=== PATIENT | female | born 2000 | race Caucasian/White ===

== ENCOUNTER → 2023-02-26 08:13 | Outpatient (CLI) | payer OTHER, SELFPAY ==
[2023-02-26 09:36] LABS: HCG,Quantitative 14 mIU/ml (0-5.42)
[2023-02-27 11:08] LABS: Progesterone 3.3 ng/mL (.)
== END ==
PROVIDERS: PCP Nurse Practitioner; Visit Provider Obstetrics & Gynecology
DX: Z34.91 Encounter for supervision of normal pregnancy, unspecified, first trimester (principal)
CPT/HCPCS: 36415; 84144; 84702; 86850

== ENCOUNTER 2023-02-27 07:50 | Outpatient (CLI) | payer OTHER, SELFPAY ==
[2023-02-27 14:35] VITALS: BP 114/61; PULSE 96; RESP 18; TEMP 36.8; O2SAT 100
== END 2023-02-27 14:35 | disposition home or self-care (01) ==
LOC: INF 07:50
PROVIDERS: PCP Nurse Practitioner; Visit Provider Obstetrics & Gynecology
DX: O36 Maternal care for other fetal problems; Z31.82 Encounter for Rh incompatibility status
CPT/HCPCS: 96372; J2790

== ENCOUNTER → 2023-03-02 13:35 | Outpatient (CLI) | payer OTHER, SELFPAY ==
[2023-03-02 16:16] LABS: HCG,Quantitative < 2 mIU/ml (0-5.42)
== END ==
PROVIDERS: PCP Nurse Practitioner; Visit Provider Obstetrics & Gynecology
DX: Z32.00 Encounter for pregnancy test, result unknown (principal)
CPT/HCPCS: 36415; 84702

== ENCOUNTER 2023-03-04 19:58 | Emergency (ER) | payer OTHER, SELFPAY ==
[2023-03-04 19:58] VITALS: BP 118/74; PULSE 121; RESP 16; TEMP 38.5; O2SAT 98; BMI 23.6
--- NOTE | 2023-03-04 20:03 | PC.NURSE ---
urine specimen sent to lab.
--- NOTE | 2023-03-04 20:17 | CT_ITS ---
PROCEDURE INFORMATION: Exam: CT Abdomen And Pelvis With Contrast Exam date and time: 03/04/2023 9:14 PM Age: 22 years old Clinical indication: Fever; Additional info: Fever, recent loss, no bleeding TECHNIQUE: Imaging protocol: Computed tomography of the abdomen and pelvis with contrast. Radiation optimization: All CT scans at this facility use at least one of these dose optimization techniques: automated exposure control; mA and/or kV adjustment per patient size (includes targeted exams where dose is matched to clinical indication); or iterative reconstruction. Contrast material: ISOVUE; Contrast volume: 75 ml; Contrast route: IV; REPORTING DATA: Count of CT and Cardiac NM exams in prior 12 months: This patient has received 0 known CTs and 0 known cardiac nuclear medicine studies in the 12 months prior to the current study. COMPARISON: CT ANGIO CHEST 07/11/2019 8:35 AM FINDINGS: Liver: Normal. No mass. Gallbladder and bile ducts: Normal. No calcified stones. No ductal dilation. Pancreas: Normal. No ductal dilation. Spleen: Normal. No splenomegaly. Adrenal glands: Normal. No mass. Kidneys and ureters: Normal. No hydronephrosis. Stomach and bowel: Unremarkable. No obstruction. No mucosal thickening. Appendix: No evidence of appendicitis. Intraperitoneal space: Unremarkable. No free air. No significant fluid collection. Vasculature: Unremarkable. No abdominal aortic aneurysm. Lymph nodes: Unremarkable. No enlarged lymph nodes. Urinary bladder: Unremarkable as visualized. Reproductive: Unremarkable as visualized. Bones/joints: Unremarkable. No acute fracture. Soft tissues: Unremarkable. IMPRESSION: No acute intra-abdominal findings.
--- NOTE | 2023-03-04 20:23 | HMH.EDGENADL ---
Discharge Plan Disposition Patient Disposition: Home, Self-Care Condition: Good Prescriptions Prescriptions: New polyethylene glycol 3350 [Miralax] 17 gram/dose powder 17 g PO DAILY PRN (Reason: constipation) Qty: 238 0RF No Action progesterone micronized [Prometrium] 100 mg capsule 100 mg vaginal DAILY 21 Days Qty: 30 2RF Rx Instructions: Please place one tablet vaginally each night until 12 weeks gestation prednisone 50 MG tablet 50 mg PO DAILY Qty: 5 0RF Rx Instructions: Take with food dextromethorphan-guaifenesin 1 EACH tablet extended release 12 hr 1 tab PO BID PRN (Reason: Cough) Qty: 20 0RF sulfamethoxazole-trimethoprim 1 EACH tablet 1 each PO BID Qty: 6 0RF Referrals Follow up/Referrals: Delia Rasheed APRN [Primary Care Provider] - See instructions Activity Restrictions/Add. Instructions Additional Instructions/Restrictions: You were evaluated in the emergency department today. Please coal picker your prescription at the pharmacy and use as needed for a bowel cleanout. I recommend taking 4 capfuls MiraLAX on day 1. Then after that, use 1-2 capfuls per day to titrate to soft stools. Take Tylenol and ibuprofen at home as needed for pain or fever. Return to the emergency department for new or worsening symptoms. Clinical Impressions Clinical Impression: Acute viral syndrome, Constipation Stand Alone Forms Stand Alone Forms: Work/School Release Instructions Patient Instructions: DI for Constipation, DI for Acute Abdominal Pain, DI for Viral Syndrome Discharge ED Provider: Suzan López General Adult HPI General Chief complaint: Abdominal Pain Stated complaint: Fever/chills, bilateral side pain Time Seen by Provider: 03/04/23 20:17 Mode of Arrival: Ambulatory Source of Information: Patient Limitations: No Limitations Description of Symptoms (Recalled from ER Triage Doc. by RN): pt reports she was diagnosed with miscarriage last week, has not began bleeding, having right lower abd pain, fever, states she took a home covid test that was negative. fever started today History of Present Illness HPI narrative: This patient is a 22-year-old female who denies significant past medical history presenting to the emergency department for evaluation with concern for fever and abdominal pain. She states that she was diagnosed with a miscarriage last week after her hCG became undetectable on lab evaluation. She denies any previous ultrasound. States that today, she started having lower abdominal pain and fever. She denies any headache, sore throat, cough, congestion, chest pain, shortness of breath, dysuria, polyuria, abnormal vaginal discharge, or other concerns. She does admit to nausea but no vomiting. She also states that she has been constipated. She states that she has had a miscarriage in the past but has had vaginal bleeding right after. She has not had any vaginal bleeding with this. Related Data Previous Rx's Medication Instructions Recorded dextromethorphan-guaifenesin ER 60 1 tab PO BID PRN Cough #20 tabs 07/11/19 mg-1,200 mg tab,extend release,12hr prednisone 50 mg tablet 50 mg PO DAILY #5 tabs 07/11/19 sulfamethoxazole 800 1 each PO BID #6 tabs 07/11/19 mg-trimethoprim 160 mg tablet progesterone micronized 100 mg 100 mg vaginal DAILY 21 days #30 02/27/23 capsule (Prometrium) caps polyethylene glycol 3350 17 17 g PO DAILY PRN constipation 03/04/23 gram/dose oral powder (Miralax) #238 grams Allergies Allergy/AdvReac Type Severity Reaction Status Date / Time amoxicillin Allergy Verified 07/11/19 08:13 Penicillins Allergy Verified 07/11/19 08:13 [facility] Disclaimer: The information contained in this section may have been updated after the patient was seen, as this information can be updated by other users. Social History Smoking Status: Current every day smoker alcohol intake: never
[2023-03-04 20:29] LABS: Microscopic, Urine URINE MICROSCOPIC (MICROSCOPIC)
[2023-03-04 20:30] VITALS: BP 119/71; PULSE 112; RESP 20; O2SAT 100
[2023-03-04 20:37] LABS: Lactic Acid 1.4 mmol/L (0.7-2.1)
[2023-03-04 20:38] LABS: Alanine Aminotransferase 33 U/L (12-78); Albumin Level 4.5 g/dl (3.5-5.0); Albumin/Globulin Ratio 1.3 (1.1-1.8); Alkaline Phosphatase 88 U/L (38-126); Aspartate Amino Transferase 33 U/L (14-36); Bilirubin,Total 0.2 mg/dl (0.2-1.3); Blood Urea Nitrogen 8 mg/dl (7-17); Carbon Dioxide 24 mmol/L (22.0-30.0); Chloride 100 mmol/L (98-107); Creatinine Clearance Estimated 125 mL/min (50-200); Estimated Glomerular Filt Rate 89 ml/min (>60); GFR (African American) 108 ML/MIN (>60); Globulin 3.6 g/dL (1.3-3.2); Glucose 106 mg/dl (74-100); Sodium 136 mmol/L (136-145); Total Protein,Serum 8.1 g/dl (6.3-8.2)
[2023-03-04 20:41] LABS: Basophils % 0.4 % (0.1-2.0); Eosinophils # 0.1 K/mm3 (0.0-0.4); Eosinophils % 0.9 % (0.1-12.0); Hematocrit 47.7 % (37.0-47.0); Hemoglobin 15.1 g/dL (12.2-16.2); Lymphocytes # 1.1 K/mm3 (0.7-4.5); Lymphocytes % 14.7 % (10-50); Mean Corpuscular HGB Conc 31.7 g/dL (31.8-35.4); Mean Corpuscular Hemoglobin 28.8 pg (27.0-31.2); Mean Corpuscular Volume 90.8 fl (81-99); Mean Platelet Volume 8.5 fl (7.4-10.4); Monocytes # 0.4 K/mm3 (0.1-1.0); Monocytes % 5.5 % (1.7-9.3); Neutrophils # 5.9 K/mm3 (1.8-7.8); Neutrophils % 78.5 % (37.0-80.0); Platelet Count 253 K/mm3 (142-424); Red Blood Count 5.25 M/mm3 (4.20-5.40); Red Cell Distribution Width 12.5 % (11.5-17.5); White Blood Count 7.5 K/mm3 (4.8-10.8)
[2023-03-04 20:48] LABS: Appearance,Urine CLEAR (Clear); Bilirubin,Urine Negative (Negative); Blood, Urine TRACE-I (Negative); Color,Urine YELLOW (Yellow); Glucose,Urine (UA) Negative (Negative); Ketones,Urine Negative (Negative); Leukocyte Esterase,Urine TRACE (Negative); Nitrate,Urine Negative (Negative); PH,Urine 7.5 (5.0-8.5); Protein,Urine Negative (Negative); Urobilinogen,Urine 0.2 EU/dl (0.2)
[2023-03-04 20:53] VITALS: BP 134/90; PULSE 61; RESP 14; TEMP 36.6; O2SAT 100
[2023-03-04 21:00] VITALS: BP 117/72; PULSE 117; RESP 18; O2SAT 100
[2023-03-04 21:04] LABS: HCG,Quantitative < 2 mIU/ml (0-5.42)
[2023-03-04 22:34] LABS: RBC,Urine Occasional #/hpf (0-3); WBC,Urine Occasional #/hpf (0-3)
--- NOTE | 2023-03-07 22:47 | EXP.EVENT.NO ---
I was notified of positive blood cultures from 03/05/2023. They came back positive today for gram-positive cocci in clusters and budding yeast. I called the patient and spoke with her. She states that she was diagnosed with strep recently and is already feeling much better on oral antibiotics. She states that she has not been having daily fevers. I advised her that bacteria in the bloodstream would have to be treated with IV antibiotics, and I recommended that she come to the emergency department for reassessment. She states that she is aware and thanks us for the recommendation.
== END 2023-03-04 23:25 | disposition home or self-care (01) ==
PROVIDERS: Emergency Provider Emergency Medicine; PCP Nurse Practitioner
DX: R10.31 Right lower quadrant pain (principal); R50.9 Fever, unspecified; K59.00 Constipation, unspecified; B34.9 Viral infection, unspecified; R11.0 Nausea; F17.200 Nicotine dependence, unspecified, uncomplicated
CPT/HCPCS: 74177; 80053; 81001; 83605; 84702; 85025; 87040; 96361; 96374; 96375; 99285; J0131; J2405; Q9967

== ENCOUNTER 2023-03-05 09:31 | Emergency (ER) | payer OTHER, SELFPAY ==
[2023-03-05 09:42] VITALS: BMI 23.6
[2023-03-05 09:43] VITALS: BP 129/86; PULSE 104; RESP 17; TEMP 37.3; O2SAT 99; BMI 23.6
[2023-03-05 10:00] VITALS: BP 138/80; PULSE 96; O2SAT 99
--- NOTE | 2023-03-05 10:11 | US_ITS ---
PROCEDURE INFORMATION: Exam: US Pelvis, Transvaginal Exam date and time: 03/05/2023 10:41 AM Age: 22 years old Clinical indication: Other: Fever; Prior surgery; Surgery date: 6+ months; Surgery type: ; Additional info: Previous pos hcg, never spotted or expelled LABS AND CLINICAL REPORTS: Last menstrual period start date: 02/12/2023 TECHNIQUE: Imaging protocol: Real-time transvaginal pelvic ultrasound with image documentation. Transvaginal imaging was used for better evaluation of the endometrium, adnexa, and/or cervix. COMPARISON: CT ABDOMEN PELVIS W CON 03/04/2023 9:14 PM FINDINGS: Uterus: Endometrium measures 3.4 mm. No focal myometrial lesions. No abnormal Doppler. No intrauterine . Right ovary/adnexa: Right ovary measures 3.43 cm x 2.09 cm x 1.59 cm. Right ovarian volume is 5.97 mL. Ovarian stroma is unremarkable. There is normal arterial inflow and venous outflow. Left ovary/adnexa: Left ovary measures 2.71 cm x 2.15 cm x 1.24 cm. Ovarian stroma is unremarkable. There is normal arterial inflow and venous outflow. Left ovarian volume is 3.78 mL. Intraperitoneal space: No free fluid. IMPRESSION: In the setting of a positive test, sonographic findings are consistent with of unknown location. Considerations include a normal intrauterine too early to visualize, completed miscarriage, and ectopic . Otherwise, unremarkable evaluation of the uterus and adnexa Recommendation: Recommend correlation with beta hCG values and close clinical follow-up with repeat sonography as clinically warranted
--- NOTE | 2023-03-05 10:13 | HMH.EDGENADL ---
Discharge Plan Disposition Patient Disposition: Home, Self-Care Chief Complaint: Fever Prescriptions Prescriptions: No Action progesterone micronized [Prometrium] 100 mg capsule 100 mg vaginal DAILY 21 Days Qty: 30 2RF Rx Instructions: Please place one tablet vaginally each night until 12 weeks gestation polyethylene glycol 3350 [Miralax] 17 gram/dose powder 17 g PO DAILY PRN (Reason: constipation) Qty: 238 0RF prednisone 50 MG tablet 50 mg PO DAILY Qty: 5 0RF Rx Instructions: Take with food dextromethorphan-guaifenesin 1 EACH tablet extended release 12 hr 1 tab PO BID PRN (Reason: Cough) Qty: 20 0RF sulfamethoxazole-trimethoprim 1 EACH tablet 1 each PO BID Qty: 6 0RF Referrals Follow up/Referrals: Delia Rasheed APRN [Primary Care Provider] - See instructions Clinical Impressions Clinical Impression: Pelvic pain Discharge ED Provider: Remy Duran General Adult HPI General Chief complaint: Fever Stated complaint: fever body chills, back pain, miscarrage Time Seen by Provider: 03/05/23 09:50 Mode of Arrival: Ambulatory Source of Information: Patient Limitations: No Limitations Description of Symptoms (Recalled from ER Triage Doc. by RN): 22 yo F presents to ED with c/o fever, chills, bilateral flank pain, back pain. pt reports that she was seen in ED yesterday but symptoms continue. pt was diagnosed with confirmed miscarriage 02/24/23. pt reports no bleeding or spotting. symptoms began 2 days after confirmation. pts seen [facility] with obgyn History of Present Illness HPI narrative: Patient is a 22-year-old female who presents to the emergency department for evaluation of low pelvic pain and back pain. History is obtained by patient at bedside. She states that her last menstrual period was around February 12. She presented to [facility] where she was reportedly diagnosed with a miscarriage where hCGs were previously positive at 13 but now undetectably low. Patient denies vaginal bleeding or discharge. She states that she has had a previous spontaneous which she had cramping and passage of clots. However she has not had any vaginal bleeding since her diagnosis of . She presented to the emergency room last night where patient underwent work-up with hematologic labs and CT imaging was unremarkable and she was ultimately discharged home. After returning home patient has since developed progressive worsening low pelvic pain and back pain, fever Tmax 102 degrees at home causing her to present here for continued evaluation. Related Data Previous Rx's Medication Instructions Recorded dextromethorphan-guaifenesin ER 60 1 tab PO BID PRN Cough #20 tabs 07/11/19 mg-1,200 mg tab,extend release,12hr prednisone 50 mg tablet 50 mg PO DAILY #5 tabs 07/11/19 sulfamethoxazole 800 1 each PO BID #6 tabs 07/11/19 mg-trimethoprim 160 mg tablet progesterone micronized 100 mg 100 mg vaginal DAILY 21 days #30 02/27/23 capsule (Prometrium) caps polyethylene glycol 3350 17 17 g PO DAILY PRN constipation 03/04/23 gram/dose oral powder (Miralax) #238 grams Allergies Allergy/AdvReac Type Severity Reaction Status Date / Time amoxicillin Allergy Verified 03/05/23 09:46 Penicillins Allergy Verified 03/05/23 09:46 [facility] Disclaimer: The information contained in this section may have been updated after the patient was seen, as this information can be updated by other users. Social History Smoking Status: Current every day smoker alcohol intake: never current occupational status: employed Travel in the last 8 weeks: None household members: spouse ROS Obtained: Yes Systems reviewed as appropriate & no additional complaints except as documented Physical Exam General General appearance: alert and in no apparent distress Head Head exam: atraumatic and normocephalic Eye Eye exam: Present
[2023-03-05 10:49] LABS: Basophils % 0.7 % (0.1-2.0); Eosinophils % 0.2 % (0.1-12.0); Hematocrit 46.3 % (37.0-47.0); Hemoglobin 14.7 g/dL (12.2-16.2); Lymphocytes # 1.2 K/mm3 (0.7-4.5); Lymphocytes % 21.6 % (10-50); Mean Corpuscular HGB Conc 31.7 g/dL (31.8-35.4); Mean Corpuscular Volume 91.6 fl (81-99); Mean Platelet Volume 8.6 fl (7.4-10.4); Monocytes # 0.5 K/mm3 (0.1-1.0); Monocytes % 8.2 % (1.7-9.3); Neutrophils # 3.9 K/mm3 (1.8-7.8); Neutrophils % 69.3 % (37.0-80.0); Platelet Count 198 K/mm3 (142-424); Red Blood Count 5.05 M/mm3 (4.20-5.40); Red Cell Distribution Width 12.6 % (11.5-17.5); White Blood Count 5.7 K/mm3 (4.8-10.8)
--- NOTE | 2023-03-05 11:00 | PC.NURSE ---
Rounded on patient; pt currently in [place] at this time. Mother at BS and has no needs.
[2023-03-05 11:03] LABS: Chloride 104 mmol/L (98-107); Sodium 137 mmol/L (136-145)
[2023-03-05 11:04] LABS: Potassium 4.2 mmoL/L (3.5-5.1)
[2023-03-05 11:06] LABS: Alanine Aminotransferase 34 U/L (12-78); Albumin Level 3.9 g/dl (3.5-5.0); Albumin/Globulin Ratio 1.2 (1.1-1.8); Alkaline Phosphatase 100 U/L (38-126); Anion Gap 10.2 mEq/L (5-15); Aspartate Amino Transferase 32 U/L (14-36); Bilirubin,Total 0.2 mg/dl (0.2-1.3); Blood Urea Nitrogen 9 mg/dl (7-17); Carbon Dioxide 27 mmol/L (22.0-30.0); Creatinine Clearance Estimated 143 mL/min (50-200); Estimated Glomerular Filt Rate 104 ml/min (>60); GFR (African American) 125 ML/MIN (>60); Globulin 3.2 g/dL (1.3-3.2); Total Protein,Serum 7.1 g/dl (6.3-8.2)
[2023-03-05 11:07] LABS: Calcium 8.8 mg/dl (8.4-10.2); Glucose 82 mg/dl (74-100)
[2023-03-05 11:30] VITALS: BP 122/66; PULSE 95; O2SAT 97
[2023-03-05 11:38] LABS: HCG,Quantitative < 2 mIU/ml (0-5.42)
--- NOTE | 2023-03-05 11:42 | PC.NURSE ---
Dr. Duran speaking with Dr. Serrato, DRAMA PROFESSOR
--- NOTE | 2023-03-05 11:53 | PC.NURSE ---
Dr Joshi is going to come and see pt
[2023-03-05 12:03] LABS: Coronavirus 19, PCR Not Detected (NotDetected); Influenza A, PCR Not Detected (NotDetected); Influenza B, PCR Not Detected (NotDetected)
--- NOTE | 2023-03-05 13:00 | PC.NURSE ---
dr olson at bedside
[2023-03-05 13:16] VITALS: BP 122/66; PULSE 95; RESP 16; TEMP 37.3
[2023-03-06 23:56] LABS: Neisseria gonorrhoeae, NAA Negative (Negative)
--- NOTE | 2023-03-07 22:49 | PC.NURSE ---
Dr López on phone speaking with pt and recommends re evaluation but pt states she feels better and doesn't want to be re evaluated.
== END 2023-03-05 13:17 | disposition home or self-care (01) ==
PROVIDERS: Emergency Provider Emergency Medicine; PCP Nurse Practitioner
DX: R10.2 Pelvic and perineal pain (principal); R00.0 Tachycardia, unspecified; O03.9 Complete or unspecified spontaneous abortion without complication
CPT/HCPCS: 76830; 80053; 84702; 85025; 87040; 87186; 87491; 87591; 87636; 96361; 96374; 96375; 99285; J0131; J2405

== ENCOUNTER 2023-03-05 21:15 | Emergency (ER) | payer OTHER, SELFPAY ==
[2023-03-05 21:18] VITALS: BP 119/73; PULSE 116; RESP 16; TEMP 38.6; O2SAT 97; BMI 25.1
[2023-03-05 22:18] VITALS: BP 0/0; PULSE 0; RESP 0; TEMP -17.7; TEMP 0; O2SAT 0
--- NOTE | 2023-03-05 22:18 | HMH.EDGENADL ---
Discharge Plan Disposition Patient Disposition: Left Without Being Seen Discharge ED Provider: Suzan López General Adult HPI General Chief complaint: Fever Stated complaint: pain in upper neck Time Seen by Provider: 03/05/23 22:14 Mode of Arrival: Ambulatory Source of Information: Patient Limitations: No Limitations Description of Symptoms (Recalled from ER Triage Doc. by RN): pt c/o sore throat, LLQ pain, fever x several days and was seen earlier today in the er. Related Data Previous Rx's Medication Instructions Recorded dextromethorphan-guaifenesin ER 60 1 tab PO BID PRN Cough #20 tabs 07/11/19 mg-1,200 mg tab,extend release,12hr prednisone 50 mg tablet 50 mg PO DAILY #5 tabs 07/11/19 sulfamethoxazole 800 1 each PO BID #6 tabs 07/11/19 mg-trimethoprim 160 mg tablet progesterone micronized 100 mg 100 mg vaginal DAILY 21 days #30 02/27/23 capsule (Prometrium) caps polyethylene glycol 3350 17 17 g PO DAILY PRN constipation 03/04/23 gram/dose oral powder (Miralax) #238 grams Allergies Allergy/AdvReac Type Severity Reaction Status Date / Time amoxicillin Allergy Verified 03/05/23 09:46 Penicillins Allergy Verified 03/05/23 09:46 [facility] Disclaimer: The information contained in this section may have been updated after the patient was seen, as this information can be updated by other users. Social History Smoking Status: Current every day smoker alcohol intake: never current occupational status: employed Travel in the last 8 weeks: None household members: spouse Medical Decision Making Vital Signs: 03/05/23 21:18 03/05/23 22:18 Temperature 101.4 F H 0 F L Temperature Source Oral Pulse Rate 0 L Pulse Rate [Right] 116 H Respiratory Rate 16 0 L Blood Pressure 0/0 L Blood Pressure [Right Arm] 119/73 Blood Pressure Mean [Right Arm] 88 02 Sat by Pulse Oximetry 97 Orders (Tests/Meds): ORDERS Category Date Time Status Complete Blood Count Auto Diff Stat Lab 03/05/23 22:14 Ordered Comprehensive Metabolic Panel Stat Lab 03/05/23 22:14 Ordered Full Resp Panel w/COVID ([facility]) Routine Lab 03/05/23 22:14 Ordered Procalcitonin Stat Lab 03/05/23 22:14 Ordered
== END 2023-03-05 22:19 | disposition left against medical advice (07) ==
PROVIDERS: Emergency Provider Emergency Medicine; PCP Nurse Practitioner
DX: Z53.21 Procedure and treatment not carried out due to patient leaving prior to being seen by health care provider (principal)
CPT/HCPCS: 99211

== ENCOUNTER 2024-10-10 12:26 | Outpatient (CLI) | payer OTHER, SELFPAY ==
[2024-10-10 13:37] LABS: HCG,Quantitative 1021 mIU/ml (0-5.42)
[2024-10-11 08:25] LABS: Progesterone 8.4 ng/mL (.)
== END 2024-10-10 23:59 | disposition home or self-care (01) ==
LOC: LAB 12:26
PROVIDERS: PCP Nurse Practitioner; Visit Provider Obstetrics & Gynecology
DX: Z32.01 Encounter for pregnancy test, result positive (principal)
CPT/HCPCS: 36415; 84144; 84702

== ENCOUNTER 2024-10-17 10:40 | Outpatient (CLI) | payer OTHER, SELFPAY ==
[2024-10-17 12:15] LABS: HCG,Quantitative 17293 mIU/ml (0-5.42)
== END 2024-10-17 23:59 | disposition home or self-care (01) ==
LOC: LAB 10:40
PROVIDERS: PCP Nurse Practitioner; Visit Provider Obstetrics & Gynecology
DX: Z32.01 Encounter for pregnancy test, result positive (principal)
CPT/HCPCS: 36415; 84702

== ENCOUNTER 2024-10-17 17:04 | Emergency (ER) | payer OTHER, SELFPAY ==
[2024-10-17 17:12] VITALS: BP 125/64; PULSE 81; RESP 18; TEMP 36.8; O2SAT 100; BMI 24.2
--- NOTE | 2024-10-17 17:18 | HMH.EDGENADL ---
Discharge Plan Disposition Patient Disposition: Home, Self-Care Condition: Good Prescriptions Prescriptions: No Action progesterone micronized [Prometrium] 200 mg capsule 200 mg vaginal QHS 30 Days Qty: 30 2RF Referrals Follow up/Referrals: Delia Rasheed APRN [Primary Care Provider] - See instructions Activity Restrictions/Add. Instructions Additional Instructions/Restrictions: You need to follow-up with your SHIPPING ORDER CLERK within 48 hours. If you have continued new or worsening signs or symptoms follow-up sooner return to the ER as needed. Clinical Impressions Clinical Impression: Vaginal bleeding during Print Language Print Language: Thai Discharge ED Provider: Patel Marrero General Adult HPI <AURA Coy - Last Filed: 10/17/24 20:49> General Chief complaint: Vaginal Bleeding Stated complaint: and bleeding,does not know how far along Time Seen by Provider: 10/17/24 17:18 Mode of Arrival: Ambulatory Source of Information: Patient Description of Symptoms (Recalled from ER Triage Doc. by RN): Pt presents for evaluation of vaginal bleeding that started today. Pt states the bleeding is spotting in nature. LMP unknown. Pt states this is her 4th and has had 1 miscarriage. History of Present Illness HPI narrative: Patient presents for evaluation of bleeding during . Patient began having spotting today. She knows that she is but she does not know how long. She has had 2 hCGs most recent 1 this morning. She does not report any abdominal cramping or pain chest pain shortness of breath fever chills hemoptysis hematochezia melena nausea vomit diarrhea. She is O- and antibody negative Related Data Previous Rx's ?Medication ?Instructions ?Recorded progesterone micronized 200 mg 200 mg vaginal QHS 30 days #30 caps 10/11/24 capsule (Prometrium) Allergies Allergy/AdvReac Type Severity Reaction Status Date / Time amoxicillin Allergy Verified 09/17/23 10:14 Penicillins Allergy Verified 09/17/23 10:14 PFSH <AURA Coy - Last Filed: 10/17/24 20:49> [facility] Disclaimer: The information contained in this section may have been updated after the patient was seen, as this information can be updated by other users. Medical History (Updated 10/17/24 @ 19:24 by AURA Coy) Ovarian cyst Surgical History (Updated 09/17/23 @ 10:21 by TAISHA Stringer) Hx of section Family History (Updated 09/17/23 @ 10:21 by TAISHA Stringer) Grandmother Cancer Endometriosis Other Diabetes Hypertension No significant family history Thyroid disorder Social History Smoking Status: Never smoker alcohol intake: never current occupational status: employed Travel in the last 8 weeks?: None household members: spouse Have you lived/traveled outside US in past 30 days?: No Contact w/someone who lives/traveled outside US past 30 days?: No Exposure to someone with infectious disease in past 14 days?: No Do you have a fever (greater than 100.4 F or 38 C)?: No Have you tested positive for COVID-19?: No Exposed to someone with COVID-19 in past 14 days?: No Do you have a sore throat?: No Do you have a cough?: No Do you have any weakness?: No Do you have any diarrhea?: No Are you experiencing any unusual bleeding?: No Do you have any muscle aches/pain?: No Do you have any abdominal pain?: No Are you experiencing loss of taste or smell?: No Other Medical History Have you received the Flu Vaccine for this season: No Have you received the Pneumonia Vaccine: No <AURA Coy - Last Filed: 10/17/24 20:49> ROS Obtained: Yes Systems reviewed as appropriate & no additional complaints except as documented Physical Exam <AURA Coy - Last Filed: 10/17/24 20:49> General General appearance: alert and in no apparent distress ENT ENT exam: Present mucous membranes moist Respiratory Respiratory exam: Present normal lung sounds bilaterally Cardiovascular Cardiovascular exam: Present regular rate Neurological Exam Neurological exam: Present alert and oriented X3 Medical Decision Making <AURA Coy - Last Filed: 10/17/24 20:49> Medical Records Medical records reviewed: Yes I reviewed the patient's medical records. Screening: Per USPSTF and CDC recommendations, given the prevalence of disease in our region, it is our hospital?s policy to screen for HIV and viral Hepatitis for all patients aged 18 and over and those with ongoing risk factors. William Inquiry Pt receiving controlled substance: No Vital Signs: 10/17/24 17:12 10/17/24 19:27 Temperature 98.3 F 98.3 F Temperature Source Oral Pulse Rate 68 Pulse Rate [Right] 81 Respiratory Rate 18 18 Blood Pressure 118/75 Blood Pressure [Right Arm] 125/64 Blood Pressure Mean [Right Arm] 84 Blood Pressure Source [Right Arm] Automatic Cuff 02 Sat by Pulse Oximetry 100 Oxygen Delivery Method Room Air Room Air Lab Data Lab results reviewed: Yes I reviewed the patient's lab results. Lab Results 10/17/24 17:53: Urine Color Yellow, Urine Appearance Clear, Urine pH 7.5, Ur Specific [place] 1.020, Urine Protein 2+ A, Urine Glucose (UA) Negative, Urine Ketones Negative, Urine Blood 3+ A, Urine Nitrate Negative, Urine Bilirubin 1+ A, Urine Urobilinogen 2.0, Ur Leukocyte Esterase Trace, Urine RBC 5-10, Urine WBC 3-5, Ur Squamous Epith Cells 5-10, Urine Bacteria Trace Orders (Tests/Meds): ED MEDICATIONS Discontinued Medications Generic Name Dose Route Start Last Admin Trade Name Freq PRN Reason Stop Dose Admin Rho Immune Globulin 300 mcg 10/17/24 18:13 10/17/24 18:52 Rho(D) Immune Globulin 1,500 Unit (300mcg) Syringe IM 10/17/24 18:14 300 mcg ONCE ONE Administration ORDERS Category Date Time Status Urinalysis and Microscopic Stat Lab 10/17/24 17:53 Completed US OB transvaginal Stat Ultrasound 10/17/24 17:27 Completed Medical Decision Narrative: In summary patient is a 23-year-old female who presents to the emergency department for evaluation of vaginal bleeding during . Patient is hemodynamically stable upon arrival, afebrile. Physical exam is remarkable for no abdominal tenderness on palpation no rebound or guarding no rigidity normal bowel sounds.. Differential diagnosis includes threatened versus other source of vaginal bleeding. Initial workup will be conducted with urinalysis and transvaginal ultrasound and patient's hCG did a reviewed from earlier today is 17,000 293. Initial interventions was RhoGAM as patient is O- and antibody negative. Initial workup reviewed by me urinalysis is bland and transvaginal ultrasound reveals a viable intrauterine of approximately 6 weeks gestation however no pole was seen nor heartbeat is likely too early.. Given this patient is appropriate for discharge with follow-up with SHIPPING ORDER CLERK within 48 hours and strict return precautions. Patient verbalized understanding and agreement. <Patel Marrero MD - Last Filed: 10/17/24 21:22> Vital Signs: 10/17/24 17:12 10/17/24 19:27 Temperature 98.3 F 98.3 F Temperature Source Oral Pulse Rate 68 Pulse Rate [Right] 81 Respiratory Rate 18 18 Blood Pressure 118/75 Blood Pressure [Right Arm] 125/64 Blood Pressure Mean [Right Arm] 84 Blood Pressure Source [Right Arm] Automatic Cuff 02 Sat by Pulse Oximetry 100 Oxygen Delivery Method Room Air Room Air Lab Data Lab Results 10/17/24 17:53: Urine Color Yellow, Urine Appearance Clear, Urine pH 7.5, Ur Specific [place] 1.020, Urine Protein 2+ A, Urine Glucose (UA) Negative, Urine Ketones Negative, Urine Blood 3+ A, Urine Nitrate Negative, Urine Bilirubin 1+ A, Urine Urobilinogen 2.0, Ur Leukocyte Esterase Trace, Urine RBC 5-10, Urine WBC 3-5, Ur Squamous Epith Cells 5-10, Urine Bacteria Trace Orders (Tests/Meds): ED MEDICATIONS Discontinued Medications Generic Name Dose Route Start Last Admin Trade Name [place] PRN Reason Stop Dose Admin Rho Immune Globulin 300 mcg 10/17/24 18:13 10/17/24 18:52 Rho(D) Immune Globulin 1,500 Unit (300mcg) Syringe IM 10/17/24 18:14 300 mcg ONCE ONE Administration ORDERS Category Date Time Status Urinalysis and Microscopic Stat Lab 10/17/24 17:53 Completed US OB transvaginal Stat Ultrasound 10/17/24 17:27 Completed Medical Decision Narrative: In summary patient is a 23-year-old female who presents to the emergency department for evaluation of vaginal bleeding during . Patient is hemodynamically stable upon arrival, afebrile. Physical exam is remarkable for no abdominal tenderness on palpation no rebound or guarding no rigidity normal bowel sounds.. Differential diagnosis includes threatened versus other source of vaginal bleeding. Initial workup will be conducted with urinalysis and transvaginal ultrasound and patient's hCG did a reviewed from earlier today is 17,000 293. Initial interventions was RhoGAM as patient is O- and antibody negative. Initial workup reviewed by me urinalysis is bland and transvaginal ultrasound reveals a viable intrauterine of approximately 6 weeks gestation however no pole was seen nor heartbeat is likely too early.. Given this patient is appropriate for discharge with follow-up with SHIPPING ORDER CLERK within 48 hours and strict return precautions. Patient verbalized understanding and agreement. JOSIAS attestation I was consulted by the JOSIAS, and we discussed the complexity of problems being addressed. I approved the treatment and management plan for this patient's care in the emergency department, thus performing a substantial portion of the medical decision making. Also evaluated the patient at bedside. Patel Marrero MD Critical Care <AURA Coy - Last Filed: 10/17/24 20:49> Critical Care Time Critical Care Time: No
--- NOTE | 2024-10-17 17:27 | US_ITS ---
PROCEDURE INFORMATION: Exam: US , Transvaginal Exam date and time: 10/17/2024 5:48 PM Age: 23 years old Clinical indication: Lmp or gestational age (in weeks): Unkown; Other: Bleeding; ; Additional info: Bleeding, positive hcg TECHNIQUE: Imaging protocol: Real-time transvaginal obstetrical ultrasound of the maternal pelvis with image documentation. Transvaginal imaging was used for better evaluation of the fetus, adnexa, and/or cervix. COMPARISON: US TRANSVAGINAL 03/05/2023 10:41 AM FINDINGS: Gestation: Yolk sac measures 4.2 mm. Intrauterine gestation. BIOMETRY: Gestational age (AUA): 6 w 1 d Estimated due date (AUA): 06/11/2025 Mean sac diameter: 0.91 cm. [place] rump length (CRL): 6.82 mm. EGA (CRL) is 6 w 4 d MATERNAL: Right ovary/adnexa: Right ovary measures 3.7 x 2.2 x 1.7 cm. Probable corpus luteum is noted in the right ovary. Left ovary/adnexa: Multiple follicles are seen in the left ovary. Left ovary measures 2.1 x 2.0 x 1.2 cm. IMPRESSION: Single viable intrauterine gestation, estimated gestational age 6 weeks and 4 days. A pole is not clearly identified and no yolk sac or heartbeat is as of yet identified.
[2024-10-17 17:56] LABS: Microscopic, Urine URINE MICROSCOPIC (MICROSCOPIC)
[2024-10-17 18:01] LABS: Appearance,Urine CLEAR (Clear); Blood, Urine 3+ (Negative); Color,Urine YELLOW (Yellow); Glucose,Urine (UA) Negative (Negative); Ketones,Urine Negative (Negative); Leukocyte Esterase,Urine TRACE (Negative); Nitrate,Urine Negative (Negative); PH,Urine 7.5 (5.0-8.5); Protein,Urine 2+ (Negative)
[2024-10-17 18:22] LABS: Bilirubin,Urine 1+ (Negative)
[2024-10-17 18:23] LABS: Bacteria,Urine Trace /lpf
[2024-10-17] MEDS: RHO(D) IMMUNE GLOBULIN 1,500 UNIT (300MCG) SYRINGE 300 MCG IM (18:52)
[2024-10-17 19:27] VITALS: BP 118/75; PULSE 68; RESP 18; TEMP 36.8; O2SAT 98
== END 2024-10-17 19:27 | disposition home or self-care (01) ==
PROVIDERS: Emergency Provider Student in an Organized Health Care Education/Training Program; PCP Nurse Practitioner
DX: O20.9 Hemorrhage in early pregnancy, unspecified (principal); Z3A.01 Less than 8 weeks gestation of pregnancy
CPT/HCPCS: 76817; 81001; 96372; 99284; J2790

== ENCOUNTER 2024-10-21 10:04 | Outpatient (CLI) | payer OTHER, SELFPAY ==
--- NOTE | 2024-10-21 10:30 | US_ITS ---
PROCEDURE: US OB <= 14 WEEKS FETUS CLINICAL INDICATION: Confirm viability /dates and cardiac activity COMPARISON: US US OB TRANSVAGINAL from 10/17/2024 FINDINGS: Transvaginal sonographic images of the pelvis were obtained. Her last menstrual period is unknown. An intrauterine gestational sac is present with a pole with a crown-rump length of 0.26cm This correlates to a gestational age of 5weeks 6days. OMAR 06/17/2025 heart tones are present with an FHR of 92bpm. Yolk sac is noted. The yolk sac measures 4.3mm. The right ovary is seen and appears normal. There is a corpus luteum present in the right ovary that measures 1.3 cm. The left ovary is seen and appears normal. There is no fluid in the cul-de-sac. IMPRESSION: 1. Viable embryo within the uterine cavity. Heart rate activity is seen. 2. The embryo measures 5 weeks and 6 days and based on this ultrasound OMAR will be 06/17/2025. 3. Both ovaries are seen and appear normal. A corpus luteum is seen in the right ovary. Dictated by: Carlo Goddard MD 10/22/2024 08:39 Carlo Goddard MD in OV 10/22/2024 08:39
[2024-10-21 11:45] LABS: HCG,Quantitative 50858 mIU/ml (0-5.42)
== END 2024-10-21 23:59 | disposition home or self-care (01) ==
LOC: RAD 10:04
PROVIDERS: PCP Nurse Practitioner; Visit Provider Obstetrics & Gynecology
DX: Z36.87 Encounter for antenatal screening for uncertain dates (principal); O46.91 Antepartum hemorrhage, unspecified, first trimester; O36.80X0 Pregnancy with inconclusive fetal viability, not applicable or unspecified; Z3A.01 Less than 8 weeks gestation of pregnancy
CPT/HCPCS: 36415; 76801; 84702

== ENCOUNTER 2024-11-24 13:06 | Emergency (ER) | payer OTHER, SELFPAY ==
[2024-11-24 13:11] VITALS: BP 127/80; PULSE 96; RESP 18; TEMP 36.6; O2SAT 100; BMI 22.1
[2024-11-24 13:33] LABS: Basophils % 0.3 % (0.1-2.0); Eosinophils # 0.1 Kmm3 (0.0-0.4); Eosinophils % 1.3 % (0.1-12.0); Hemoglobin 13.6 g/dL (12.2-16.2); Immature Granulocytes # 0.03 10^3uL; Immature Granulocytes % 0.3 %; Lymphocytes # 3.1 K/mm3 (0.7-4.5); Lymphocytes % 29.8 % (10-50); Mean Corpuscular Hemoglobin 30.3 pg (27.0-31.2); Mean Corpuscular Volume 89.1 fl (81-99); Mean Platelet Volume 10.2 fl (7.4-10.4); Monocytes # 0.4 K/mm3 (0.1-1.0); Monocytes % 4.2 % (1.7-9.3); Neutrophils # 6.7 K/mm3 (1.8-7.8); Neutrophils % 64.1 % (37.0-80.0); Nucleated Red Blood Cells # 0 10^3/uL; Nucleated Red Blood Cells % 0 %; Platelet Count 271 K/mm3 (142-424); Red Blood Count 4.49 M/mm3 (4.20-5.40); Red Cell Distribution Width 11.9 % (11.5-17.5); Red Cell Distribution Width-SD 38.4 fL; White Blood Count 10.4 K/mm3 (4.8-10.8)
[2024-11-24 13:38] LABS: Microscopic, Urine URINE MICROSCOPIC (MICROSCOPIC)
--- NOTE | 2024-11-24 13:44 | PC.NURSE ---
spoke with Fernie Damon in pharmacy regarding Rhogam.
[2024-11-24 13:45] LABS: Appearance,Urine CLEAR (Clear); Bilirubin,Urine Negative (Negative); Blood, Urine Negative (Negative); Color,Urine YELLOW (Yellow); Glucose,Urine (UA) Negative (Negative); Ketones,Urine 1+ (Negative); Leukocyte Esterase,Urine Negative (Negative); Nitrate,Urine Negative (Negative); PH,Urine 6.5 (5.0-8.5); Protein,Urine Negative (Negative)
[2024-11-24 13:46] LABS: Alanine Aminotransferase 22 U/L (12-78); Albumin Level 3.8 g/dl (3.5-5.0); Albumin/Globulin Ratio 1.3 (1.1-1.8); Alkaline Phosphatase 59 U/L (38-126); Aspartate Amino Transferase 24 U/L (14-36); Bilirubin,Total 0.4 mg/dl (0.2-1.3); Blood Urea Nitrogen 5 mg/dl (7-17); Calcium 8.7 mg/dl (8.4-10.2); Carbon Dioxide 24 mmol/L (22.0-30.0); Chloride 106 mmol/L (98-107); Creatinine Clearance Estimated 155 mL/min (50-200); Estimated Glomerular Filt Rate 123 ml/min (>60); GFR (African American) 149 ML/MIN (>60); Globulin 2.9 g/dL (1.3-3.2); Glucose 114 mg/dl (74-100); Sodium 134 mmol/L (136-145); Total Protein,Serum 6.7 g/dl (6.3-8.2)
--- NOTE | 2024-11-24 13:51 | ED_ITS ---
Discharge Plan Disposition Patient Disposition: Home, Self-Care Condition: Good Prescriptions Prescriptions: No Action metronidazole 500 mg tablet 500 mg PO BID 7 Days Qty: 14 0RF azithromycin 500 mg tablet 1,000 mg PO DAILY Qty: 2 0RF Rx Instructions: Take both tablets as soon as you pick them up. promethazine 12.5 mg tablet 12.5 mg PO PRN Patient Comments: TAKE 1 TABLET BY MOUTH EVERY 6 HOURS NEEDED FOR NAUSEA FOR VOMITING ondansetron HCl 8 mg tablet 8 mg PO PRN Patient Comments: TAKE 1 TABLET BY MOUTH THREE TIMES DAILY FOR VOMITING FOR 3 DAYS progesterone micronized [Prometrium] 200 mg capsule 200 mg vaginal QHS 30 Days Qty: 30 2RF Referrals Follow up/Referrals: Apolonia Serrato DO [Staff Physician, URGENT CARE PHYSICIAN ASSISTANT] - See instructions Delia Rasheed APRN [Primary Care Provider, Medical] - See instructions Activity Restrictions/Add. Instructions Additional Instructions/Restrictions: You were evaluated in the emergency department today. It is common to have vaginal bleeding in the first trimester of . It can be completely normal, but heavy bleeding, painful bleeding, or passage of large clots can be signs of more serious problems, such as miscarriage. I recommend pelvic rest, which means no insertion of tampons, avoid sexual intercourse, avoid douching, and avoid vaginal insertion of any objects for 1 week or until you have been cleared by your OB. I recommend rest, so we have provided you with a work excuse. Avoid heavy lifting or strenuous activity until cleared by your OB. Please call your OB to help arrange very close follow-up for this. Return to the emergency department if you experience new or concerning symptoms, such as significant worsening of bleeding beyond that of a normal period, severe abdominal pain, lightheadedness, or passing out. Clinical Impressions Clinical Impression: Vaginal bleeding during Stand Alone Forms Stand Alone Forms: Work/School Release Instructions Patient Instructions: DI for Vaginal Bleeding During Print Language Print Language: [place] Discharge ED Provider: Suzan López General Adult HPI General Chief complaint: Vaginal Bleeding Stated complaint: 10 wks antepartum, bleeding Time Seen by Provider: 11/24/24 13:19 Mode of Arrival: Ambulatory Source of Information: Patient Description of Symptoms (Recalled from ER Triage Doc. by RN): PT presents with evaluation of vaginal bleeding. PT is 10 weeks . Stated she went to the bath room and their was dry blood on underwear, none when she wiped. Stated she is having mild pain. This is third . Denies miscarriages. 2 previous were full term. PT OB provider is Dr. Serrato. History of Present Illness HPI narrative: This patient is a 23-year-old G4, P2 at estimated 10 weeks gestation presenting to the emergency department for evaluation with concern for vaginal bleeding affecting . Patient states that she went to the bathroom at work earlier and noted some blood on her underwear. Since then, she has had very light pink spotting when she wipes. She has some mild cramping, but otherwise no significant localizable pain. No other concerns or complaints noted. She is Rh- status and has had to receive RhoGAM with each . Related Data Home Medications ?Medication ?Instructions ?Recorded ?Confirmed ondansetron HCl 8 mg tablet 8 mg PO PRN 10/18/2411/03 promethazine 12.5 mg tablet 12.5 mg PO PRN 10/18/24 Previous Rx's ?Medication ?Instructions ?Recorded progesterone micronized 200 mg 200 mg vaginal QHS 30 d ays #30 caps 10/11/24 capsule (Prometrium) azithromycin 500 mg tablet 1,000 mg (2 x 500 mg) PO DA REGGIE #2 11/08/24 tabs metronidazole 500 mg tablet 500 mg PO BID 7 days #14 t abs 11/08/24 Allergies Allergy/AdvReac Type Severity Reaction Status Date / Time amoxicillin Allergy Verified 11/03/24 10:50 Penicillins Allergy Verified 11/03/24 10:50 PFSH PFSH Disclaimer: The information contained in this section may have been updated after the patient was seen, as this information can be updated by other users. Medical History Miscarriage Ovarian cyst Surgical History Hx of section Family History Grandmother Cancer Endometriosis Other Diabetes Hypertension No significant family history Thyroid disorder Social History Smoking Status: Never smoker alcohol intake: never current occupational status: employed Travel in the last 8 weeks?: None household members: spouse Have you lived/traveled outside US in past 30 days?: No Contact w/someone who lives/traveled outside US past 30 days?: No Exposure to someone with infectious disease in past 14 days?: No Do you have a fever (greater than 100.4 F or 38 C)?: No Have you tested positive for COVID-19?: No Exposed to someone with COVID-19 in past 14 days?: No Do you have a sore throat?: No Do you have a cough?: No Do you have any weakness?: No Do you have any diarrhea?: No Are you experiencing any unusual bleeding?: No Do you have any muscle aches/pain?: No Do you have any abdominal pain?: No Are you experiencing loss of taste or smell?: No Other Medical History Have you received the Flu Vaccine for this season: No Have you received the Pneumonia Vaccine: No ROS Obtained: Yes All systems reviewed & no additional complaints except as documented Physical Exam General General appearance: alert and in no apparent distress Head Head exam: atraumatic and normocephalic Eye Eye exam: Present normal appearance, PERRL and EOMI ENT ENT exam: Present normal exam, normal oropharynx, mucous membranes moist and normal external ear exam Neck Neck exam: Present normal inspection, full ROM and trachea midline; Absent tenderness Chest Chest inspection: Present normal inspection and symmetric chest wall rise; Absent tenderness Respiratory Respiratory exam: Present normal lung sounds bilaterally; Absent respiratory distress, wheezes, stridor or accessory muscle use Cardiovascular Cardiovascular exam: Present regular rate and normal rhythm Abdominal Exam Abdominal exam: Present soft; Absent distention, tenderness or guarding Extremities Exam Extremities exam: Present normal inspection, full ROM and normal capillary refill; Absent tenderness or edema Back Exam Back exam: Present normal inspection and full ROM; Absent tenderness Neurological Exam Neurological exam: Present alert, oriented X3, CN II-XII intact and normal gait; Absent motor sensory deficit Psychiatric Psychiatric exam: Present normal affect and normal mood Skin Skin exam: Present warm and dry Medical Decision Making Medical Records Medical records reviewed: Yes I reviewed the patient's medical records. Screening: Per USPSTF and CDC recommendations, given the prevalence of disease in our region, it is our hospital?s policy to screen for HIV and viral Hepatitis for all patients aged 18 and over and those with ongoing risk factors. William Inquiry Pt receiving controlled substance: No Vital Signs: 11/24/24 13:11 11/24/24 14:16 11/24/24 14:28 Temperature 97.9 F 97.6 F Temperature Source Oral Oral Pulse Rate 79 74 Pulse Rate [Right] 96 H Respiratory Rate 18 14 Blood Pressure 116/71 116/71 Blood Pressure [Right Arm] 127/80 Blood Pressure Mean [Right Arm] 95 Blood Pressure Source Automatic Cuff Blood Pressure Position Sitting 02 Sat by Pulse Oximetry 100 99 Oxygen Delivery Method Room Air Room Air Lab Data Lab results reviewed: Yes I reviewed the patient's lab results. Lab Results 11/24/24 13:22: WBC 10.4, RBC 4.49, Hgb 13.6, Hct 40.0, MCV 89.1, MCH 30.3, MCHC 34.0, RDW 11.9, Plt Count 271, MPV 10.2, Neut % (Auto) 64.1, Lymph % (Auto) 29.8, [place] % (Auto) 4.2, Eos % (Auto) 1.3, Baso % (Auto) 0.3, Neut # (Auto) 6.7, Lymph # (Auto) 3.1, [place] # (Auto) 0.4, Eos # (Auto) 0.1, Baso # (Auto) 0.0, S odium 134 L, Potassium 3.5, Chloride 106, Carbon Dioxide 24, Anion Gap 7.5, BUN 5 L, Creatinine 0.60, Estimated Creat Clear 155, Estimated GFR 123, Est GFR ( Amer) 149, Glucose 114 H, Calcium 8.7, Total Bilirubin 0.4, AST 24, ALT 22, Alkaline Phosphatase 59, Total Protein 6.7, Albumin 3.8, Globulin 2.9, Albumin/Globulin Ratio 1.3, HCG, Quant [id number] H 11/24/24 13:29: Urine Color Yellow, Urine Appearance Clear, Urine pH 6.5, Ur Specific [place] 1.010, Urine Protein Negative, Urine Glucose (UA) Negative, Urine Ketones 1+, Urine Blood Negative, Urine Nitrate Negative, Urine Bilirubin Negative, Urine Urobilinogen 1.0, Ur Leukocyte Esterase Negative, Urine RBC None, Urine WBC Occasional, Ur Squamous Epith Cells 3-5, Urine Bacteria None 11/24/24 13:22 11/24/24 13:22 Orders (Tests/Meds): ORDERS Category Date Time Status POCUS Point of Care (ER Only) Stat Exams 11/24/24 13:20 Completed Complete Blood Count Auto Diff Stat Lab 11/24/24 13:22 Completed Comprehensive Metabolic Panel Stat Lab 11/24/24 13:22 Completed HCG,Quantitative Stat Lab 11/24/24 13:22 Completed UA [Urinalysis and Microscopic] Stat Lab 11/24/24 13:29 Completed Medical Decision Narrative: In summary, this patient is a 23-year-old G4, P2 at estimated 10 weeks gestation presenting to the Emergency Department for evaluation of vaginal bleeding in the setting of . Differential diagnoses considered include but are not limited to threatened , missed , normal physiologic changes of , placenta previa, placental abruption. Ruling out the most morbid conditions drove assessment. I reviewed patient's past medical records and noted prior OB evaluations for maintenance of health with confirmed IUP on outpatient ultrasound. I also noted prior ED evaluation 10/17/2024 for vaginal bleeding during , at which point patient received RhoGAM. On exam, the patient is lying in bed in no acute distress with benign abdominal exam. Bedside ultrasound was performed which confirms viable IUP with a heart rate of 164 beats per minute. She initially had some blood on her underwear, but bleeding has lightened up significantly with only light spotting at this time. Workup included CBC, CMP, quantitative hCG, urinalysis. Labs obtained are reassuring, ultrasound is reassuring, and bleeding is improving. I had an interactive discussion with Dr. Serrato who does not recommend RhoGAM at this time. She recommends close follow-up outpatient and pelvic rest, which patient was given instructions for. Patient was discharged with strict return precautions Procedures Limited Ultrasound Findings:: Limited OB ultrasound Indication: with vaginal bleeding Identified structures: Uterus, pouch of [place] Findings: Uterus: Definitive IUP, good activity, good heart rate, no free fluid FHR: 164 Cul de sac: Free fluid absent Impression: -IUP: Present, viable - heart rate: 164 -Ectopic : Absent -Free fluid: Absent Images were saved to permanent archive The study was technically adequate CPT Transabdominal: 87648-16 This study was performed by me, and I personally interpreted all images/videos. Based on my clinical judgement, these images were adequate and did not necessitate further imaging. Critical Care Critical Care Time Critical Care Time: No
[2024-11-24 13:58] LABS: WBC,Urine Occasional #/hpf (0-3)
[2024-11-24 14:16] VITALS: BP 116/71; PULSE 79; O2SAT 99
[2024-11-24 14:28] VITALS: BP 116/71; PULSE 74; RESP 14; TEMP 36.4; O2SAT 98
[2024-11-24 14:49] LABS: HCG,Quantitative 58470 mIU/ml (0-5.42)
[2024-11-24 14:50] LABS: Anion Gap 7.5 mEq/L (5-15); Potassium 3.5 mmoL/L (3.5-5.1)
== END 2024-11-24 14:30 | disposition home or self-care (01) ==
PROVIDERS: Emergency Provider Emergency Medicine; PCP Nurse Practitioner
DX: O26.851 Spotting complicating pregnancy, first trimester (principal); Z3A.10 10 weeks gestation of pregnancy
CPT/HCPCS: 80053; 81001; 84702; 85025; 99284

== ENCOUNTER 2024-12-06 14:01 | Outpatient (CLI) | payer OTHER, SELFPAY ==
--- OUTSIDE RECORDS SUMMARY | 2024-10-09 22:01 | XMS_ITS | Encounter Summary ---
Author Organization [facility] [employer] Address [address] [place] [address] Care Team Providers Care Portable Canteen Operator Name Role Phone Moira Barba research coordinator Provider Unava ilable Reason for Visit * Reason Comments Emesis C/o general illness x1 week ( believes dehydrated) two positive tests. Encounter Details Date Type Department Care Team (Late st Contact Info) Description 10/09/2024 10:01 PM EDT - 10/09/2024 11:30 PM EDT Emergency [facility] Emergency Department [address] [place] [phone] Milagros Zabala MD [address] [place] [address] Nausea and vomiting, unspecified vomiting type (Primary Dx); Positive test Discharge Disposition: Home or Self Care Social History Tobacco Use Types Packs/Day Years Used Date Smoking Tobacco: Every Day Cigarettes Smokeless Tobacco: Never Alcohol Use Standard Drinks/Week Comments Never 0 (1 standard drink = 0.6 oz pur e alcohol) Interpersonal Safety Answer Date Record ed Family or friends hurt you Not on file 07/10 Family or friends insult you Not on file Family or friends threaten you Not on file 0 07/10/2023 Family or friends scream or curse at you Not on file 07/10/2023 Housing Stability Answer Date Recorded Living situation today Not on file Living situation problems Not on file 2023 Family and Community Support Answer Douglas e Recorded Help with Day to Day Activities Not on file 07/10/2023 Feeling Lonely or Isolated Not on file 07/10 Educational Attainment Answer Date Jacob rded Speak language other than Tanzanian at home Not on file 07/10/2023 Want help with school or training Not on file 07/10/2023 Depression Answer Date Recorded PHQ-2 Risk Not on file 07/10/2023 Disabilities Answer Date Recorded Difficulty concentrating Not on file 024 Difficulty doing errands alone Not on file 0 07/10/2023 Substance Use Answer Date Recorded Used prescription meds for non-medical reasons N ot on file 07/10/2023 Used illegal drugs past 12 months Not on file 07/10/2023 Comments No Sex and Gender Information Value Date Recorded Sex Assigned at Female 12/19/2021 6:15 PM CDT Legal Sex Female 7:09 PM CDT Gender Identity Female 12/19/2021 6:15 PM CDT Sexual Orientation Not on file documented as of this encounter Last Filed Vital Signs Vital Sign Reading Time Taken Comments Blood Pressure 135/56 10/09/2024 9:59 PM EDT Pulse 84 10/09/2024 11:30 PM EDT Temperature 36.7 C (98 F) 10/09/2024 9:59 PM EDT Respiratory Rate 17 10/09/2024 11:30 PM EDT Oxygen Saturation 100% 10/09/2024 9:59 PM EDT Inhaled Oxygen Concentration - - Weight 68 kg (150 lb) 10/09/2024 9:59 PM EDT Height 175.3 cm (5' 9 ) 10/09/2024 9:59 PM EDT Body Mass Index 22.15 10/09/2024 9:59 PM EDT documented in this encounter Discharge Instructions * Discharge Instructions* AURA Esposito - 10/09/2024 11:26 PM EDT marketing support coordinator medication from pharmacy and take as directed for nausea and vomiting. Make sure to stay well-hydrated and get plenty of rest over the next few days. Start taking vitamin and call toschedule an appointment with OB for further evaluation. Return to the ER with new or worsening symptoms. * Attachments The following attachments cannot be sent through Care Everywhere. * Nausea and Vomiting Adult Bshz-as-Llgu (Tanzanian) documented in this encounter Medications at Time of Discharge promethazine (PHENERGAN) 12.5 MG tablet Take 1 tablet (12.5 mg total) by mouth every 6 (six) hours as needed for nausea or vomiting. 30 tablet 10/09/2024 documented as of this encounter ED Notes * AURA Esposito - 10/09/2024 10:04 PM EDT Subjective Chief Complaint: Emesis (C/o general illness x1 week ( believes dehydrated) two positive tests. ) Patient is a 23-year-old female who presents with complaint of nausea and vomiting as well as generalized weakness and fatigue. Symptoms have been ongoing for nearly a week but worsened over the pastcouple of days. States she has been unable to tolerate p.o. intake for the past 2 days. Denies fevers or chills. No abdominal pain, bowel changes, or dysuria. Patient states she is approximately 1 week late on her period and has had 2 positive tests at home. History provided by: Patient label pinker used: No Patient History Past Medical History: Diagnosis Date Patient denies medical problems Past Surgical History: Procedure Laterality Date c section SECTION No family history on file. Social History Tobacco Use Smoking status: Every Day Current packs/day: 1.50 Types: Cigarettes Smokeless tobacco: Never Substance Use Topics Alcohol use: Never I reviewed the HPI, ROS and PFSH documentation recorded by others in the medical record and supplemented my note as needed. Review of Systems Review of Systems Constitutional: Positive for fatigue. Negative for chills and fever. HENT: Negative for congestion, ear pain, postnasal drip, rhinorrhea, sinus pain and sore throat. Eyes: Negative for pain, redness and visual disturbance. Respiratory: Negative for cough, shortness of breath and wheezing. Cardiovascular: Negative for chest pain and palpitations. Gastrointestinal: Positive for nausea and vomiting. Negative for abdominal pain, constipation and diarrhea. Genitourinary: Negative for difficulty urinating, dysuria and hematuria. Musculoskeletal: Negative for arthralgias, back pain, neck pain and neck stiffness. Skin: Negative for rash. Neurological: Positive for weakness. Negative for light-headedness and headaches. All other systems reviewed and are negative. Physical Exam ED Triage Vitals [10/09/242158] Encounter Vitals Group BP 135/56 Systolic BP Percentile Diastolic BP Percentile Pulse 94 Resp 15 Temp 98 ??F (36.7 ??C) Temp src Tympanic SpO2 100 % Weight 68 kg (150 lb) Height 1.753 m (5' 9 ) Head Circumference Peak Flow Pain Score Zero Pain Loc Pain Education Exclude from Growth Chart Physical Exam Vitals and nursing note reviewed. Constitutional: Appearance: Normal appearance. HENT: Head: Atraumatic. Nose: Nose normal. Eyes: Extraocular Movements: Extraocular movements intact. Pupils: Pupils are equal, round, and reactive to light. Cardiovascular: Rate and Rhythm: Normal rate and regular rhythm. Heart sounds: Normal heart sounds. Pulmonary: Effort: Pulmonary effort is normal. Breath sounds: Normal breath sounds. Abdominal: General: Bowel sounds are normal. Palpations: Abdomen is soft. Tenderness: There is no abdominal tenderness. Musculoskeletal: General: Normal range of motion. Cervical back: Full passive range of motion without pain and normal range of motion. Skin: General: Skin is warm and dry. Neurological: Mental Status: She is alert and oriented to person, place, and time. Mental status is at baseline. Psychiatric: Mood and Affect: Mood normal. Behavior: Behavior normal. Neurological Exam Mental Status Alert. Oriented to person, place, and time. Cranial Nerves CN III, IV, : Extraocular movements intact bilaterally. Pupils equal round and reactive to light bilaterally. Ortho Exam ED Course & MDM Medications sodium chloride 0.9% (NS) bolus (0 mLs intravenous Stopped 10/09/24 2326) promethazine (PHENERGAN) 12.5 mg in sodium chloride 0.9 % (NS) 50 mL IVPB (Immediate Use Only) (0 mg intravenous IVPB Stopped 10/09/24 2237) Results for orders placed or performed during the hospital encounter of 10/09/24 COVID19 SARS-COV/COV-2 INFLUENZA A/B AG Specimen: Nasal Swab Result Value Ref Range SARS-COV/COV 2 ANTIGEN Negative Negative, Invalid INFLUENZA AAG Negative Negative, Invalid INFLUENZA BAG Negative Negative, Invalid CBC with Auto Diff Result Value Ref Range WBC 8.2 4.8 - 10.8 K/??L RBC 4.22 3.50 - 5.20 M/??L Hemoglobin 12.8 11.7 - 15.8 GM/DL Hematocrit 37.7 35.0 - 47.0 % MCV 89 81 - 101 fL MCH 30.3 27.0 - 34.0 pg MCHC 34.0 32.0 - 36.0 GM/DL RDW 11.9 11.5 - 14.5 % Platelets 243 150 - 400 K/CU MM MPV 10.1 9.4 - 12.4 fL Nucleated Red Blood Cell 0.0 0 - 0.2 % % Neutros 55 37 - 80 % % Lymphs 37 10 - 50 % % Monos 7 5 - 13 % % Eos 1 0 - 7 % % Baso 1 0 - 3 % NRBC Absolute <0.01 0 - 0.012 K/ul # Neutros 4.50 2.00 - 6.90 K/??L # Lymphs 3.00 0.60 - 3.40 K/??L # Monos 0.58 0.00 - 0.90 K/??L # Eos 0.06 0.00 - 0.70 K/??L # Baso 0.04 0.00 - 0.20 K/??L Immature Granulocytes-Relative 0.10 % # IG 0.01 (H) 0.00 - 0.00 K/uL Comprehensive metabolic panel Result Value Ref Range Sodium 138 136 - 145 meq/L Potassium 3.4 (L) 3.5 - 5.1 meq/L Chloride 104 98 - 107 meq/L CO2 27 21 - 32 meq/L Calcium 8.6 8.5 - 10.1 mg/dL Glucose 100 (H) 70 - 99 mg/dL BUN 8 7 - 18 mg/dL Creatinine 0.89 0.55 - 1.10 mg/dL BUN/Creatinine 9 Albumin 3.4 3.4 - 5.0 g/dL Alkaline Phosphatase 71 46 - 116 U/L ALT 18 12 - 78 U/L AST 12 (L) 15 - 37 U/L Total Bilirubin 0.3 0.2 - 1.0 mg/dL Protein, Total 6.7 6.4 - 8.2 gm/dL Anion Gap 10 (L) 11 - 22 A/G Ratio 1.0 Globulin 3.3 g/dL Osmolality Calc 274.1 mOsm/kg eGFR (mL/min/1.73m2) >60 >=60 mL/min/1.73m2 Lipase Result Value Ref Range Lipase 15 (L) 16 - 77 U/L Urinalysis, Reflex Microscopic and Culture If Indicated Result Value Ref Range Color, UA Yellow Clarity, UA Clear Specific Norton, UA 1.025 1.002 - 1.030 pH, UA 6.5 5.0 - 9.0 Leukocytes, UA Negative Negative Nitrite, UA Negative Negative Protein, UA Negative Negative Glucose, UA Negative Negative Ketones, UA Trace (A) Negative Bilirubin, UA Negative Negative Blood, UA Negative Negative Urobilinogen, UA >=8 mg/dL (A) Normal Specimen Source Urine, Clean Catch Screen, urine Result Value Ref Range Preg Test, Ur Positive (A) Negative, Inconclusive No orders to display Procedures Medical Decision Making Patient presented with complaint of nausea and vomiting. She was given IV fluids and Phenergan herein the ER. Lab work included a positive test but no other significant abnormalities today. I discussed findings with patient and encouraged her to follow-up with primary care and OB for further evaluation and management. She verbalized understanding and approval of plan to discharge. I encouraged appropriate hydration and rest as well. Risk Prescription drug management. Assessment & Plan Clinical Impression Diagnosis Comment Added By Time Added Nausea and vomiting, unspecified vomiting type AURA Esposito 10/09/2024 11:23 PM Positive test AURA Esposito 10/09/2024 11:23 PM Disposition Discharge [1] - 10/09/2024 11:23 PM Discharge Medication List as of 10/09/2024 11:26 PM START taking these medications Details promethazine (PHENERGAN) 12.5 MG tablet Take 1 tablet (12.5 mg total) by mouth every 6 (six) hours as needed for nausea or vomiting., Starting 10/09/2024, Normal Contact information for follow-up Moira Barba RN Relationship: PCP - General Next Steps: Schedule an appointment as soon as possible for a visit Associated attestation - Milagros Zabala MD - 10/09/2024 11:16 PM CDT Based on the medical record, the care appears appropriate . documented in this encounter Plan of Treatment Not on file documented as of this encounter Procedures Procedure Name Priority Date/Time Associated Diagnosis Comments COVID19 SARS-COV/COV-2 INFLUENZA A/B AG STAT 10/09/2024 10:16 PM EDT CBC W/ AUTO DIFF STAT 10/09/2024 10:1 3 PM EDT URINALYSIS, REFLEX MICROSCOPIC AND CULTURE IF INDICATED STAT 10/09/2024 10:13 PM EDT SCREEN, URINE STAT 10/09/2024 10:13 PM EDT LIPASE STAT 10/09/2024 10:13 PM EDT COMPREHENSIVE METABOLIC PANEL STAT 10/09/2024 10:13 PM EDT documented in this encounter Results * COVID19 SARS-COV/COV-2 INFLUENZA A/B AG (10/09/2024 10:16 PM EDT) SARS-COV/COV 2 ANTIGEN Negative Negative, Invalid 10/09/2024 10:55 PM EDT [facility] INFLUENZA AAG Negative Negative, Invalid 10/09/2024 10:55 PM EDT [facility] INFLUENZA BAG Negative Negative, Invalid 10/09/2024 10:55 PM EDT [facility] Nasal Swab (Nasal) 10/09/2024 10:16 PM EDT 10/09/2024 10:29 PM EDT Narrative [facility] - 10/09/2024 10:55 PM EDT The [employer]on[employer]itor System for Rapid Detection of SARS-CoV-2 & Flu A+B is only for in vitro diagnostic use under the Food and Drug Administration's Emergency Use Authorization (EUA). This product has not been FDA cleared or approved. Results should be correlated with the clinical history, epidemiological data, and other data available to the clinician evaluating the patient. SARS-CoV-2, influenza A, and influenza B viral antigens are generally detectable in anterior nasal swab specimens during the acute phase of infection. Positive results indicate the presence of viral antigens, but clinical correlation with patient history and other diagnostic information is necessary to determine infection status. Negative results are presumptive, do not rule out SARS-CoV-2 infection, and should not be used as the sole basis for treatment or patient management decisions, including infection control measures such as isolating from others and wearing masks. Serial testing should be performed in individuals with negative results at least twice over three days (with 48 hours between tests) for symptomatic individuals. Confirmation with a molecular assay may be necessary if there is a high likelihood of SARS-CoV-2 infection. All negative influenza A and B test results are presumptive and it is recommended that these results be confirmed by an FDA-cleared influenza A and B molecular assay. Negative results do not preclude influenza virus infection and should not be used as the sole basis for treatment or other management decisions. Abel [facility]AV[facility] [employer] - GENERAL ORDERA BLES Final Result Performing Organization Address City/[facility]/ZIP Co de Phone Number [facility] [address] [place] [address] * (ABNORMAL) Screen, urine (10/09/2024 10:13 PM EDT) Preg Test, Ur Positive( A) Negative, Inconclusive 10/09/2024 10:27 PM EDT [facility] Urine 10/09/2024 10:1 3 PM EDT 10/09/2024 10:17 PM EDT Milagros Zabala MD URINE ORDERABLES Final Re sult [facility] [address] [place] [address] * (ABNORMAL) Urinalysis, Reflex Microscopic and Culture If Indicated (10/09/2024 10:13 PM EDT) Color, UA Yellow 10/09/2024 10:27 PM EDT [facility] Clarity, UA Clear 10/09/2024 10:27 PM EDT [facility] Specific Norton, UA 1.025 1.002 - 1.030 10/09/2024 10:27 PM EDT [facility] pH, UA 6.5 5.0 - 9.0 10/09/2024 10:27 PM EDT [facility] Leukocytes, UA Negative Negative 10/09/2024 10:27 PM EDT [facility] Nitrite, UA Negative Negative 10/09/2024 10:27 PM EDT [facility] Protein, UA Negative Negative 10/09/2024 10:27 PM EDT [facility] Glucose, UA Negative Negative 10/09/2024 10:27 PM EDT [facility] Ketones, UA Trace(A) Negative 10/09/2024 10:27 PM EDT [facility] Bilirubin, UA Negative Negative 10/09/2024 10:27 PM EDT [facility] Blood, UA Negative Negative 10/09/2024 10:27 PM EDT [facility] Urobilinogen, UA >=8 mg/dL(A) Normal 10/09/2024 10:27 PM EDT [facility] Specimen Source Urine, Clean Catch 10/09/2024 10:27 PM EDT [facility] Urine URINE SPECIMEN COLLECTION, CLEAN CATCH / Unknown 10/09/2024 10:13 PM EDT 10/09/2024 10:17 PM EDT us Milagros Zabala MD URINE ORDERABLES Final Re sult [facility] [address] [place] [address] * (ABNORMAL) Lipase (10/09/2024 10:13 PM EDT) Lipase 15(L) 16 - 77 U/L 10/09/2024 10:40 PM EDT [facility] Blood Venipuncture / Unknown 10/09/2024 10:13 PM EDT 10/09/2024 10:17 PM EDT us Milagros Zabala MD LAB BLOOD ORDERABLES Macey alamo Result [facility] [address] [id number] [phone] * (ABNORMAL) Comprehensive metabolic panel (10/09/2024 10:13 PM EDT) Pathologist [facility] Sodium 138 136 - 145 meq/L 10/09/2024 10:41 PM EDT [facility] Potassium 3.4(L) 3.5 - 5.1 meq/L 10/09/2024 10:41 PM EDT [facility] Chloride 104 98 - 107 meq/L 10/09/2024 10:41 PM EDT [facility] CO2 27 21 - 32 meq/L 10/09/2024 10:41 PM EDT [facility] Calcium 8.6 8.5 - 10.1 mg/dL 10/09/2024 10:41 PM EDT [facility] Glucose 100(H) 70 - 99 mg/dL 10/09/2024 10:41 PM EDT [facility] BUN 8 7 - 18 mg/dL 10/09/2024 10:41 PM EDT [facility] Creatinine 0.89 0.55 - 1.10 mg/dL 10/09/2024 10:41 PM EDT [facility] BUN/Creatinine 9 10/09/2024 10:41 PM EDT [facility] Albumin 3.4 3.4 - 5.0 g/dL 10/09/2024 10:41 PM EDT [facility] Alkaline Phosphatase 71 46 - 116 U/L 10/09/2024 10:41 PM EDT [facility] ALT 18 12 - 78 U/L 10/09/2024 10:41 PM EDT [facility] AST 12(L) 15 - 37 U/L 10/09/2024 10:41 PM EDT [facility] Total Bilirubin 0.3 0.2 - 1.0 mg/dL 10/09/2024 10:41 PM EDT [facility] Protein, Total 6.7 6.4 - 8.2 gm/dL 10/09/2024 10:41 PM EDT [facility] Anion Gap 10(L) 11 - 22 10/09/2024 10:41 PM EDT [facility] A/G Ratio 1.0 10/09/2024 10:41 PM EDT [facility] Globulin 3.3 g/dL 10/09/2024 10:41 PM EDT [facility] Osmolality Calc 274.1 mOsm/kg 10:41 PM EDT [facility] eGFR (mL/min/1.73m2) >60 >=60 mL/min/1.7 3m2 10/09/2024 10:41 PM EDT [facility] Comment:ESTIMATED GFR IS NOT ACCURATE CREATININE CLEARANCE IN PREDICTING GLOMERULAR FILTRATION RATE. ESTIMATED GFR IS NOT APPLICABLE FOR DIALYSIS PATIENTS. Blood Venipuncture / Unknown 10/09/2024 10:13 PM EDT 10/09/2024 10:17 PM EDT us Milagros Zabala MD LAB BLOOD ORDERABLES Macey alamo Result [facility] [address] [place] [address] * (ABNORMAL) CBC with Auto Diff (10/09/2024 10:13 PM EDT) WBC 8.2 4.8 - 10.8 K/ L 10/09/2024 10:24 PM EDT [facility] RBC 4.22 3.50 - 5.20 M/ L 10/09/2024 10:24 PM EDT [facility] Hemoglobin 12.8 11.7 - 15.8 GM/DL 10/09/2024 10:24 PM EDT [facility] Hematocrit 37.7 35.0 - 47.0 % 10/09/2024 10:24 PM EDT [facility] MCV 89 81 - 101 fL 10/09/2024 10:24 PM EDT [facility] MCH 30.3 27.0 - 34.0 pg 10/09/2024 10:24 PM EDT [facility] MCHC 34.0 32.0 - 36.0 GM/DL 10/09/2024 10:24 PM EDT [facility] RDW 11.9 11.5 - 14.5 % 10/09/2024 10:24 PM EDT [facility] Platelets 243 150 - 400 K/CU MM 10/09/2024 10:24 PM EDT [facility] MPV 10.1 9.4 - 12.4 fL 10/09/2024 10:24 PM EDT [facility] Nucleated Red Blood Cell 0.0 0 - 0.2 % 10/09/2024 10:24 PM EDT [facility] % Neutros 55 37 - 80 % 10/09/2024 10:24 PM EDT [facility] % Lymphs 37 10 - 50 % 10/09/2024 10:24 PM EDT [facility] % Monos 7 5 - 13 % 10/09/2024 10:24 PM EDT [facility] % Eos 1 0 - 7 % 10/09/2024 10:24 PM EDT [facility] % Baso 1 0 - 3 % 10/09/2024 10:24 PM EDT [facility] NRBC Absolute <0.01 0 - 0.012 K/ul 10/09/2024 10:24 PM EDT [facility] # Neutros 4.50 2.00 - 6.90 K/ L 10/09/2024 10:24 PM EDT [facility] # Lymphs 3.00 0.60 - 3.40 K/ L 10/09/2024 10:24 PM EDT [facility] # Monos 0.58 0.00 - 0.90 K/ L 10/09/2024 10:24 PM EDT [facility] # Eos 0.06 0.00 - 0.70 K/ L 10/09/2024 10:24 PM EDT [facility] # Baso 0.04 0.00 - 0.20 K/ L 10/09/2024 10:24 PM EDT [facility] Immature Granulocytes-Re lative 0.10 % 10/09/2024 10:24 PM EDT [facility] # IG 0.01(H) 0.00 - 0.00 K/uL 10/09/2024 10:24 PM EDT [facility] Blood Venipuncture / Unknown 10/09/2024 10:13 PM EDT 10/09/2024 10:17 PM EDT Narrative [facility] - 10/09/2024 10:24 PM EDT When CBC w/ Auto Diff is ordered the lab will add a Manual Differential as a quality check at no additional charge if: Lymphocytes greater than seventy five percent with normal or increased WBC Monocytes greater than Fifteen percent Basophil greater than four percent Bands >10% or several immature myeloids are seen on scan Blast? Flag noted Atypical Lymph flag noted us Milagros Zabala MD LAB BLOOD ORDERABLES Macey alamo Result [facility] [address] [place], [place] [id number] [phone] documented in this encounter Visit Diagnoses Diagnosis Nausea and vomiting, unspecified vomiting type- Primary Positive test examination or test, positive result documented in this encounter Administered Medications Inactive Administered Medications - up to 3 most recent administrations Medication Order MAR Action Action Date Dose Rate Site promethazine (PHENERGAN) 12.5 mg in sodium chloride 0.9 % (NS) 50 mL IVPB (Immediate Use Only) 12.5 mg Once, intravenous, at 150 mL/hr, On 10/09/24 at 2220, For 1 dose IVPB Started 10/09/2024 10:19 PM EDT 12.5 mg 150 mL/hr sodium chloride 0.9% (NS) bolus 1,000 mL Once, intravenous, Administer over 60 Minutes, On 10/09/24 at 2220, For 1 dose New Bag 10/09/2024 10:19 PM EDT 1,000 mLs 1000 mL/hr sodium chloride flush 10 mL 10 mL As needed, intravenous, line care, Line care, Starting on 10/09/24 at 2201 documented in this encounter Active and Recently Administered Medications Times are shown in EDT. Scheduled Medication Order 10/07/2024 10/08/2024 10/09/2024 promethazine (PHENERGAN) 12.5 mg in sodium chloride 0.9 % (NS) 50 mL IVPB (Immediate Use Only) (COMPLETED) 12.5 mg Once, intravenous, at 150 mL/hr, On 10/09/24 at 2220, For 1 dose 2218 (IVPB Started - Provider: Sierra Weiss RN)2237 (IVPB Stopped - Provider: Sierra Weiss RN) sodium chloride 0.9% (NS) bolus (COMPLETED) 1,000 mL Once, intravenous, Administer over 60 Minutes, On 10/09/24 at 2220, For 1 dose 221 (New Bag - Prov ider: Sierra Weiss RN)2326 (Stopped - Provider: Geri Hernandez RN) PRN Medication Order 10/07/2024 10/08/2024 10/09/2024 sodium chloride flush 10 mL 10 mL As needed, intravenous, line care, Line care, Starting on 10/09/24 at 2201 documented in this encounter Care Teams Portable Canteen Operator Relationship Specialty Start Date End Date Moira Barba RN PCP - General 12/14/22 documented as of this encounter
--- OUTSIDE RECORDS SUMMARY | 2024-12-06 14:07 | XMS_ITS | Encounter Summary ---
Author Organization [facility] Init iatives Address [address] [place] [address] Care Team Providers Care School Physical Therapist Name Role Phone Moira Barba RN Primary Care Provider Unava ilable Encounter Details Date Type Department Care Team (Late st Contact Info) Description 03/14/2020 Transcribed Document [facility] [place] [facility] [place] [address] ProviderMargaret MD [address] [place] [address] Social History Tobacco Use Types Packs/Day Years Used Date Smoking Tobacco: Never Assessed Comments Unknown Sex and Gender Information Value Date Recorded Sex Assigned at Female 12/19/2021 6:15 PM CDT Legal Sex Female 7:09 PM CDT Gender Identity Female 12/19/2021 6:15 PM CDT Sexual Orientation Not on file documented as of this encounter Miscellaneous Notes * Cerner Conversion Note - Historical ProviderMD - 03/14/2020 4:18 PM CDT UM Authorization Entered On: 03/14/2020 16:18 EDT Performed On: 03/14/2020 16:18 EDT by BILL CEE RN Primary Insurance Authorization Authorization and Policy Numbers : Insurance 1 Health Plan: [facility] Policy Number: [id number] Authorization Number: Insurance Primary Name : [facility] Policy Number: [id number] Authorization Status-Primary : Denial - admission Authorized Service Begin Date-Primary : 03/04/2020 EDT Authorization Comments-Primary : Left VM for Allison inquiring of P2P result. Historical Authorization Comments-Primary : Comment 1: Per Dr. Arthur she will complete this P2P left VM for [facility] to setup P2P for 03/14/2020 @ 9-10. (BILL CEE RN 03/13/2020 10:15) Comment 2: Missed Dr. Arthur call- she left VM- called her back and left a VM inquiring if she would complete the p2p. (BILL CEE RN 03/13/2020 10:00) Comment 3: Spoke with Delia at MD office and transferred to Dr. Arthur. (BILL CEE RN 03/13/2020 09:44) Comment 4: Left VM for Dr. Arthur inquiring if she would complete P2P. (BILL CEE RN 03/13/2020 09:43) Comment 5: Called Dr. Arthur office spoke with Kim she stated that Dr. Arthur only works tuesdays. I will call back then to discuss P2P> Emailed to [facility] (BILL CEE RN 03/09/2020 11:15) Comment 6: [employer] denied for inpt per Allison (KYRIE BROWN RN-Utilization Review 03/07/2020 15:46) Comment 7: Additional clinicals faxed manually per request of Allison at [facility] (Yvonne Duran Rn-Utilization Review 03/07/2020 08:44) Comment 8: Clinicals faxed manually to [facility] (Yvonne Duran Rn-Utilization Review 03/05/2020 14:39) BILL CEE RN - 03/14/2020 16:18 EDT Electronically signed by Ruby [facility] Conversion Oil Refinery Process Technician Cerner at 10/08/2022 12:13 PM CDT documented in this encounter Plan of Treatment Not on file documented as of this encounter Visit Diagnoses Not on filedocumented in this encounter Care Teams School Physical Therapist Relationship Specialty Start Date End Date Moira Barba RN PCP - General 12/14/22 documented as of this encounter
--- OUTSIDE RECORDS SUMMARY | 2024-12-06 14:07 | XMS_ITS | Encounter Summary ---
Author Organization [facility] Init iatives Address [address] [place] [address] Care Team Providers Care Packing Room Worker Name Role Phone Moira Barba RN Primary Care Provider Unava ilable Encounter Details Date Type Department Care Team (Late st Contact Info) Description 03/05/2020 Transcribed Document [facility] [place] [facility] [place] [address] ProviderMargaret MD [address] [place] [address] Social History Tobacco Use Types Packs/Day Years Used Date Smoking Tobacco: Never Assessed Comments Unknown Sex and Gender Information Value Date Recorded Sex Assigned at Female 12/19/2021 6:15 PM CDT Legal Sex Female 7:09 PM CDT Gender Identity Female 12/19/2021 6:15 PM CDT Sexual Orientation Not on file documented as of this encounter Miscellaneous Notes * Cerner Conversion Note - Margaret ProviderMD - 03/05/2020 2:39 PM CDT UM Authorization Entered On: 03/05/2020 14:39 EDT Performed On: 03/05/2020 14:39 EDT by Yvonne Duran Rn-Utilization Review Primary Insurance Authorization Authorization and Policy Numbers : Insurance 1 Health Plan: [facility] [employer] [facility] Policy Number: [id number] Authorization Number: Insurance Primary Name : [facility] Policy Number: [id number] Authorization Status-Primary : Awaiting callback Authorized Service Begin Date-Primary : 03/04/2020 EDT Authorization Comments-Primary : Clinicals faxed manually to [facility] Historical Authorization Comments-Primary : No Authorization Comments Found Yvonne Duran, Rn-Utilization Review - 03/05/2020 14:39 EDT Electronically signed by Ruby [facility] Conversion Indoor Landscaper/Gardener Cerner at 10/08/2022 12:17 PM CDT documented in this encounter Plan of Treatment Not on file documented as of this encounter Visit Diagnoses Not on filedocumented in this encounter Care Teams Packing Room Worker Relationship Specialty Start Date End Date Moira Barba, RN PCP - General 12/14/22 documented as of this encounter
--- OUTSIDE RECORDS SUMMARY | 2024-12-06 14:07 | XMS_ITS | Encounter Summary ---
Author Organization [facility] Init iatives Address [address] [place] [address] Care Team Providers Care Chiropractic Neurologist Name Role Phone Moira Barba RN Primary Care Provider Unava ilable Encounter Details Date Type Department Care Team (Late st Contact Info) Description 03/15/2020 Transcribed Document [facility] [place] [facility] [place] [address] ProviderMargaret MD [address] [place] [address] Social History Tobacco Use Types Packs/Day Years Used Date Smoking Tobacco: Never Assessed Comments Unknown Sex and Gender Information Value Date Recorded Sex Assigned at Female 12/19/2021 6:15 PM CDT Legal Sex Female 7:09 PM CDT Gender Identity Female 12/19/2021 6:15 PM CDT Sexual Orientation Not on file documented as of this encounter Miscellaneous Notes * Cerner Conversion Note - Margaret ProviderMD - 03/15/2020 11:39 AM CDT UM Authorization Entered On: 03/15/2020 11:40 EDT Performed On: 03/15/2020 11:39 EDT by BLIL CEE RN Primary Insurance Authorization Authorization and Policy Numbers : Insurance 1 Health Plan: [facility] Policy Number: [id number] Authorization Number: Insurance Primary Name : [facility] Policy Number: [id number] Authorization Status-Primary : Admit approved Number of Days Authorized-Primary : 3 Day(s) Authorized Service Begin Date-Primary : 03/04/2020 EDT Authorized Service End Date-Primary : 03/07/2020 EDT Authorization Comments-Primary : Per call to [facility] approved all days after p2P completed. Historical Authorization Comments-Primary : Comment 1: Left VM for Allison inquiring of P2P result. (BILL CEE RN 03/14/2020 16:18) Comment 2: Per Dr. Arthur she will complete this P2P left VM for [facility] to setup P2P for 03/14/2020 @ 9-10. (BILL CEE RN 03/13/2020 10:15) Comment 3: Missed Dr. Arthur call- she left VM- called her back and left a VM inquiring if she would complete the p2p. (BILL CEE RN 03/13/2020 10:00) Comment 4: Spoke with Delia at MD office and transferred to Dr. Arthur. (BILL CEE RN 03/13/2020 09:44) Comment 5: Left VM for Dr. Arthur inquiring if she would complete P2P. (BILL CEE RN 03/13/2020 09:43) Comment 6: Called Dr. Arthur office spoke with Kim she stated that Dr. Arthur only works tuesdays. I will call back then to discuss P2P> Emailed to [facility] (BILL CEE RN 03/09/2020 11:15) Comment 7: [employer] denied for inpt per Allison (KYRIE BROWN RN-Utilization Review 03/07/2020 15:46) Comment 8: Additional clinicals faxed manually per request of Allison at [facility] (Yvonne Duran Rn-Utilization Review 03/07/2020 08:44) Comment 9: Clinicals faxed manually to [facility] (Yvonne Duran Rn-Utilization Review 03/05/2020 14:39) BILL CEE RN - 03/15/2020 11:39 EDT Electronically signed by Ruby [facility] Conversion Vocal Artist Marcner at 10/08/2022 11:58 AM CDT documented in this encounter Plan of Treatment Not on file documented as of this encounter Visit Diagnoses Not on filedocumented in this encounter Care Teams Chiropractic Neurologist Relationship Specialty Start Date End Date Moira Barba, RN PCP - General 12/14/22 documented as of this encounter
--- OUTSIDE RECORDS SUMMARY | 2024-12-06 14:07 | XMS_ITS | Encounter Summary ---
Author Organization Init iatives Address [address] [place] [address] Care Team Providers Care Canning Machine Operator Name Role Phone Moira Barba RN Primary Care Provider Jose L miller Encounter Details Date Type Department Care Team (Latest Contact Info) Description 10/09/2024 Travel Social History Tobacco Use Types Packs/Day Years [...] Date Jacob rded Speak language other than Prydeinig at home Not on file 07/10/2023 Want [...] on file documented as of this encounter Plan of Treatment Not on file documented as of this encounter Visit Diagnoses Not on filedocumented in this encounter Care Teams Canning Machine Operator Relationship Specialty Start Date End Date Moira Barba RN PCP - General 12/14/22 documented as of this encounter
--- OUTSIDE RECORDS SUMMARY | 2024-12-06 14:07 | XMS_ITS | Encounter Summary ---
Author Organization [facility] Init iatives Address [address] [place] [address] Care Team Providers Care Plate Molder Name Role Phone Moira Barba RN Primary Care Provider Unava ilable Encounter Details Date Type Department Care Team (Late st Contact Info) Description 03/13/2020 Transcribed Document [facility] [place] Family Medicine [facility] [place] [address] ProviderMargaret MD [address] [place] [address] Social History Tobacco Use Types Packs/Day Years Used Date Smoking Tobacco: Never Assessed Comments Unknown Sex and Gender Information Value Date Recorded Sex Assigned at Female 12/19/2021 6:15 PM CDT Legal Sex Female 7:09 PM CDT Gender Identity Female 12/19/2021 6:15 PM CDT Sexual Orientation Not on file documented as of this encounter Miscellaneous Notes * Cerner Conversion Note - Margaret ProviderMD - 03/13/2020 10:15 AM CDT UM Authorization Entered On: 03/13/2020 10:16 EDT Performed On: 03/13/2020 10:15 EDT by BILL CEE RN Primary Insurance Authorization Authorization and Policy Numbers : Insurance 1 Health Plan: [facility] [facility] Policy Number: [id number] Authorization Number: Insurance Primary Name : [facility] Policy Number: [id number] Authorization Status-Primary : Denial - admission Authorized Service Begin Date-Primary : 03/04/2020 EDT Authorization Comments-Primary : Per Dr. Arthur she will complete this P2P left for [facility] to setup P2P for 03/14/2020 @ 9-10. Historical Authorization Comments-Primary : Comment 1: Missed Dr. Arthur call- she left VM- called her back and left a VM inquiring if she would complete the p2p. (BILL CEE RN 03/13/2020 10:00) Comment 2: Spoke with Delia at MD office and transferred to Dr. Arthur. (BILL CEE RN 03/13/2020 09:44) Comment 3: Left VM for Dr. Arthur inquiring if she would complete P2P. (BILL CEE RN 03/13/2020 09:43) Comment 4: Called Dr. Arthur office spoke with Kim she stated that Dr. Arthur only works tuesdays. I will call back then to discuss P2P> Emailed to [facility] (BILL CEE RN 03/09/2020 11:15) Comment 5: [employer] denied for inpt per Allison (KYRIE BROWN RN-Utilization Review 03/07/2020 15:46) Comment 6: Additional clinicals faxed manually per request of Allison at [facility] (Yvonne Duran Rn-Utilization Review 03/07/2020 08:44) Comment 7: Clinicals faxed manually to [facility] (Yvonne Duran, An-Utilization Review 03/05/2020 14:39) BILL CEE RN - 03/13/2020 10:15 EDT Electronically signed by Ruby [facility] Conversion Parts Facilitator Cerner at 10/08/2022 11:52 AM CDT documented in this encounter Plan of Treatment Not on file documented as of this encounter Visit Diagnoses Not on filedocumented in this encounter Care Teams Plate Molder Relationship Specialty Start Date End Date Moira Barba RN PCP - General 12/14/22 documented as of this encounter
--- OUTSIDE RECORDS SUMMARY | 2024-12-06 14:07 | XMS_ITS | Encounter Summary ---
Author Organization [facility] In iatives Address [address] [place] [address] Care Team Providers Care Informatics Manager Name Role Phone Moira Barba rubber goods supervisor Provider Unava ilable Encounter Details Date Type Department Care Team (Late st Contact Info) Description 03/05/2020 Transcribed Document [facility] [place] [facility] [place] [address] ProviderMargaret MD [address] [place] [address] Social History Tobacco Use Types Packs/Day Years [...] Conversion Note - Margaret ProviderMD - 03/05/2020 5:00 AM CDT Chart Check - Review Order Profile Entered On: 03/06/2020 20:05 EDT Performed On: 03/05/2020 5:00 EDT by MICHEAL BLANCA, RN Chart Check Powerplans Initiated/Discontinued as Appropriate : Yes All Active Orders Reviewed : Yes MICHEAL BLANCA, RN - 03/06/2020 20:05 EDT documented in this encounter Plan of Treatment Not on file documented as of this encounter Visit Diagnoses Not on filedocumented in this encounter Care Teams Informatics Manager Relationship Specialty Start Date End Date Moira Barba RN PCP - General 12/14/22 documented as of this encounter
--- OUTSIDE RECORDS SUMMARY | 2024-12-06 14:07 | XMS_ITS | Encounter Summary ---
Author Organization [facility] In iatives Address [address] [place] [address] Care Team Providers Care Partition Assembly Machine Operator Name Role Phone Moira Barba turner splitter machine operator Provider Jose L miller Encounter Details Date Type Department Care Team (Late st Contact Info) Description 03/05/2020 Transcribed Document [facility] [place] [facility] [place] [address] ProviderMargaret MD [address] [place] [address] Social History Tobacco Use Types Packs/Day Years [...] Conversion Note - Margaret ProviderMD - 03/05/2020 9:25 AM CDT Patient: INDRA NAVA Age: 19 Years Sex: Female : 2000 History of Present Illness No maternal information available. 19 yo at 31+2 weeks with PTL. She presented to [facility] with abdominal pain. She was marleen every 2-3 minutes. She was 3 cm dilated. Her FFN was negative. She continued to contract and her cervix changed to 4 cm. She was started on Magnesium Sulfate and antibiotics and give her first dose of ANCS. Care Site/Provider: Case Record Available (Y/N/Request): Y Plan (Y/N): N Desires Epidural (Y/N): Y PPTL Papers Signed (Y/N): N On Chart (Y/N): Current Complications PTL Past OB History (last 6 pregnancies) S/P first trimester SAB Review of Systems She complains of abdominal pain but slept some last night. No leakage of fluid. Scant old blood. Physical Exam Vitals & Measurements HT: 175.26 cm WT: 77.27 kg BMI: 25.2 General Appearance WDWNWF in NAD HEENT NC, AT, PERR:A Breasts deferred Chest CTAB Heart RRR Abdomen Fundal height 31 Presentation breech Est. weight Extremities good pulses, no clubbing cyanosis or edema Pelvic Effacement 80 Dilation 4 Station -2 Position mid Consistency soft Swain score Clinical Pelvimetry Assessment/Plan Continue Magnesium Sulfate for PTL until second dose of ANCS. Continue antibiotics. Get MFM consult and NICU consult Encounter for supervision of normal first , unspecified trimester Z34.00, Encounter for supervision of normal first , unspecified trimester Z34.00 Orders: betamethasone, 12 mg, IntraMuscular, Inj, 1-Time, Routine, Start 03/04/20 18:00:00 EDT, Stop 03/04/20 18:00:00 EDT butorphanol, 2 mg, IntraVENous, Inj, Q4H, PRN for Pain (Moderate 4-6), Routine, Start 03/04/20 17:16:00 EDT ceFAZolin, 1 Gram, IV Piggyback, Inj, Q8HInt, infuse over 30 Minute(s), Routine, Start 03/05/20 2:00:00 EDT, 100 mL/Hr, Indication: GBS (Group B strep) Prophylaxis Lactated Ringers Injection intravenous solution 1,000 mL, 1,000 mL, Bag Volume (mL) = 1,000, IntraVENous, Rate = 125 mL/Hr, start date 03/05/20 5:50:00 EDT, Routine, 1.94, m2 magnesium sulfate 20 Gram [2 Gram/hr] + Premix Diluent 500 mL, 500 mL, Bag Volume (mL) = 500, IntraVENous, Rate = 50 mL/Hr, start date 03/04/20 17:25:00 EDT, Routine, 1.94, m2 Admit to Inpatient Auscultate Breath Sounds Electronic Heart Rate External Electronic Heart Rate External Notify Provider of Change in Patient Condition Notify Provider of Change in Patient Condition Resuscitation Status Urinary Catheter Insertion Vital Signs Allergies amoxicillin (Rash) Medications Inpatient ceFAZolin Celestone Soluspan, 12 mg= 2 mL, IntraMuscular, 1-Time Lactated Ringers Injection intravenous solution 1,000 mL, 1000 mL, IntraVENous magnesium sulfate injection 20 Gram [2 Gram/hr] + Premix Diluent 500 mL Stadol, 2 mg= 2 mL, IntraVENous, Q4H, PRN Home No active home medications Problem List/Past Medical History Ongoing No qualifying data Historical No qualifying data Social History Document (if any) Cultural/Taoism beliefs that would affect medical care: Lab Results MAR 04 18:35 \ 13.1 / H 18.7 314 / 39.2 \ Electronically signed by Ruby [facility] Conversion Dental Laboratory Technology Teacher Cerner at 10/08/2022 11:57 AM CDT documented in this encounter Plan of Treatment Not on file documented as of this encounter Visit Diagnoses Not on filedocumented in this encounter Care Teams Partition Assembly Machine Operator Relationship Specialty Start Date End Date Moira Barba, RANDI PCP - General 12/14/22 documented as of this encounter
--- OUTSIDE RECORDS SUMMARY | 2024-12-06 14:07 | XMS_ITS | Encounter Summary ---
Author Organization [facility] In iatives Address [address] [place] [address] Care Team Providers Care Dietitian Research Name Role Phone Moira Barba eyeglass lens grinder Provider Unava ilable Encounter Details Date Type Department Care Team (Late st Contact Info) Description 03/05/2020 Transcribed Document [facility] [place] Family Medicine [facility] [place] [address] ProviderMargaret MD [address] [place] [address] Social History Tobacco Use Types Packs/Day Years [...] Note - Margaret ProviderMD - 03/05/2020 5:00 PM CDT Chart Check - Review Order Profile Entered On: 03/06/2020 20:06 EDT Performed On: 03/05/2020 17:00 EDT by MICHEAL BLANCA, RN Chart Check Powerplans Initiated/Discontinued as Appropriate : Yes All Active Orders Reviewed : Yes MICHEAL BLANCA, RN - 03/06/2020 20:06 EDT documented in this encounter Plan of Treatment Not on file documented as of this encounter Visit Diagnoses Not on filedocumented in this encounter Care Teams Dietitian Research Relationship Specialty Start Date End Date Moira Barba RN PCP - General 12/14/22 documented as of this encounter
--- OUTSIDE RECORDS SUMMARY | 2024-12-06 14:07 | XMS_ITS | Encounter Summary ---
Author Organization [facility] In iatives Address [address] [place] [address] Care Team Providers Care Nutrition Professor Name Role Phone Moira Barba electric truck driver Provider Unava ilable Encounter Details Date Type Department Care Team (Late st Contact Info) Description 03/05/2020 Transcribed Document [facility] [place] [facility] [place] [address] ProviderMargaret MD [address] [place] [address] Social History Tobacco Use Types Packs/Day Years [...] MICHEAL BLANCA, RN - 03/06/2020 20:06 EDT Electronically signed by Dian Beltran Conversion Interventional Neuroradiologist Cerner at 10/08/2022 11:57 AM CDT documented in this encounter Plan of Treatment Not on file documented as of this encounter Visit Diagnoses Not on filedocumented in this encounter Care Teams Nutrition Professor Relationship Specialty Start Date End Date Moira Barba RN PCP - General 12/14/22 documented as of this encounter
--- OUTSIDE RECORDS SUMMARY | 2024-12-06 14:07 | XMS_ITS | Encounter Summary ---
Author Organization [facility] Init iatives Address [address] [place] [address] Care Team Providers Care Atg Java Developer Name Role Phone Moira Braba RN Primary Care Provider Unava ilable Encounter Details Date Type Department Care Team (Late st Contact Info) Description 03/15/2020 Transcribed Document [facility] [place] [address] ProviderMargaret MD [address] [place] [address] Social History Tobacco Use Types Packs/Day Years [...] Conversion Note - Margaret ProviderMD - 03/15/2020 11:40 AM CDT UM Authorization Entered On: 03/15/2020 11:40 EDT Performed On: 03/15/2020 11:40 EDT by BILL CEE RN Primary Insurance Authorization Authorization and Policy Numbers : Insurance 1 Health Plan: [facility] Policy Number: [id number] Authorization Number: Insurance Primary Name : [facility] Policy Number: [id number] Authorization Status-Primary : Admit approved Reference Number-Primary : [id number] Number of Days Authorized-Primary : 3 Day(s) Authorized Service Begin Date-Primary : 03/04/2020 EDT Authorized Service End Date-Primary : 03/07/2020 EDT Historical Authorization Comments-Primary : Comment 1: Per call to [facility] approved all days after p2P completed. (BILL CEE RN 03/15/2020 11:39) Comment 2: Left VM for Allison inquiring of P2P result. (BILL CEE RN 03/14/2020 16:18) Comment 3: Per Dr. Arthur she will complete this P2P left VM for [facility] to setup P2P for 03/14/2020 @ 9-10. (BILL CEE RN 03/13/2020 10:15) Comment 4: Missed Dr. Arthur call- she left VM- called her back and left a VM inquiring if she would complete the p2p. (BILL CEE RN 03/13/2020 10:00) Comment 5: Spoke with Delia at MD office and transferred to Dr. Arthur. (BILL CEE RN 03/13/2020 09:44) Comment 6: Left VM for Dr. Arthur inquiring if she would complete P2P. (BILL CEE RN 03/13/2020 09:43) Comment 7: Called Dr. Arthur office spoke with Kim she stated that Dr. Arthur only works tuesdays. I will call back then to discuss P2P> Emailed to [facility] (BILL CEE RN 03/09/2020 11:15) Comment 8: [employer] denied for inpt per Allison (KYRIE BROWN RN-Utilization Review 03/07/2020 15:46) Comment 9: Additional clinicals faxed manually per request of Allison at [facility] (Yvonne Duran Rn-Utilization Review 03/07/2020 08:44) Comment 10: Clinicals faxed manually to [facility] (Yvonne Duran Rn-Utilization Review 03/05/2020 14:39) BILL CEE RN - 03/15/2020 11:40 EDT documented in this encounter Plan of Treatment Not on file documented as of this encounter Visit Diagnoses Not on filedocumented in this encounter Care Teams Atg Java Developer Relationship Specialty Start Date End Date Moira Barba, RN PCP - General 12/14/22 documented as of this encounter
--- OUTSIDE RECORDS SUMMARY | 2024-12-06 14:07 | XMS_ITS | Encounter Summary ---
Author Organization [facility] Address [address] [place] [address] Care Team Providers Care Register Repairer Name Role Phone Moira Barba social media project manager Provider Unava ilable Encounter Details Date Type Department Care Team (Late st Contact Info) Description 03/05/2020 Transcribed Document [facility] Family Medicine [facility] [place] [address] ProviderMargaret MD [address] [place] [id number] Social History Tobacco Use Types Packs/Day Years [...] On: 03/06/2020 20:06 EDT Performed On: 03/05/2020 5:00 EDT by MICHEAL BLANCA, RN Chart Check Powerplans Initiated/Discontinued as Appropriate : Yes All Active Orders Reviewed : Yes MICHEAL BLANCA, RN - 03/06/2020 20:06 EDT documented in this encounter Plan of Treatment Not on file documented as of this encounter Visit Diagnoses Not on filedocumented in this encounter Care Teams Register Repairer Relationship Specialty Start Date End Date Moira Barba RN PCP - General 12/14/22 documented as of this encounter
--- OUTSIDE RECORDS SUMMARY | 2024-12-06 14:07 | XMS_ITS | Encounter Summary ---
Author Organization [facility] [facility] Address [address] [place] [address] Care Team Providers Care Investment Manager Name Role Phone Moira Barba RN Primary Care Provider Unava ilable Encounter Details Date Type Department Care Team (Late st Contact Info) Description 03/04/2020 Transcribed Document [facility] [place] [facility] [address] ProviderMargaret MD [facility] [address] Social History Tobacco Use Types Packs/Day Years Used Date Smoking Tobacco: Never Assessed Comments Unknown Sex and Gender Information Value Date Recorded Sex Assigned at Female 12/19/2021 6:15 PM CDT Legal Sex Female 7:09 PM CDT Gender Identity Female 12/19/2021 6:15 PM CDT Sexual Orientation Not on file documented as of this encounter Miscellaneous Notes * Cerner Conversion Note - Historical ProviderMD - 03/04/2020 5:07 PM CDT Admission Data, OB Entered On: 03/04/2020 17:07 EDT Performed On: 03/04/2020 17:07 EDT by ELIO SNOWDEN RN Advance Directive Patient has Advance Directive *Q : No, patient refuses Advance Directive information ELIO SNOWDEN RN - 03/04/2020 17:07 EDT Tetanus Immunization Status Previous Tetanus Immunizations : No qualifying data available. Tetanus Immunization : Unknown ELIO SNOWDEN RN - 03/04/2020 17:07 EDT Electronically signed by Alexandru Beltran [employer] Reservations Coordinator Cerner at 10/08/2022 12:04 PM CDT documented in this encounter Plan of Treatment Not on file documented as of this encounter Visit Diagnoses Not on filedocumented in this encounter Care Teams Investment Manager Relationship Specialty Start Date End Date Moira Barba, RN PCP - General 12/14/22 documented as of this encounter
--- OUTSIDE RECORDS SUMMARY | 2024-12-06 14:07 | XMS_ITS | Referral Summary ---
Author Organization [employer] Address [address] [place] [address] Care Team Providers Care Prepress Technician Name Role Phone Moira Barba RN Primary Care Provider Jose L miller Encounters Date Type Department Care Team Description 10/09/2024 Travel 10/09/2024 10:01 PM EDT - 10/09/2024 11:30 PM EDT Emergency [facility] Emergency Department [address] [place] [address] Milagros Zabala MD Nausea and vomiting, unspecified vomiting type (Primary Dx); Positive test Discharge Disposition: Home or Self Care from Last 3 Months Allergies Active Allergy Reactions Criticality Noted Date Comments Amoxicillin Rash Low 12/14/2022 Medications promethazine (PHENERGAN) 12.5 MG tablet Take 1 tablet (12.5 mg total) by mouth every 6 (six) hours as needed for nausea or vomiting. 30 tablet 10/09/2024 Active Social History Tobacco Use Types Packs/Day Years Used Date Smoking Tobacco: Every Day Cigarettes Smokeless Tobacco: Never Tobacco Cessation:Ready to Q uit: Not Asked; Counseling Given: Not Answered Alcohol Use Standard Drinks/Week Comments Never 0 [...] Date Jacob rded Speak language other than Citizen Of [place] at home Not on file 07/10/2023 Want [...] PM CDT Sexual Orientation Not on file Last Filed Vital Signs Vital Sign Reading [...] Mass Index 22.15 10/09/2024 9:59 PM EDT Plan of Treatment Not on file Procedures Procedure Name Priority Date/Time Associated Diagnosis Comments COVID19 SARS-COV/COV-2 INFLUENZA A/B AG STAT 10/09/2024 10:16 PM EDT SCREEN, URINE STAT 10/09/2024 10:13 PM EDT URINALYSIS, REFLEX MICROSCOPIC AND CULTURE IF INDICATED STAT 10/09/2024 10:13 PM EDT LIPASE STAT 10/09/2024 10:13 PM EDT COMPREHENSIVE METABOLIC PANEL STAT 10/09/2024 10:13 PM EDT CBC W/ AUTO DIFF STAT 10/09/2024 10:1 3 PM EDT from Last 3 Months Results * COVID19 SARS-COV/COV-2 INFLUENZA A/B AG (10/09/2024 10:16 PM EDT) SARS-COV/COV 2 ANTIGEN Negative Negative, Invalid 10/09/2024 10:55 PM EDT [facility] INFLUENZA AAG Negative Negative, Invalid 10/09/2024 10:55 PM EDT [facility] INFLUENZA BAG Negative Negative, Invalid 10/09/2024 10:55 PM EDT [facility] Nasal Swab (Nasal) 10/09/2024 10:16 PM EDT 10/09/2024 10:29 PM EDT Narrative [facility] - 10/09/2024 10:55 PM EDT [employer] System for Rapid Detection of SARS-CoV-2 & [...] MICROBIOLOGY - GENERAL ORDERA BLES Final Result [facility] [address] [place] [address] * (ABNORMAL) CBC with Auto Diff (10/09/2024 10:13 PM EDT) WBC 8.2 4.8 - 10.8 K/ L 10/09/2024 10:24 PM EDT [facility] RBC 4.22 3.50 - 5.20 M/ L 10/09/2024 10:24 PM EDT [facility] Hemoglobin 12.8 11.7 - 15.8 GM/DL 10/09/2024 10:24 PM EDT [facility] Hematocrit 37.7 35.0 - 47.0 % 10/09/2024 10:24 PM EDT [facility] MCV 89 81 - 101 fL 10/09/2024 10:24 PM EDT [facility] MCH 30.3 27.0 - 34.0 pg 10/09/2024 10:24 PM EDT [facility] MCHC 34.0 32.0 - 36.0 GM/DL 10/09/2024 10:24 PM EDT [facility] RDW 11.9 11.5 - 14.5 % 10/09/2024 10:24 PM EDT [facility] Platelets 243 150 - 400 K/CU MM 10/09/2024 10:24 PM EDT [facility] MPV 10.1 9.4 - 12.4 fL 10/09/2024 10:24 PM EDT [facility] Nucleated Red Blood Cell 0.0 0 - 0.2 % 10/09/2024 10:24 PM EDT [facility] % Neutros 55 37 - 80 % 10/09/2024 10:24 PM EDT [facility] % Lymphs 37 10 - 50 % 10/09/2024 10:24 PM EDT [facility] % Monos 7 5 - 13 % 10/09/2024 10:24 PM EDT [facility] % Eos 1 0 - 7 % 10/09/2024 10:24 PM EDT [facility] % Baso 1 0 - 3 % 10/09/2024 10:24 PM EDT [facility] NRBC Absolute <0.01 0 - 0.012 K/ul 10/09/2024 10:24 PM EDT [facility] # Neutros 4.50 2.00 - 6.90 K/ L 10/09/2024 10:24 PM EDT [facility] # Lymphs 3.00 0.60 - 3.40 K/ L 10/09/2024 10:24 PM EDT [facility] # Monos 0.58 0.00 - 0.90 K/ L 10/09/2024 10:24 PM EDT [facility] # Eos 0.06 0.00 - 0.70 K/ L 10/09/2024 10:24 PM EDT [facility] # Baso 0.04 0.00 - 0.20 K/ L 10/09/2024 10:24 PM EDT [facility] Immature Granulocytes-Re lative 0.10 % 10/09/2024 10:24 PM EDT [facility] # IG 0.01(H) 0.00 - 0.00 K/uL 10/09/2024 10:24 PM EDT [facility] Blood Venipuncture / Unknown 10/09/2024 10:13 PM EDT 10/09/2024 10:17 PM EDT Narrative [facility] - 10/09/2024 10:24 PM EDT When [...] Milagros Zabala MD LAB BLOOD ORDERABLES Macey jasmeet Result [facility] [address] [phone] * (ABNORMAL) Urinalysis, Reflex Microscopic and Culture If Indicated (10/09/2024 10:13 PM EDT) Color, UA Yellow 10/09/2024 10:27 PM EDT [facility] Clarity, UA Clear 10/09/2024 10:27 PM EDT [facility] Specific [place], UA 1.025 1.002 - 1.030 10/09/2024 10:27 PM EDT [facility] pH, UA 6.5 5.0 - 9.0 10/09/2024 10:27 PM EDT [facility] Leukocytes, UA Negative Negative 10/09/2024 10:27 PM EDT [facility] Nitrite, UA Negative Negative 10/09/2024 10:27 PM EDT [facility] Protein, UA Negative Negative 10/09/2024 10:27 PM EDT [facility] Glucose, UA Negative Negative 10/09/2024 10:27 PM EDT [facility] Ketones, UA Trace(A) Negative 10/09/2024 10:27 PM EDT [facility] Bilirubin, UA Negative Negative 10/09/2024 10:27 PM EDT [facility] Blood, UA Negative Negative 10/09/2024 10:27 PM EDT [facility] Urobilinogen, UA >=8 mg/dL(A) Normal 10/09/2024 10:27 PM EDT [facility] Specimen Source Urine, Clean Catch 10/09/2024 10:27 PM EDT [facility] Urine URINE SPECIMEN COLLECTION, CLEAN CATCH / Unknown 10/09/2024 10:13 PM EDT 10/09/2024 10:17 PM EDT us Milagros Zabala MD URINE ORDERABLES Final Re sult Performing Organization Address [facility]/ZIP Co de Phone Number [facility] [address] [place] [address] * (ABNORMAL) Screen, urine (10/09/2024 10:13 PM EDT) Preg Test, Ur Positive( A) Negative, Inconclusive 10/09/2024 10:27 PM EDT [facility] Urine 10/09/2024 10:1 3 PM EDT 10/09/2024 10:17 PM EDT us Milagros Zabala MD URINE ORDERABLES Final Re sult Performing Organization Address [facility]/ZIP Co de Phone Number [facility] [address] [place] [address] * (ABNORMAL) Lipase (10/09/2024 10:13 PM EDT) Pathologist [facility] Lipase 15(L) 16 - 77 U/L 10/09/2024 10:40 PM EDT [facility] Blood Venipuncture / Unknown 10/09/2024 10:13 PM EDT 10/09/2024 10:17 PM EDT us Milagros Zabala MD LAB BLOOD ORDERABLES Macey l Result Performing Organization Address [facility]/ZIP Co de Phone Number [facility] [address] [place] [address] * (ABNORMAL) Comprehensive metabolic panel (10/09/2024 10:13 PM EDT) Sodium 138 136 - 145 meq/L 10/09/2024 10:41 PM EDT [facility] Potassium 3.4(L) 3.5 - 5.1 meq/L 10/09/2024 10:41 PM EDT [facility] Chloride 104 98 - 107 meq/L 10/09/2024 10:41 PM EDT [facility] CO2 27 21 - 32 meq/L 10/09/2024 10:41 PM EDT [facility] Calcium 8.6 8.5 - 10.1 mg/dL 10/09/2024 10:41 PM EDT [facility] Glucose 100(H) 70 - 99 mg/dL 10/09/2024 10:41 PM EDT [facility] BUN 8 7 - 18 mg/dL 10/09/2024 10:41 PM EDT [facility] Creatinine 0.89 0.55 - 1.10 mg/dL 10/09/2024 10:41 PM EDT [facility] BUN/Creatinine 9 10/09/2024 10:41 PM EDT [facility] Albumin 3.4 3.4 - 5.0 g/dL 10/09/2024 10:41 PM EDT [facility] Alkaline Phosphatase 71 46 - 116 U/L 10/09/2024 10:41 PM EDT [facility] ALT 18 12 - 78 U/L 10/09/2024 10:41 PM EDT [facility] AST 12(L) 15 - 37 U/L 10/09/2024 10:41 PM EDT [facility] Total Bilirubin 0.3 0.2 - 1.0 mg/dL 10/09/2024 10:41 PM EDT [facility] Protein, Total 6.7 6.4 - 8.2 gm/dL 10/09/2024 10:41 PM EDT [facility] Anion Gap 10(L) 11 - 22 10/09/2024 10:41 PM EDT [facility] A/G Ratio 1.0 10/09/2024 10:41 PM EDT [facility] Globulin 3.3 g/dL 10/09/2024 10:41 PM EDT [facility] Osmolality Calc 274.1 mOsm/kg 10:41 PM EDT [facility] eGFR (mL/min/1.73m2) >60 >=60 mL/min/1.7 3m2 10/09/2024 10:41 PM EDT [facility] Comment:ESTIMATED GFR IS NOT ACCURATE CREATININE CLEARANCE IN PREDICTING GLOMERULAR FILTRATION RATE. ESTIMATED GFR IS NOT APPLICABLE FOR DIALYSIS PATIENTS. Blood Venipuncture / Unknown 10/09/2024 10:13 PM EDT 10/09/2024 10:17 PM EDT us Milagros Zabala MD LAB BLOOD ORDERABLES Macey alamo Result [facility] [address] [place] [address], [facility] [phone] from Last 3 Months Insurance [facility] Care Teams Prepress Technician Relationship Specialty Start Date End Date Moira Barba, RANDI PCP - General 12/14/22
--- OUTSIDE RECORDS SUMMARY | 2024-12-06 14:07 | XMS_ITS | Clinical Summary ---
Author Organization [employer] Address [address] [place] [address] Care Team Providers Care Rackman Name Role Phone Moira Barba RN Primary Care Provider Unava ilable Allergies Active Allergy Reactions Criticality Noted Date Comments Amoxicillin Rash Low 12/14/2022 Medications promethazine (PHENERGAN) 12.5 MG tablet Take 1 tablet (12.5 mg total) by mouth every 6 (six) hours as needed for nausea or vomiting. 30 tablet 10/09/2024 Active Encounters Date Type Department Care Team Description 10/09/2024 10:01 PM EDT - 10/09/2024 11:30 PM EDT Emergency [facility] Emergency Department [address] [place] [phone] Milagros Zabala MD Nausea and vomiting, unspecified vomiting type (Primary Dx); Positive test Discharge Disposition: Home or Self Care 10/09/2024 Travel from Last 3 Months Social History Tobacco Use Types Packs/Day Years [...] Date Jacob rded Speak language other than Spanish at home Not on file 07/10/2023 Want [...] 10/09/2024 9:59 PM EDT Plan of Treatment Health Maintenance Due Date Last Done Comments Depression Screening (12+) 2011 Tobacco Cessation Counseling and Screening (12+) 12/12 HIV Screening 12/12/2014 Hepatitis C Screening 12/12/2017 DTAP/TDAP/TD VACCINES (1 - Tdap) 12/12/2018 Pneumococcal Vaccine: 0-49 Years (1 of 2 - PCV) 2018 Lipid Panel 2019 Pap Smear 12/12/2020 COVID-19 VACCINE ( season) 2024 Influenza Vaccine (Season Ended) 2025 Procedures Procedure Name Priority Date/Time Associated Diagnosis [...] Negative Negative, Invalid 10/09/2024 10:55 PM EDT [facility] INFLUENZA AAG Negative Negative, Invalid 10/09/2024 10:55 PM EDT [facility] INFLUENZA BAG Negative Negative, Invalid 10/09/2024 10:55 PM EDT [facility] Nasal Swab (Nasal) 10/09/2024 10:16 PM EDT 10/09/2024 10:29 PM EDT Narrative [facility] - 10/09/2024 10:55 PM EDT [employer] System for Rapid Detection of SARS-CoV-2 & [...] decisions. Abel CHAVARRIA MICROBIOLOGY - GENERAL ORDERA [facility] Final Result [facility] [address] [place] [address] * (ABNORMAL) CBC with Auto Diff (10/09/2024 10:13 PM EDT) WBC 8.2 4.8 - 10.8 K/ L 10/09/2024 10:24 PM EDT [facility] RBC 4.22 3.50 - 5.20 M/ L 10/09/2024 10:24 PM EDT [facility] Hemoglobin 12.8 11.7 - 15.8 GM/DL 10/09/2024 10:24 PM EDT [facility] Hematocrit 37.7 35.0 - 47.0 % 10/09/2024 10:24 PM EDT [facility] MCV 89 81 - 101 fL 10/09/2024 10:24 PM EDT [facility] MCH 30.3 27.0 - 34.0 pg 10/09/2024 10:24 PM EDT [facility] MCHC 34.0 32.0 - 36.0 GM/DL 10/09/2024 10:24 PM EDT [facility] RDW 11.9 11.5 - 14.5 % 10/09/2024 10:24 PM EDT [facility] Platelets 243 150 - 400 K/CU MM 10/09/2024 10:24 PM EDT [facility] MPV 10.1 9.4 - 12.4 fL 10/09/2024 10:24 PM EDT [facility] Nucleated Red Blood Cell 0.0 0 - 0.2 % 10/09/2024 10:24 PM EDT [facility] % Neutros 55 37 - 80 % 10/09/2024 10:24 PM EDT [facility] % Lymphs 37 10 - 50 % 10/09/2024 10:24 PM EDT [facility] % Monos 7 5 - 13 % 10/09/2024 10:24 PM EDT [facility] % Eos 1 0 - 7 % 10/09/2024 10:24 PM EDT [facility] % Baso 1 0 - 3 % 10/09/2024 10:24 PM EDT [facility] NRBC Absolute <0.01 0 - 0.012 K/ul 10/09/2024 10:24 PM EDT [facility] # Neutros 4.50 2.00 - 6.90 K/ L 10/09/2024 10:24 PM EDT [facility] # Lymphs 3.00 0.60 - 3.40 K/ L 10/09/2024 10:24 PM EDT [facility] # Monos 0.58 0.00 - 0.90 K/ L 10/09/2024 10:24 PM EDT [facility] # Eos 0.06 0.00 - 0.70 K/ L 10/09/2024 10:24 PM EDT [facility] # Baso 0.04 0.00 - 0.20 K/ L 10/09/2024 10:24 PM EDT [facility] Immature Granulocytes-Re lative 0.10 % 10/09/2024 10:24 PM EDT [facility] # IG 0.01(H) 0.00 - 0.00 K/uL 10/09/2024 10:24 PM EDT [facility] Blood Venipuncture / Unknown 10/09/2024 10:13 PM EDT 10/09/2024 10:17 PM EDT Narrative [facility] - 10/09/2024 10:24 PM EDT [...] MD LAB BLOOD ORDERABLES Macey alamo Result [facility] [address] [place] [address] * (ABNORMAL) Urinalysis, Reflex Microscopic and Culture If Indicated (10/09/2024 10:13 PM EDT) Color, UA Yellow 10/09/2024 10:27 PM EDT [facility] Clarity, UA Clear 10/09/2024 10:27 PM EDT [facility] Specific [place], UA 1.025 1.002 - 1.030 10/09/2024 10:27 PM EDT [facility] pH, UA 6.5 5.0 - 9.0 10/09/2024 10:27 PM EDT [facility] Leukocytes, UA Negative Negative 10/09/2024 10:27 PM EDT [facility] Nitrite, UA Negative Negative 10/09/2024 10:27 PM EDT [facility] Protein, UA Negative Negative 10/09/2024 10:27 PM EDT [facility] Glucose, UA Negative Negative 10/09/2024 10:27 PM EDT [facility] Ketones, UA Trace(A) Negative 10/09/2024 10:27 PM EDT [facility] Bilirubin, UA Negative Negative 10/09/2024 10:27 PM EDT [facility] Blood, UA Negative Negative 10/09/2024 10:27 PM EDT [facility] Urobilinogen, UA >=8 mg/dL(A) Normal 10/09/2024 10:27 PM EDT [facility] Specimen Source Urine, Clean Catch 10/09/2024 10:27 PM EDT [facility] Urine URINE SPECIMEN COLLECTION, CLEAN CATCH / Unknown 10/09/2024 10:13 PM EDT 10/09/2024 10:17 PM EDT Milagros Zabala MD URINE ORDERABLES Final Re sult Performing Organization Address [facility]/ZIP Co de Phone Number [facility] [address] [place] [address] * (ABNORMAL) Screen, urine (10/09/2024 10:13 PM EDT) Preg Test, Ur Positive( A) Negative, Inconclusive 10/09/2024 10:27 PM EDT [facility] Urine 10/09/2024 10:1 3 PM EDT 10/09/2024 10:17 PM EDT Milagros Zabala MD URINE ORDERABLES Final Re sult [facility] [address] [place] [address] * (ABNORMAL) Lipase (10/09/2024 10:13 PM EDT) Lipase 15(L) 16 - 77 U/L 10/09/2024 10:40 PM EDT [facility] Blood Venipuncture / Unknown 10/09/2024 10:13 PM EDT 10/09/2024 10:17 PM EDT us Milagros Zabala MD LAB BLOOD ORDERABLES Macey jasmeet Result [facility] [address] [place] [address], [facility] [phone] * (ABNORMAL) Comprehensive metabolic panel (10/09/2024 10:13 PM EDT) Sodium 138 136 - 145 meq/L 10/09/2024 10:41 PM EDT [facility] Potassium 3.4(L) 3.5 - 5.1 meq/L 10/09/2024 10:41 PM EDT [facility] Chloride 104 98 - 107 meq/L 10/09/2024 10:41 PM EDT [facility] CO2 27 21 - 32 meq/L 10/09/2024 10:41 PM EDT [facility] Calcium 8.6 8.5 - 10.1 mg/dL 10/09/2024 10:41 PM EDT [facility] Glucose 100(H) 70 - 99 mg/dL 10/09/2024 10:41 PM EDT [facility] BUN 8 7 - 18 mg/dL 10/09/2024 10:41 PM EDT [facility] Creatinine 0.89 0.55 - 1.10 mg/dL 10/09/2024 10:41 PM EDT [facility] BUN/Creatinine 9 10/09/2024 10:41 PM EDT [facility] Albumin 3.4 3.4 - 5.0 g/dL 10/09/2024 10:41 PM EDT [facility] Alkaline Phosphatase 71 46 - 116 U/L 10/09/2024 10:41 PM EDT [facility] ALT 18 12 - 78 U/L 10/09/2024 10:41 PM EDT [facility] AST 12(L) 15 - 37 U/L 10/09/2024 10:41 PM EDT [facility] Total Bilirubin 0.3 0.2 - 1.0 mg/dL 10/09/2024 10:41 PM EDT [facility] Protein, Total 6.7 6.4 - 8.2 gm/dL 10/09/2024 10:41 PM EDT [facility] Anion Gap 10(L) 11 - 22 10/09/2024 10:41 PM EDT [facility] A/G Ratio 1.0 10/09/2024 10:41 PM EDT [facility] Globulin 3.3 g/dL 10/09/2024 10:41 PM EDT [facility] Osmolality Calc 274.1 mOsm/kg 10:41 PM EDT [facility] eGFR (mL/min/1.73m2) >60 >=60 mL/min/1.7 3m2 10/09/2024 10:41 PM EDT [facility] Comment:ESTIMATED GFR IS NOT ACCURATE CREATININE CLEARANCE IN PREDICTING GLOMERULAR FILTRATION RATE. ESTIMATED GFR IS NOT APPLICABLE FOR DIALYSIS PATIENTS. Blood Venipuncture / Unknown 10/09/2024 10:13 PM EDT 10/09/2024 10:17 PM EDT Milagros Zabala MD LAB BLOOD ORDERABLES Macey alamo Result [facility] [address] [place] [address], [facility] [phone] from Last 3 Months Insurance [facility] Care Teams [place] Relationship Specialty Start Date End Date Moira Barba RN PCP - General 12/14/22
--- OUTSIDE RECORDS SUMMARY | 2024-12-06 14:07 | XMS_ITS | Encounter Summary ---
[facility] Organization [facility] Address [address] [place] [address] Care Team Providers Care Spindle Sander Name Role Phone Moira Barba RN Primary Care Provider Unava ilable Encounter Details Date Type Department Care Team (Late st Contact Info) Description 03/13/2020 Transcribed Document [facility] Family Medicine [facility] [place] [address] ProviderMargaret MD [address] [place] [id number] Social History Tobacco Use Types Packs/Day Years Used Date Smoking Tobacco: Never Assessed Comments Unknown Sex and Gender Information Value Date Recorded Sex Assigned at Female 12/19/2021 6:15 PM CDT Legal Sex Female 7:09 PM CDT Gender Identity Female 12/19/2021 6:15 PM CDT Sexual Orientation Not on file documented as of this encounter Miscellaneous Notes * Cerner Conversion Note - Historical ProviderMD - 03/13/2020 9:43 AM CDT UM Authorization Entered On: 03/13/2020 9:44 EDT Performed On: 03/13/2020 9:43 EDT by BILL CEE RN Primary Insurance Authorization Authorization and Policy Numbers : Insurance 1 Health Plan: [facility] [employer] [facility] Policy Number: [id number] Authorization Number: Insurance Primary Name : [facility] Policy Number: [id number] Authorization Status-Primary : Denial - admission Authorized Service Begin Date-Primary : 03/04/2020 EDT Authorization Comments-Primary : Left VM for Dr. Arthur inquiring if she would complete P2P. Historical Authorization Comments-Primary : Comment 1: Called Dr. Arthur office spoke with Kim she stated that Dr. Arthur only works tuesdays. I will call back then to discuss P2P> Emailed to [facility] (BILL CEE RN 03/09/2020 11:15) Comment 2: [employer] denied for inpt per Allison (KYRIE BROWN, RANDI-Utilization Review 03/07/2020 15:46) Comment 3: Additional clinicals faxed manually per request of Allison at [facility] (Yvonne Duran, Randi-Utilization Review 03/07/2020 08:44) Comment 4: Clinicals faxed manually to [facility] (Yvonne Duran Rn-Utilization Review 03/05/2020 14:39) BILL CEE RN - 03/13/2020 9:43 EDT Electronically signed by Ruby [facility] Conversion Dust Sampler Cerner at 10/08/2022 11:55 AM CDT documented in this encounter Plan of Treatment Not on file documented as of this encounter Visit Diagnoses Not on filedocumented in this encounter Care Teams Spindle Sander Relationship Specialty Start Date End Date Moira Barba, RANDI PCP - General 12/14/22 documented as of this encounter
--- OUTSIDE RECORDS SUMMARY | 2024-12-06 14:07 | XMS_ITS | Encounter Summary ---
Author Organization [facility] Address [address] [place] [address] Care Team Providers Care Physician Interventional Cardiologist Name Role Phone Moira Barba RN Primary Care Provider Unava ilable Encounter Details Date Type Department Care Team (Late st Contact Info) Description 03/13/2020 Transcribed Document [facility] Family Medicine [facility] [place] [address] ProviderMargaret MD [address] [place] [id number] Social History Tobacco Use Types Packs/Day Years [...] Conversion Note - Margaret ProviderMD - 03/13/2020 10:00 AM CDT UM Authorization Entered On: 03/13/2020 10:00 EDT Performed On: 03/13/2020 10:00 EDT by BILL CEE RN Primary Insurance Authorization Authorization and Policy Numbers : Insurance 1 Health Plan: [facility] [employer] [facility] Policy Number: [id number] Authorization Number: Insurance Primary Name : [facility] Policy Number: [id number] Authorization Status-Primary : Denial - admission Authorized Service Begin Date-Primary : 03/04/2020 EDT Authorization Comments-Primary : Missed Dr. Arthur call- she left VM- called her back and left a VM inquiring if she would complete the p2p. Historical Authorization Comments-Primary : Comment 1: Spoke with Delia at MD office and transferred to Dr. Arthur. (BILL CEE RN 03/13/2020 09:44) Comment 2: Left VM for Dr. Arthur inquiring if she would complete P2P. (BILL CEE RN 03/13/2020 09:43) Comment 3: Called Dr. Arthur office spoke with Kim she stated that Dr. Arthur only works tuesdays. I will call back then to discuss P2P> Emailed to [facility] (BILL CEE RN 03/09/2020 11:15) Comment 4: [employer] denied for inpt per Allison (KYRIE BROWN RN-Utilization Review 03/07/2020 15:46) Comment 5: Additional clinicals faxed manually per request of Allison at [facility] (Yvonne Duran Rn-Utilization Review 03/07/2020 08:44) Comment 6: Clinicals faxed manually to [facility] (Yvonne Duran Rn-Utilization Review 03/05/2020 14:39) BILL CEE RN - 03/13/2020 10:00 EDT Electronically signed by Ruby [facility] Conversion Hot Metal Mixer Operator Helper Gloria at 10/08/2022 12:11 PM CDT documented in this encounter Plan of Treatment Not on file documented as of this encounter Visit Diagnoses Not on filedocumented in this encounter Care Teams Physician Interventional Cardiologist Relationship Specialty Start Date End Date Moira Barba RN PCP - General 12/14/22 documented as of this encounter
--- OUTSIDE RECORDS SUMMARY | 2024-12-06 14:08 | XMS_ITS | Encounter Summary ---
Author Organization [facility] Address [address] [place] [address] Care Team Providers Care Grassroots Organizer Name Role Phone Moira Barba RN Primary Care Provider Unava ilable Encounter Details Date Type Department Care Team (Late st Contact Info) Description 03/07/2020 Transcribed Document [facility] Family Medicine [facility] [place] [address] ProviderMargaret MD [address] [place] [id number] Social History Tobacco Use Types Packs/Day Years Used Date Smoking Tobacco: Never Assessed Comments Unknown Sex and Gender Information Value Date Recorded Sex Assigned at Female 12/19/2021 6:15 PM CDT Legal Sex Female 7:09 PM CDT Gender Identity Female 12/19/2021 6:15 PM CDT Sexual Orientation Not on file documented as of this encounter Miscellaneous Notes * Cerner Conversion Note - Historical ProviderMD - 03/07/2020 3:46 PM CDT UM Authorization Entered On: 03/07/2020 15:47 EDT Performed On: 03/07/2020 15:46 EDT by KYRIE BROWN RN-Utilization Review Primary Insurance Authorization Authorization and Policy Numbers : Insurance 1 Health Plan: [facility] [employer] [facility] Policy Number: [id number] Authorization Number: Insurance Primary Name : [facility] Policy Number: [id number] Authorization Status-Primary : Denial - admission Authorized Service Begin Date-Primary : 03/04/2020 EDT Authorization Comments-Primary : [facility] denied for inpt per Allison Historical Authorization Comments-Primary : Comment 1: Additional clinicals faxed manually per request of Allison at [facility] (Yvonne Duran, Rn-Utilization Review 03/07/2020 08:44) Comment 2: Clinicals faxed manually to [facility] (Yvonne Duran, Rn-Utilization Review 03/05/2020 14:39) KYRIE BROWN RN-Utilization Review - 03/07/2020 15:46 EDT Electronically signed by Ruby [facility] Conversion Local Bulk Driver Cerner at 10/08/2022 12:04 PM CDT documented in this encounter Plan of Treatment Not on file documented as of this encounter Visit Diagnoses Not on filedocumented in this encounter Care Teams Grassroots Organizer Relationship Specialty Start Date End Date Moira Barba, RANDI PCP - General 12/14/22 documented as of this encounter
--- OUTSIDE RECORDS SUMMARY | 2024-12-06 14:08 | XMS_ITS | Encounter Summary ---
Author Organization [facility] Address [address] [place] [address] Care Team Providers Care Electrical Tests Supervisor Name Role Phone Moira Barba diplomatic officer Provider Jose L ilgrayson Encounter Details Date Type Department Care Team (Late st Contact Info) Description 03/06/2020 Transcribed Document [facility] [place] [facility] [place] [address] ProviderMargaret MD [facility] [place] [place] [address] Social History Tobacco Use Types Packs/Day Years Used Date Smoking Tobacco: Never Assessed Comments Unknown Sex and Gender Information Value Date Recorded Sex Assigned at Female 12/19/2021 6:15 PM CDT Legal Sex Female 7:09 PM CDT Gender Identity Female 12/19/2021 6:15 PM CDT Sexual Orientation Not on file documented as of this encounter Miscellaneous Notes * Cerner Conversion Note - Margaret ProviderMD - 03/06/2020 4:47 PM CDT Patient: INDRA NAVA Age: 19 Years Sex: Female : 2000 MFM 19 yo at 32w3d weeks with PTL. PMH: neg PSH: neg MEDS: PNVs ALL: amoxicillin AVSS NST 130s cat 1 abd: NT fundus: NT cervix: 3/60%/-2 mid CBC Results (Current Encounter/Past 24 Hours) WBC 20.4 K/uL HI 03/05/2020 10:20 Hct 37.0 % 03/05/2020 10:20 Hgb 12.4 Gram/dL 03/05/2020 10:20 Platelet Count 344 K/uL 03/05/2020 10:20 CMP Results (Current Encounter/Past 24 Hours) Magnesium Level 7.3 mg/dL HI 03/05/2020 10:26 Medications (13) Active Scheduled: (4) ceFAZolin 1 Gram, IV Piggyback, Q8HInt docusate sodium 100 mg cap 100 mg 1 Cap, Oral, Q12H multivite w/folic acid ( 19) chew tab 1 Tab, Oral, Daily NIFEdipine 10 mg cap 10 mg 1 Cap, Oral, Q4H Continuous: (1) lactated ringers 1,000 mL 1,000 mL, IntraVENous, 125 mL/Hr PRN: (8) acetaminophen 325 mg tab 650 mg 2 Tab, Oral, Q4H al hydrox/mag hydrox/simeth 30 mL liq 30 mL, Oral, Q8H butorphanol 1 mg/1 mL inj 2 mg 2 mL, IntraVENous, Q4H calcium carbonate 500 mg chew tab 1,000 mg 2 Tab, Oral, Q2H famotidine 20 mg tab 20 mg 1 Tab, Oral, Q12H ondansetron 4 mg/2 mL inj 4 mg 2 mL, IV Push, Q4H promethazine 25 mg tab 25 mg 1 Tab, Oral, Q4H zolpidem 5 mg tab 5 mg 1 Tab, Oral, At Bedtime [facility] US 03/05/20 Sharma at 31w 1d in breech presentation. Placenta is anterior. Size appropriate for dates with EFW 1658 g or 44%. Amniotic fluid volume is normal amount. Limited anatomic survey appears normal. BPP 8/8. UA Dopplers are normal with S/D 65%. A/P 19 yo at 32w3d admitted with PTL. Size appropriate for dating. Reassuring testing. ANCS/Mg 03/04-. Transition Mg to procardia. Monitor for progression of PTL. CS for delivery given breech presentation. I spent 35 minutes with patient in consultation, review of records, and coordination of care. documented in this encounter Plan of Treatment Not on file documented as of this encounter Visit Diagnoses Not on filedocumented in this encounter Care Teams Electrical Tests Supervisor Relationship Specialty Start Date End Date Moira Barba RN PCP - General 12/14/22 documented as of this encounter
--- OUTSIDE RECORDS SUMMARY | 2024-12-06 14:08 | XMS_ITS | Encounter Summary ---
Author Organization [facility] Address [address] [place] [address] Care Team Providers Care Email Marketing Processor Name Role Phone Moira Barba RN Primary Care Provider Unava ilable Encounter Details Date Type Department Care Team (Late st Contact Info) Description 03/04/2020 Transcribed Document [facility] [place] [facility] [place] [address] ProviderMargaret MD [facility] [place] [address] Social History Tobacco Use Types Packs/Day Years [...] Conversion Note - Historical ProviderMD - 03/04/2020 5:06 PM CDT Admission Data, OB Entered On: 03/04/2020 17:07 EDT Performed On: 03/04/2020 17:06 EDT by ELIO SNOWDEN RN Advance Directive Patient has Advance Directive *Q : No, patient refuses Advance Directive information ELIO SNOWDEN RN - 03/04/2020 17:06 EDT Height and Weight Height Source : Measured Height Entry Format : [place] Height, Feet : 5 ft(Converted to: 152 cm, 60 Inch) Clinical Height : 175.26 cm Height, Inches : 9 Inch(Converted to: 0 ft 9 Inch, 22.86 cm) Weight Source : Standing scale Weight Entry Format : [place] Weight, Pounds : 170 lb Clinical Dosing Weight : 77.27 kg Body Surface Area (BSA) : 1.93 m2 Body Mass Index : 25.2 kg/m2 (HI) [place] Body Weight (IBW) : 65.73 kg ELIO SNOWDEN RN - 03/04/2020 17:06 EDT Health Histories Smoking Status : Former smoker, quit more than 30 days ago Smokeless Tobacco Status : Never ELIO SNOWDEN RN - 03/04/2020 17:06 EDT Social History (As Of: 03/04/2020 17:07:29 EDT) Influenza Vaccine Asmt, Adult Previous Vaccines from Immunization Schedule : No qualifying data available. Influenza Immunization, Current Season : Outside of influenza season ELIO SNOWDEN RN - 03/04/2020 17:06 EDT Pneumococcal Vaccine Previous Vaccines from Immunization Schedule : No qualifying data available. Pneumonia Immunization Received : No Pneumococcal Risk Assessment < Age 65 : None ELIO SNOWDEN RN - 03/04/2020 17:06 EDT Infectious Disease History Has the patient ever been tested for COVID-19? : No, Patient stated Does patient have symptoms of COVID-19? : No COVID19 Screening : No Experiencing Infectious Disease Symptoms : No symptoms Physical contact outside [place] in the last 30 days : No Infectious Disease History : None Tuberculosis Symptoms : None ELIO SNOWDEN RN - 03/04/2020 17:06 EDT [place] Suicide Severity Rating Scale (C-SSRS) CSSRS Past Month Wish to be : No CSSRS Past Month Suicidal Thoughts : No CSSRS Lifetime Suicide Behavior : No Suicide Severity Rating Score : 0 Suicide Severity Rating : No Additional Care Required at this time Thoughts of Harming/Killing Others : No ELIO SNOWDEN RN - 03/04/2020 17:06 EDT documented in this encounter Plan of Treatment Not on file documented as of this encounter Visit Diagnoses Not on filedocumented in this encounter Care Teams Email Marketing Processor Relationship Specialty Start Date End Date Moira Barba RN PCP - General 12/14/22 documented as of this encounter
--- OUTSIDE RECORDS SUMMARY | 2024-12-06 14:08 | XMS_ITS | Encounter Summary ---
Author Organization [facility] Address [address] [place] [address] Care Team Providers Care Beater Engineer Helper Name Role Phone Moira Barba RN Primary Care Provider Unava ilable Encounter Details Date Type Department Care Team (Late st Contact Info) Description 03/07/2020 Transcribed Document [facility] Family Medicine [facility] [place] [address] ProviderMargaret MD [address] [place] [id number] Social History Tobacco Use Types Packs/Day Years Used Date Smoking Tobacco: Never Assessed Comments Unknown Sex and Gender Information Value Date Recorded Sex Assigned at Female 12/19/2021 6:15 PM CDT Legal Sex Female 7:09 PM CDT Gender Identity Female 12/19/2021 6:15 PM CDT Sexual Orientation Not on file documented as of this encounter Miscellaneous Notes * Cerner Conversion Note - Margaret ProviderMD - 03/07/2020 5:28 AM CDT Patient: INDRA NAVA Age: 19 Years Sex: Female : 2000 Subjective Patient did well overnight. TOlrating the Procardia. No contrations. Wants to go home today. Good movement and no vaginal bleeding or leakage of fluid. Objective Vitals & Measurements HR: 72(Monitored) BP: 96/50 Abdomen: +BS gravid, nontender Cervix: not examined Heart: RRR Lungs: CTAB Lower Extremities: good pulses, no clubbing cyanosis or edema Non-Stress Test: Category 1 Assessment/Plan IUP at 31+4 weeks with PTL Discharge to home. Follow up next week with Dr. Arthur Encounter for supervision of normal first , unspecified trimester Z34.00, Encounter for supervision of normal first , unspecified trimester Z34.00 Orders: NIFEdipine, 10 mg, Oral, Cap, Q4H, Routine, Start 03/06/20 10:00:00 EDT Medications Inpatient aluminum hydroxide/magnesium hydroxide/simethicone 200 mg-200 mg-20 mg/5 mL oral suspension, 30 mL, Oral, Q8H, PRN Ambien, 5 mg= 1 Tab, Oral, At Bedtime, PRN Colace, 100 mg= 1 Cap, Oral, Q12H Lactated Ringers Injection intravenous solution 1,000 mL, 1000 mL, IntraVENous multivitamin, , 1 Tab, Oral, Daily Pepcid, 20 mg= 1 Tab, Oral, Q12H, PRN Phenergan, 25 mg= 1 Tab, Oral, Q4H, PRN Procardia, 10 mg= 1 Cap, Oral, Q4H Stadol, 2 mg= 2 mL, IntraVENous, Q4H, PRN Tums, 1000 mg= 2 Tab, Oral, Q2H, PRN Tylenol, 650 mg= 2 Tab, Oral, Q4H, PRN Zofran, 4 mg= 2 mL, IV Push, Q4H, PRN Home No active home medications Problem List/Past Medical History Ongoing No qualifying data Historical No qualifying data Lab Results MAR 05 10:06 \ 12.4 / H 20.4 344 / 37.0 \ Electronically signed by Maria [facility] Conversion Hotel Supplies Salesperson Cerner at 10/08/2022 11:57 AM CDT documented in this encounter Plan of Treatment Not on file documented as of this encounter Visit Diagnoses Not on filedocumented in this encounter Care Teams Beater Engineer Helper Relationship Specialty Start Date End Date Moira Barba RN PCP - General 12/14/22 documented as of this encounter
--- OUTSIDE RECORDS SUMMARY | 2024-12-06 14:08 | XMS_ITS | Encounter Summary ---
Author Organization [facility] In iatives Address [address] [facility] [place]note 2[facility] [address] Care Team Providers Care Certified Ski Patroller Name Role Phone Moira Barba front office coordinator Provider Unava ilable Encounter Details Date Type Department Care Team (Late st Contact Info) Description 03/07/2020 Transcribed Document [facility] [place] [facility] [place] [address] ProviderMargaret MD [address] [place] [id number] Social History Tobacco Use Types Packs/Day Years [...] Conversion Note - Margaret ProviderMD - 03/07/2020 8:55 AM CDT [place] [id number] INDRA NAVA :2000 Visit Time:03/04/2020 Your Visit Summary Your Care Team Admitting Physician - DIXIE JOHNSON MD-OBG Attending Physician - DIXIE JOHNSON MD-OBG Primary Care Physician - JERRY RAMIREZ DR Referring Physician - DIXIE JOHNSON MD-OBG Your Diagnosis Encounter for supervision of normal first , unspecified trimester, Encounter for supervision of normal first , unspecified trimester What to do next Instructions From Your Care Team Diet after Discharge: Resume usual diet as tolerated, Do not drink any alcoholic beverages, Drink at least 8-10 glasses of water per day Activity after Discharge: As tolerated, Rest and relax today, No strenuous activity Driving after Discharge: May drive today May Return to Work/School: when released by Showering/Bathing: May shower Notify Provider of: Worsening symptoms Follow-Up Appointments Follow Up with DIXIE JOHNSON MD-OBG When Within 1 week Comments keep scheduled follow up Where: Medications What How Much When Instructions Next Dose multivitamin, ( Multivitamins with Folic Acid 1 mg oral tablet) 1 Tablet(s) Oral Every Day NIFEdipine (Procardia 10 mg oral capsule) 1 Capsule(s) Oral Every 4 Hours Pickup at [facility] Pharmacy Information [facility]: [address] [place], [place] [id number] [phone] Take your medications faithfully. Do NOT skip medication. Do NOT stop taking medications without the direction of a physician. Carry a list of your medications with you at all times, and take this medication list with you to your first follow up visit. Report any side effects. Avoid herbal remedies unless discussed with your physician. As part of your treatment plan, your physician may have prescribed a limited course of a controlled substance. This medication may be given to help people with moderate or severe pain or for other medical conditions, but there are risks involved with treatment. Common side effects may include nausea, constipation, drowsiness, sweating, itching, dry mouth, and rash. More serious side effects may include cognitive and motor impairment, like problems with thinking, concentrating, alertness, and movement (e.g. slowed reflexes), and driving and operating heavy machinery can be dangerous. It is important for you to talk to your physician if you have these side effects or questions. These controlled substances can produce physical dependence and be habit-forming if taken for an extended period of time, which means that the body has gotten used to them and may experience withdrawal symptoms if they are abruptly stopped. Withdrawal symptoms can include runny nose, sweating, goose bumps, diarrhea, abdominal cramping, rapid heartbeat, difficulty sleeping, and nervousness. Please dispose of unused and medications per your retail pharmacy guidance. Allergies amoxicillin (Rash) Immunizations This Visit No Immunizations Found Education Materials Labor and Information normally lasts 39???41 weeks. labor is when labor starts early. It starts before you have been for 37 whole weeks. What are the risk factors for labor? labor is more likely to occur in women who: ??? Have an infection while . ??? Have a cervix that is short. ??? Have gone into labor before. ??? Have had surgery on their cervix. ??? Are younger than age 17. ??? Are older than age 35. ??? Are . ??? Are with two or more babies. ??? Take street drugs while . ??? Smoke while . ??? Do not gain enough weight while . ??? Got right after another . What are the symptoms of labor? Symptoms of labor include: ??? Cramps. The cramps may feel like the cramps some women get during their period. The cramps may happen with watery poop (diarrhea). ??? Pain in the belly (abdomen). ??? Pain in the lower back. ??? Regular contractions or tightening. It may feel like your belly is getting tighter. ??? Pressure in the lower belly that seems to get stronger. ??? More fluid (discharge) leaking from the vagina. The fluid may be watery or bloody. ??? Water breaking. Why is it important to notice signs of labor? Babies who are born early may not be fully developed. They have a higher chance for: ??? Long-term heart problems. ??? Long-term lung problems. ??? Trouble controlling body systems, like breathing. ??? Bleeding in the brain. ??? A condition called cerebral palsy. ??? Learning difficulties. ??? . These risks are highest for babies who are born before 34 weeks of . How is labor treated? Treatment depends on: ??? How long you were . ??? Your condition. ??? The health of your baby. Treatment may involve: ??? Having a stitch (suture) placed in your cervix. When you give , your cervix opens so the baby can come out. The stitch keeps the cervix from opening too soon. ??? Staying at the hospital. ??? Taking or getting medicines, such as: ? Hormone medicines. ? Medicines to stop contractions. ? Medicines to help the baby???s lungs develop. ? Medicines to prevent your baby from having cerebral palsy. What should I do if I am in labor? If you think you are going into labor too soon, call your doctor right away. How can I prevent labor? Do not use any tobacco products. ? Examples of these are cigarettes, chewing tobacco, and e-cigarettes. ? If you need help quitting, ask your doctor. ??? Do not use street drugs. ??? Do not use any medicines unless you ask your doctor if they are safe for you. ??? Talk with your doctor before taking any herbal supplements. ??? Make sure you gain enough weight. ??? Watch for infection. If you think you might have an infection, get it checked right away. ??? If you have gone into labor before, tell your doctor. This information is not intended to replace advice given to you by your health care provider. Make sure you discuss any questions you have with your health care provider. Document Released: 09/04/2009 Document Revised: 09/30/2019 Document Reviewed: 10/29/2016 [employer] Patient Education ?? 2020 [employer]. Third Trimester of The third trimester is from week 28 through week 40 (months 7 through 9). This trimester is when your unborn baby (fetus) is growing very fast. At the end of the ninth month, the unborn baby is about 20 inches in length. It weighs about 6???10 pounds. Follow these instructions at home: Medicines ??? Take hfih-buj-fuzjjhc and prescription medicines only as told by your doctor. Some medicines are safe and some medicines are not safe during . ??? Take a vitamin that contains at least 600 micrograms (mcg) of folic acid. ??? If you have trouble pooping (constipation), take medicine that will make your stool soft (stool softener) if your doctor approves. Eating and drinking ??? Eat regular, healthy meals. ??? Avoid raw meat and uncooked cheese. ??? If you get low calcium from the food you eat, talk to your doctor about taking a daily calcium supplement. ??? Eat four or five small meals rather than three large meals a day. ??? Avoid foods that are high in fat and sugars, such as fried and sweet foods. ??? To prevent constipation: ? Eat foods that are high in fiber, like fresh fruits and vegetables, whole grains, and beans. ? Drink enough fluids to keep your pee (urine) clear or pale yellow. Activity ??? Exercise only as told by your doctor. Stop exercising if you start to have cramps. ??? Avoid heavy lifting, wear low heels, and sit up straight. ??? Do not exercise if it is too hot, too humid, or if you are in a place of great height (high altitude). ??? You may continue to have sex unless your doctor tells you not to. Relieving pain and discomfort ??? Wear a good support bra if your breasts are tender. ??? Take frequent breaks and rest with your legs raised if you have leg cramps or low back pain. ??? Take warm water baths (sitz baths) to soothe pain or discomfort caused by hemorrhoids. Use hemorrhoid cream if your doctor approves. ??? If you develop puffy, bulging veins (varicose veins) in your legs: ? Wear support hose or compression stockings as told by your doctor. ? Raise (elevate) your feet for 15 minutes, 3???4 times a day. ? Limit salt in your food. Safety ??? Wear your seat belt when driving. ??? Make a list of emergency phone numbers, including numbers for family, friends, the hospital, and police and fire departments. Preparing for your baby's arrival To prepare for the arrival of your baby: ??? Take classes. ??? Practice driving to the hospital. ??? Visit the hospital and tour the maternity area. ??? Talk to your work about taking leave once the baby comes. ??? Pack your hospital bag. ??? Prepare the baby's room. ??? Go to your doctor visits. ??? Buy a rear-facing car seat. Learn how to install it in your car. General instructions ??? Do not use hot tubs, steam rooms, or saunas. ??? Do not use any products that contain nicotine or tobacco, such as cigarettes and e-cigarettes. If you need help quitting, ask your doctor. ??? Do not drink alcohol. ??? Do not douche or use tampons or scented sanitary pads. ??? Do not cross your legs for long periods of time. ??? Do not travel for long distances unless you must. Only do so if your doctor says it is okay. ??? Visit your dentist if you have not gone during your . Use a soft toothbrush to brush your teeth. Be gentle when you floss. ??? Avoid cat litter boxes and soil used by cats. These carry germs that can cause defects in the baby and can cause a loss of your baby (miscarriage) or stillbirth. ??? Keep all your visits as told by your doctor. This is important. Contact a doctor if: ??? You are not sure if you are in labor or if your water has broken. ??? You are dizzy. ??? You have mild cramps or pressure in your lower belly. ??? You have a nagging pain in your belly area. ??? You continue to feel sick to your stomach, you throw up, or you have watery poop. ??? You have bad smelling fluid coming from your vagina. ??? You have pain when you pee. Get help right away if: ??? You have a fever. ??? You are leaking fluid from your vagina. ??? You are spotting or bleeding from your vagina. ??? You have severe belly cramps or pain. ??? You lose or gain weight quickly. ??? You have trouble catching your breath and have chest pain. ??? You notice sudden or extreme puffiness (swelling) of your face, hands, ankles, feet, or legs. ??? You have not felt the baby move in over an hour. ??? You have severe headaches that do not go away with medicine. ??? You have trouble seeing. ??? You are leaking, or you are having a gush of fluid, from your vagina before you are 37 weeks. ??? You have regular belly spasms (contractions) before you are 37 weeks. Summary ??? The third trimester is from week 28 through week 40 (months 7 through 9). This time is when your unborn baby is growing very fast. ??? Follow your doctor's advice about medicine, food, and activity. ??? Get ready for the arrival of your baby by taking classes, getting all the baby items ready, preparing the baby's room, and visiting your doctor to be checked. ??? Get help right away if you are bleeding from your vagina, or you have chest pain and trouble catching your breath, or if you have not felt your baby move in over an hour. This information is not intended to replace advice given to you by your health care provider. Make sure you discuss any questions you have with your health care provider. Document Released: 09/02/2010 Document Revised: 09/29/2019 Document Reviewed: 07/14/2017 [employer] Patient Education ?? 2020 [employer]. Emergency Awareness and Preventative Care STROKE is an EMERGENCY Every Minute Counts Act FAST and Check for these signs: FACE Does the face look uneven? ARM Does one arm drift down? SPEECH Does their speech sound strange? TIME Call at any sign of stroke Stroke Risk Factors Atrial Fibrillation (irregular heartbeat) Diabetes Family history of stroke Heart Disease Heavy alcohol use High Blood Pressure High Cholesterol Physical inactivity and obesity Smoking Cigarette Smoking The facts are clear, cigarette smoking will shorten your life. Smoking can cause many illnesses along the way. As a healthcare provider, we recommend that you stop smoking. Assistance with quitting is available by contacting 3-233-AUOB-NOW. This is a free resource providing counseling, support, and referral. Or you may contact your personal physician. National Suicide Prevention Lifeline: The National Suicide Prevention Lifeline is a national network of local crisis centers that provides free and confidential emotional support to people in suicidal crisis or emotional distress 24 hours a day, 7 days a week. Don't Wait! Stop a Heart Attack Before it Starts What is a heart attack? A heart attack is damage or to a part of the heart from severely decreased or lack of blood flow to the heart. Over time, arteries can become narrow from the buildup of fat and cholesterol, which is called plaque. The plaque can rupture causing a blood clot to form. When the blood clot forms, the artery can become severely narrowed or completely blocked, causing a heart attack. Heart attack is the leading cause of in the [place]. 85% of muscle damage occurs within the first 2 hours. Delay in the recognition of heart attack symptoms increases the chances of . Know the early symptoms of a heart attack: Nausea Feeling of fullness in chest Jaw Pain Pain that travels down one or both arms Fatigue/being tired Anxiety Back Pain Chest pressure, squeezing, or discomfort Shortness of breath Sweating, or a cold sweat Feeling of impending doom There are unusual signs of a heart attack, too! Women, the elderly, and diabetics may present with atypical symptoms: Fainting/dizziness Weakness Confusion Risk Factors for a Heart Attack Some heart disease risk factors, such as age and family history, cannot be changed. Others, like smoking and lack of exercise, can be changed. Smoking High Cholesterol High Blood Pressure Family History Obesity Age Gender (Males are at higher risk) Lack of Exercise Diabetes Diet Stress Excessive Alcohol Intake If you or someone you know is experiencing the signs and symptoms of a heart attack, DON???T DELAY. Call immediately and seek help. If someone collapses, perform CPR! Do not attempt to drive if you are having symptoms of heart attack. Hands-Only CPR Why Hands-Only CPR? Hands-Only CPR has been shown to be as effective as conventional CPR for cardiac arrests that occur outside of a hospital. Survival depends on immediately receiving CPR from someone nearby. How do you perform Hands-Only CPR? There are two easy steps: Call if you see a teen or adult collapse Push hard and fast in the center of the chest at a beat of 100 beats per minute. Save a life! 4 WAYS TO GET AHEAD OF SEPSIS SEPSIS is a MEDICAL EMERGENCY. Time matters! Infections put you and your family at risk for a life-threatening condition called sepsis. Sepsis is the body's extreme response to an infection. It is life-threatening, and without timely treatment, sepsis can rapidly lead to tissue damage, organ failure, and . Sepsis happens when an infection you already have-in your skin, lungs, urinary tract or somewhere else-triggers a chain reaction throughout your body. 1 PREVENT INFECTIONS Take good care of chronic conditions. Talk to your doctor about getting the recommended vaccines. 2 PRACTICE GOOD HYGIENE Wash your hands frequently. Keep cuts or open sores clean and covered until they are healed. 3 KNOW THE SYMPTOMS Confusion or disorientation Shortness of breath High heart rate Fever, shivering, or feeling very cold Extreme pain or discomfort Clammy or sweaty skin 4 ACT FAST Get medical care IMMEDIATELY if you suspect sepsis or if you have an infection that is not getting better or is getting worse. To learn more about sepsis and how to prevent infections, visit www.cdc.gov/sepsis. Test Results Laboratory or Other Results This Visit (last charted value for your 03/04/2020 visit) Hematology 03/05/2020 10:06 AM WBC: 20.4 K/uL -- Normal range between ( 3.9 and 10.0 ) RBC: 3.97 Million/uL -- Normal range between ( 3.93 and 5.22 ) Hct: 37.0 % -- Normal range between ( 34.1 and 44.9 ) Hgb: 12.4 Gram/dL -- Normal range between ( 11.2 and 15.7 ) Platelet Count: 344 K/uL -- Normal range between ( 163 and 369 ) MCH: 31.2 pg -- Normal range between ( 25.6 and 32.2 ) MCHC: 33.5 Gram/dL -- Normal range between ( 32.3 and 36.5 ) MCV: 93.2 fL -- Normal range between ( 79.0 and 94.8 ) Slide Review: No Eos %: 0.0 % -- Normal range between ( 1.0 and 7.0 ) [place] #: 1.30 K/uL -- Normal range between ( 0.24 and 0.82 ) Eos #: 0.00 K/uL -- Normal range between ( 0.04 and 0.54 ) [place] %: 6.4 % -- Normal range between ( 4.7 and 12.5 ) Baso %: 0.1 % -- Normal range between ( 0.0 and 1.0 ) Baso #: 0.03 K/uL -- Normal range between ( 0.01 and 0.08 ) RDW: 11.9 % -- Normal range between ( 11.6 and 14.4 ) Neut %: 81.7 % -- Normal range between ( 34.0 and 71.0 ) Neut #: 16.69 K/uL -- Normal range between ( 1.56 and 6.13 ) Lymph %: 11.1 % -- Normal range between ( 19.3 and 53.0 ) Lymph #: 2.27 K/uL -- Normal range between ( 1.18 and 3.74 ) MPV: 10.5 fL -- Normal range between ( 9.4 and 12.4 ) IG#: 0 x10(3)/uL IG%: 1 % -- Normal range between ( 0 and 1 ) Microbiology 03/04/2020 6:53 PM Novel Coronavirus 2019: Negative Blood Bank 03/04/2020 6:36 PM Antibody ID: Anti-D 03/04/2020 6:35 PM ABO/Rh: O NEG Antibody Screen (Tube): Positive RBC Product Ready: RBC Ready Crossmatch: Electronic Crossmatch Crossmatch (AHG): Compatible # of Units: 2 Wk D Interp: Negative 03/04/2020 6:33 PM ABO/Rh Repeat: O NEG General Chemistry 03/05/2020 10:06 AM Magnesium Level: 7.3 mg/dL -- Normal range between ( 1.5 and 2.4 ) Toxicology 03/04/2020 9:35 PM UDS Amp: Negative UDS Lenore: Negative UDS Benzo: Negative UDS Cristela: Negative UDS Meth: Negative UDS Opi: Negative UDS Oxy: Negative UDS PCP: Negative UDS TCA: Negative UDS THC: Negative Buprenorphine Screen, Urine: Negative Heroin Metab (6AM) by LC-MS/MS, Urine: Negative SpGravity, Urine: 1.022 Propoxyphene, Urine: Negative UDS pH: 5.3 UDS Creatinine, Toxicology: 31.4 mg/dL Patient Name:INDRA NAVA I have received and understand this information and was given the opportunity to ask questions. Patient/Cco & President Name: Patient/Cco & President Signature: Relationship to Patient: Clinician/Hospital Cco & President Signature: Date: Electronically signed by Ruby, [facility] Conversion Net Applications Developer Cerner at 10/08/2022 12:00 PM CDT documented in this encounter Plan of Treatment Not on file documented as of this encounter Visit Diagnoses Not on filedocumented in this encounter Care Teams Certified Ski Patroller Relationship Specialty Start Date End Date Moira Barba, RN PCP - General 12/14/22 documented as of this encounter
--- OUTSIDE RECORDS SUMMARY | 2024-12-06 14:08 | XMS_ITS | Encounter Summary ---
Author Organization [facility] In iatives Address [address] [place] [address] Care Team Providers Care Mixing Technician Name Role Phone Moira Barba trousseau consultant Provider Unava ilable Encounter Details Date Type Department Care Team (Late st Contact Info) Description 03/06/2020 Transcribed Document [facility] [place] [facility] [place] [address] ProviderMargaret MD [address] [place] [id number] Social History Tobacco Use Types Packs/Day Years [...] Conversion Note - Margaret ProviderMD - 03/06/2020 5:00 PM CDT Chart Check - Review Order Profile Entered On: 03/06/2020 20:07 EDT Performed On: 03/06/2020 17:00 EDT by MICHEAL BLANCA, RN Chart Check Powerplans Initiated/Discontinued as Appropriate : Yes All Active Orders Reviewed : Yes MICHEAL BLANCA, RN - 03/06/2020 20:07 EDT documented in this encounter Plan of Treatment Not on file documented as of this encounter Visit Diagnoses Not on filedocumented in this encounter Care Teams Mixing Technician Relationship Specialty Start Date End Date Moira Barba RN PCP - General 12/14/22 documented as of this encounter
--- OUTSIDE RECORDS SUMMARY | 2024-12-06 14:08 | XMS_ITS | Encounter Summary ---
Author Organization [facility] Init iatives Address [address] [place] [address] Care Team Providers Care Ornamental Brick Installer Name Role Phone Moira Barba RN Primary Care Provider Unava ilable Encounter Details Date Type Department Care Team (Late st Contact Info) Description 03/13/2020 Transcribed Document [facility] [place] [facility] [place] [id number] ProviderMargaret MD [address] [place] [id number] Social History Tobacco Use Types Packs/Day Years [...] Conversion Note - Margaret ProviderMD - 03/13/2020 9:44 AM CDT UM Authorization Entered On: 03/13/2020 9:44 EDT Performed On: 03/13/2020 9:44 EDT by BILL CEE RN Primary Insurance Authorization Authorization and Policy Numbers : Insurance 1 Health Plan: [facility] [employer] [facility] Policy Number: [id number] Authorization Number: Insurance Primary Name : [facility] Policy Number: [id number] Authorization Status-Primary : Denial - admission Authorized Service Begin Date-Primary : 03/04/2020 EDT Authorization Comments-Primary : Spoke with Delia at office and transferred to Dr. Arthur. Historical Authorization Comments-Primary : Comment 1: Left VM for Dr. Arthur inquiring if she would complete P2P. (BILL CEE RN 03/13/2020 09:43) Comment 2: Called Dr. Arthur office spoke with Kim she stated that Dr. Arthur only works tuesdays. I will call back then to discuss P2P> Emailed to [facility] [place] (BILL CEE RN 03/09/2020 11:15) Comment 3: [employer] denied for inpt per Allison (KYRIE BROWN, RANDI-Utilization Review 03/07/2020 15:46) Comment 4: Additional clinicals faxed manually per request of Allison at [facility] (Yvonne Duran Rn-Utilization Review 03/07/2020 08:44) Comment 5: Clinicals faxed manually to [facility] (Yvonne Duran Rn-Utilization Review 03/05/2020 14:39) BILL CEE RN - 03/13/2020 9:44 EDT Electronically signed by Ruby [facility] Conversion Pump Mechanic Cerner at 10/08/2022 11:54 AM CDT documented in this encounter Plan of Treatment Not on file documented as of this encounter Visit Diagnoses Not on filedocumented in this encounter Care Teams Ornamental Brick Installer Relationship Specialty Start Date End Date Moira Barba RN PCP - General 12/14/22 documented as of this encounter
--- OUTSIDE RECORDS SUMMARY | 2024-12-06 14:08 | XMS_ITS | Encounter Summary ---
Author Organization [facility] In iatives Address [address] [place] [address] Care Team Providers Care Wrecking Car Driver Name Role Phone Moira Barba pipeliner Provider Unava ilable Encounter Details Date Type Department Care Team (Late st Contact Info) Description 03/04/[address] [facility] [place] Family Medicine [facility] [place] [address] ProviderMargaret MD [address] [place] [address] Social History Tobacco Use Types Packs/Day Years Used Date Smoking Tobacco: Never Assessed Comments Unknown Sex and Gender Information Value Date Recorded Sex Assigned at Female 12/19/2021 6:15 PM CDT Legal Sex Female 7:09 PM CDT Gender Identity Female 12/19/2021 6:15 PM CDT Sexual Orientation Not on file documented as of this encounter Miscellaneous Notes * Cerner Conversion Note - Margaret ProviderMD - 03/04/2020 5:00 PM CDT Chart Check - Review Order Profile Entered On: 03/06/2020 20:05 EDT Performed On: 03/04/2020 17:00 EDT by MICHEAL BLANCA, RN Chart Check Powerplans Initiated/Discontinued as Appropriate : Yes All Active Orders Reviewed : Yes MICHEAL BLANCA, RN - 03/06/2020 20:05 EDT documented in this encounter Plan of Treatment Not on file documented as of this encounter Visit Diagnoses Not on filedocumented in this encounter Care Teams Wrecking Car Driver Relationship Specialty Start Date End Date Moira Barba RN PCP - General 12/14/22 documented as of this encounter
--- OUTSIDE RECORDS SUMMARY | 2024-12-06 14:08 | XMS_ITS | Encounter Summary ---
Author Organization [facility] In iatives Address [address] [place] [address] Care Team Providers Care Assistant Professor Of Archaeology Name Role Phone Moira Barba armament installer Provider Unava ilable Encounter Details Date Type Department Care Team (Late st Contact Info) Description 03/07/2020 Transcribed Document [facility] Family Medicine [facility] [place] [address] ProviderMargaret MD [facility] [place] [address] Social History Tobacco Use Types Packs/Day Years [...] Conversion Note - Margaret ProviderMD - 03/07/2020 8:54 AM CDT Stroke/Warfarin Instructions Entered On: 03/07/2020 8:54 EDT Performed On: 03/07/2020 8:54 EDT by FANNY SAPP, RN Stroke/Warfarin Instructions Stroke/TIA Discharge Ins : N/A Warfarin Discharge Ins : N/A FANNY SAPP RN - 03/07/2020 8:54 EDT documented in this encounter Plan of Treatment Not on file documented as of this encounter Visit Diagnoses Not on filedocumented in this encounter Care Teams Assistant Professor Of Archaeology Relationship Specialty Start Date End Date Moira Barba RN PCP - General 12/14/22 documented as of this encounter
--- OUTSIDE RECORDS SUMMARY | 2024-12-06 14:08 | XMS_ITS | Encounter Summary ---
Author Organization [facility] In iatives Address [address] [place] [address] Care Team Providers Care Insurance Coordinator Name Role Phone Moira Barba software quality tester Provider Unanellie ilgrayson Encounter Details Date Type Department Care Team (Late st Contact Info) Description 03/06/2020 Transcribed Document [facility] [place] [facility] [place] [address] ProviderMargaret MD [facility] [place] [address] Social History Tobacco Use Types Packs/Day Years Used Date Smoking Tobacco: Never Assessed Comments Unknown Sex and Gender Information Value Date Recorded Sex Assigned at Female 12/19/2021 6:15 PM CDT Legal Sex Female 7:09 PM CDT Gender Identity Female 12/19/2021 6:15 PM CDT Sexual Orientation Not on file documented as of this encounter Miscellaneous Notes * Cerner Conversion Note - Historical ProviderMD - 03/06/2020 7:47 PM CDT Patient: INDRA NAVA Age: 19 Years Sex: Female : 2000 Subjective Pt has hd pressure, but no more contractions. The baby is moving. No vaginal bleeding or leakage of fluid. She is tolerating the Magnesium. Objective Abdomen: +BS, gravid, nontender Cervix: 60/3-[address] Mantilla Heart: RRR Lungs: CTAB Lower Extremities: good pulses, no clubbing cyanosis or edema Non-Stress Test: category 1 Assessment/Plan Continue Procardia for PTL and monitor until , then discharge home if stable. Encounter for supervision of normal first , unspecified trimester Z34.00, Encounter for supervision of normal first , unspecified trimester Z34.00 Orders: acetaminophen, 650 mg, Oral, Tab, Q4H, PRN for Pain (Mild 1-3), Routine, Start 03/05/20 20:47:00 EDT, 03/05/20 20:47:00 EDT Al hydroxide/Mg hydroxide/simethicone, 30 mL, Oral, Liquid, Q8H, PRN for Indigestion, Routine, Start 03/05/20 20:47:00 EDT calcium carbonate, 1,000 mg, Oral, Tab, Q2H, PRN for Indigestion, Routine, Start 03/05/20 20:47:00 EDT ceFAZolin, 1 Gram, IV Piggyback, Inj, Q8HInt, infuse over 30 Minute(s), Routine, Start 03/06/20 9:00:00 EDT, 100 mL/Hr, Indication: GBS (Group B strep) Prophylaxis docusate, 100 mg, Oral, Cap, Q12H, Routine, Start 03/05/20 21:00:00 EDT famotidine, 20 mg, Oral, Tab, Q12H, PRN for Indigestion, Routine, Start 03/05/20 20:47:00 EDT, 03/05/20 20:47:00 EDT multivitamin, , 1 Tab, Oral, Tab, Daily, Routine, Start 03/06/20 9:00:00 EDT NIFEdipine, 10 mg, Oral, Cap, Q4H, Routine, Start 03/06/20 10:00:00 EDT ondansetron, 4 mg, IV Push, Inj, Q4H, PRN for Nausea, Routine, Start 03/05/20 20:47:00 EDT promethazine, 25 mg, Oral, Tab, Q4H, PRN for Nausea, Routine, Start 03/05/20 20:47:00 EDT zolpidem, 5 mg, Oral, Tab, At Bedtime, PRN for Sleep, Routine, Start 03/05/20 20:47:00 EDT DVT VTE Prophylaxis Education Electronic Heart Rate External Facility Protocol Intrauterine Resuscitative Actions Notify Provider of Change in Patient Condition Medications Inpatient aluminum hydroxide/magnesium hydroxide/simethicone 200 mg-200 mg-20 mg/5 mL oral suspension, 30 mL, Oral, Q8H, PRN Ambien, 5 mg= 1 Tab, Oral, At Bedtime, PRN ceFAZolin Colace, 100 mg= 1 Cap, Oral, Q12H [...] 344 / 37.0 \ Electronically signed by [facility], [facility] Conversion Bandage Winding Machine Operator Cerner at 10/08/2022 11:58 AM CDT documented in this encounter Plan of Treatment Not on file documented as of this encounter Visit Diagnoses Not on filedocumented in this encounter Care Teams Insurance Coordinator Relationship Specialty Start Date End Date Moira Barba RN PCP - General 12/14/22 documented as of this encounter
--- OUTSIDE RECORDS SUMMARY | 2024-12-06 14:08 | XMS_ITS | Encounter Summary ---
Author Organization [facility] Init iatives Address [address] [place] [address] Care Team Providers Care Activities Officer Name Role Phone Moira Barba RN Primary Care Provider Unava ilable Encounter Details Date Type Department Care Team (Late st Contact Info) Description 03/07/2020 Transcribed Document [facility] Family [place] [address] ProviderMargaret MD [address] [place] [address] Social History Tobacco Use Types Packs/Day Years [...] Conversion Note - Historical ProviderMD - 03/07/2020 8:44 AM CDT UM Authorization Entered On: 03/07/2020 8:44 EDT Performed On: 03/07/2020 8:44 EDT by Yvonne Duran Rn-Utilization Review Primary Insurance Authorization Authorization and Policy Numbers : Insurance 1 Health Plan: [facility] [employer] [facility] Policy Number: [id number] Authorization Number: Insurance Primary Name : [facility] Policy Number: [id number] Authorization Status-Primary : Awaiting callback Authorized Service Begin Date-Primary : 03/04/2020 EDT Authorization Comments-Primary : Additional clinicals faxed manually per request of Allison at [facility] Historical Authorization Comments-Primary : Comment 1: Clinicals faxed manually to [facility] (Yvonne Duran Rn-Utilization Review 03/05/2020 14:39) Yvonne Duran Rn-Utilization Review - 03/07/2020 8:44 EDT Electronically signed by [facility], [facility] Conversion Line Service Technician Cerner at 10/08/2022 12:02 PM CDT documented in this encounter Plan of Treatment Not on file documented as of this encounter Visit Diagnoses Not on filedocumented in this encounter Care Teams Activities Officer Relationship Specialty Start Date End Date Moira Barba, RN PCP - General 12/14/22 documented as of this encounter
--- OUTSIDE RECORDS SUMMARY | 2024-12-06 14:08 | XMS_ITS | Encounter Summary ---
Author Organization [facility] In iatives Address [address] [place] [address] Care Team Providers Care Chemical Engineering Intern Name Role Phone Moira Barba ict trainer Provider Unava ilable Encounter Details Date Type Department Care Team (Late st Contact Info) Description 03/07/2020 Transcribed Document [facility] [place] [address] ProviderMargaret MD [address] [place] [address] Social History Tobacco Use Types Packs/Day Years [...] Conversion Note - Margaret ProviderMD - 03/07/2020 5:00 AM CDT Chart Check - Review Order Profile Entered On: 03/07/2020 5:29 EDT Performed On: 03/07/2020 5:00 EDT by MICHEAL BLANCA, RN Chart Check Powerplans Initiated/Discontinued as Appropriate : Yes All Active Orders Reviewed : Yes MICHEAL BLANCA, RN - 03/07/2020 5:29 EDT documented in this encounter Plan of Treatment Not on file documented as of this encounter Visit Diagnoses Not on filedocumented in this encounter Care Teams Chemical Engineering Intern Relationship Specialty Start Date End Date Moira Barba RN PCP - General 12/14/22 documented as of this encounter
--- OUTSIDE RECORDS SUMMARY | 2024-12-06 14:08 | XMS_ITS | Encounter Summary ---
Author Organization [facility] In iatives Address [address] [place] [address] Care Team Providers Care Broker Agricultural Produce Name Role Phone Moira Barba office supervisor Provider Unava ilable Encounter Details Date Type Department Care Team (Late st Contact Info) Description 03/04/2020 Transcribed Document [facility] [place] [facility] Family [place] [facility] [place] [address] ProviderMargaret MD [address] [place] [address] Social History Tobacco Use Types Packs/Day Years [...] on filedocumented in this encounter Care Teams Broker Agricultural Produce Relationship Specialty Start Date End Date Moira Barba RN PCP - General 12/14/22 documented as of this encounter
--- OUTSIDE RECORDS SUMMARY | 2024-12-06 14:08 | XMS_ITS | Encounter Summary ---
Author Organization [facility] In iatives Address [address] [place] [address] Care Team Providers Care Runstitching Machine Operator Name Role Phone Moira Barba inside sales director Provider Unava ilable Encounter Details Date Type Department Care Team (Late st Contact Info) Description 03/06/2020 Transcribed Document [facility] [place] [address] ProviderMargraet MD [address] [place] [address] Social History Tobacco Use Types Packs/Day Years [...] Note - Margaret ProviderMD - 03/06/2020 5:00 AM CDT Chart Check - Review Order Profile Entered On: 03/06/2020 20:06 EDT Performed On: 03/06/2020 5:00 EDT by MICHEAL BLANCA, RN Chart Check Powerplans Initiated/Discontinued as Appropriate : Yes All Active Orders Reviewed : Yes MICHEAL BLANCA, RN - 03/06/2020 20:06 EDT documented in this encounter Plan of Treatment Not on file documented as of this encounter Visit Diagnoses Not on filedocumented in this encounter Care Teams Runstitching Machine Operator Relationship Specialty Start Date End Date Moira Barba RN PCP - General 12/14/22 documented as of this encounter
--- OUTSIDE RECORDS SUMMARY | 2024-12-06 14:08 | XMS_ITS | Encounter Summary ---
Author Organization [facility] In iatives Address [address] [place] [address] Care Team Providers Care Varnish Dipper Name Role Phone Moira Barba pastor Provider Unava ilable Encounter Details Date Type Department Care Team (Late st Contact Info) Description 03/06/2020 Transcribed Document [facility] [place] [facility] [place] [address] ProviderMargaret MD [address] [place] [address] Social History Tobacco Use Types Packs/Day Years [...] On: 03/06/2020 20:07 EDT Performed On: 03/06/2020 5:00 EDT by MICHEAL BLANCA, RN Chart Check Powerplans Initiated/Discontinued as Appropriate : Yes All Active Orders Reviewed : Yes MICHEAL BLANCA, RN - 03/06/2020 20:07 EDT documented in this encounter Plan of Treatment Not on file documented as of this encounter Visit Diagnoses Not on filedocumented in this encounter Care Teams Varnish Dipper Relationship Specialty Start Date End Date Moira Barba RN PCP - General 12/14/22 documented as of this encounter
--- OUTSIDE RECORDS SUMMARY | 2024-12-06 14:08 | XMS_ITS | Encounter Summary ---
Author Organization [facility] In iatives Address [address] [place] [address] Care Team Providers Care Dredge Master Name Role Phone Moira Barba RN Primary Care Provider Unava ilable Encounter Details Date Type Department Care Team (Late st Contact Info) Description 03/07/2020 Transcribed Document [facility] [place] [facility] [place] [address] ProviderMargaret MD [address] [place] [address] Social History Tobacco Use Types Packs/Day Years [...] Margaret ProviderMD - 03/07/2020 8:54 AM CDT Nursing Discharge Summary Entered On: 03/07/2020 8:54 EDT Performed On: 03/07/2020 8:54 EDT by FANNY SAPP, dredge master Documentation Patient Disposition, General : Discharge Discharge To : Home with ambulatory/outpatient follow-up Mode Of Departure, General Discharge : Ambulatory, Private vehicle Accompanied By, Discharge : Mother, Significant other IV Discontinued : Yes Personal Belongings With Patient : Yes Pt's Own Supply of Medications Returned : No Prescriptions Given to Patient : No Medications Given to Patient : No Discharge Instructions Reviewed With, Opportunity For Questions Given : Patient, Mother, Significant other Patient Education Completed : Yes Teaching Method : Explanation, Printed materials Teaching Evaluation : Verbalizes understanding Worker's Compensation Paperwork Completed : FANNY Roger RN - 03/07/2020 8:54 EDT documented in this encounter Plan of Treatment Not on file documented as of this encounter Visit Diagnoses Not on filedocumented in this encounter Care Teams Dredge Master Relationship Specialty Start Date End Date Moira Barba RN PCP - General 12/14/22 documented as of this encounter
--- OUTSIDE RECORDS SUMMARY | 2024-12-06 14:08 | XMS_ITS | Encounter Summary ---
Author Organization [facility] In iatives Address [address] [place] [address] Care Team Providers Care Bander Operator Name Role Phone Moira Barba RN Primary Care Provider Jose L miller Encounter Details Date Type Department Care Team (Late st Contact Info) Description 03/12/2020 Transcribed Document [facility] [place] [facility] [place] [address] ProviderMargaret MD [address] [place] [address] Social History Tobacco Use Types Packs/Day Years Used Date Smoking Tobacco: Never Assessed Comments Unknown Sex and Gender Information Value Date Recorded Sex Assigned at Female 12/19/2021 6:15 PM CDT Legal Sex Female 7:09 PM CDT Gender Identity Female 12/19/2021 6:15 PM CDT Sexual Orientation Not on file documented as of this encounter Miscellaneous Notes * Cerner Conversion Note - Margaret ProviderMD - 03/12/2020 11:14 AM CDT Patient: INDRA NAVA Age: 19 Years Sex: Female : 2000 Admit Date 03/04/2020 16:36 Discharge Date 03/07/2020 09:36 Discharge Diagnosis IUP at 32 weeks, PTL Procedures corticosteroids; tocolysis, antibiotics Studies antibiotics Reason for Hospitalization 19 yo who presented from [facility] with contractions and cervical change on Magnesium sulfate Hospital Course Patients contractions were stopped by the Magnesium sulfate. She received two doses of betamethasone. Her contractions stopped and she was switched to oral nifedipine. She was stable on the nifedipine. Throughout her hospitalization, well being was reassuing. Vital Signs Oxygen Settings (Last) No qualifying data available. Physical Exam Chest CTAB CV RRR Abdominal +BS, gravid nontender Cervix 70/4/-1 breechstable Discharge Disposition Home Discharge Follow Up CASE, MD DIXIE-OBG - Within 1 week Discharge Medications (2) Active Multivitamins with Folic Acid 1 mg oral tablet 1 mg = 1 Tab, Oral, Daily Procardia 10 mg oral capsule 10 mg = 1 Cap, Oral, Q4H Condition on Discharge stable; Full code Consulting Physicians Dr. Mantilla. Current Diet Order Regular diet Patient Discharge Summary Orders She was instructed to follow up in one week. She was instructed to return if she had regular contractions every ten minutes, vaginal bleeding, leakage of fluid or decreased movement. She was instructed to avoid intercourse and to avoid strenuous activity. Pending Labs No Labs on Record Time Spent on Discharge less than 30 minutes Electronically signed by [facility] Conversion Special Needs Babysitter Cerner at 10/08/2022 12:04 PM CDT documented in this encounter Plan of Treatment Not on file documented as of this encounter Visit Diagnoses Not on filedocumented in this encounter Care Teams Bander Operator Relationship Specialty Start Date End Date Moira Barba RN PCP - General 12/14/22 documented as of this encounter
--- OUTSIDE RECORDS SUMMARY | 2024-12-06 14:08 | XMS_ITS | Encounter Summary ---
Author Organization [facility] In iatives Address [address] [place] [address] Care Team Providers Care Helpdesk Technician Name Role Phone Moira Barba RN Primary Care Provider Unava ilable Encounter Details Date Type Department Care Team (Late st Contact Info) Description 03/09/2020 Transcribed Document [facility] [place] Family Medicine [facility] [place] [address] ProviderMargaret MD [address] [place] [address] Social History Tobacco Use Types Packs/Day Years Used Date Smoking Tobacco: Never Assessed Comments Unknown Sex and Gender Information Value Date Recorded Sex Assigned at Female 12/19/2021 6:15 PM CDT Legal Sex Female 7:09 PM CDT Gender Identity Female 12/19/2021 6:15 PM CDT Sexual Orientation Not on file documented as of this encounter Miscellaneous Notes * Cerner Conversion Note - Margaret ProviderMD - 03/09/2020 11:15 AM CDT UM Authorization Entered On: 03/09/2020 11:15 EDT Performed On: 03/09/2020 11:15 EDT by BILL CEE RN Primary Insurance Authorization Authorization and Policy Numbers : Insurance 1 Health Plan: [facility] [employer] [facility] Policy Number: [id number] Authorization Number: Insurance Primary Name : [facility] Policy Number: [id number] Authorization Status-Primary : Denial - admission Authorized Service Begin Date-Primary : 03/04/2020 EDT Authorization Comments-Primary : Called Dr. Arthur office spoke with Kim she stated that Dr. Arthur only works tuesdays. I will call back then to discuss P2P> Emailed to [facility] Historical Authorization Comments-Primary : Comment 1: [employer] denied for inpt per Allison (KYRIE BROWN, RN-Utilization Review 03/07/2020 15:46) Comment 2: Additional clinicals faxed manually per request of Allison at [facility] (Yvonne Duran, An-Utilization Review 03/07/2020 08:44) Comment 3: Clinicals faxed manually to [facility] (Yvonne Duran, Rn-Utilization Review 03/05/2020 14:39) BILL CEE RN - 03/09/2020 11:15 EDT documented in this encounter Plan of Treatment Not on file documented as of this encounter Visit Diagnoses Not on filedocumented in this encounter Care Teams Helpdesk Technician Relationship Specialty Start Date End Date Moira Barba RN PCP - General 12/14/22 documented as of this encounter
--- OUTSIDE RECORDS SUMMARY | 2024-12-06 14:08 | XMS_ITS | Encounter Summary ---
Author Organization [facility] In iatives Address [address] [place] [address] Care Team Providers Care Director Of Services Name Role Phone Moira Barba cardiovascular disease specialist Provider Unava ilable Encounter Details Date Type Department Care Team (Late st Contact Info) Description 03/06/2020 Transcribed Document [facility] [place] [facility] [place] [address] ProviderMargaret MD [address] [place] [address] Social History Tobacco Use Types Packs/Day Years [...] on filedocumented in this encounter Care Teams Director Of Services Relationship Specialty Start Date End Date Moira Barba RN PCP - General 12/14/22 documented as of this encounter
--- OUTSIDE RECORDS SUMMARY | 2024-12-06 14:08 | XMS_ITS | Encounter Summary ---
Author Organization [facility] In iatives Address [address] [facility] [facility] [place] [address] Care Team Providers Care Casework Supervisor Name Role Phone Moira Barba circular saw filer Provider Jose L ilgrayson Encounter Details Date Type Department Care Team (Late st Contact Info) Description 03/07/2020 Transcribed Document [facility] [place] Family Medicine [address] [place], [place] [id number] ProviderMargaret MD [address] [place] [address] Social History Tobacco Use Types Packs/Day Years Used Date Smoking Tobacco: Never Assessed Comments Unknown Sex and Gender Information Value Date Recorded Sex Assigned at Female 12/19/2021 6:15 PM CDT Legal Sex Female 7:09 PM CDT Gender Identity Female 12/19/2021 6:15 PM CDT Sexual Orientation Not on file documented as of this encounter Miscellaneous Notes * Cerner Conversion Note - Margaret Mcnair MD - 03/07/2020 8:53 AM CDT Patient Education Materials Follows: Labor and Information normally lasts 39?41 weeks. labor is when labor starts early. [...] stop contractions. ? Medicines to help the baby?s lungs develop. ? Medicines to prevent your [...] 09/04/2009 Document Revised: 09/30/2019 Document Reviewed: 10/29/2016 [employer] Patient Education ? 2020 [employer] Delivery Business Plan. Obstetrics and Gynecology Third Trimester of The third trimester is from week 28 through week 40 (months 7 through 9). This trimester is when your unborn baby (fetus) is growing very fast. At the end of the ninth month, the unborn baby is about 20 inches in length. It weighs about 6?10 pounds. Follow these instructions at home: Medicines ??? Take [id number] and prescription medicines only as told by [...] Raise (elevate) your feet for 15 minutes, 3?4 times a day. ? Limit salt in [...] 09/02/2010 Document Revised: 09/29/2019 Document Reviewed: 07/14/2017 Elsevier Patient Education ? 2019 [employer] documented in this encounter Plan of Treatment Not on file documented as of this encounter Visit Diagnoses Not on filedocumented in this encounter Care Teams Casework Supervisor Relationship Specialty Start Date End Date Moira Barba RN PCP - General 12/14/22 documented as of this encounter
[2024-12-06 15:50] LABS: HIV Combo NEGATIVE (Negative)
[2024-12-06 15:58] LABS: Hepatitis C Ab Qual. W/ RFX NEGATIVE (Negative)
[2024-12-06 16:13] LABS: Basophils % 0.3 % (0.1-2.0); Eosinophils # 0.1 Kmm3 (0.0-0.4); Eosinophils % 0.9 % (0.1-12.0); Hematocrit 43.8 % (37.0-47.0); Hemoglobin 14.7 g/dL (12.2-16.2); Immature Granulocytes # 0.03 10^3uL; Immature Granulocytes % 0.3 %; Lymphocytes # 2.6 K/mm3 (0.7-4.5); Lymphocytes % 26.4 % (10-50); Mean Corpuscular HGB Conc 33.6 g/dL (31.8-35.4); Mean Corpuscular Hemoglobin 30.8 pg (27.0-31.2); Mean Corpuscular Volume 91.6 fl (81-99); Mean Platelet Volume 11.3 fl (7.4-10.4); Monocytes # 0.3 K/mm3 (0.1-1.0); Monocytes % 3.4 % (1.7-9.3); Neutrophils # 6.8 K/mm3 (1.8-7.8); Neutrophils % 68.7 % (37.0-80.0); Nucleated Red Blood Cells # 0 10^3/uL; Nucleated Red Blood Cells % 0 %; Platelet Count 248 K/mm3 (142-424); Red Blood Count 4.78 M/mm3 (4.20-5.40); Red Cell Distribution Width 11.9 % (11.5-17.5); Red Cell Distribution Width-SD 39.9 fL
[2024-12-07 09:43] LABS: Hepatitis B Surface Antigen Negative (Negative); Varicella Zoster IgG Reactive (Non Reactive)
[2024-12-07 09:58] LABS: RPR W/RFX Titers Nonreactive (Nonreactive)
== END 2024-12-06 23:59 | disposition home or self-care (01) ==
LOC: LAB 14:01
PROVIDERS: PCP Nurse Practitioner; Visit Provider Obstetrics & Gynecology
DX: O46.90 Antepartum hemorrhage, unspecified, unspecified trimester (principal); Z3A.00 Weeks of gestation of pregnancy not specified
CPT/HCPCS: 36415; 85025; 86592; 86762; 86787; 86803; 86850; 87340; 87389

== ENCOUNTER 2025-01-19 21:50 | Outpatient (CLI) | payer OTHER, SELFPAY ==
--- OUTSIDE RECORDS SUMMARY | 2025-01-19 21:54 | XMS_ITS | Encounter Summary ---
Author Organization [employer] ([place], [place], [place], [place]) Address [address] [place] [address] Care Team Providers Care Air Intercept Controller Supervisor Name Role Phone Moira Barba RN Primary Care Provider Jose L miller Encounter Details Date Type Department Care Team (Late st Contact Info) Description 03/07/2020 Transcribed Document [facility] [place] [facility] [place] [address] ProviderMargaret MD [address] [place] [address] [phone] Social History Tobacco Use Types Packs/Day Years [...] 344 / 37.0 \ Electronically signed by Ruby [facility] Conversion Peer Specialist Cerner at 10/08/2022 11:57 AM CDT documented in this encounter Plan of Treatment Not on file documented as of this encounter Visit Diagnoses Not on filedocumented in this encounter Care Teams Air Intercept Controller Supervisor Relationship Specialty Start Date End Date Moira Barba RN PCP - General 12/14/22 documented as of this encounter
--- OUTSIDE RECORDS SUMMARY | 2025-01-19 21:54 | XMS_ITS | Patient Health Record ---
Author Organization [facility] Address [address] [facility] [address] [place] [address] Care Team Providers Care Agricultural Sales Representative Name Role Phone Dimple Pillai Unavailable [phone] Allergies Allergen (clinical drug ingredient) Drug/Non Drug Allergy documented on EMR Reaction Allergy Type Onset Date Status AMOXICILLIN (AMOXICILLIN TABS) Unspecified Drug Allergy 11/15/2015 Active BACTRIM (SULFAMETHOXAZOLE-TRI METHOPRIM TABS) Unspecified Drug Allergy 11/04/2018 Active PENICILLIN V POTASSIUM (PENICILLIN V POTASSIUM TAB Unspecified Drug Allergy 06/23/2017 Active Reason For Referral No Information Problems Problem Type SNOMED Code ICD Code Onset Dates Problem Status W/U Status Risk Notes Problem Urine test negative (113161814) Encounter for test with result negative (Z32.02) 12/22/19 19 Active confirmed Urine test negative Problem *Spotting complicating , first trimester (Code also weeks of gestation) (O26.851) 09/23/19 20 Active confirmed Bleeding in first trimester Plan Of Treatment No Information Medical (General) History Medical History History ICD Code PCOS Folliculitis Anxiety Depression MENSTR FLOW: Heavy PNV-DHA CAPSULE Surgical History Surgery Date(Month/Year) None listed.
--- OUTSIDE RECORDS SUMMARY | 2025-01-19 21:54 | XMS_ITS | Encounter Summary ---
Author Organization [employer] ([place], [place], [place], [place]) Address [address] [place] [address] Care Team Providers Care Redevelopment Manager Name Role Phone Moira Barba RN Primary Care Provider Unava ilable Encounter Details Date Type Department Care Team (Late st Contact Info) Description 03/04/2020 Transcribed Document [facility] [place] [facility] [place] [address] ProviderMargaret MD [address] [place] [address] Social History Tobacco Use Types Packs/Day Years [...] All Active Orders Reviewed : Yes MICHEAL BLANCA RN - 03/06/2020 20:05 EDT Electronically signed by Ruby [facility] Conversion Seafood Specialist Cerner at 10/08/2022 12:10 PM CDT documented in this encounter Plan of Treatment Not on file documented as of this encounter Visit Diagnoses Not on filedocumented in this encounter Care Teams Redevelopment Manager Relationship Specialty Start Date End Date Moira Barba, RN PCP - General 12/14/22 documented as of this encounter
--- OUTSIDE RECORDS SUMMARY | 2025-01-19 21:54 | XMS_ITS | Encounter Summary ---
Author Organization [employer] ([place], [place], [place], [place]) Address [address] [place] [address] Care Team Providers Care Gift Shop Assistant Name Role Phone Moira Barba RN Primary Care Provider Jose L miller Encounter Details Date Type Department Care Team (Late st Contact Info) Description 03/13/2020 Transcribed Document [facility] [place] [address] [place] [address] ProviderMargaret MD [address] [place] [address] [phone] Social History Tobacco Use Types Packs/Day Years [...] Conversion Note - Margaret ProviderMD - 03/13/2020 9:43 AM CDT UM Authorization Entered On: 03/13/2020 9:44 EDT Performed On: 03/13/2020 9:43 EDT by BILL CEE RN Primary Insurance Authorization Authorization and Policy Numbers : Insurance 1 Health Plan: [facility] Policy Number: [id number] Authorization Number: Insurance Primary Name : [facility] Policy Number: [id number] Authorization Status-Primary : Denial - admission Authorized Service Begin Date-Primary : 03/04/2020 EDT Authorization Comments-Primary : Left VM for Dr. Arthur inquiring if she would complete P2P. Historical Authorization Comments-Primary : Comment 1: Called Dr. Arthur office spoke with Kim she stated that Dr. Arthur only works tuesdays. I will call back then to discuss P2P> Emailed to [facility] [place] (BILL CEE RN 03/09/2020 11:15) Comment 2: [employer] BH denied for inpt per Allison (KYRIE BROWN RN-Utilization Review 03/07/2020 15:46) Comment 3: Additional clinicals faxed manually per request of Allison at [facility] (Yvonne Duran, Randi-Utilization Review 03/07/2020 08:44) Comment 4: Clinicals faxed manually to [facility] (Yvonne Duran, Randi-Utilization Review 03/05/2020 14:39) BILL CEE RN - 03/13/2020 9:43 EDT Electronically signed by Ruby [facility] Conversion Fisher Trammel Net Cerner at 10/08/2022 11:55 AM CDT documented in this encounter Plan of Treatment Not on file documented as of this encounter Visit Diagnoses Not on filedocumented in this encounter Care Teams Gift Shop Assistant Relationship Specialty Start Date End Date Moira Barba, RANDI PCP - General 12/14/22 documented as of this encounter
--- OUTSIDE RECORDS SUMMARY | 2025-01-19 21:54 | XMS_ITS | Encounter Summary ---
Author Organization [employer] ([place], [place], [place], [place]) Address [address] [place] [address] Care Team Providers Care Form Worker Name Role Phone Moira Barba RN Primary Care Provider Unava ilable Encounter Details Date Type Department Care Team (Late st Contact Info) Description 03/05/2020 Transcribed Document [facility] [place] [facility] [place] [address] ProviderMargaret MD [address] [place] [address] [phone] Social History Tobacco Use Types Packs/Day Years [...] : Yes MICHEAL BLANCA RN - 03/06/2020 20:06 EDT Electronically signed by Ruby [facility] Conversion Grinder And Honer Operator Automatic Cerner at 10/08/2022 12:12 PM CDT documented in this encounter Plan of Treatment Not on file documented as of this encounter Visit Diagnoses Not on filedocumented in this encounter Care Teams Form Worker Relationship Specialty Start Date End Date Moira Barba, RN PCP - General 12/14/22 documented as of this encounter
--- OUTSIDE RECORDS SUMMARY | 2025-01-19 21:54 | XMS_ITS | Encounter Summary ---
Author Organization [employer] ([place], [place], [place], [place]) Address [address] [place] [address] Care Team Providers Care Dehydrator Tender Name Role Phone Moira Barba RN Primary Care Provider Unanellie ilable Encounter Details Date Type Department Care Team (Late st Contact Info) Description 03/15/2020 Transcribed Document [facility] [place] [address] [place] [address] ProviderMargaret MD [address] [place] [address] [phone] Social History Tobacco Use Types Packs/Day Years [...] EDT Performed On: 03/15/2020 11:39 EDT by BILL CEE RN Primary Insurance Authorization Authorization and Policy Numbers : Insurance 1 Health Plan: [facility] Policy Number: [id number] Authorization Number: Insurance Primary Name : [facility] Policy Number: [id number] Authorization Status-Primary : Admit approved Number of Days Authorized-Primary : 3 Day(s) Authorized Service Begin Date-Primary : 03/04/2020 EDT Authorized Service End Date-Primary : 03/07/2020 EDT Authorization Comments-Primary : Per call to [facility] approved all days after p2P completed. Historical Authorization Comments-Primary : Comment 1: Left VM for Allison inquiring of P2P result. (BILL CEE RN 03/14/2020 16:18) Comment 2: Per Dr. Arthur she will complete this P2P left VM for [facility] to setup P2P for 03/14/2020 [...] back then to discuss P2P> Emailed to [facility] [place] (BILL CEE RN 03/09/2020 11:15) Comment 7: [employer] BH denied for inpt per Allison (KYRIE BROWN RN-Utilization Review 03/07/2020 15:46) Comment 8: Additional clinicals faxed manually per request of Allison at [facility] (Yvonne Duran Rn-Utilization Review 03/07/2020 08:44) Comment 9: Clinicals faxed manually to [facility] (Yvonne Duran Rn-Utilization Review 03/05/2020 14:39) BILL CEE RN - 03/15/2020 11:39 EDT Electronically signed by Ruby [facility] Conversion Dowel Pin Worker Gloria at 10/08/2022 11:58 AM CDT documented in this encounter Plan of Treatment Not on file documented as of this encounter Visit Diagnoses Not on filedocumented in this encounter Care Teams Dehydrator Tender Relationship Specialty Start Date End Date Moira Barba, RANDI PCP - General 12/14/22 documented as of this encounter
--- OUTSIDE RECORDS SUMMARY | 2025-01-19 21:54 | XMS_ITS | Encounter Summary ---
Author Organization [employer] ([place], [place], [place], [place]) Address [address] [place] [address] Care Team Providers Care Blanker Operator Name Role Phone Moira Barba RN Primary Care Provider Jose L miller Encounter Details Date Type Department Care Team (Late st Contact Info) Description 03/06/2020 Transcribed Document [facility] [place] [facility] [place] [address] ProviderMargaret MD [address] [place] [address] [phone] Social History Tobacco Use Types Packs/Day Years [...] 344 / 37.0 \ Electronically signed by Ruby, [facility] Conversion Open Claims Representative Cerner at 10/08/2022 11:58 AM CDT documented in this encounter Plan of Treatment Not on file documented as of this encounter Visit Diagnoses Not on filedocumented in this encounter Care Teams Blanker Operator Relationship Specialty Start Date End Date Moira Barba RN PCP - General 12/14/22 documented as of this encounter
--- OUTSIDE RECORDS SUMMARY | 2025-01-19 21:54 | XMS_ITS | Encounter Summary ---
Author Organization [employer] ([place], [place], [place], [place]) Address [address] [place] [address] Care Team Providers Care Sex Crimes Detective Name Role Phone Moira Barba RN Primary Care Provider Jose L ilgrayson Encounter Details Date Type Department Care Team (Late st Contact Info) Description 03/09/2020 Transcribed Document [facility] [place] [address] [place] [address] ProviderMargaret MD [address] [place] [address] [phone] Social History Tobacco Use Types Packs/Day Years [...] Policy Numbers : Insurance 1 Health Plan: [facility] Policy Number: [id number] Authorization Number: Insurance Primary Name : [facility] Policy Number: [id number] Authorization Status-Primary : Denial - admission Authorized Service Begin Date-Primary : 03/04/2020 EDT Authorization Comments-Primary : Called Dr. Arthur office spoke with Kim she stated that Dr. Arthur only works tuesdays. I will call back then to discuss P2P> Emailed to [facility] [place] Historical Authorization Comments-Primary : Comment 1: [employer] BH denied for inpt per Allison (KYRIE BROWN, RN-Utilization Review 03/07/2020 15:46) Comment 2: Additional clinicals faxed manually per request of Allison at [facility] (Yvonne Duran, An-Utilization Review 03/07/2020 08:44) Comment 3: Clinicals faxed manually to [facility] (Yvonne Duran, Rn-Utilization Review 03/05/2020 14:39) BILL CEE RN - 03/09/2020 11:15 EDT Electronically signed by Ruby [facility] Conversion Advertising Traffic Manager Cerner at 10/08/2022 12:02 PM CDT documented in this encounter Plan of Treatment Not on file documented as of this encounter Visit Diagnoses Not on filedocumented in this encounter Care Teams Sex Crimes Detective Relationship Specialty Start Date End Date Moira Barba RN PCP - General 12/14/22 documented as of this encounter
--- OUTSIDE RECORDS SUMMARY | 2025-01-19 21:54 | XMS_ITS | Encounter Summary ---
Author Organization [employer] ([place], [place], [place], [place]) Address [address] [place] [address] Care Team Providers Care Information Lead Name Role Phone Moira Barba RN Primary Care Provider Jose L ilgrayson Encounter Details Date Type Department Care Team (Late st Contact Info) Description 03/13/2020 Transcribed Document [facility] [place] [address] [place] [address] ProviderMargaret MD [address] [place] [address] [phone] Social History Tobacco Use Types Packs/Day Years [...] Policy Numbers : Insurance 1 Health Plan: [facility] Policy Number: [id number] Authorization Number: Insurance Primary Name : [facility] Policy Number: [id number] Authorization Status-Primary : Denial - admission Authorized [...] then to discuss P2P> Emailed to [facility] (BILL CEE RN 03/09/2020 11:15) Comment 3: [employer] BH denied for inpt per Allison (KYRIE BROWN RN-Utilization Review 03/07/2020 15:46) Comment 4: Additional clinicals faxed manually per request of Allison at [facility] (Yvonne Duran Rn-Utilization Review 03/07/2020 08:44) Comment 5: Clinicals faxed manually to [facility] (Yvonne Duran Rn-Utilization Review 03/05/2020 14:39) BILL CEE RN - 03/13/2020 9:44 EDT Electronically signed by Ruby [facility] Conversion Trust Administrator Cerner at 10/08/2022 11:54 AM CDT documented in this encounter Plan of Treatment Not on file documented as of this encounter Visit Diagnoses Not on filedocumented in this encounter Care Teams Information Lead Relationship Specialty Start Date End Date Moira Barba RN PCP - General 12/14/22 documented as of this encounter
--- OUTSIDE RECORDS SUMMARY | 2025-01-19 21:54 | XMS_ITS | Encounter Summary ---
Author Organization [employer] ([place], [place], [place], [place]) Address [address] [place] [address] Care Team Providers Care Respiratory Scientist Name Role Phone Moira Barba RN Primary Care Provider Jose L miller Encounter Details Date Type Department Care Team (Late st Contact Info) Description 03/07/2020 Transcribed Document [facility] [place] Family Medicine [address] [place] [address] ProviderMargaret MD [address] [place] [address] [phone] Social History Tobacco Use Types Packs/Day Years [...] Performed On: 03/07/2020 8:54 EDT by FANNY SAPP RN Discharge Documentation Patient Disposition, General : Discharge Discharge [...] Verbalizes understanding Worker's Compensation Paperwork Completed : No FANNY SAPP RN - 03/07/2020 8:54 EDT documented in this encounter Plan of Treatment Not on file documented as of this encounter Visit Diagnoses Not on filedocumented in this encounter Care Teams Respiratory Scientist Relationship Specialty Start Date End Date Moira Barba RN PCP - General 12/14/22 documented as of this encounter
--- OUTSIDE RECORDS SUMMARY | 2025-01-19 21:54 | XMS_ITS | Encounter Summary ---
Author Organization [employer] ([place], [place], [place], [place]) Address [address] [place] [address] Care Team Providers Care Valve Assembler Name Role Phone Moira Barba RN Primary Care Provider Unava ilable Encounter Details Date Type Department Care Team (Late st Contact Info) Description 03/06/2020 Transcribed Document [facility] [place] [facility] [place] [address] ProviderMargaret MD [address] [place] [address] Social History Tobacco Use Types Packs/Day [...] : Yes MICHEAL BLANCA RN - 03/06/2020 20:07 EDT Electronically signed by Ruby [facility] Conversion Tail Trimmer Cerner at 10/08/2022 12:14 PM CDT documented in this encounter Plan of Treatment Not on file documented as of this encounter Visit Diagnoses Not on filedocumented in this encounter Care Teams Valve Assembler Relationship Specialty Start Date End Date Moira Barba, RN PCP - General 12/14/22 documented as of this encounter
--- OUTSIDE RECORDS SUMMARY | 2025-01-19 21:54 | XMS_ITS | Encounter Summary ---
Author Organization [employer] ([place], [place], [place], [place]) Address [address] [place] [address] Care Team Providers Care Floriculturist Name Role Phone Moira Barba RN Primary Care Provider Jose L miller Encounter Details Date Type Department Care Team (Late st Contact Info) Description 03/05/2020 Transcribed Document [facility] [place] [facility] [address] ProviderMargaret MD [address] [place] [address] [phone] Social History Tobacco Use Types Packs/Day Years [...] 31+2 weeks with PTL. She presented to [facility] with abdominal pain. She was marleen [...] qualifying data Social History Document (if any) Cultural/Sabianism beliefs that would affect medical care: Lab Results MAR 04 18:35 \ 13.1 / H 18.7 314 / 39.2 \ Electronically signed by Ruby [facility] Conversion Ballet Master/Mistress Cerner at 10/08/2022 11:57 AM CDT documented in this encounter Plan of Treatment Not on file documented as of this encounter Visit Diagnoses Not on filedocumented in this encounter Care Teams Floriculturist Relationship Specialty Start Date End Date Moira Barba RN PCP - General 12/14/22 documented as of this encounter
--- OUTSIDE RECORDS SUMMARY | 2025-01-19 21:54 | XMS_ITS | Encounter Summary ---
Author Organization [employer] ([place], [place], [place], [place]) Address [address] [place] [address] Care Team Providers Care Top Dyeing Machine Tender Name Role Phone Moira Barba RN Primary Care Provider Unava ilable Encounter Details Date Type Department Care Team (Late st Contact Info) Description 03/05/2020 Transcribed Document [facility] [place] [address] ProviderMargaret MD [address] [place] [address] [phone] Social History Tobacco Use Types Packs/Day Years [...] MICHEAL BLANCA RN - 03/06/2020 20:05 EDT documented in this encounter Plan of Treatment Not on file documented as of this encounter Visit Diagnoses Not on filedocumented in this encounter Care Teams Top Dyeing Machine Tender Relationship Specialty Start Date End Date Moira Barba, RN PCP - General 12/14/22 documented as of this encounter
--- OUTSIDE RECORDS SUMMARY | 2025-01-19 21:54 | XMS_ITS | Encounter Summary ---
Author Organization [employer] ([place], [place], [place], [place]) Address [address] [place] [address] Care Team Providers Care Supervisor Beet End Name Role Phone Moira Barba RN Primary Care Provider Unanellie ilable Encounter Details Date Type Department Care Team (Late st Contact Info) Description 03/07/2020 Transcribed Document [facility] [place] [address] [place] [address] ProviderMargaret MD [address] [place] [address] [phone] Social History Tobacco Use Types Packs/Day Years [...] Margaret ProviderMD - 03/07/2020 8:55 AM CDT [address] [address] INDRA NAVA :2000 Visit Time:03/04/2020 Your Visit Summary Your Care Team Admitting Physician - DIXIE JOHNSON MD-OBG Attending Physician - DIXIE JOHNSON MD-OBG Primary Care Physician - PHDwight, JERRY AMARO Referring Physician - DIXIE JOHNSON MD-OBG Your [...] Capsule(s) Oral Every 4 Hours Pickup at [facility] Pharmacy Information [facility]: [address], [place] [phone] Take your medications faithfully. Do NOT skip [...] 09/04/2009 Document Revised: 09/30/2019 Document Reviewed: 10/29/2016 [employer] Patient Education ?? 2020 [employer]. Third Trimester of The third trimester is from week 28 through week 40 (months 7 through 9). This trimester is when your unborn baby (fetus) is growing very fast. At the end of the ninth month, the unborn baby is about 20 inches in length. It weighs about 6???10 pounds. Follow these instructions at home: Medicines ??? Take xknl-ems-tgkyyqy and prescription medicines only as told by [...] 09/02/2010 Document Revised: 09/29/2019 Document Reviewed: 07/14/2017 [employer] Patient Education ?? 2020 [employer]. Emergency Awareness and Preventative Care STROKE is [...] Assistance with quitting is available by contacting 1-376-PUHA-NOW. This is a free resource providing counseling, [...] range between ( 1.0 and 7.0 ) [facility] #: 1.30 K/uL -- Normal range between ( 0.24 and 0.82 ) [facility] #: 0.00 K/uL -- Normal range between ( 0.04 and 0.54 ) [facility] %: 6.4 % -- Normal range between [...] Creatinine, Toxicology: 31.4 mg/dL Patient Name:INDRA NAVA JOSE RAFAEL I have received and understand this information and was given the opportunity to ask questions. Patient/Chief Service Dispatcher Name: Patient/Chief Service Dispatcher Signature: Relationship to Patient: Clinician/Hospital Chief Service Dispatcher Signature: Date: Electronically signed by Ruby, [facility] Conversion Special [employer] Weapons Sergeant Cerner at 10/08/2022 12:00 PM CDT documented in this encounter Plan of Treatment Not on file documented as of this encounter Visit Diagnoses Not on filedocumented in this encounter Care Teams Supervisor Beet End Relationship Specialty Start Date End Date Moira Barba, RN PCP - General 12/14/22 documented as of this encounter
--- OUTSIDE RECORDS SUMMARY | 2025-01-19 21:54 | XMS_ITS | Encounter Summary ---
Author Organization [employer] ([place], [place], [place], [place]) Address [address] [place] [address] Care Team Providers Care Door Person Name Role Phone Moira Barba RN Primary Care Provider Jose L ilgrayson Encounter Details Date Type Department Care Team (Late st Contact Info) Description 03/13/[address] [facility] [place] Family [place] [address] [place] [address] ProviderMargaret MD [address] [place] [address] [phone] Social History Tobacco Use Types Packs/Day Years [...] Policy Numbers : Insurance 1 Health Plan: [facility] Policy Number: [id number] Authorization Number: Insurance Primary Name : [facility] Policy Number: [id number] Authorization Status-Primary : Denial - admission Authorized [...] back then to discuss P2P> Emailed to [facility] (BILL CEE RN 03/09/2020 11:15) Comment 4: [employer] BH denied for inpt per Allison (KYRIE BROWN RN-Utilization Review 03/07/2020 15:46) Comment 5: Additional clinicals faxed manually per request of Allison at [facility] (Yvonne Duran Rn-Utilization Review 03/07/2020 08:44) Comment 6: Clinicals faxed manually to [facility] (Yvonne Duran Rn-Utilization Review 03/05/2020 14:39) BILL CEE RN - 03/13/2020 10:00 EDT Electronically signed by Ruby [facility] Conversion Irrigation System Installer Marcner at 10/08/2022 12:11 PM CDT documented in this encounter Plan of Treatment Not on file documented as of this encounter Visit Diagnoses Not on filedocumented in this encounter Care Teams Door Person Relationship Specialty Start Date End Date Moira Barba RN PCP - General 12/14/22 documented as of this encounter
--- OUTSIDE RECORDS SUMMARY | 2025-01-19 21:54 | XMS_ITS | Encounter Summary ---
Author Organization [employer] ([place], [place], [place], [place]) Address [address] [place] [address] Care Team Providers Care Sew On Operator Name Role Phone Moira Barba RN Primary Care Provider Jose L ilgrayson Encounter Details Date Type Department Care Team (Late st Contact Info) Description 03/14/2020 Transcribed Document [facility] [place] Family Medicine [address] [place] [address] ProviderMargaret MD [address] [place] [address] [phone] Social History Tobacco Use Types Packs/Day Years [...] Policy Numbers : Insurance 1 Health Plan: [facility] Policy Number: [id number] Authorization Number: Insurance Primary Name : [facility] Policy Number: [id number] Authorization Status-Primary : Denial - admission Authorized Service Begin Date-Primary : 03/04/2020 EDT Authorization Comments-Primary : Left VM for Allison inquiring of P2P result. Historical Authorization Comments-Primary : Comment 1: Per Dr. Arthur she will complete this P2P left VM for [facility] to setup P2P for 03/14/2020 @ 9-10. [...] back then to discuss P2P> [place] [facility] [place]BILL CEE RN 03/09/2020 11:15) Comment 6: [employer] [facility] denied for inpt per Allison (KYRIE BROWN RN-Utilization Review 03/07/2020 15:46) Comment 7: Additional clinicals faxed manually per request of Allison at [facility] (Yvonne Duran Rn-Utilization Review 03/07/2020 08:44) Comment 8: Clinicals faxed manually to [facility] (Yvonne Duran Rn-Utilization Review 03/05/2020 14:39) BILL CEE RN - 03/14/2020 16:18 EDT Electronically signed by Ruby [facility] Conversion Industrial Engineering Manager Cerner at 10/08/2022 12:13 PM CDT documented in this encounter Plan of Treatment Not on file documented as of this encounter Visit Diagnoses Not on filedocumented in this encounter Care Teams Sew On Operator Relationship Specialty Start Date End Date Moira Barba RN PCP - General 12/14/22 documented as of this encounter
--- OUTSIDE RECORDS SUMMARY | 2025-01-19 21:54 | XMS_ITS | Encounter Summary ---
Author Organization [employer] ([place], [place], [place]) Address [address] [place] [address] Care Team Providers Care Interactive Media Project Manager Name Role Phone Moira Barba RN Primary Care Provider Unava ilable Encounter Details Date Type Department Care Team (Late st Contact Info) Description 03/04/2020 Transcribed Document [facility] [place] Family Medicine [facility] [address] ProviderMargaret MD [address] [place] [address] Social History Tobacco Use Types Packs/Day [...] 03/06/2020 20:05 EDT Electronically signed by Ruby [facility] Conversion Duck Farmer Cerner at 10/08/2022 12:12 PM CDT documented in this encounter Plan of Treatment Not on file documented as of this encounter Visit Diagnoses Not on filedocumented in this encounter Care Teams Interactive Media Project Manager Relationship Specialty Start Date End Date Moira Barba, RN PCP - General 12/14/22 documented as of this encounter
--- OUTSIDE RECORDS SUMMARY | 2025-01-19 21:54 | XMS_ITS | Encounter Summary ---
Author Organization [employer] ([place], [place], [place], [place]) Address [address] [place] [address] Care Team Providers Care Inside Outside Sales Representative Name Role Phone Moira Barba RN Primary Care Provider Unava ilable Encounter Details Date Type Department Care Team (Late st Contact Info) Description 03/04/2020 Transcribed Document [facility] [place] Family [place] [facility] [place] [address] ProviderMargaret MD [address] [place] [address] Social History Tobacco Use Types Packs/Day [...] ELIO SNOWDEN RN - 03/04/2020 17:07 EDT documented in this encounter Plan of Treatment Not on file documented as of this encounter Visit Diagnoses Not on filedocumented in this encounter Care Teams Inside Outside Sales Representative Relationship Specialty Start Date End Date Moira Barba RN PCP - General 12/14/22 documented as of this encounter
--- OUTSIDE RECORDS SUMMARY | 2025-01-19 21:54 | XMS_ITS | Encounter Summary ---
Author Organization [employer] ([place], [place], [place], [place]) Address [address] [place] [address] Care Team Providers Care Diet Aid Name Role Phone Moira Barba RN Primary Care Provider Unava ilable Encounter Details Date Type Department Care Team (Late st Contact Info) Description 03/07/2020 Transcribed Document [facility] [place] [address] ProviderMargaret MD [address] [place] [address] [phone] Social History Tobacco Use Types Packs/Day Years [...] Reviewed : Yes MICHEAL BLANCA RN - 03/07/2020 5:29 EDT Electronically signed by Ruby [facility] Conversion Director Of Promotions Cerner at 10/08/2022 12:03 PM CDT documented in this encounter Plan of Treatment Not on file documented as of this encounter Visit Diagnoses Not on filedocumented in this encounter Care Teams Diet Aid Relationship Specialty Start Date End Date Moira Barba, RN PCP - General 12/14/22 documented as of this encounter
--- OUTSIDE RECORDS SUMMARY | 2025-01-19 21:54 | XMS_ITS | Encounter Summary ---
Author Organization [employer] ([place], [place], [place], [place]) Address [address] [place] [address] Care Team Providers Care Digital Intern Name Role Phone Moira Barba RN Primary Care Provider Jose L ilgrayson Encounter Details Date Type Department Care Team (Late st Contact Info) Description 03/07/2020 Transcribed Document [facility] [place] Family Medicine [address] [place] [address] ProviderMargaret MD [address] [place] [address] [phone] Social History Tobacco Use Types Packs/Day Years [...] Conversion Note - Margaret ProviderMD - 03/07/2020 8:44 AM CDT UM Authorization Entered On: 03/07/2020 8:44 EDT Performed On: 03/07/2020 8:44 EDT by Yvonne Duran Rn-Utilization Review Primary Insurance Authorization Authorization and Policy Numbers : Insurance 1 Health Plan: [facility] Policy Number: [id number] Authorization Number: Insurance Primary Name : [facility] Policy Number: [id number] Authorization Status-Primary : Awaiting callback Authorized Service Begin Date-Primary : 03/04/2020 EDT Authorization Comments-Primary : Additional clinicals faxed manually per request of Allison krueger [facility] Historical Authorization Comments-Primary : Comment 1: Clinicals faxed manually to [facility] (Yvonne Duran Rn-Utilization Review 03/05/2020 14:39) Yvonne Duran Rn-Utilization Review - 03/07/2020 8:44 EDT Electronically signed by Ruby [facility] Conversion Radio Presenter Cerner at 10/08/2022 12:02 PM CDT documented in this encounter Plan of Treatment Not on file documented as of this encounter Visit Diagnoses Not on filedocumented in this encounter Care Teams Digital Intern Relationship Specialty Start Date End Date Moira Barba, RN PCP - General 12/14/22 documented as of this encounter
--- OUTSIDE RECORDS SUMMARY | 2025-01-19 21:54 | XMS_ITS | Encounter Summary ---
Author Organization [employer] ([place], [place], [place], [place]) Address [address] [place] [address] Care Team Providers Care Capital Project Engineer Name Role Phone Moira Barba RN Primary Care Provider Jose L ilgrayson Encounter Details Date Type Department Care Team (Late st Contact Info) Description 03/07/2020 Transcribed Document [facility] [place] Family Medicine [address] [place] [address] ProviderMargaret MD [address] [place] [address] [phone] Social History Tobacco Use Types Packs/Day Years [...] Policy Numbers : Insurance 1 Health Plan: [facility] Policy Number: [id number] Authorization Number: Insurance Primary Name : [facility] Policy Number: [id number] Authorization Status-Primary : Denial - admission Authorized Service Begin Date-Primary : 03/04/2020 EDT Authorization Comments-Primary : [facility] Allison Historical Authorization Comments-Primary : Comment 1: Additional clinicals faxed manually per request of Allison at [facility] (Yvonne Duran, An-Utilization Review 03/07/2020 08:44) Comment 2: Clinicals faxed manually to [facility] (Yvonne Duran, An-Utilization Review 03/05/2020 14:39) KYRIE BROWN RN-Utilization Review - 03/07/2020 15:46 EDT Electronically signed by Ruby [facility] Conversion Retail Pricing Coordinator Cerner at 10/08/2022 12:04 PM CDT documented in this encounter Plan of Treatment Not on file documented as of this encounter Visit Diagnoses Not on filedocumented in this encounter Care Teams Capital Project Engineer Relationship Specialty Start Date End Date Moira Barba RN PCP - General 12/14/22 documented as of this encounter
--- OUTSIDE RECORDS SUMMARY | 2025-01-19 21:54 | XMS_ITS | Encounter Summary ---
Author Organization [employer] ([place], [place], [place], [place]) Address [address] [place] [address] Care Team Providers Care Sales And Service Officer Name Role Phone Moria Barba RN Primary Care Provider Unava ilable Encounter Details Date Type Department Care Team (Late st Contact Info) Description 03/07/2020 Transcribed Document [facility] [place] [facility] [address] ProviderMargaret MD [address] [place] [address] [phone] Social History Tobacco Use Types Packs/Day Years [...] 03/07/2020 8:54 EDT by FANNY SAPP RN Stroke/Warfarin Instructions Stroke/TIA Discharge Ins : N/A Warfarin Discharge Ins : N/A FANNY SAPP RN - 03/07/2020 8:54 EDT documented in this encounter Plan of Treatment Not on file documented as of this encounter Visit Diagnoses Not on filedocumented in this encounter Care Teams Sales And Service Officer Relationship Specialty Start Date End Date Moira Barba, RN PCP - General 12/14/22 documented as of this encounter
--- OUTSIDE RECORDS SUMMARY | 2025-01-19 21:54 | XMS_ITS | Encounter Summary ---
Author Organization [employer] ([place], [place], [place], [place]) Address [address] [place] [address] Care Team Providers Care Program Coordinator Name Role Phone Moira Barba RN Primary Care Provider Unanellie ilable Encounter Details Date Type Department Care Team (Late st Contact Info) Description 03/15/2020 Transcribed Document [facility] [place] Family Medicine [address] [place] [address] ProviderMargaret MD [address] [place] [address] [phone] Social History Tobacco Use Types Packs/Day Years [...] Policy Numbers : Insurance 1 Health Plan: [facility] Policy Number: [id number] Authorization Number: Insurance Primary Name : [facility] Policy Number: [id number] Authorization Status-Primary : Admit approved Reference Number-Primary : [id number] Number of Days Authorized-Primary : 3 Day(s) Authorized Service Begin Date-Primary : 03/04/2020 EDT Authorized Service End Date-Primary : 03/07/2020 EDT Historical Authorization Comments-Primary : Comment 1: Per call to [facility] approved all days after p2P completed. (BILL CEE RN 03/15/2020 11:39) Comment 2: Left VM for Allison inquiring of P2P result. (BILL CEE RN 03/14/2020 16:18) Comment 3: Per Dr. Arthur she will complete this P2P left VM for [facility] to setup P2P for 03/14/2020 @ [...] back then to discuss P2P> Emailed to [facility] [place] (BILL CEE RN 03/09/2020 11:15) Comment 8: [employer] [facility] denied for inpt per Allison (KYRIE BROWN RN-Utilization Review 03/07/2020 15:46) Comment 9: Additional clinicals faxed manually per request of Allison at [facility] (Yvonne Duran Rn-Utilization Review 03/07/2020 08:44) Comment 10: Clinicals faxed manually to [facility] (Yvonne Duran Rn-Utilization Review 03/05/2020 14:39) BILL CEE RN - 03/15/2020 11:40 EDT Electronically signed by Ruby [facility] Conversion Bill Poster Installer Cerner at 10/08/2022 12:06 PM CDT documented in this encounter Plan of Treatment Not on file documented as of this encounter Visit Diagnoses Not on filedocumented in this encounter Care Teams Program Coordinator Relationship Specialty Start Date End Date Moira Barba, RN PCP - General 12/14/22 documented as of this encounter
--- OUTSIDE RECORDS SUMMARY | 2025-01-19 21:54 | XMS_ITS | Referral Summary ---
Author Organization [employer] ([place], [place], [place], [place]) Address [address] [place] [address] Care Team Providers Care Registered Sales Assistant Name Role Phone Moira Barba RN Primary Care Provider Unanellie ilable Allergies Active Allergy Reactions Criticality Noted [...] drink = 0.6 oz pur e alcohol) Family and Community Support Answer Douglas e Recorded Help with Day to Day Activities Not on file 07/10/2023 Feeling Lonely or Isolated Not on file 07/10 Educational Attainment Answer Date Jacob rded Speak language other than Mexican at home Not on file 07/10/2023 Want help with school or training Not on file 07/10/2023 Substance Use Answer Date Recorded Used [...] EDT Plan of Treatment Not on file Insurance [facility] Care Teams Registered Sales Assistant Relationship Specialty Start Date End Date Moira Barba RN PCP - General 12/14/22
--- OUTSIDE RECORDS SUMMARY | 2025-01-19 21:54 | XMS_ITS | Encounter Summary ---
Author Organization [employer] ([place], [place], [place], [place]) Address [address] [place] [address] Care Team Providers Care Inventory Coordinator Name Role Phone Moira Barba RN Primary Care Provider Jose L miller Encounter Details Date Type Department Care Team (Late st Contact Info) Description 03/06/2020 Transcribed Document [facility] [place] [facility] [place] [address] ProviderMargaret MD [address] [place] [address] Social History Tobacco Use Types Packs/Day [...] 5 mg 1 Tab, Oral, At Bedtime [facility] US 03/05/20 Sharma at 31w 1d in [...] on filedocumented in this encounter Care Teams Inventory Coordinator Relationship Specialty Start Date End Date Barba, Moira L, RN PCP - General 12/14/22 documented as of this encounter
--- OUTSIDE RECORDS SUMMARY | 2025-01-19 21:54 | XMS_ITS | Clinical Summary ---
Author Organization [employer] ([place], [place], [place], [place]) Address [address] [place] [address] Care Team Providers Care Bevel Face Stoner And Polisher Name Role Phone Moira Barba RN Primary [...] Date Jacob rded Speak language other than Moroccan at home Not on file 07/10/2023 Want [...] Panel 2019 Pap Smear 12/12/2020 COVID-19 VACCINE (1 - 2023- season) 2024 Influenza Vaccine (#1) 2025 Insurance [facility] Care Teams Bevel Face Stoner And Polisher Relationship Specialty Start Date End Date Moira Barba RN PCP - General 12/14/22
--- OUTSIDE RECORDS SUMMARY | 2025-01-19 21:54 | XMS_ITS | Encounter Summary ---
Author Organization [employer] ([place], [place], [place], [place]) Address [address] [place] [address] Care Team Providers Care Business Account Manager Name Role Phone Moira Barba RN Primary Care Provider Unava ilable Encounter Details Date Type Department Care Team (Late st Contact Info) Description 03/05/2020 Transcribed Document [facility] [place] [facility] [place] [address] ProviderMargaret MD [address] [place] [phone] Social History Tobacco Use Types Packs/Day Years [...] 03/06/2020 20:06 EDT Electronically signed by Ruby [facility] Conversion Swatch Checker Cerner at 10/08/2022 11:57 AM CDT documented in this encounter Plan of Treatment Not on file documented as of this encounter Visit Diagnoses Not on filedocumented in this encounter Care Teams Business Account Manager Relationship Specialty Start Date End Date Moira Barba, RN PCP - General 12/14/22 documented as of this encounter
--- OUTSIDE RECORDS SUMMARY | 2025-01-19 21:54 | XMS_ITS | Encounter Summary ---
Author Organization [employer] ([place], [place], [place], [place]) Address [address] [place] [address] Care Team Providers Care Devops Solutions Architect Name Role Phone Moira Barba RN Primary Care Provider Jose L miller Encounter Details Date Type Department Care Team (Late st Contact Info) Description 03/13/2020 Transcribed Document [facility] [place] Family Medicine [address] [place] [address] ProviderMargaret MD [address] [place] [address] [phone] Social History Tobacco Use Types Packs/Day Years [...] Policy Numbers : Insurance 1 Health Plan: [facility] Policy Number: [id number] Authorization Number: Insurance Primary Name : [facility] Policy Number: [id number] Authorization Status-Primary : Denial - admission Authorized Service Begin Date-Primary : 03/04/2020 EDT Authorization Comments-Primary : Per Dr. Arthur she will complete this P2P left VM for [facility] to setup P2P for 03/14/2020 @ [...] back then to discuss P2P> Emailed to [facility] (BILL CEE RN 03/09/2020 11:15) Comment 5: [employer] [facility] denied for inpt per Allison (KYRIE BROWN RN-Utilization Review 03/07/2020 15:46) Comment 6: Additional clinicals faxed manually per request of Allison at [facility] (Yvonne Duran Rn-Utilization Review 03/07/2020 08:44) Comment 7: Clinicals faxed manually to [facility] (Yvonne Duran Rn-Utilization Review 03/05/2020 14:39) BILL CEE RN - 03/13/2020 10:15 EDT documented in this encounter Plan of Treatment Not on file documented as of this encounter Visit Diagnoses Not on filedocumented in this encounter Care Teams Devops Solutions Architect Relationship Specialty Start Date End Date Moira Barba, RANDI PCP - General 12/14/22 documented as of this encounter
--- OUTSIDE RECORDS SUMMARY | 2025-01-19 21:54 | XMS_ITS | Encounter Summary ---
Author Organization [employer] ([place], [place], [place], [place]) Address [address] [place] [address] Care Team Providers Care Supervisor [employer]age Shop Name Role Phone Moira Barba RN Primary Care Provider Unava ilable Encounter Details Date Type Department Care Team (Late st Contact Info) Description 03/05/2020 Transcribed Document [facility] [place] Family Medicine [facility] [place] [address] ProviderMargaret MD [address] [place] [address] Social History Tobacco Use Types Packs/Day [...] 03/06/2020 20:06 EDT Electronically signed by Ruby [facility] Conversion Hand Packer/Packager Cerner at 10/08/2022 12:02 PM CDT documented in this encounter Plan of Treatment Not on file documented as of this encounter Visit Diagnoses Not on filedocumented in this encounter Care Teams Supervisor [employer] Relationship Specialty Start Date End Date Moira Barba, RN PCP - General 12/14/22 documented as of this encounter
--- OUTSIDE RECORDS SUMMARY | 2025-01-19 21:54 | XMS_ITS | Encounter Summary ---
Author Organization [employer] ([place], [place], [place], [place]) Address [address] [place] [address] Care Team Providers Care Bisque Kiln Placer Name Role Phone Moira Barba RN Primary Care Provider Unava ilable Encounter Details Date Type Department Care Team (Late st Contact Info) Description 03/06/2020 Transcribed Document [facility] [place] [facility] [place] [address] ProviderMargaret MD [address] [place] [address] Social History Tobacco Use Types Packs/Day [...] 03/06/2020 20:07 EDT Electronically signed by Ruby [facility] Conversion Cone Baker Machine Cerner at 10/08/2022 12:09 PM CDT documented in this encounter Plan of Treatment Not on file documented as of this encounter Visit Diagnoses Not on filedocumented in this encounter Care Teams Bisque Kiln Placer Relationship Specialty Start Date End Date Moira Barba, RN PCP - General 12/14/22 documented as of this encounter
--- OUTSIDE RECORDS SUMMARY | 2025-01-19 21:54 | XMS_ITS | Encounter Summary ---
Author Organization [employer] ([place], [place], [place], [place]) Address [address] [place] [address] Care Team Providers Care Busboy Name Role Phone Moira Barba RN Primary Care Provider Unanellie ilable Encounter Details Date Type Department Care Team (Late st Contact Info) Description 03/05/2020 Transcribed Document [facility] [place] [address] [place] [address] ProviderMargaret MD [address] [place] [address] [phone] Social History Tobacco Use Types Packs/Day Years Used Date Smoking Tobacco: Never Assessed Comments Unknown Sex and Gender Information Value Date Recorded Sex Assigned at Female 12/19/2021 6:15 PM CDT Legal Sex Female 7:09 PM CDT Gender Identity Female 12/19/2021 6:15 PM CDT Sexual Orientation Not on file documented as of this encounter Miscellaneous Notes * Cerner Conversion Note - Historical ProviderMD - 03/05/2020 2:39 PM CDT UM Authorization Entered On: 03/05/2020 14:39 EDT Performed On: 03/05/2020 14:39 EDT by Yvonne Duran Rn-Utilization Review Primary Insurance Authorization Authorization and Policy Numbers : Insurance 1 Health Plan: [facility] Policy Number: [id number] Authorization Number: Insurance Primary Name : [facility] Policy Number: [id number] Authorization Status-Primary : Awaiting callback Authorized Service Begin Date-Primary : 03/04/2020 EDT Authorization Comments-Primary : Clinicals faxed manually to [facility] Historical Authorization Comments-Primary : No Authorization Comments Found Yvonne Duran, Randi-Utilization Review - 03/05/2020 14:39 EDT Electronically signed by Ruby [facility] Conversion Jointer Machine Operator Cerner at 10/08/2022 12:17 PM CDT documented in this encounter Plan of Treatment Not on file documented as of this encounter Visit Diagnoses Not on filedocumented in this encounter Care Teams Busboy Relationship Specialty Start Date End Date Moira Barba, RANDI PCP - General 12/14/22 documented as of this encounter
--- OUTSIDE RECORDS SUMMARY | 2025-01-19 21:54 | XMS_ITS | Encounter Summary ---
Author Organization [employer] ([place], [place], [place], [place]) Address [address] [place] [address] Care Team Providers Care Sightseeing Guide Name Role Phone Moira Barba RN Primary Care Provider Unava ilable Encounter Details Date Type Department Care Team (Late st Contact Info) Description 03/04/2020 Transcribed Document [facility] [place] [address] ProviderMargaret MD [address] [place] [address] Social History Tobacco Use Types Packs/Day [...] Source : Measured Height Entry Format : [place] Height, Feet : 5 ft(Converted to: 152 cm, 60 Inch) Clinical Height : 175.26 cm Height, Inches : 9 Inch(Converted to: 0 ft 9 Inch, 22.86 cm) Weight Source : Standing scale Weight Entry Format : [place] Weight, Pounds : 170 lb Clinical Dosing Weight : 77.27 kg Body Surface Area (BSA) : 1.93 m2 Body Mass Index : 25.2 kg/m2 (HI) [place] Body Weight (IBW) : 65.73 kg ELIO [...] ELIO SNOWDEN RN - 03/04/2020 17:06 EDT [place] Suicide Severity Rating Scale (C-SSRS) CSSRS Past [...] on filedocumented in this encounter Care Teams Sightseeing Guide Relationship Specialty Start Date End Date Moira Barba RN PCP - General 12/14/22 documented as of this encounter
--- OUTSIDE RECORDS SUMMARY | 2025-01-19 21:54 | XMS_ITS | Encounter Summary ---
Author Organization [employer] ([place], [place], [place], [place]) Address [address] [place] [address] Care Team Providers Care Candy Separator Enrobing Name Role Phone Moira Barba RN Primary Care Provider Jose L miller Encounter Details Date Type Department Care Team (Late st Contact Info) Description 03/12/2020 Transcribed Document [facility] [place] Family Medicine [facility] [place] [address] ProviderMargaret MD [address] [place] [address] [phone] Social History Tobacco Use Types Packs/Day Years Used Date Smoking Tobacco: Never Assessed Comments Unknown Sex and Gender Information Value Date Recorded Sex Assigned at Female 12/19/2021 6:15 PM CDT Legal Sex Female 7:09 PM CDT Gender Identity Female 12/19/2021 6:15 PM CDT Sexual Orientation Not on file documented as of this encounter Miscellaneous Notes * Cerner Conversion Note - Historical ProviderMD - 03/12/2020 11:14 AM CDT Patient: INDRA NAVA Age: 19 Years Sex: Female : 2000 Admit Date 03/04/2020 16:36 Discharge Date 03/07/2020 09:36 Discharge Diagnosis IUP at 32 weeks, PTL Procedures corticosteroids; tocolysis, antibiotics Studies antibiotics Reason for Hospitalization 19 yo who presented from [facility] with contractions and cervical change on Magnesium [...] than 30 minutes Electronically signed by Ruby [facility] Conversion Engine Room Helper Cerner at 10/08/2022 12:04 PM CDT documented in this encounter Plan of Treatment Not on file documented as of this encounter Visit Diagnoses Not on filedocumented in this encounter Care Teams Candy Separator Enrobing Relationship Specialty Start Date End Date Moira Barba RN PCP - General 12/14/22 documented as of this encounter
--- OUTSIDE RECORDS SUMMARY | 2025-01-19 21:54 | XMS_ITS | Encounter Summary ---
Author Organization [employer] ([place], [place], [place], [place]) Address [address] [place] [address] Care Team Providers Care Chief Diversity Officer Name Role Phone Moira Barba RN Primary Care Provider Unava ilable Encounter Details Date Type Department Care Team (Late st Contact Info) Description 03/06/2020 Transcribed Document [facility] [facility] [address] ProviderMargaret MD [address] [place] [address] [phone] Social History Tobacco Use Types Packs/Day Years [...] 03/06/2020 20:06 EDT Electronically signed by Ruby [facility] Conversion Loop Cutter Cerner at 10/08/2022 12:15 PM CDT documented in this encounter Plan of Treatment Not on file documented as of this encounter Visit Diagnoses Not on filedocumented in this encounter Care Teams Chief Diversity Officer Relationship Specialty Start Date End Date Moira Barba, RN PCP - General 12/14/22 documented as of this encounter
--- OUTSIDE RECORDS SUMMARY | 2025-01-19 21:54 | XMS_ITS | Encounter Summary ---
Author Organization [employer] ([place], [place], [place], [place]) Address [address] [place] [address] Care Team Providers Care Roll Coverer Name Role Phone Moira Barba RN Primary Care Provider Jose L miller Encounter Details Date Type Department Care Team (Late st Contact Info) Description 03/07/2020 Transcribed Document [facility] [place] [address] ProviderMargaret MD [address] [place], [place] [phone] Social History Tobacco Use Types Packs/Day Years [...] Conversion Note - Margaret ProviderMD - 03/07/2020 8:53 AM CDT Patient Education [...] 09/04/2009 Document Revised: 09/30/2019 Document Reviewed: 10/29/2016 [employer] Patient Education ? 2020 [employer]. Obstetrics and Gynecology Third Trimester of The third trimester is from week 28 through week 40 (months 7 through 9). This trimester is when your unborn baby (fetus) is growing very fast. At the end of the ninth month, the unborn baby is about 20 inches in length. It weighs about 6?10 pounds. Follow these instructions at home: Medicines ??? Take yqqe-nrk-aofcvwa and prescription medicines only as told by [...] Document Reviewed: 07/14/2017 Elsevier Patient Education ? 2020 [employer] documented in this encounter Plan of Treatment Not on file documented as of this encounter Visit Diagnoses Not on filedocumented in this encounter Care Teams Roll Coverer Relationship Specialty Start Date End Date Moira Barba RN PCP - General 12/14/22 documented as of this encounter
--- OUTSIDE RECORDS SUMMARY | 2025-01-19 21:54 | XMS_ITS | Encounter Summary ---
Author Organization [employer] ([place], [place], [place], [place]) Address [address] [place] [address] Care Team Providers Care Cardiology Nurse Practitioner Name Role Phone Moira Barba RN Primary Care Provider Unava ilable Encounter Details Date Type Department Care Team (Late st Contact Info) Description 03/06/2020 Transcribed Document [facility] [facility] [place] [address] ProviderMargaret MD [address] [place] [address] [phone] Social History Tobacco Use Types Packs/Day Years [...] 03/06/2020 20:07 EDT Electronically signed by Ruby [facility] Conversion Welding Machine Operator Thermit Cerner at 10/08/2022 11:54 AM CDT documented in this encounter Plan of Treatment Not on file documented as of this encounter Visit Diagnoses Not on filedocumented in this encounter Care Teams Cardiology Nurse Practitioner Relationship Specialty Start Date End Date Moira Barba, RN PCP - General 12/14/22 documented as of this encounter
[2025-01-19 21:57] VITALS: BP 118/57; PULSE 76; RESP 18; TEMP 36.7; O2SAT 96; BMI 24.6
[2025-01-19 22:20] LABS: Microscopic, Urine URINE MICROSCOPIC (MICROSCOPIC)
[2025-01-19 22:31] LABS: Bilirubin,Urine Negative (Negative); Color,Urine YELLOW (Yellow); Glucose,Urine (UA) Negative (Negative); Ketones,Urine Negative (Negative); Leukocyte Esterase,Urine Negative (Negative); PH,Urine 7.0 (5.0-8.5); Protein,Urine Negative (Negative); Specific Gravity, Urine 1.015 (1.005-1.030); Urobilinogen,Urine 0.2 EU/dl (0.2)
[2025-01-19 23:21] LABS: Amorphous Sediment,Urine 3+ /lpf
[2025-01-19 23:22] LABS: Bacteria,Urine 2+ /lpf; WBC,Urine Occasional #/hpf (0-3)
== END 2025-01-19 22:50 | disposition home or self-care (01) ==
LOC: OBOUT 21:52 → OB 21:53
PROVIDERS: Visit Provider Obstetrics & Gynecology
DX: Z34.82 Encounter for supervision of other normal pregnancy, second trimester (principal); Z3A.16 16 weeks gestation of pregnancy
CPT/HCPCS: 81001; 87086; 99212; G0463

== ENCOUNTER 2025-01-31 10:13 | Outpatient (CLI) | payer OTHER, SELFPAY ==
--- OUTSIDE RECORDS SUMMARY | 2025-01-31 10:22 | XMS_ITS | Patient Health Record ---
Author Organization [facility] Address [address] [facility] [address] [place] [address] Care Team Providers Care Grade School Teacher Name Role Phone Dimple Pillai Unavailable [phone] Allergies Allergen (clinical drug ingredient) Drug/Non Drug [...] Status Risk Notes Problem Urine test negative (122851108) Encounter for test with result negative (Z32.02) [...]
--- NOTE | 2025-01-31 10:30 | US_ITS ---
PROCEDURE: US OB /MATERNAL DETAIL CLINICAL INDICATION: 20 wk Anatomy Scan-US OB Complete COMPARISON: US US OB TRANSVAGINAL from 10/17/2024 US US OB <= 14 WEEKS FETUS from 10/21/2024 FINDINGS: Transabdominal sonographic images of the pelvis were obtained. From her established due date she is 20 weeks 3 days. Single viable intrauterine gestation. Breech position. Placenta: Posteriorplacenta grade 1. There is an average amount of fluid. The cervix appears satisfactory. Closed and measuring 5.1 cm in length. Complete survey performed and was unremarkable on the submitted images as in PACS. No discrete anomalies identified on survey imaging by technologist. Active fetus. Three-vessel cord with satisfactory umbilical cord insertion. 4- chamber heart noted. Situs, aortic arch, LVOT, RVOT, three-vessel view appear normal. Survey of brain & ventricles Unremarkable. Cerebellum, thalamus, choroid plexus, cisterna magna appear normal. Face and neck survey unremarkable. Profile, nasion, lips and nose appeared normal. Diaphragm and chest views unremarkable. Abdomen: Both kidneys noted and unremarkable. Stomach and bladder noted and satisfactory. There is mild unilateral renal pelvis dilation measuring 5.5 mm. Spine: Survey of the spine satisfactory with no anomalies identified nor imaged. Cervical, thoracic, lower spine appear normal. Both arms and legs noted. Amniotic Fluid: Adequate. MVP 4.17 cm Measurements: Average ultrasound age 20weeks 4days. Estimated due date by ultrasound age 1206/16/2025. Estimated weight 352g BPD = 20weeks 6days HC = 20weeks 1day AC = 20weeks 6days FL = 20weeks 0 days Growth Percentile= 44 Heart Rate = 138bpm Cerebellum = 19weeks 1day Humerus = 21weeks 4days HC/AC is 1.13 FL/BPD is 0.66 FL/AC is 0.21 IMPRESSION: 1. Viable fetus in the breech presentation with a posterior placenta grade 1. 2. The fluid is within normal limits with an MVP 4.17 cm. 3. Anatomical scan appears normal. 4. There is unilateral renal pelvis dilation measuring 5.5 mm. Suggest repeat scan at 28 weeks. 5. biometry is consistent with a dates. Dictated by: Carlo Goddard MD 01/31/2025 13:47 Carlo Goddard MD in [place] 01/31/2025 13:47
== END 2025-01-31 23:59 | disposition home or self-care (01) ==
LOC: RAD 10:14
PROVIDERS: PCP Nurse Practitioner; Visit Provider Obstetrics & Gynecology
DX: O32.1XX0 Maternal care for breech presentation, not applicable or unspecified (principal); O35.EXX0 Maternal care for other (suspected) fetal abnormality and damage, fetal genitourinary anomalies, not applicable or unspecified; O46.92 Antepartum hemorrhage, unspecified, second trimester; Z36.3 Encounter for antenatal screening for malformations; Z3A.20 20 weeks gestation of pregnancy
CPT/HCPCS: 76811

== ENCOUNTER 2025-03-21 12:46 | Outpatient (CLI) | payer OTHER, SELFPAY ==
--- OUTSIDE RECORDS SUMMARY | 2025-03-21 12:52 | XMS_ITS | Patient Health Record ---
Author Organization [facility] Address [address] [facility] [address] [place] [address] Care Team Providers Care Sow Farm Technician Name Role Phone Dimple Pillai Unavailable [phone] Allergies Allergen (clinical drug ingredient) Drug/Non Drug [...] Status Risk Notes Problem Urine test negative ([id number]) Encounter for test with result negative (Z32.02) [...]
[2025-03-21 12:54] VITALS: BMI 26.2
[2025-03-21 13:10] VITALS: BP 132/76; PULSE 88; RESP 20; TEMP 36.8; O2SAT 95; BMI 26.2
[2025-03-21 14:48] LABS: Microscopic, Urine URINE MICROSCOPIC (MICROSCOPIC)
[2025-03-21 14:51] LABS: Bilirubin,Urine Negative (Negative); Color,Urine YELLOW (Yellow); Glucose,Urine (UA) Negative (Negative); Ketones,Urine Negative (Negative); Leukocyte Esterase,Urine Negative (Negative); PH,Urine 7.5 (5.0-8.5); Protein,Urine Negative (Negative); Specific Gravity, Urine 1.015 (1.005-1.030); Urobilinogen,Urine 1.0 EU/dl (0.2)
[2025-03-21] MEDS: LACTATED RINGERS 1000ML 1,000 ML 999 ML IV (15:28)
[2025-03-21] MEDS: TERBUTALINE SULFATE 1MG/ML VIAL 0.25 MG SUBCUT (16:25)
[2025-03-21 16:43] LABS: Bacteria,Urine 4+ /lpf; Squamous Epithelial Cell,Urine Occasional #/hpf (0-5)
== END 2025-03-21 17:29 | disposition home or self-care (01) ==
LOC: OBOUT 12:49 → OB 12:51
PROVIDERS: PCP Nurse Practitioner; Visit Provider Nurse Practitioner Obstetrics & Gynecology
DX: O36.8120 Decreased fetal movements, second trimester, not applicable or unspecified (principal); Z3A.27 27 weeks gestation of pregnancy
CPT/HCPCS: 59025; 81001; 87086; 96360; 96372; 99212; G0463; J3105; J7120

== ENCOUNTER 2025-03-22 18:52 | Outpatient (CLI) | payer OTHER, SELFPAY ==
--- OUTSIDE RECORDS SUMMARY | 2025-03-22 18:56 | XMS_ITS | Patient Health Record ---
Author Organization [facility] Address [address] [facility] [address] [place] [address] Care Team Providers Care Soccer Commentator Name Role Phone Dimple Pillai Unavailable [phone] Allergies Allergen (clinical drug ingredient) Drug/Non Drug [...] Status Risk Notes Problem Urine test negative ([id number]) Encounter for test with result negative (Z32.02) [...]
[2025-03-22 19:10] VITALS: BP 115/77; PULSE 92; RESP 16; TEMP 36.8; O2SAT 97; BMI 26.2
[2025-03-22 19:56] LABS: Microscopic, Urine URINE MICROSCOPIC (MICROSCOPIC)
[2025-03-22 19:59] LABS: Bilirubin,Urine Negative (Negative); Color,Urine YELLOW (Yellow); Glucose,Urine (UA) Negative (Negative); Ketones,Urine Negative (Negative); Leukocyte Esterase,Urine Negative (Negative); PH,Urine 7.0 (5.0-8.5); Protein,Urine Negative (Negative); Specific Gravity, Urine 1.010 (1.005-1.030); Urobilinogen,Urine 0.2 EU/dl (0.2)
[2025-03-22] MEDS: DEXTROSE 5%-LACTATED RINGERS 1,000 ML 999 ML IV (20:05)
[2025-03-22 20:20] LABS: WBC,Urine 50-100 #/hpf (0-3)
[2025-03-22 20:21] LABS: Amorphous Sediment,Urine 2+ /lpf; Bacteria,Urine 4+ /lpf; Squamous Epithelial Cell,Urine 50-100 #/hpf (0-5)
[2025-03-22 20:22] LABS: Hematocrit 36.6 % (37.0-47.0); Hemoglobin 12.4 g/dL (12.2-16.2); Immature Granulocytes % 0.3 %; Mean Corpuscular HGB Conc 33.9 g/dL (31.8-35.4); Mean Corpuscular Hemoglobin 31.1 pg (27.0-31.2); Mean Corpuscular Volume 91.7 fl (81-99); Nucleated Red Blood Cells % 0 %; Platelet Count 266 K/mm3 (142-424); Red Blood Count 3.99 M/mm3 (4.20-5.40); Red Cell Distribution Width-SD 40.9 fL; White Blood Count 9.6 K/mm3 (4.8-10.8)
[2025-03-22 20:31] LABS: Alanine Aminotransferase 18 U/L (12-78); Albumin Level 3.5 g/dl (3.5-5.0); Albumin/Globulin Ratio 1.3 (1.1-1.8); Alkaline Phosphatase 99 U/L (38-126); Anion Gap 11.7 mEq/L (5-15); Aspartate Amino Transferase 20 U/L (14-36); Bilirubin,Total 0.3 mg/dl (0.2-1.3); Blood Urea Nitrogen 4 mg/dl (7-17); Calcium 8.9 mg/dl (8.4-10.2); Carbon Dioxide 20 mmol/L (22.0-30.0); Chloride 106 mmol/L (98-107); Creatinine Clearance Estimated 219 mL/min (50-200); Creatinine,Serum 0.50 mg/dl (0.52-1.04); Estimated Glomerular Filt Rate 150 ml/min (>60); GFR (African American) 182 ML/MIN (>60); Globulin 2.7 g/dL (1.3-3.2); Glucose 77 mg/dl (74-100); Potassium 3.7 mmoL/L (3.5-5.1); Sodium 134 mmol/L (136-145); Total Protein,Serum 6.2 g/dl (6.3-8.2)
[2025-03-22 21:20] VITALS: BP 127/58; PULSE 80; O2SAT 98
[2025-03-22 21:35] VITALS: BP 111/58
[2025-03-22 21:50] VITALS: BP 108/64
== END 2025-03-22 22:20 | disposition home or self-care (01) ==
LOC: OBOUT 18:55 → OB 18:55
PROVIDERS: PCP Nurse Practitioner; Visit Provider Nurse Practitioner Obstetrics & Gynecology
DX: O47.02 False labor before 37 completed weeks of gestation, second trimester (principal); M54.9 Dorsalgia, unspecified; Z3A.27 27 weeks gestation of pregnancy
CPT/HCPCS: 59025; 80053; 81001; 85025; 87086; 96360; 99212; G0463; J7121

== ENCOUNTER 2025-03-27 08:32 | Outpatient (CLI) | payer OTHER, SELFPAY ==
--- OUTSIDE RECORDS SUMMARY | 2025-03-27 08:36 | XMS_ITS | Encounter Summary ---
Author Organization [employer] ([place], [place], [place]) Address [address] [place] [address] Care Team Providers Care Public Relations Supervisor Name Role Phone Moira Barba RN Primary Care Provider Unava ilable Encounter Details Date Type Department Care Team (Late st Contact Info) Description 03/05/2020 Transcribed Document [facility] [facility] [place] [address] ProviderMargaret MD [address] [place] [address] Social History Tobacco Use Types Packs/Day [...] 03/06/2020 20:06 EDT Electronically signed by Ruby [facility] Conversion Product Management Internship Cerner at 10/08/2022 12:02 PM CDT documented in this encounter Plan of Treatment Not on file documented as of this encounter Visit Diagnoses Not on filedocumented in this encounter Care Teams Public Relations Supervisor Relationship Specialty Start Date End Date Moira Barba, RN PCP - General 12/14/22 documented as of this encounter
--- OUTSIDE RECORDS SUMMARY | 2025-03-27 08:36 | XMS_ITS | Encounter Summary ---
Author Organization [employer] ([place], [place], [place], [place]) Address [address] [place] [address] Care Team Providers Care Inclusion Special Educator Name Role Phone Moira Barba RN Primary Care Provider Unanellie ilable Encounter Details Date Type Department Care Team (Late st Contact Info) Description 03/05/2020 Transcribed Document [facility] [address] [place] [address] ProviderMargaret MD [address] [place] [address] [phone] Social History Tobacco Use Types Packs/Day Years [...] Policy Numbers : Insurance 1 Health Plan: [facility] Policy Number: [id number] Authorization Number: Insurance Primary Name : [facility] Policy Number: [id number] Authorization Status-Primary : Awaiting callback Authorized Service Begin Date-Primary : 03/04/2020 EDT Authorization Comments-Primary : Clinicals faxed manually to [facility] Historical Authorization Comments-Primary : No Authorization Comments Found Yvonne Duran, Randi-Utilization Review - 03/05/2020 14:39 EDT Electronically signed by Ruby [facility] Conversion Optimization Manager Cerner at 10/08/2022 12:17 PM CDT documented in this encounter Plan of Treatment Not on file documented as of this encounter Visit Diagnoses Not on filedocumented in this encounter Care Teams Inclusion Special Educator Relationship Specialty Start Date End Date Moira Barba, RANDI PCP - General 12/14/22 documented as of this encounter
--- OUTSIDE RECORDS SUMMARY | 2025-03-27 08:36 | XMS_ITS | Referral Summary ---
Author Organization [employer] ([place], [place], [place], [place]) Address [address] [place] [address] Care Team Providers Care Outside Upholsterer Name Role Phone Moira Barba RN Primary [...] Date Jacob rded Speak language other than Solomon Islander at home Not on file 07/10/2023 Want [...] of Treatment Not on file Insurance [facility] Care Teams Outside Upholsterer Relationship Specialty Start Date End Date Moira Barba RN PCP - General 12/14/22
--- OUTSIDE RECORDS SUMMARY | 2025-03-27 08:36 | XMS_ITS | Encounter Summary ---
Author Organization [employer] ([place], [place], [place], [place]) Address [address] [place] [address] Care Team Providers Care Animal Herder Name Role Phone Moira Barba RN Primary Care Provider Unava ilable Encounter Details Date Type Department Care Team (Late st Contact Info) Description 03/05/2020 Transcribed Document [facility] [place] [facility] [place] [address] ProviderMargaret MD [address] [place] [address] [phone] Social History Tobacco Use Types Packs/Day Years [...] 03/06/2020 20:06 EDT Electronically signed by Ruby [facility] Conversion Field Investigator Cerner at 10/08/2022 11:57 AM CDT documented in this encounter Plan of Treatment Not on file documented as of this encounter Visit Diagnoses Not on filedocumented in this encounter Care Teams Animal Herder Relationship Specialty Start Date End Date Moira Barba, RN PCP - General 12/14/22 documented as of this encounter
--- OUTSIDE RECORDS SUMMARY | 2025-03-27 08:36 | XMS_ITS | Encounter Summary ---
Author Organization [employer] ([place], [place], [place], [place]) Address [address] [place] [address] Care Team Providers Care Information Management Specialist Name Role Phone Moira Barba RN Primary Care Provider Unanellie ilable Encounter Details Date Type Department Care Team (Late st Contact Info) Description 03/15/2020 Transcribed Document [facility] Family Medicine [address] [place] [address] ProviderMargaret MD [address] [place] [address] [phone] Social History Tobacco Use Types Packs/Day Years [...] Policy Numbers : Insurance 1 Health Plan: [facility] Policy Number: [id number] Authorization Number: Insurance Primary Name : [facility] Policy Number: [id number] Authorization Status-Primary : Admit approved Number of Days Authorized-Primary : 3 Day(s) Authorized Service Begin Date-Primary : 03/04/2020 EDT Authorized Service End Date-Primary : 03/07/2020 EDT Authorization Comments-Primary : Per call to [facility] approved all days after p2P completed. Historical Authorization Comments-Primary : Comment 1: Left VM for Allison inquiring of P2P result. (BILL CEE RN 03/14/2020 16:18) Comment 2: Per Dr. Arthur she will complete this P2P left VM for [facility] to setup P2P for 03/14/2020 @ [...] back then to discuss P2P> Emailed to [facility] (BILL CEE RN 03/09/2020 11:15) Comment 7: [employer] BH denied for inpt per Allison (KYRIE BROWN RN-Utilization Review 03/07/2020 15:46) Comment 8: Additional clinicals faxed manually per request of Allison at [facility] (Yvonne Duran Rn-Utilization Review 03/07/2020 08:44) Comment 9: Clinicals faxed manually to [facility] (Yvonne Duran Rn-Utilization Review 03/05/2020 14:39) BILL CEE RN - 03/15/2020 11:39 EDT Electronically signed by Ruby [facility] Conversion Coal Cutting Machine Operator Gloria at 10/08/2022 11:58 AM CDT documented in this encounter Plan of Treatment Not on file documented as of this encounter Visit Diagnoses Not on filedocumented in this encounter Care Teams Information Management Specialist Relationship Specialty Start Date End Date Moira Barba, RANDI PCP - General 12/14/22 documented as of this encounter
--- OUTSIDE RECORDS SUMMARY | 2025-03-27 08:36 | XMS_ITS | Patient Health Record ---
Author Organization [facility] Address [address] [facility] [address] [place] [address] Care Team Providers Care Videotape Operator Name Role Phone Dimple Pillai Unavailable [phone] Allergies Allergen (clinical drug ingredient) Drug/Non Drug [...] Status Risk Notes Problem Urine test negative ([id number]) Encounter for test with result negative (Z32.02) [...]
--- OUTSIDE RECORDS SUMMARY | 2025-03-27 08:36 | XMS_ITS | Encounter Summary ---
Author Organization [employer] ([place], [place], [place], [place]) Address [address] [place] [address] Care Team Providers Care Biomass Power Plant Manager Name Role Phone Moira Barba RN Primary Care Provider Jose L miller Encounter Details Date Type Department Care Team (Late st Contact Info) Description 03/05/2020 Transcribed Document [facility] [place] [facility] [place] [address] ProviderMargaret MD [address] [place] [address] [phone] Social History Tobacco Use Types Packs/Day Years [...] 31+2 weeks with PTL. She presented to [facility] with abdominal pain. She was marleen every [...] qualifying data Social History Document (if any) Cultural/Worship beliefs that would affect medical care: Lab Results MAR 04 18:35 \ 13.1 / H 18.7 314 / 39.2 \ Electronically signed by Ruby [facility] Conversion Interstate Bus Driver Cerner at 10/08/2022 11:57 AM CDT documented in this encounter Plan of Treatment Not on file documented as of this encounter Visit Diagnoses Not on filedocumented in this encounter Care Teams Biomass Power Plant Manager Relationship Specialty Start Date End Date Moira Barba RN PCP - General 12/14/22 documented as of this encounter
--- OUTSIDE RECORDS SUMMARY | 2025-03-27 08:36 | XMS_ITS | Encounter Summary ---
Author Organization [employer] ([place], [place], [place], [place]) Address [address] [place] [address] Care Team Providers Care Alteration Workroom Supervisor Name Role Phone Moira Barba RN Primary Care Provider Unava ilable Encounter Details Date Type Department Care Team (Late st Contact Info) Description 03/05/2020 Transcribed Document [facility] [place] [facility] [place] [address] ProviderMargaret MD [address] [place] [address] [phone] Social History Tobacco Use Types Packs/Day Years [...] MICHEAL BLANCA RN - 03/06/2020 20:06 EDT documented in this encounter Plan of Treatment Not on file documented as of this encounter Visit Diagnoses Not on filedocumented in this encounter Care Teams Alteration Workroom Supervisor Relationship Specialty Start Date End Date Moira Barba, RN PCP - General 12/14/22 documented as of this encounter
--- OUTSIDE RECORDS SUMMARY | 2025-03-27 08:36 | XMS_ITS | Encounter Summary ---
Author Organization [employer] ([place], [place], [place], [place]) Address [address] [place] [address] Care Team Providers Care Inspector Watch Parts Name Role Phone Moira Barba RN Primary Care Provider Unava ilable Encounter Details Date Type Department Care Team (Late st Contact Info) Description 03/05/[address] [facility] [place] [facility] [address] ProviderMargaret MD [address] [place] [address] [phone] Social History Tobacco Use Types Packs/Day Years [...] 03/06/2020 20:05 EDT Electronically signed by Ruby [facility] Conversion Global Safety Officer Cerner at 10/08/2022 11:57 AM CDT documented in this encounter Plan of Treatment Not on file documented as of this encounter Visit Diagnoses Not on filedocumented in this encounter Care Teams Inspector Watch Parts Relationship Specialty Start Date End Date Moira Barba, RN PCP - General 12/14/22 documented as of this encounter
--- OUTSIDE RECORDS SUMMARY | 2025-03-27 08:36 | XMS_ITS | Encounter Summary ---
Author Organization [employer] ([place], [place], [place], [place]) Address [address] [place] [address] Care Team Providers Care Csr Name Role Phone Moira Barba RN Primary Care Provider Unanellie ilable Encounter Details Date Type Department Care Team (Late st Contact Info) Description 03/15/2020 Transcribed Document [facility] [address] [place] [address] ProviderMargaret MD [address] [place] [address] [phone] Social History Tobacco Use Types Packs/Day Years Used Date Smoking Tobacco: Never Assessed Comments Unknown Sex and Gender Information Value Date Recorded Sex Assigned at Female 12/19/2021 6:15 PM CDT Legal Sex Female 7:09 PM CDT Gender Identity Female 12/19/2021 6:15 PM CDT Sexual Orientation Not on file documented as of this encounter Miscellaneous Notes * Cerner Conversion Note - aMrgaret ProviderMD - 03/15/2020 11:40 AM CDT UM Authorization Entered On: 03/15/2020 11:40 EDT Performed On: 03/15/2020 11:40 EDT by BILL CEE RN Primary Insurance Authorization Authorization and Policy Numbers : Insurance 1 Health Plan: [facility] Policy Number: [id number] Authorization Number: Insurance Primary Name : [facility] Policy Number: [id number] Authorization Status-Primary : Admit approved Reference Number-Primary : [id number] Number of Days Authorized-Primary : 3 Day(s) Authorized Service Begin Date-Primary : 03/04/2020 EDT Authorized Service End Date-Primary : 03/07/2020 EDT Historical Authorization Comments-Primary : Comment 1: Per call to [facility] approved all days after p2P completed. (BILL CEE RN 03/15/2020 11:39) Comment 2: Left VM for Allison inquiring of P2P result. (BILL CEE RN 03/14/2020 16:18) Comment 3: Per Dr. Arthur she will complete this P2P left VM for [facility] to setup P2P for 03/14/2020 [...] back then to discuss P2P> Emailed to [facility] (BILL CEE RN 03/09/2020 11:15) Comment 8: [employer] BH denied for inpt per Allison (KYRIE BROWN RN-Utilization Review 03/07/2020 15:46) Comment 9: Additional clinicals faxed manually per request of Allison at [facility] (Yvonne Duran Rn-Utilization Review 03/07/2020 08:44) Comment 10: Clinicals faxed manually to [facility] (Yvonne Duran Rn-Utilization Review 03/05/2020 14:39) BILL CEE RN - 03/15/2020 11:40 EDT Electronically signed by Ruby [facility] Conversion Appeals Representative Cerner at 10/08/2022 12:06 PM CDT documented in this encounter Plan of Treatment Not on file documented as of this encounter Visit Diagnoses Not on filedocumented in this encounter Care Teams Csr Relationship Specialty Start Date End Date Moira Barba, RN PCP - General 12/14/22 documented as of this encounter
--- OUTSIDE RECORDS SUMMARY | 2025-03-27 08:36 | XMS_ITS | Clinical Summary ---
Author Organization [employer] ([place], [place], [place], [place]) Address [address] [place] [address] Care Team Providers Care Manager Statistical Name Role Phone Moira Barba RN Primary [...] Date Jacob rded Speak language other than Turkmen at home Not on file 07/10/2023 Want [...] 12/12/2020 COVID-19 VACCINE (1 - 2023- season) 2025 Influenza Vaccine (#1) 2025 [facility] Care Teams Manager Statistical Relationship Specialty Start Date End Date Moira Barba RN PCP - General 12/14/22
--- OUTSIDE RECORDS SUMMARY | 2025-03-27 08:37 | XMS_ITS | Encounter Summary ---
Author Organization [employer] ([place], [place], [place], [place]) Address [address] [place] [address] Care Team Providers Care Men'S Basketball Coach Name Role Phone Moira Barba RN Primary Care Provider Jose L miller Encounter Details Date Type Department Care Team (Late st Contact Info) Description 03/13/2020 Transcribed Document [facility] [place] Family Medicine [address] [place] [address] ProviderMargaret MD [address] [place] [address] [phone] Social History Tobacco Use Types Packs/Day Years [...] Numbers : Insurance 1 Health Plan: [facility] Policy Number: [id number] Authorization Number: Insurance Primary Name : [facility] Policy Number: [id number] Authorization Status-Primary : Denial - admission Authorized Service Begin Date-Primary : 03/04/2020 EDT Authorization Comments-Primary : Left VM for Dr. Arthur inquiring if she would complete P2P. Historical Authorization Comments-Primary : Comment 1: Called Dr. Arthur office spoke with Kim she stated that Dr. Arthur only works tuesdays. I will call back then to discuss P2P> Emailed to [facility] (BILL CEE RN 03/09/2020 11:15) Comment 2: [employer] BH denied for inpt per Allison (KYRIE BROWN RN-Utilization Review 03/07/2020 15:46) Comment 3: Additional clinicals faxed manually per request of Allison at [facility] (Yvonne Duran, Randi-Utilization Review 03/07/2020 08:44) Comment 4: Clinicals faxed manually to [facility] (Yvonne Duran, Randi-Utilization Review 03/05/2020 14:39) BILL CEE RN - 03/13/2020 9:43 EDT Electronically signed by Ruby [facility] Conversion Cdl Team Truck Driver Cerner at 10/08/2022 11:55 AM CDT documented in this encounter Plan of Treatment Not on file documented as of this encounter Visit Diagnoses Not on filedocumented in this encounter Care Teams Men'S Basketball Coach Relationship Specialty Start Date End Date Moira Barba, RANDI PCP - General 12/14/22 documented as of this encounter
--- OUTSIDE RECORDS SUMMARY | 2025-03-27 08:37 | XMS_ITS | Encounter Summary ---
Author Organization [employer] ([place], [place], [place], [place]) Address [address] [place] [address] Care Team Providers Care Can Dryer Name Role Phone Moira Barba RN Primary Care Provider Unava ilable Encounter Details Date Type Department Care Team (Late st Contact Info) Description 03/04/2020 Transcribed Document [facility] [place] [facility] [place] [address] ProviderMargaret MD [address] [place] [address] Social History Tobacco Use Types Packs/Day [...] Source : Measured Height Entry Format : [place] Height, Feet : 5 ft(Converted to: 152 cm, 60 Inch) Clinical Height : 175.26 cm Height, Inches : 9 Inch(Converted to: 0 ft 9 Inch, 22.86 cm) Weight Source : Standing scale Weight Entry Format : [place] Weight, Pounds : 170 lb Clinical Dosing Weight : 77.27 kg Body Surface Area (BSA) : 1.93 m2 Body Mass Index : 25.2 kg/m2 (HI) [place] Body Weight (IBW) : 65.73 kg ELIO SNOWDEN RN - 03/04/2020 17:06 EDT Health Histories Smoking Status : Former smoker, quit more than 30 days ago Smokeless Tobacco Status : Never LEIO SNOWDEN RN - 03/04/2020 17:06 EDT Social [...] ELIO SNOWDEN RN - 03/04/2020 17:06 EDT [place] Suicide Severity Rating Scale (C-SSRS) CSSRS Past [...] on filedocumented in this encounter Care Teams Can Dryer Relationship Specialty Start Date End Date Moira Barba RN PCP - General 12/14/22 documented as of this encounter
--- OUTSIDE RECORDS SUMMARY | 2025-03-27 08:37 | XMS_ITS | Encounter Summary ---
Author Organization [employer] ([place], [place], [place], [place]) Address [address] [place] [address] Care Team Providers Care Roof Panel Hanger Name Role Phone Moira Barba RN Primary Care Provider Jose L ilgrayson Encounter Details Date Type Department Care Team (Late st Contact Info) Description 03/13/2020 Transcribed Document [facility] [place] Family Medicine [address] [place] [address] ProviderMargaret MD [address] [place] [address] [phone] Social History Tobacco Use Types Packs/Day Years [...] Policy Numbers : Insurance 1 Health Plan: [facility] Policy Number: [id number] Authorization Number: Insurance Primary Name : [facility] Policy Number: [id number] Authorization Status-Primary : Denial - admission Authorized [...] back then to discuss P2P> Emailed to [facility] [place] (BILL CEE RN 03/09/2020 11:15) Comment 4: [employer] BH denied for inpt per Allison (KYRIE BROWN RN-Utilization Review 03/07/2020 15:46) Comment 5: Additional clinicals faxed manually per request of Allison at [facility] (Yvonne Duran Rn-Utilization Review 03/07/2020 08:44) Comment 6: Clinicals faxed manually to [facility] (Yvonne Duran Rn-Utilization Review 03/05/2020 14:39) BILL CEE RN - 03/13/2020 10:00 EDT Electronically signed by Ruby [facility] Conversion Supervisor Word Processing Marcner at 10/08/2022 12:11 PM CDT documented in this encounter Plan of Treatment Not on file documented as of this encounter Visit Diagnoses Not on filedocumented in this encounter Care Teams Roof Panel Hanger Relationship Specialty Start Date End Date Moira Barba RN PCP - General 12/14/22 documented as of this encounter
--- OUTSIDE RECORDS SUMMARY | 2025-03-27 08:37 | XMS_ITS | Encounter Summary ---
Author Organization [employer] ([place], [place], [place], [place]) Address [address] [place] [address] Care Team Providers Care Institute Director Name Role Phone Moira Barba RN Primary Care Provider Jose L ilgrayson Encounter Details Date Type Department Care Team (Late st Contact Info) Description 03/09/2020 Transcribed Document [facility] [place] Family Medicine [address] [place] [address] ProviderMargaret MD [address] [place] [address] [phone] Social History Tobacco Use Types Packs/Day Years [...] Policy Numbers : Insurance 1 Health Plan: [facility] Policy Number: [id number] Authorization Number: Insurance Primary Name : [facility] Policy Number: [id number] Authorization Status-Primary : Denial - admission Authorized Service Begin Date-Primary : 03/04/2020 EDT Authorization Comments-Primary : Called Dr. Arthur office spoke with Kim she stated that Dr. Arthur only works tuesdays. I will call back then to discuss P2P> Emailed to [facility] Historical Authorization Comments-Primary : Comment 1: [employer] BH denied for inpt per Allison (KYRIE BROWN, RN-Utilization Review 03/07/2020 15:46) Comment 2: Additional clinicals faxed manually per request of Allison at [facility] (Yvonne Duran, An-Utilization Review 03/07/2020 08:44) Comment 3: Clinicals faxed manually to [facility] (Yvonne Duran, Rn-Utilization Review 03/05/2020 14:39) BILL CEE RN - 03/09/2020 11:15 EDT Electronically signed by Ruby [facility] Conversion Vegetable Ii Farmworker Cerner at 10/08/2022 12:02 PM CDT documented in this encounter Plan of Treatment Not on file documented as of this encounter Visit Diagnoses Not on filedocumented in this encounter Care Teams Institute Director Relationship Specialty Start Date End Date Moira Barba RN PCP - General 12/14/22 documented as of this encounter
--- OUTSIDE RECORDS SUMMARY | 2025-03-27 08:37 | XMS_ITS | Encounter Summary ---
Author Organization [employer] ([place], [place], [place], [place]) Address [address] [place] [address] Care Team Providers Care Tar Heater Name Role Phone Moira Barba RN Primary Care Provider Unava ilable Encounter Details Date Type Department Care Team (Late st Contact Info) Description 03/04/2020 Transcribed Document [facility] [place] [facility] [place] [address] ProviderMargaret MD [address] [place] [address] Social History Tobacco Use Types Packs/Day [...] 03/06/2020 20:05 EDT Electronically signed by Ruby [facility] Conversion Musical Instrument Mechanic Cerner at 10/08/2022 12:10 PM CDT documented in this encounter Plan of Treatment Not on file documented as of this encounter Visit Diagnoses Not on filedocumented in this encounter Care Teams Tar Heater Relationship Specialty Start Date End Date Moira Barba, RN PCP - General 12/14/22 documented as of this encounter
--- OUTSIDE RECORDS SUMMARY | 2025-03-27 08:37 | XMS_ITS | Encounter Summary ---
Author Organization [employer] ([place], [place], [place], [place]) Address [address] [place] [address] Care Team Providers Care Lift Electrician Name Role Phone Moira Barba RN Primary Care Provider Jose L ilgrayson Encounter Details Date Type Department Care Team (Late st Contact Info) Description 03/13/2020 Transcribed Document [facility] [place] [address] [place] [address] ProviderMargaret MD [address] [place] [address] [phone] Social History Tobacco Use Types Packs/Day Years [...] Policy Numbers : Insurance 1 Health Plan: [facility] [employer] [facility] Policy Number: [id number] Authorization Number: Insurance Primary Name : [facility] Policy Number: [id number] Authorization Status-Primary : Denial - admission Authorized [...] back then to discuss P2P> Emailed to [facility] (BILL CEE RN 03/09/2020 11:15) Comment 3: [employer] BH denied for inpt per Allison (KYRIE BROWN RN-Utilization Review 03/07/2020 15:46) Comment 4: Additional clinicals faxed manually per request of Allison at [facility] (Yvonne Duran Rn-Utilization Review 03/07/2020 08:44) Comment 5: Clinicals faxed manually to [facility] (Yvonne Duran Rn-Utilization Review 03/05/2020 14:39) BILL CEE RN - 03/13/2020 9:44 EDT Electronically signed by Ruby [facility] Conversion Designated Broker Cerner at 10/08/2022 11:54 AM CDT documented in this encounter Plan of Treatment Not on file documented as of this encounter Visit Diagnoses Not on filedocumented in this encounter Care Teams Lift Electrician Relationship Specialty Start Date End Date Moira Barba RN PCP - General 12/14/22 documented as of this encounter
--- OUTSIDE RECORDS SUMMARY | 2025-03-27 08:37 | XMS_ITS | Encounter Summary ---
Author Organization [employer] ([place], [place], [place], [place]) Address [address] [place] [address] Care Team Providers Care Collar Padder Blindstitch Name Role Phone Moira Barba RN Primary Care Provider Unava ilable Encounter Details Date Type Department Care Team (Late st Contact Info) Description 03/04/2020 Transcribed Document [facility] [place] [facility] [place] [address] ProviderMargaret MD [address] [place] [address] Social History Tobacco Use Types Packs/Day [...] - 03/04/2020 17:07 EDT Electronically signed by Ruby [facility] Conversion Track Machine Operator Repairer Cerner at 10/08/2022 12:04 PM CDT documented in this encounter Plan of Treatment Not on file documented as of this encounter Visit Diagnoses Not on filedocumented in this encounter Care Teams Collar Padder Blindstitch Relationship Specialty Start Date End Date Moira Barba RN PCP - General 12/14/22 documented as of this encounter
--- OUTSIDE RECORDS SUMMARY | 2025-03-27 08:37 | XMS_ITS | Encounter Summary ---
Author Organization [employer] ([place], [place], [place], [place]) Address [address] [place] [address] Care Team Providers Care Brisket Puller Name Role Phone Moira Barba RN Primary Care Provider Jose L miller Encounter Details Date Type Department Care Team (Late st Contact Info) Description 03/13/2020 Transcribed Document [facility] [place] Family Medicine [address] [place] [address] ProviderMargaret MD [address] [place] [address] [phone] Social History Tobacco Use Types Packs/Day Years [...] Plan: [facility] Policy Number: [id number] Authorization Number: Insurance Primary Name : [facility] Policy Number: [id number] Authorization Status-Primary : Denial - admission Authorized Service Begin Date-Primary : 03/04/2020 EDT Authorization Comments-Primary : Per Dr. Arthur she will complete this P2P left VM for [facility] to setup P2P for 03/14/2020 @ [...] then to discuss P2P> [place] [facility] (BILL CEE RN 03/09/2020 11:15) Comment 5: [employer] BH denied for inpt per Allison (KYRIE BROWN RN-Utilization Review 03/07/2020 15:46) Comment 6: Additional clinicals faxed manually per request of Allison at [facility] (Yvonne Duran Rn-Utilization Review 03/07/2020 08:44) Comment 7: Clinicals faxed manually to [facility] (Yvonne Duran Rn-Utilization Review 03/05/2020 14:39) BILL CEE RN - 03/13/2020 10:15 EDT documented in this encounter Plan of Treatment Not on file documented as of this encounter Visit Diagnoses Not on filedocumented in this encounter Care Teams Brisket Puller Relationship Specialty Start Date End Date Moira Barba, RANDI PCP - General 12/14/22 documented as of this encounter
--- OUTSIDE RECORDS SUMMARY | 2025-03-27 08:37 | XMS_ITS | Encounter Summary ---
Author Organization [employer] ([place], [place], [place], [place]) Address [address] [place] [address] Care Team Providers Care Instrument Lens Grinder Apprentice Name Role Phone Moira Barba RN Primary Care Provider Jose L ilgrayson Encounter Details Date Type Department Care Team (Late st Contact Info) Description 03/14/2020 Transcribed Document [facility] [place] Family Medicine [address] [place] [address] ProviderMargaret MD [address] [place] [address] [phone] Social History Tobacco Use Types Packs/Day Years [...] Health Plan: [facility] Policy Number: [id number] Authorization Number: Insurance Primary Name : [facility] Policy Number: [id number] Authorization Status-Primary : Denial - admission Authorized Service Begin Date-Primary : 03/04/2020 EDT Authorization Comments-Primary : Left VM for Allison inquiring of P2P result. Historical Authorization Comments-Primary : Comment 1: Per Dr. Arthur she will complete this P2P left VM for [facility] to setup P2P for 03/14/2020 @ [...] manually per request of Allison at [facility] (Yvonne Duran Rn-Utilization Review 03/07/2020 08:44) Comment 8: Clinicals faxed manually to [facility] (Yvonne Duran Rn-Utilization Review 03/05/2020 14:39) BILL CEE RN - 03/14/2020 16:18 EDT Electronically signed by Ruby [facility] Conversion Marketing Community Liaison Cerner at 10/08/2022 12:13 PM CDT documented in this encounter Plan of Treatment Not on file documented as of this encounter Visit Diagnoses Not on filedocumented in this encounter Care Teams Instrument Lens Grinder Apprentice Relationship Specialty Start Date End Date Moira Barba RN PCP - General 12/14/22 documented as of this encounter
--- OUTSIDE RECORDS SUMMARY | 2025-03-27 08:38 | XMS_ITS | Encounter Summary ---
Author Organization [employer] ([place], [place], [place], [place]) Address [address] [place] [address] Care Team Providers Care Fruit Or Nut Crops Farm Manager Name Role Phone Moira Barba RN Primary Care Provider Unava ilable Encounter Details Date Type Department Care Team (Late st Contact Info) Description 03/06/2020 Transcribed Document [facility] [place] [facility] [place] [address] ProviderMargaret MD [address] [place] [address] [phone] Social History Tobacco Use Types Packs/Day Years [...] 03/06/2020 20:06 EDT Electronically signed by Ruby [facility] Conversion Teaching Dietitian Cerner at 10/08/2022 12:15 PM CDT documented in this encounter Plan of Treatment Not on file documented as of this encounter Visit Diagnoses Not on filedocumented in this encounter Care Teams Fruit Or Nut Crops Farm Manager Relationship Specialty Start Date End Date Moira Barba, RN PCP - General 12/14/22 documented as of this encounter
--- OUTSIDE RECORDS SUMMARY | 2025-03-27 08:38 | XMS_ITS | Encounter Summary ---
Author Organization [employer] ([place], [place], [place], [place]) Address [address] [place] [address] Care Team Providers Care Re Examiner Name Role Phone Moira Barba RN Primary Care Provider Unava ilable Encounter Details Date Type Department Care Team (Late st Contact Info) Description 03/06/2020 Transcribed Document [facility] [place] Family Medicine [facility] [place] [address] ProviderMargaret MD [address] [place] [address] Social History Tobacco Use Types Packs/Day [...] 03/06/2020 20:07 EDT Electronically signed by Ruby [facility] Conversion Art Editor Cerner at 10/08/2022 12:09 PM CDT documented in this encounter Plan of Treatment Not on file documented as of this encounter Visit Diagnoses Not on filedocumented in this encounter Care Teams Re Examiner Relationship Specialty Start Date End Date Moira Barba, RN PCP - General 12/14/22 documented as of this encounter
--- OUTSIDE RECORDS SUMMARY | 2025-03-27 08:38 | XMS_ITS | Encounter Summary ---
Author Organization [employer] ([place], [place], [place], [place]) Address [address] [place] [address] Care Team Providers Care Bobbin Sorter Name Role Phone Moira Barba RN Primary Care Provider Jose L miller Encounter Details Date Type Department Care Team (Late st Contact Info) Description 03/07/2020 Transcribed Document [facility] [place] Family Medicine [address] [place] [address] ProviderMargaret MD [address] [place] [address] [phone] Social History Tobacco Use Types Packs/Day Years [...] on filedocumented in this encounter Care Teams Bobbin Sorter Relationship Specialty Start Date End Date Moira Barba RN PCP - General 12/14/22 documented as of this encounter
--- OUTSIDE RECORDS SUMMARY | 2025-03-27 08:38 | XMS_ITS | Encounter Summary ---
Author Organization [employer] ([place], [place], [place], [place]) Address [address] [place] [address] Care Team Providers Care Resistor Testing Machine Operator Name Role Phone Moira Barba RN Primary Care Provider Unava ilable Encounter Details Date Type Department Care Team (Late st Contact Info) Description 03/07/2020 Transcribed Document [facility] [place] [facility] [place] [address] ProviderMargaret MD [address] [place] [address] [phone] Social History Tobacco Use Types Packs/Day Years [...] 03/07/2020 5:29 EDT Electronically signed by Ruby [facility] Conversion Roller Coaster Operator Cerner at 10/08/2022 12:03 PM CDT documented in this encounter Plan of Treatment Not on file documented as of this encounter Visit Diagnoses Not on filedocumented in this encounter Care Teams Resistor Testing Machine Operator Relationship Specialty Start Date End Date Moira Barba, RN PCP - General 12/14/22 documented as of this encounter
--- OUTSIDE RECORDS SUMMARY | 2025-03-27 08:38 | XMS_ITS | Encounter Summary ---
Author Organization [employer] ([place], [place], [place], [place]) Address [address] [place] [address] Care Team Providers Care Safety Companion Name Role Phone Moira Barba RN Primary Care Provider Jose L ilgrayson Encounter Details Date Type Department Care Team (Late st Contact Info) Description 03/07/2020 Transcribed Document [facility] [place] Family Medicine [address] [place] [address] ProviderMargaret MD [address] [place] [address] [phone] Social History Tobacco Use Types Packs/Day Years [...] Policy Numbers : Insurance 1 Health Plan: [facility] Policy Number: [id number] Authorization Number: Insurance Primary Name : [facility] Policy Number: [id number] Authorization Status-Primary : Denial - admission Authorized Service Begin Date-Primary : 03/04/2020 EDT Authorization Comments-[facility] Historical Authorization Comments-Primary : Comment 1: Additional clinicals faxed manually per request of Allison at [facility] (Yvonne Duran, An-Utilization Review 03/07/2020 08:44) Comment 2: Clinicals faxed manually to [facility] (Yvonne Duran, An-Utilization Review 03/05/2020 14:39) KYRIE BROWN RN-Utilization Review - 03/07/2020 15:46 EDT Electronically signed by Ruby [facility] Conversion Highway Maintenance Crew Worker Cerner at 10/08/2022 12:04 PM CDT documented in this encounter Plan of Treatment Not on file documented as of this encounter Visit Diagnoses Not on filedocumented in this encounter Care Teams Safety Companion Relationship Specialty Start Date End Date Moira Barba RN PCP - General 12/14/22 documented as of this encounter
--- OUTSIDE RECORDS SUMMARY | 2025-03-27 08:38 | XMS_ITS | Encounter Summary ---
Author Organization [employer] ([place], [place], [place], [place]) Address [address] [place] [address] Care Team Providers Care Table Cover Folder Name Role Phone Moira Barba RN Primary Care Provider Jose L miller Encounter Details Date Type Department Care Team (Late st Contact Info) Description 03/06/2020 Transcribed Document [facility] [place] [facility] [place] [facility] [place] [address] ProviderMargaret MD [address] [place] [address] [phone] Social History Tobacco Use Types Packs/Day Years [...] / 37.0 \ Electronically signed by Ruby, [facility] Conversion Septic Tank Cleaner Cerner at 10/08/2022 11:58 AM CDT documented in this encounter Plan of Treatment Not on file documented as of this encounter Visit Diagnoses Not on filedocumented in this encounter Care Teams Table Cover Folder Relationship Specialty Start Date End Date Moira Barba RN PCP - General 12/14/22 documented as of this encounter
--- OUTSIDE RECORDS SUMMARY | 2025-03-27 08:38 | XMS_ITS | Encounter Summary ---
Author Organization [employer] ([place], [place], [place], [place]) Address [address] [place] [address] Care Team Providers Care Saddle Stitching Machine Operator Name Role Phone Moira Barba RN Primary Care Provider Jose L miller Encounter Details Date Type Department Care Team (Late st Contact Info) Description 03/07/2020 Transcribed Document [facility] [place] [facility] [place] [address] ProviderMargaret MD [address] [place] [address] [phone] Social History Tobacco Use Types Packs/Day Years [...] / 37.0 \ Electronically signed by Ruby [facility] Conversion Shell Molding Roller Blast Operator Cerner at 10/08/2022 11:57 AM CDT documented in this encounter Plan of Treatment Not on file documented as of this encounter Visit Diagnoses Not on filedocumented in this encounter Care Teams Saddle Stitching Machine Operator Relationship Specialty Start Date End Date Moira Barba RN PCP - General 12/14/22 documented as of this encounter
--- OUTSIDE RECORDS SUMMARY | 2025-03-27 08:38 | XMS_ITS | Encounter Summary ---
Author Organization [employer] ([place], [place], [place], [place]) Address [address] [place] [address] Care Team Providers Care Chief Development Officer Name Role Phone Moira Barba RN Primary Care Provider Unava ilable Encounter Details Date Type Department Care Team (Late st Contact Info) Description 03/06/2020 Transcribed Document [facility] [place] [facility] [place] [address] ProviderMargaret MD [address] [place] [address] [phone] Social History Tobacco Use Types Packs/Day Years [...] 03/06/2020 20:07 EDT Electronically signed by Ruby [facility] Conversion Rag Grader Cerner at 10/08/2022 11:54 AM CDT documented in this encounter Plan of Treatment Not on file documented as of this encounter Visit Diagnoses Not on filedocumented in this encounter Care Teams Chief Development Officer Relationship Specialty Start Date End Date Moira Barba, RN PCP - General 12/14/22 documented as of this encounter
--- OUTSIDE RECORDS SUMMARY | 2025-03-27 08:38 | XMS_ITS | Encounter Summary ---
Author Organization [employer] ([place], [place], [place], [place]) Address [address] [place] [address] Care Team Providers Care Sales Department Supervisor Name Role Phone Moira Barba RN Primary Care Provider Jose L ilgrayson Encounter Details Date Type Department Care Team (Late st Contact Info) Description 03/07/2020 Transcribed Document [facility] [place] Family Medicine [address] [place] [address] ProviderMargaret MD [address] [place] [address] [phone] Social History Tobacco Use Types Packs/Day Years [...] Policy Numbers : Insurance 1 Health Plan: [facility] Policy Number: [id number] Authorization Number: Insurance Primary Name : [facility] Policy Number: [id number] Authorization Status-Primary : Awaiting callback Authorized Service Begin Date-Primary : 03/04/2020 EDT Authorization Comments-Primary : Additional clinicals faxed manually per request of Allison krueger [facility] Historical Authorization Comments-Primary : Comment 1: Clinicals faxed manually to [facility] (Yvonne Duran Rn-Utilization Review 03/05/2020 14:39) Yvonne Duran Rn-Utilization Review - 03/07/2020 8:44 EDT Electronically signed by Ruby [facility] Conversion Tamale Machine Feeder Cerner at 10/08/2022 12:02 PM CDT documented in this encounter Plan of Treatment Not on file documented as of this encounter Visit Diagnoses Not on filedocumented in this encounter Care Teams Sales Department Supervisor Relationship Specialty Start Date End Date Moira Barba, RN PCP - General 12/14/22 documented as of this encounter
--- OUTSIDE RECORDS SUMMARY | 2025-03-27 08:38 | XMS_ITS | Encounter Summary ---
Author Organization [employer] ([place], [place], [place], [place]) Address [address] [place] [address] Care Team Providers Care Distribution Sales Manager Name Role Phone Moira Barba RN Primary Care Provider Unava ilable Encounter Details Date Type Department Care Team (Late st Contact Info) Description 03/04/2020 Transcribed Document [facility] [place] [facility] [place] [address] ProviderMargaret MD [address] [place] [address] Social History Tobacco Use Types Packs/Day [...] 03/06/2020 20:05 EDT Electronically signed by Ruby [facility] Conversion Supervising Architect Cerner at 10/08/2022 12:12 PM CDT documented in this encounter Plan of Treatment Not on file documented as of this encounter Visit Diagnoses Not on filedocumented in this encounter Care Teams Distribution Sales Manager Relationship Specialty Start Date End Date Moira Barba, RN PCP - General 12/14/22 documented as of this encounter
--- OUTSIDE RECORDS SUMMARY | 2025-03-27 08:38 | XMS_ITS | Encounter Summary ---
Author Organization [employer] ([place], [place], [place], [place]) Address [address] [place] [address] Care Team Providers Care Open Soaper Tender Name Role Phone Moira Barba RN Primary Care Provider Unava ilable Encounter Details Date Type Department Care Team (Late st Contact Info) Description 03/06/2020 Transcribed Document [facility] [place] [facility] [place] [address] ProviderMargaret MD [address] [place] [address] Social History Tobacco Use Types Packs/Day [...] 03/06/2020 20:07 EDT Electronically signed by Ruby [facility] Conversion Utility Inspector Cerner at 10/08/2022 12:14 PM CDT documented in this encounter Plan of Treatment Not on file documented as of this encounter Visit Diagnoses Not on filedocumented in this encounter Care Teams Open Soaper Tender Relationship Specialty Start Date End Date Moira Barba, RN PCP - General 12/14/22 documented as of this encounter
--- OUTSIDE RECORDS SUMMARY | 2025-03-27 08:38 | XMS_ITS | Encounter Summary ---
Author Organization [employer] ([place], [place], [place], [place]) Address [address] [place] [address] Care Team Providers Care Hotel Valet Attendant Name Role Phone Moira Barba RN Primary Care Provider Jose L miller Encounter Details Date Type Department Care Team (Late st Contact Info) Description 03/06/2020 Transcribed Document [facility] [place] [facility] [place] [address] ProviderMargaret MD [address] [place] [address] Social History Tobacco Use Types Packs/Day [...] 5 mg 1 Tab, Oral, At Bedtime [facility] US 03/05/20 Sharma at 31w 1d [...] on filedocumented in this encounter Care Teams Hotel Valet Attendant Relationship Specialty Start Date End Date Barba, Moira L, RN PCP - General 12/14/22 documented as of this encounter
--- OUTSIDE RECORDS SUMMARY | 2025-03-27 08:38 | XMS_ITS | Encounter Summary ---
Author Organization [employer] ([place], [place], [place], [place]) Address [address] [place] [address] Care Team Providers Care Sheeter Machine Operator Name Role Phone Moira Barba RN Primary Care Provider Jose L miller Encounter Details Date Type Department Care Team (Late st Contact Info) Description 03/07/2020 Transcribed Document [facility] [place] [facility] [place] [address] ProviderMargaret MD [address] [place], [place] 247201 Social History Tobacco Use Types Packs/Day Years [...] 09/04/2009 Document Revised: 09/30/2019 Document Reviewed: 10/29/2016 U[employer]o Patient Education ? 2020 [employer] [place]. Obstetrics and Gynecology Third Trimester of The third trimester is from week 28 through week 40 (months 7 through 9). This trimester is when your unborn baby (fetus) is growing very fast. At the end of the ninth month, the unborn baby is about 20 inches in length. It weighs about 6?10 pounds. Follow these instructions at home: Medicines ??? Take tokw-wco-qfhwnju and prescription medicines only as told by [...] Reviewed: 07/14/2017 Elsevier Patient Education ? 2020 [employer] Electronically signed by Dian Beltran Conversion Radio Communications Superintendent Cerner at 10/08/2022 12:18 PM CDT documented in this encounter Plan of Treatment Not on file documented as of this encounter Visit Diagnoses Not on filedocumented in this encounter Care Teams Sheeter Machine Operator Relationship Specialty Start Date End Date Moira Barba RN PCP - General 12/14/22 documented as of this encounter
--- OUTSIDE RECORDS SUMMARY | 2025-03-27 08:38 | XMS_ITS | Encounter Summary ---
Author Organization [employer] ([place], [place], [place], [place]) Address [address] [place] [address] Care Team Providers Care Patent Prosecution Attorney Name Role Phone Moira Barba RN Primary Care Provider Jose L miller Encounter Details Date Type Department Care Team (Late st Contact Info) Description 03/12/2020 Transcribed Document [facility] Family Medicine [facility] [address] ProviderMargaret MD [address] [place] [address] [phone] Social History Tobacco Use Types Packs/Day Years [...] for Hospitalization 19 yo who presented from [facility] with contractions and cervical change on [...] than 30 minutes Electronically signed by Ruby [facility] Conversion Tanning Solution Maker Cerner at 10/08/2022 12:04 PM CDT documented in this encounter Plan of Treatment Not on file documented as of this encounter Visit Diagnoses Not on filedocumented in this encounter Care Teams Patent Prosecution Attorney Relationship Specialty Start Date End Date Moira Barba RN PCP - General 12/14/22 documented as of this encounter
--- OUTSIDE RECORDS SUMMARY | 2025-03-27 08:38 | XMS_ITS | Encounter Summary ---
Author Organization [facility] [facility] ([place], [place], [place], [place]) Address [address] [place] [address] Care Team Providers Care Double End Chucking Machine Operator Name Role Phone Moira Barba RN Primary Care Provider Unava ilable Encounter Details Date Type Department Care Team (Late st Contact Info) Description 03/07/2020 Transcribed Document [facility] [place] [facility] [place] [address] ProviderMargaret MD [address] [place] [address] [phone] Social History Tobacco Use Types Packs/Day Years [...] on filedocumented in this encounter Care Teams Double End Chucking Machine Operator Relationship Specialty Start Date End Date Moira Barba, RN PCP - General 12/14/22 documented as of this encounter
--- OUTSIDE RECORDS SUMMARY | 2025-03-27 08:38 | XMS_ITS | Encounter Summary ---
Author Organization [employer] ([place], [place], [place], [place]) Address [address] [place] [address] Care Team Providers Care Ledger Poster Name Role Phone Moira Barba RN Primary Care Provider Unanellie ilable Encounter Details Date Type Department Care Team (Late st Contact Info) Description 03/07/2020 Transcribed Document [facility] [place] [address] [place] [address] ProviderMargaret MD [address] [place] [address] [phone] Social History Tobacco Use Types Packs/Day Years [...] Margaret ProviderMD - 03/07/2020 8:55 AM CDT [address] [address] INDRA NAVA :2000 Visit Time:03/04/2020 [...] Capsule(s) Oral Every 4 Hours Pickup at [facility] Pharmacy Information [facility]: [address] [place], [place] [id number] [phone] Take your medications faithfully. Do NOT skip [...] 09/04/2009 Document Revised: 09/30/2019 Document Reviewed: 10/29/2016 Spherix Patient Education ?? 2020 [employer]. Third Trimester of The third trimester is from week 28 through week 40 (months 7 through 9). This trimester is when your unborn baby (fetus) is growing very fast. At the end of the ninth month, the unborn baby is about 20 inches in length. It weighs about 6???10 pounds. Follow these instructions at home: Medicines ??? Take qmso-qvf-nwsidjp and prescription medicines only as told by [...] 09/02/2010 Document Revised: 09/29/2019 Document Reviewed: 07/14/2017 Spherix Patient Education ?? 2020 [employer]raction. Emergency Awareness and Preventative Care STROKE is [...] Assistance with quitting is available by contacting 0-350-HQXD-NOW. This is a free resource providing counseling, [...] range between ( 1.0 and 7.0 ) [place] #: 1.30 K/uL -- Normal range between ( 0.24 and 0.82 ) [place] #: 0.00 K/uL -- Normal range between ( 0.04 and 0.54 ) [place] %: 6.4 % -- Normal range between [...] was given the opportunity to ask questions. Patient/E M Assembler Name: Patient/E M Assembler Signature: Relationship to Patient: Clinician/Hospital E M Assembler Signature: Date: Electronically signed by Rbuy, [facility] Conversion Settlement Processor Cerner at 10/08/2022 12:00 PM CDT documented in this encounter Plan of Treatment Not on file documented as of this encounter Visit Diagnoses Not on filedocumented in this encounter Care Teams Ledger Poster Relationship Specialty Start Date End Date Moira Barba, RN PCP - General 12/14/22 documented as of this encounter
[2025-03-27 08:48] LABS: Hematocrit 35.6 % (37.0-47.0); Hemoglobin 12.0 g/dL (12.2-16.2); Immature Granulocytes % 0.7 %; Mean Corpuscular HGB Conc 33.7 g/dL (31.8-35.4); Mean Corpuscular Hemoglobin 31.3 pg (27.0-31.2); Mean Corpuscular Volume 92.7 fl (81-99); Nucleated Red Blood Cells % 0 %; Platelet Count 257 K/mm3 (142-424); Red Blood Count 3.84 M/mm3 (4.20-5.40); Red Cell Distribution Width-SD 42.0 fL; White Blood Count 9.9 K/mm3 (4.8-10.8)
[2025-03-27 10:37] VITALS: BP 135/68; PULSE 71; RESP 18; O2SAT 99
[2025-03-27 10:43] LABS: RPR W/RFX Titers Nonreactive (Nonreactive)
[2025-03-27] MEDS: RHO(D) IMMUNE GLOBULIN 1,500 UNIT (300MCG) SYRINGE 300 MCG IM (10:43)
--- NOTE | 2025-03-27 10:45 | US_ITS ---
PROCEDURE: US OB FOLLOW UP CLINICAL INDICATION: repeat anatomy; renal pelvic dilation, breech COMPARISON: US US OB <= 14 WEEKS FETUS from 10/21/2024 US US OB /MATERNAL DETAIL from 01/31/2025 FINDINGS: Transabdominal sonographic images of the pelvis were obtained. The following parameters are obtained: From her established due date she is 28weeks 2days Viable fetus in the cephalic presentation with a posterior placenta grade 1. The cervix measures 2.84 cm heart rate: 142bpm bpm. Average ultrasound age 28 weeks 4 days Estimated weight 1213 grams, 2 lb 11 oz BPD: 28weeks 5days, 48 percent HC: 28weeks 5days, 31 percentile AC: 28weeks 1day, 38 percent FL: 28weeks 4days, 41 percent HC/AC: 1.11 FL/BPD: 0.76 FL/AC: 0.23 Growth percentile: 39 Amniotic fluid: Appears normal No obvious anomalies evident. profile seen, stomach, bladder, kidneys, three-vessel cord, four chamber heart appear normal. There continues to be mild bilateral renal pelvis dilation measuring 3.3 mm and 3.2 mm which is considered within the normal range for this gestational age. IMPRESSION: 1. Viable fetus in the cephalic presentation with a posterior placenta grade 1. 2. Subjectively the fluid appears to be within normal limits. 3. There has been good interval growth with the fetus currently 39th percentile. 4. There is minimal bilateral renal pelvis dilation considered to be normal at this gestational age. No further follow-up necessary. 5. Limited anatomical scan appears normal. Dictated by: Carlo Goddard MD 03/27/2025 16:30 Carlo Goddard MD in [place] 03/27/2025 16:30
[2025-03-27 10:54] LABS: Glucose 1 Hour 134 mg/dL (74-100)
== END 2025-03-27 23:59 | disposition home or self-care (01) ==
LOC: INF 08:33 → RAD 10:46
PROVIDERS: PCP Nurse Practitioner; Visit Provider Obstetrics & Gynecology
DX: O35.EXX0 Maternal care for other (suspected) fetal abnormality and damage, fetal genitourinary anomalies, not applicable or unspecified (principal); O46.93 Antepartum hemorrhage, unspecified, third trimester; O26.893 Other specified pregnancy related conditions, third trimester; O32.1XX0 Maternal care for breech presentation, not applicable or unspecified; Z67.91 Unspecified blood type, Rh negative; Z3A.28 28 weeks gestation of pregnancy
CPT/HCPCS: 36415; 76816; 82947; 85025; 86592; 96372; J2790

== ENCOUNTER 2025-03-28 21:00 | Outpatient (CLI) | payer OTHER, SELFPAY ==
--- OUTSIDE RECORDS SUMMARY | 2025-03-28 21:03 | XMS_ITS | Encounter Summary ---
Author Organization [employer] ([place], [place], [place], [place]) Address [address] [place] [address] Care Team Providers Care Car Inspection And Repair Manager Name Role Phone Moira Barba RN Primary Care Provider Jose L ilgrayson Encounter Details Date Type Department Care Team (Late st Contact Info) Description 03/13/2020 Transcribed Document [facility] [place] [address] [place] [address] ProviderMargaret MD [address] [place] [address] [phone] Social History Tobacco Use Types Packs/Day Years [...] Health Plan: [facility] Policy Number: [id number] Authorization Number: Insurance Primary Name : [facility] Policy Number: [id number] Authorization Status-Primary : Denial - admission Authorized [...] back then to discuss P2P> Em[place] [facility] (BILL CEE RN 03/09/2020 11:15) Comment 4: [employer] BH denied for inpt per Allison (KYRIE BROWN RN-Utilization Review 03/07/2020 15:46) Comment 5: Additional clinicals faxed manually per request of Allison at [facility] (Yvonne Duran Rn-Utilization Review 03/07/2020 08:44) Comment 6: Clinicals faxed manually to [facility] (Yvonne Duran Rn-Utilization Review 03/05/2020 14:39) BILL CEE RN - 03/13/2020 10:00 EDT Electronically signed by Ruby [facility] Conversion Employee Counselor Marcner at 10/08/2022 12:11 PM CDT documented in this encounter Plan of Treatment Not on file documented as of this encounter Visit Diagnoses Not on filedocumented in this encounter Care Teams Car Inspection And Repair Manager Relationship Specialty Start Date End Date Moira Barba RN PCP - General 12/14/22 documented as of this encounter
--- OUTSIDE RECORDS SUMMARY | 2025-03-28 21:03 | XMS_ITS | Encounter Summary ---
Author Organization [employer] ([place], [place], [place], [place]) Address [address] [place] [address] Care Team Providers Care Citrus Peeler Name Role Phone Moira Barba RN Primary Care Provider Unanellie ilable Encounter Details Date Type Department Care Team (Late st Contact Info) Description 03/15/2020 Transcribed Document [facility] [place] [address] [place] [address] ProviderMargaret MD [address] [place] [address] [phone] Social History Tobacco Use Types Packs/Day Years [...] Policy Numbers : Insurance 1 Health Plan: [facility] Policy Number: [id number] Authorization Number: Insurance Primary Name : [facility] Policy Number: [id number] Authorization Status-Primary : Admit approved Reference Number-Primary : [id number] Number of Days Authorized-Primary : 3 Day(s) Authorized Service Begin Date-Primary : 03/04/2020 EDT Authorized Service End Date-Primary : 03/07/2020 EDT Historical Authorization Comments-Primary : Comment 1: Per call to [facility] approved all days after p2P completed. (BILL CEE RN 03/15/2020 11:39) Comment 2: Left VM for Allison inquiring of P2P result. (BILL CEE RN 03/14/2020 16:18) Comment 3: Per Dr. Arthur she will complete this P2P left VM for [facility] to setup P2P for 03/14/2020 @ 9-10. [...] then to discuss P2P> Emailed to [facility] [place] (BILL CEE RN 03/09/2020 11:15) Comment 8: [employer] BH denied for inpt per Allison (KYRIE BROWN RN-Utilization Review 03/07/2020 15:46) Comment 9: Additional clinicals faxed manually per request of Allison at [facility] (Yvonne Duran Rn-Utilization Review 03/07/2020 08:44) Comment 10: Clinicals faxed manually to [facility] (Yvonne Duran Rn-Utilization Review 03/05/2020 14:39) BILL CEE RN - 03/15/2020 11:40 EDT Electronically signed by Ruby [facility] Conversion Rehabilitation Worker Cerner at 10/08/2022 12:06 PM CDT documented in this encounter Plan of Treatment Not on file documented as of this encounter Visit Diagnoses Not on filedocumented in this encounter Care Teams Citrus Peeler Relationship Specialty Start Date End Date Moira Barba, RN PCP - General 12/14/22 documented as of this encounter
--- OUTSIDE RECORDS SUMMARY | 2025-03-28 21:03 | XMS_ITS | Encounter Summary ---
Author Organization [employer] ([place], [place], [place], [place]) Address [address] [place] [address] Care Team Providers Care Business System Consultant Name Role Phone Moira Barba RN Primary Care Provider Unanellie ilable Encounter Details Date Type Department Care Team (Late st Contact Info) Description 03/05/2020 Transcribed Document [facility] Family Medicine [address] [place] [address] ProviderMargaret MD [address] [place] [address] [phone] Social History Tobacco Use Types Packs/Day Years [...] Policy Numbers : Insurance 1 Health Plan: [facility] Policy Number: [id number] Authorization Number: Insurance Primary Name : [facility] Policy Number: [id number] Authorization Status-Primary : Awaiting callback Authorized Service Begin Date-Primary : 03/04/2020 EDT Authorization Comments-Primary : Clinicals faxed manually to [facility] Historical Authorization Comments-Primary : No Authorization Comments Found Yvonne Duran, Randi-Utilization Review - 03/05/2020 14:39 EDT Electronically signed by Ruby [facility] Conversion Medical Assembly Cerner at 10/08/2022 12:17 PM CDT documented in this encounter Plan of Treatment Not on file documented as of this encounter Visit Diagnoses Not on filedocumented in this encounter Care Teams Business System Consultant Relationship Specialty Start Date End Date Moira Barba, RANDI PCP - General 12/14/22 documented as of this encounter
--- OUTSIDE RECORDS SUMMARY | 2025-03-28 21:03 | XMS_ITS | Encounter Summary ---
Author Organization [employer] ([place], [place], [place], [place]) Address [address] [place] [address] Care Team Providers Care Sample Paster Name Role Phone Moira Barba RN Primary Care Provider Unanellie ilable Encounter Details Date Type Department Care Team (Late st Contact Info) Description 03/15/2020 Transcribed Document [facility] [place] Family Medicine [address] [place] [address] ProviderMargaret MD [address] [place] [address] [phone] Social History Tobacco Use Types Packs/Day Years [...] Health Plan: [facility] Policy Number: [id number] Authorization Number: Insurance Primary Name : [facility] Policy Number: [id number] Authorization Status-Primary : Admit approved Number of Days Authorized-Primary : 3 Day(s) Authorized Service Begin Date-Primary : 03/04/2020 EDT Authorized Service End Date-Primary : 03/07/2020 EDT Authorization Comments-Primary : Per call to [facility] approved all days after p2P completed. Historical Authorization Comments-Primary : Comment 1: Left VM for Allison inquiring of P2P result. (BILL CEE RN 03/14/2020 16:18) Comment 2: Per Dr. Arthur she will complete this P2P left VM for [facility] to setup P2P for 03/14/2020 @ [...] then to discuss P2P> Emailed to [facility] (BILL CEE RN 03/09/2020 11:15) Comment 7: [employer] BH denied for inpt per Allison (KYRIE BROWN RN-Utilization Review 03/07/2020 15:46) Comment 8: Additional clinicals faxed manually per request of Allison at [facility] (Yvonne Duran Rn-Utilization Review 03/07/2020 08:44) Comment 9: Clinicals faxed manually to [facility] (Yvonne Duran Rn-Utilization Review 03/05/2020 14:39) BILL CEE RN - 03/15/2020 11:39 EDT Electronically signed by Ruby [facility] Conversion Compressor Station Chief Engineer Gloria at 10/08/2022 11:58 AM CDT documented in this encounter Plan of Treatment Not on file documented as of this encounter Visit Diagnoses Not on filedocumented in this encounter Care Teams Sample Paster Relationship Specialty Start Date End Date Moira Barba, RANDI PCP - General 12/14/22 documented as of this encounter
--- OUTSIDE RECORDS SUMMARY | 2025-03-28 21:03 | XMS_ITS | Patient Health Record ---
Author Organization [facility] Address [address] [facility] [address] [place] [address] Care Team Providers Care Reactor Kettle Operator Name Role Phone Dimple Pillai Unavailable [phone] Allergies Allergen (clinical drug ingredient) Drug/Non Drug [...] Status Risk Notes Problem Urine test negative ([id number]) Encounter for test with result negative (Z32.02) [...]
--- OUTSIDE RECORDS SUMMARY | 2025-03-28 21:03 | XMS_ITS | Encounter Summary ---
Author Organization [employer] ([place], [place], [place], [place]) Address [address] [place] [address] Care Team Providers Care Inspector And Clipper Name Role Phone Moira Babra RN Primary Care Provider Jose L miller Encounter Details Date Type Department Care Team (Late st Contact Info) Description 03/05/2020 Transcribed Document [facility] [place] [facility] [place] [address] ProviderMargaret MD [address] [place] [address] [phone] Social History Tobacco Use Types Packs/Day Years [...] 31+2 weeks with PTL. She presented to [facility] with abdominal pain. She was marleen every [...] qualifying data Social History Document (if any) Cultural/Congregational beliefs that would affect medical care: Lab Results MAR 04 18:35 \ 13.1 / H 18.7 314 / 39.2 \ Electronically signed by Ruby [facility] Conversion Form Coverer Cerner at 10/08/2022 11:57 AM CDT documented in this encounter Plan of Treatment Not on file documented as of this encounter Visit Diagnoses Not on filedocumented in this encounter Care Teams Inspector And Clipper Relationship Specialty Start Date End Date Moira Barba RN PCP - General 12/14/22 documented as of this encounter
--- OUTSIDE RECORDS SUMMARY | 2025-03-28 21:03 | XMS_ITS | Referral Summary ---
Author Organization [employer] ([place], [place], [place], [place]) Address [address] [place] [address] Care Team Providers Care Airplane Tube Builder Name Role Phone Moira Barba RN Primary [...] Date Jacob rded Speak language other than Iranian at home Not on file 07/10/2023 Want [...] of Treatment Not on file Insurance [facility] Care Teams Airplane Tube Builder Relationship Specialty Start Date End Date Moira Barba RN PCP - General 12/14/22
--- OUTSIDE RECORDS SUMMARY | 2025-03-28 21:03 | XMS_ITS | Encounter Summary ---
Author Organization [email or web address] ([place], [place], [place], [place]) Address [address] [place] [address] Care Team Providers Care Ambulatory Care Name Role Phone Moira Barba RN Primary Care Provider Unava ilable Encounter Details Date Type Department Care Team (Late st Contact Info) Description 03/05/2020 Transcribed Document [facility] [place] [facility] [place] [address] ProviderMargaret MD [address] [place] [address] Social History Tobacco Use Types Packs/Day [...] on filedocumented in this encounter Care Teams Ambulatory Care Relationship Specialty Start Date End Date Moira Barba, RN PCP - General 12/14/22 documented as of this encounter
--- OUTSIDE RECORDS SUMMARY | 2025-03-28 21:03 | XMS_ITS | Encounter Summary ---
Author Organization [employer] ([place], [place], [place], [place]) Address [address] [place] [address] Care Team Providers Care Retirement Specialist Name Role Phone Moira Barba RN Primary Care Provider Unava ilable Encounter Details Date Type Department Care Team (Late st Contact Info) Description 03/05/2020 Transcribed Document [facility] [place] [facility] [place] [address] ProviderMargaret MD [address] [place] [address] [phone] Social History Tobacco Use Types Packs/Day Years [...] 03/06/2020 20:06 EDT Electronically signed by Ruby [facility] Conversion Machine Adjuster Helper Cerner at 10/08/2022 11:57 AM CDT documented in this encounter Plan of Treatment Not on file documented as of this encounter Visit Diagnoses Not on filedocumented in this encounter Care Teams Retirement Specialist Relationship Specialty Start Date End Date Moira Barba, RN PCP - General 12/14/22 documented as of this encounter
--- OUTSIDE RECORDS SUMMARY | 2025-03-28 21:03 | XMS_ITS | Clinical Summary ---
Author Organization [employer] ([place], [place], [place], [place]) Address [address] [place] [address] Care Team Providers Care Medical Authorization Specialist Name Role Phone Moira Barba RN [...] Date Jacob rded Speak language other than South African at home Not on file 07/10/2023 Want [...] season) 2025 Influenza Vaccine (#1) 2025 [facility] Care Teams Medical Authorization Specialist Relationship Specialty Start Date End Date Moira Barba RN PCP - General 12/14/22
--- OUTSIDE RECORDS SUMMARY | 2025-03-28 21:03 | XMS_ITS | Encounter Summary ---
Author Organization [employer] ([place], [place], [place], [place]) Address [address] [place] [address] Care Team Providers Care Wardrobe Attendant Name Role Phone Moira Barba RN Primary Care Provider Unava ilable Encounter Details Date Type Department Care Team (Late st Contact Info) Description 03/05/2020 Transcribed Document [facility] [place] [facility] [place] [address] ProviderMargaret MD [address] [place] [address] [phone] Social History Tobacco Use Types Packs/Day Years [...] on filedocumented in this encounter Care Teams Wardrobe Attendant Relationship Specialty Start Date End Date Moira Barba, RN PCP - General 12/14/22 documented as of this encounter
--- OUTSIDE RECORDS SUMMARY | 2025-03-28 21:03 | XMS_ITS | Encounter Summary ---
Author Organization [employer] ([place], [place], [place], [place]) Address [address] [place] [address] Care Team Providers Care Electrical Engineer Name Role Phone Moira Barba RN Primary Care Provider Unava ilable Encounter Details Date Type Department Care Team (Late st Contact Info) Description 03/05/2020 Transcribed Document [facility] [place] [facility] [place] [address] ProviderMargaret MD [address] [place] [address] [phone] Social History Tobacco Use Types Packs/Day Years [...] 03/06/2020 20:05 EDT Electronically signed by Ruby [facility] Conversion Bulk Sausage Casing Tier Off Cerner at 10/08/2022 11:57 AM CDT documented in this encounter Plan of Treatment Not on file documented as of this encounter Visit Diagnoses Not on filedocumented in this encounter Care Teams Electrical Engineer Relationship Specialty Start Date End Date Moira Barba, RN PCP - General 12/14/22 documented as of this encounter
--- OUTSIDE RECORDS SUMMARY | 2025-03-28 21:03 | XMS_ITS | Encounter Summary ---
Author Organization [employer] ([place], [place], [place], [place]) Address [address] [place] [address] Care Team Providers Care Inspector Of Weights And Measures Name Role Phone Moira Barba RN Primary Care Provider Jose L ilgrayson Encounter Details Date Type Department Care Team (Late st Contact Info) Description 03/14/2020 Transcribed Document [facility] [place] Family Medicine [address] [place] [address] ProviderMargaret MD [address] [place] [address] [phone] Social History Tobacco Use Types Packs/Day Years [...] Policy Numbers : Insurance 1 Health Plan: [facility] Policy Number: [id number] Authorization Number: Insurance Primary Name : [facility] Policy Number: [id number] Authorization Status-Primary : Denial - admission Authorized Service Begin Date-Primary : 03/04/2020 EDT Authorization Comments-Primary : Left VM for Allison inquiring of P2P result. Historical Authorization Comments-Primary : Comment 1: Per Dr. Arthur she will complete this P2P left VM for [facility] to setup P2P for 03/14/2020 @ 9-10. [...] then to discuss P2P> Emailed to [facility] (BILL CEE RN 03/09/2020 11:15) Comment 6: [employer] BH denied for inpt per Allison (KYRIE BROWN RN-Utilization Review 03/07/2020 15:46) Comment 7: Additional clinicals faxed manually per request of Allison at [facility] (Yvonne Duran Rn-Utilization Review 03/07/2020 08:44) Comment 8: Clinicals faxed manually to [facility] (Yvonne Duran Rn-Utilization Review 03/05/2020 14:39) BILL CEE RN - 03/14/2020 16:18 EDT Electronically signed by Ruby [facility] Conversion Interactive Media Project Manager Cerner at 10/08/2022 12:13 PM CDT documented in this encounter Plan of Treatment Not on file documented as of this encounter Visit Diagnoses Not on filedocumented in this encounter Care Teams Inspector Of Weights And Measures Relationship Specialty Start Date End Date Moira Barba RN PCP - General 12/14/22 documented as of this encounter
--- OUTSIDE RECORDS SUMMARY | 2025-03-28 21:03 | XMS_ITS | Encounter Summary ---
Author Organization [employer] ([place], [place], [place], [place]) Address [address] [place] [address] Care Team Providers Care Military Administrative Technician Name Role Phone Moira Barba RN Primary Care Provider Jose L miller Encounter Details Date Type Department Care Team (Late st Contact Info) Description 03/13/2020 Transcribed Document [facility] [place] Family Medicine [address] [place] [address] ProviderMargaret MD [address] [place] [address] [phone] Social History Tobacco Use Types Packs/Day Years Used Date Smoking Tobacco: Never Assessed Comments Unknown Sex and Gender Information Value Date Recorded Sex Assigned at Female 12/19/2021 6:15 PM CDT Legal Sex Female 7:09 PM CDT Gender Identity Female 12/19/2021 6:15 PM CDT Sexual Orientation Not on file documented as of this encounter Miscellaneous Notes * Cerner Conversion Note - Margaert ProviderMD - 03/13/2020 9:43 AM CDT UM Authorization Entered On: 03/13/2020 9:44 EDT Performed On: 03/13/2020 9:43 EDT by BILL CEE RN Primary Insurance Authorization Authorization and Policy Numbers : Insurance 1 Health Plan: [facility] Policy Number: [id number] Authorization Number: Insurance Primary Name : [facility] Policy Number: [id number] Authorization Status-Primary : Denial - admission Authorized Service Begin Date-Primary : 03/04/2020 EDT Authorization Comments-Primary : Left VM for Dr. Arthur inquiring if she would complete P2P. Historical Authorization Comments-Primary : Comment 1: Called Dr. Arthur office spoke with Kim she stated that Dr. Arthur only works tuesdays. I will call back then to discuss P2P> Emailed to [facility] (BILL CEE RN 03/09/2020 11:15) Comment 2: [employer] BH denied for inpt per Allison (KYRIE BROWN RN-Utilization Review 03/07/2020 15:46) Comment 3: Additional clinicals faxed manually per request of Allison at [facility] (Yvonne Duran, Randi-Utilization Review 03/07/2020 08:44) Comment 4: Clinicals faxed manually to [facility] (Yvonne Duran, Randi-Utilization Review 03/05/2020 14:39) BILL CEE RN - 03/13/2020 9:43 EDT Electronically signed by Ruby [facility] Conversion Poiser Cerner at 10/08/2022 11:55 AM CDT documented in this encounter Plan of Treatment Not on file documented as of this encounter Visit Diagnoses Not on filedocumented in this encounter Care Teams Military Administrative Technician Relationship Specialty Start Date End Date Moira Barba, RANDI PCP - General 12/14/22 documented as of this encounter
--- OUTSIDE RECORDS SUMMARY | 2025-03-28 21:04 | XMS_ITS | Encounter Summary ---
Author Organization [employer] ([place], [place], [place], [place]) Address [address] [place] [address] Care Team Providers Care Sales Assistants And Salespersons Name Role Phone Moira Barba RN Primary Care Provider Jose L miller Encounter Details Date Type Department Care Team (Late st Contact Info) Description 03/06/2020 Transcribed Document [facility] [place] Family Medicine [facility] [place] [address] ProviderMargaret MD [address] [place] [address] [phone] Social History Tobacco Use Types Packs/Day Years [...] / 37.0 \ Electronically signed by Ruby, [facility] Conversion Appraiser Personal Property Cerner at 10/08/2022 11:58 AM CDT documented in this encounter Plan of Treatment Not on file documented as of this encounter Visit Diagnoses Not on filedocumented in this encounter Care Teams Sales Assistants And Salespersons Relationship Specialty Start Date End Date Moira Barba RN PCP - General 12/14/22 documented as of this encounter
--- OUTSIDE RECORDS SUMMARY | 2025-03-28 21:04 | XMS_ITS | Encounter Summary ---
Author Organization [employer] ([place], [place], [place], [place]) Address [address] [place] [address] Care Team Providers Care Inside Sales Agent Name Role Phone Moira Barba RN Primary Care Provider Unanellie ilable Encounter Details Date Type Department Care Team (Late st Contact Info) Description 03/07/2020 Transcribed Document [facility] [place] Family Medicine [address] [place] [address] ProviderMargaret MD [address] [place] [address] [phone] Social History Tobacco Use Types Packs/Day Years [...] Margaret ProviderMD - 03/07/2020 8:55 AM CDT [address] [address] INDRA NAVA :2000 Visit Time:03/04/2020 [...] Capsule(s) Oral Every 4 Hours Pickup at [facility] Pharmacy Information [facility]: [address], [place] [id number] [phone] Take your medications faithfully. Do NOT skip [...] 09/04/2009 Document Revised: 09/30/2019 Document Reviewed: 10/29/2016 [employer] Patient Education ?? 2020 [employer]. Third Trimester of The third trimester is from week 28 through week 40 (months 7 through 9). This trimester is when your unborn baby (fetus) is growing very fast. At the end of the ninth month, the unborn baby is about 20 inches in length. It weighs about 6???10 pounds. Follow these instructions at home: Medicines ??? Take febq-lzq-fwprczq and prescription medicines only as told by [...] 09/02/2010 Document Revised: 09/29/2019 Document Reviewed: 07/14/2017 [employer] Patient Education ?? 2020 [employer]. Emergency Awareness and Preventative Care STROKE is [...] Assistance with quitting is available by contacting 3-004-BSOG-NOW. This is a free resource providing counseling, [...] range between ( 1.0 and 7.0 ) [place] #: 1.30 K/uL -- Normal range between ( 0.24 and 0.82 ) [place] #: 0.00 K/uL -- Normal range between ( 0.04 and 0.54 ) [place] %: 6.4 % -- Normal range between [...] was given the opportunity to ask questions. Patient/Copy Coordinator Name: Patient/Copy Coordinator Signature: Relationship to Patient: Clinician/Hospital Copy Coordinator Signature: Date: documented in this encounter Plan of Treatment Not on file documented as of this encounter Visit Diagnoses Not on filedocumented in this encounter Care Teams Inside Sales Agent Relationship Specialty Start Date End Date Moira Barba, RN PCP - General 12/14/22 documented as of this encounter
--- OUTSIDE RECORDS SUMMARY | 2025-03-28 21:04 | XMS_ITS | Encounter Summary ---
Author Organization [employer] ([place], [place], [place], [place]) Address [address] [place] [address] Care Team Providers Care Dental Office Assistant Name Role Phone Moira Barba RN Primary Care Provider Unava ilable Encounter Details Date Type Department Care Team (Late st Contact Info) Description 03/04/2020 Transcribed Document [facility] [place] [facility] [place] [address] ProviderMargaret MD [address] [place] [address] Social History Tobacco Use Types Packs/Day [...] on filedocumented in this encounter Care Teams Dental Office Assistant Relationship Specialty Start Date End Date Moira Barba, RN PCP - General 12/14/22 documented as of this encounter
--- OUTSIDE RECORDS SUMMARY | 2025-03-28 21:04 | XMS_ITS | Encounter Summary ---
Author Organization [employer] ([place], [place], [place], [place]) Address [address] [place] [address] Care Team Providers Care Plastic Molding Operator Name Role Phone Moira Barba RN Primary Care Provider Jose L miller Encounter Details Date Type Department Care Team (Late st Contact Info) Description 03/07/2020 Transcribed Document [facility] [place] Family Medicine [address] [place] [address] ProviderMargaret MD [address] [place] [address] [phone] Social History Tobacco Use Types Packs/Day Years [...] on filedocumented in this encounter Care Teams Plastic Molding Operator Relationship Specialty Start Date End Date Moira Barba RN PCP - General 12/14/22 documented as of this encounter
--- OUTSIDE RECORDS SUMMARY | 2025-03-28 21:04 | XMS_ITS | Encounter Summary ---
Author Organization [employer] ([place], [place], [place], [place]) Address [address] [place] [address] Care Team Providers Care Anti Tank Missileman Name Role Phone Moira Barba RN Primary Care Provider Jose L ilgrayson Encounter Details Date Type Department Care Team (Late st Contact Info) Description 03/07/2020 Transcribed Document [facility] [place] [address] [place] [address] ProviderMargaret MD [address] [place] [address] [phone] Social History Tobacco Use Types Packs/Day Years [...] Policy Numbers : Insurance 1 Health Plan: [facility] Policy Number: [id number] Authorization Number: Insurance Primary Name : [facility] Policy Number: [id number] Authorization Status-Primary : Awaiting callback Authorized Service Begin Date-Primary : 03/04/2020 EDT Authorization Comments-Primary : Additional clinicals faxed manually per request of Allison krueger [facility] Historical Authorization Comments-Primary : Comment 1: Clinicals faxed manually to [facility] (Yvonne Duran Rn-Utilization Review 03/05/2020 14:39) Yvonne Duran Rn-Utilization Review - 03/07/2020 8:44 EDT Electronically signed by Ruby [facility] Conversion Biological Plant Operator Cerner at 10/08/2022 12:02 PM CDT documented in this encounter Plan of Treatment Not on file documented as of this encounter Visit Diagnoses Not on filedocumented in this encounter Care Teams Anti Tank Missileman Relationship Specialty Start Date End Date Moira Barba, RN PCP - General 12/14/22 documented as of this encounter
--- OUTSIDE RECORDS SUMMARY | 2025-03-28 21:04 | XMS_ITS | Encounter Summary ---
Author Organization [employer] ([place], [place], [place], [place]) Address [address] [place] [address] Care Team Providers Care Rubber Mold Maker Name Role Phone Moira Barba RN Primary Care Provider Unava ilable Encounter Details Date Type Department Care Team (Late st Contact Info) Description 03/04/2020 Transcribed Document [facility] [place] [facility] [place] [address] ProviderMargaret MD [address] [place] [address] Social History Tobacco Use Types Packs/Day [...] EDT Electronically signed by Ruby [facility] Conversion Automotive Drivability Technician Cerner at 10/08/2022 12:04 PM CDT documented in this encounter Plan of Treatment Not on file documented as of this encounter Visit Diagnoses Not on filedocumented in this encounter Care Teams Rubber Mold Maker Relationship Specialty Start Date End Date Moira Barba RN PCP - General 12/14/22 documented as of this encounter
--- OUTSIDE RECORDS SUMMARY | 2025-03-28 21:04 | XMS_ITS | Encounter Summary ---
Author Organization [employer] ([place], [place], [place], [place]) Address [address] [place] [address] Care Team Providers Care Business Analytics Faculty Member Name Role Phone Moira Barba RN Primary Care Provider Jose L miller Encounter Details Date Type Department Care Team (Late st Contact Info) Description 03/06/2020 Transcribed Document [facility] [place] [facility] [place] [address] ProviderMargaret MD [address] [place] [address] Social History Tobacco Use Types Packs/Day [...] 5 mg 1 Tab, Oral, At Bedtime [facility] US 03/05/20 Sharma at 31w 1d in [...] filedocumented in this encounter Care Teams Business Analytics Faculty Member Relationship Specialty Start Date End Date Barba, Moira L, RN PCP - General 12/14/22 documented as of this encounter
--- OUTSIDE RECORDS SUMMARY | 2025-03-28 21:04 | XMS_ITS | Encounter Summary ---
Author Organization [employer] ([place], [place], [place], [place]) Address [address] [place] [address] Care Team Providers Care Proprietary Trader Name Role Phone Moira Barba RN Primary Care Provider Jose L ilgrayson Encounter Details Date Type Department Care Team (Late st Contact Info) Description 03/09/2020 Transcribed Document [facility] [place] Family Medicine [address] [place] [address] ProviderMargaret MD [address] [place] [address] [phone] Social History Tobacco Use Types Packs/Day Years [...] Policy Numbers : Insurance 1 Health Plan: [facility] Policy Number: [id number] Authorization Number: Insurance Primary Name : [facility] Policy Number: [id number] Authorization Status-Primary : Denial - admission Authorized Service Begin Date-Primary : 03/04/2020 EDT Authorization Comments-Primary : Called Dr. Arthur office spoke with Kim she stated that Dr. Arthur only works tuesdays. I will call back then to discuss P2P> Em[place] [facility] [place] Authorization Comments-Primary : Comment 1: [employer] BH denied for inpt per Allison (KYRIE BROWN, RN-Utilization Review 03/07/2020 15:46) Comment 2: Additional clinicals faxed manually per request of Allison at [facility] (Yvonne Duran, An-Utilization Review 03/07/2020 08:44) Comment 3: Clinicals faxed manually to [facility] (Yvonne Duran, Rn-Utilization Review 03/05/2020 14:39) BILL CEE RN - 03/09/2020 11:15 EDT Electronically signed by Ruby [facility] Conversion Glass Technician Cerner at 10/08/2022 12:02 PM CDT documented in this encounter Plan of Treatment Not on file documented as of this encounter Visit Diagnoses Not on filedocumented in this encounter Care Teams Proprietary Trader Relationship Specialty Start Date End Date Moira Barba RN PCP - General 12/14/22 documented as of this encounter
--- OUTSIDE RECORDS SUMMARY | 2025-03-28 21:04 | XMS_ITS | Encounter Summary ---
Author Organization [employer] ([place], [place], [place], [place]) Address [address] [place] [address] Care Team Providers Care Professor Of Practice Name Role Phone Moira Barba RN Primary Care Provider Jose L miller Encounter Details Date Type Department Care Team (Late st Contact Info) Description 03/12/2020 Transcribed Document [facility] [place] Family Medicine [facility] [place] [address] ProviderMargaret MD [address] [place] [address] [phone] Social History Tobacco Use Types Packs/Day Years [...] Hospitalization 19 yo who presented from [facility] with contractions and cervical change [...] less than 30 minutes Electronically signed by [facility] Conversion Industrial Truck Operator Cerner at 10/08/2022 12:04 PM CDT documented in this encounter Plan of Treatment Not on file documented as of this encounter Visit Diagnoses Not on filedocumented in this encounter Care Teams Professor Of Practice Relationship Specialty Start Date End Date Moira Barba RN PCP - General 12/14/22 documented as of this encounter
--- OUTSIDE RECORDS SUMMARY | 2025-03-28 21:04 | XMS_ITS | Encounter Summary ---
Author Organization [employer] ([place], [place], [place], [place]) Address [address] [place] [address] Care Team Providers Care Industrial Truck Mechanic Name Role Phone Moira Barba RN Primary Care Provider Unava ilable Encounter Details Date Type Department Care Team (Late st Contact Info) Description 03/04/2020 Transcribed Document [facility] [place] [address] ProviderMargaret MD [address] [place] [address] Social History Tobacco Use Types Packs/Day [...] 03/06/2020 20:05 EDT Electronically signed by Ruby [facility] Conversion Vocational Education Teacher Cerner at 10/08/2022 12:10 PM CDT documented in this encounter Plan of Treatment Not on file documented as of this encounter Visit Diagnoses Not on filedocumented in this encounter Care Teams Industrial Truck Mechanic Relationship Specialty Start Date End Date Moira Barba, RN PCP - General 12/14/22 documented as of this encounter
--- OUTSIDE RECORDS SUMMARY | 2025-03-28 21:04 | XMS_ITS | Encounter Summary ---
Author Organization [employer] ([place], [place], [place], [place]) Address [address] [place] [address] Care Team Providers Care Python Django Developer Name Role Phone Moira Barba RN Primary Care Provider Unava ilable Encounter Details Date Type Department Care Team (Late st Contact Info) Description 03/04/2020 Transcribed Document [facility] [place] Medicine [facility] [place] [address] ProviderMargaret MD [address] [place] [address] Social History Tobacco Use Types Packs/Day [...] Source : Measured Height Entry Format : [place] Height, Feet : 5 ft(Converted to: 152 cm, 60 Inch) Clinical Height : 175.26 cm Height, Inches : 9 Inch(Converted to: 0 ft 9 Inch, 22.86 cm) Weight Source : Standing scale Weight Entry Format : [place] Weight, Pounds : 170 lb Clinical Dosing Weight : 77.27 kg Body Surface Area (BSA) : 1.93 m2 Body Mass Index : 25.2 kg/m2 (HI) [place] Body Weight (IBW) : 65.73 kg ELIO [...] ELIO SNOWDEN RN - 03/04/2020 17:06 EDT [place] Suicide Severity Rating Scale (C-SSRS) CSSRS Past [...] on filedocumented in this encounter Care Teams Python Django Developer Relationship Specialty Start Date End Date Moira Barba RN PCP - General 12/14/22 documented as of this encounter
--- OUTSIDE RECORDS SUMMARY | 2025-03-28 21:04 | XMS_ITS | Encounter Summary ---
Author Organization [employer] ([place], [place], [place], [place]) Address [address] [place] [address] Care Team Providers Care Forms Examiner Name Role Phone Moira Barba RN Primary Care Provider Unava ilable Encounter Details Date Type Department Care Team (Late st Contact Info) Description 03/06/2020 Transcribed Document [facility] [place] [facility] [place] [address] ProviderMargaret MD [address] [place] [address] Social History Tobacco Use Types Packs/Day [...] 03/06/2020 20:07 EDT Electronically signed by Ruby [facility] Conversion Centrifuge Separator Operator Cerner at 10/08/2022 12:14 PM CDT documented in this encounter Plan of Treatment Not on file documented as of this encounter Visit Diagnoses Not on filedocumented in this encounter Care Teams Forms Examiner Relationship Specialty Start Date End Date oMira Barba, RN PCP - General 12/14/22 documented as of this encounter
--- OUTSIDE RECORDS SUMMARY | 2025-03-28 21:04 | XMS_ITS | Encounter Summary ---
Author Organization [employer] ([place], [place], [place], [place]) Address [address] [place] [address] Care Team Providers Care Windows Consultant Name Role Phone Moira Barba RN Primary Care Provider Unava ilable Encounter Details Date Type Department Care Team (Late st Contact Info) Description 03/06/2020 Transcribed Document [facility] [place] [facility] [place] [address] ProviderMargaret MD [address] [place] [address] [phone] Social History Tobacco Use Types Packs/Day Years [...] 03/06/2020 20:07 EDT Electronically signed by Ruby [facility] Conversion Soda Worker Cerner at 10/08/2022 11:54 AM CDT documented in this encounter Plan of Treatment Not on file documented as of this encounter Visit Diagnoses Not on filedocumented in this encounter Care Teams Windows Consultant Relationship Specialty Start Date End Date Moira Barba, RN PCP - General 12/14/22 documented as of this encounter
--- OUTSIDE RECORDS SUMMARY | 2025-03-28 21:04 | XMS_ITS | Encounter Summary ---
Author Organization [employer] ([place], [place], [place], [place]) Address [address] [place] [address] Care Team Providers Care Motor Tune Up Specialist Name Role Phone Moira Barba RN Primary Care Provider Jose L ilgrayson Encounter Details Date Type Department Care Team (Late st Contact Info) Description 03/13/2020 Transcribed Document [facility] [place] [address] [place] [address] ProviderMargaret MD [address] [place] [address] [phone] Social History Tobacco Use Types Packs/Day Years [...] Policy Numbers : Insurance 1 Health Plan: [facility] [employer] [facility] Policy Number: [id number] Authorization Number: Insurance Primary Name : [facility] Policy Number: [id number] Authorization Status-Primary : Denial - admission Authorized [...] back then to discuss P2P> Emailed to [facility] (BILL CEE RN 03/09/2020 11:15) Comment 3: [employer] BH denied for inpt per Allison (KYRIE BROWN RN-Utilization Review 03/07/2020 15:46) Comment 4: Additional clinicals faxed manually per request of Allison at [facility] (Yvonne Duran Rn-Utilization Review 03/07/2020 08:44) Comment 5: Clinicals faxed manually to [facility] (Yvonne Duran Rn-Utilization Review 03/05/2020 14:39) BILL CEE RN - 03/13/2020 9:44 EDT Electronically signed by Ruby [facility] Conversion Ski Lift Operator Cerner at 10/08/2022 11:54 AM CDT documented in this encounter Plan of Treatment Not on file documented as of this encounter Visit Diagnoses Not on filedocumented in this encounter Care Teams Motor Tune Up Specialist Relationship Specialty Start Date End Date Moira Barba RN PCP - General 12/14/22 documented as of this encounter
--- OUTSIDE RECORDS SUMMARY | 2025-03-28 21:04 | XMS_ITS | Encounter Summary ---
Author Organization [employer] ([place], [place], [place]) Address [address] [place] [address] Care Team Providers Care Train Driver Name Role Phone Moira Barba RN Primary Care Provider Unava ilable Encounter Details Date Type Department Care Team (Late st Contact Info) Description 03/07/2020 Transcribed Document [facility] [place] Family Medicine [facility] [place] [address] ProviderMargaret MD [address] [place] [address] [phone] Social History Tobacco Use Types Packs/Day Years [...] on filedocumented in this encounter Care Teams Train Driver Relationship Specialty Start Date End Date Moira Barba, RN PCP - General 12/14/22 documented as of this encounter
--- OUTSIDE RECORDS SUMMARY | 2025-03-28 21:04 | XMS_ITS | Encounter Summary ---
Author Organization [employer] ([place], [place], [place], [place]) Address [address] [place] [address] Care Team Providers Care Pie Baker Name Role Phone Moira Babra RN Primary Care Provider Unava ilable Encounter Details Date Type Department Care Team (Late st Contact Info) Description 03/06/2020 Transcribed Document [facility] [place] [facility] [place] [address] ProviderMargaret MD [address] [place] [address] [phone] Social History Tobacco Use Types Packs/Day Years [...] on filedocumented in this encounter Care Teams Pie Baker Relationship Specialty Start Date End Date Moira Barba, RN PCP - General 12/14/22 documented as of this encounter
--- OUTSIDE RECORDS SUMMARY | 2025-03-28 21:04 | XMS_ITS | Encounter Summary ---
Author Organization [employer] ([place], [place], [place], [place]) Address [address] [place] [address] Care Team Providers Care Olive Picker Name Role Phone Moira Barba RN Primary Care Provider Jose L ilgrayson Encounter Details Date Type Department Care Team (Late st Contact Info) Description 03/07/2020 Transcribed Document [facility] [place] [address] [place] [address] ProviderMargaret MD [address] [place] [address] [phone] Social History Tobacco Use Types Packs/Day Years [...] Policy Numbers : Insurance 1 Health Plan: [facility] Policy Number: [id number] Authorization Number: Insurance Primary Name : [facility] Policy Number: [id number] Authorization Status-Primary : Denial - admission Authorized Service Begin Date-Primary : 03/04/2020 EDT Authorization Comments-[facility] Allison Historical Authorization Comments-Primary : Comment 1: Additional clinicals faxed manually per request of Allison at [facility] (Yvonne Duran, An-Utilization Review 03/07/2020 08:44) Comment 2: Clinicals faxed manually to [facility] (Yvonne Duran, An-Utilization Review 03/05/2020 14:39) KYRIE BROWN RN-Utilization Review - 03/07/2020 15:46 EDT Electronically signed by Ruby [facility] Conversion Stable Hand Cerner at 10/08/2022 12:04 PM CDT documented in this encounter Plan of Treatment Not on file documented as of this encounter Visit Diagnoses Not on filedocumented in this encounter Care Teams Olive Picker Relationship Specialty Start Date End Date Moira Barba RN PCP - General 12/14/22 documented as of this encounter
--- OUTSIDE RECORDS SUMMARY | 2025-03-28 21:04 | XMS_ITS | Encounter Summary ---
Author Organization [employer] ([place], [place], [place], [place]) Address [address] [place] [address] Care Team Providers Care Miter Saw Operator Name Role Phone Moira Barba RN Primary Care Provider Jose L miller Encounter Details Date Type Department Care Team (Late st Contact Info) Description 03/07/2020 Transcribed Document [facility] [place] Family Medicine [facility] [place] [address] ProviderMargaret MD [address] [place], [place] [phone] Social History Tobacco Use Types Packs/Day Years [...] 09/04/2009 Document Revised: 09/30/2019 Document Reviewed: 10/29/2016 [employer] Patient Education ? 2020 Flagr. Obstetrics and Gynecology Third Trimester of The third trimester is from week 28 through week 40 (months 7 through 9). This trimester is when your unborn baby (fetus) is growing very fast. At the end of the ninth month, the unborn baby is about 20 inches in length. It weighs about 6?10 pounds. Follow these instructions at home: Medicines ??? Take krmd-kdy-[id number] and prescription medicines only as told by [...] Reviewed: 07/14/2017 Elsevier Patient Education ? 2020 [employer] documented in this encounter Plan of Treatment Not on file documented as of this encounter Visit Diagnoses Not on filedocumented in this encounter Care Teams Miter Saw Operator Relationship Specialty Start Date End Date Moira Barba RN PCP - General 12/14/22 documented as of this encounter
--- OUTSIDE RECORDS SUMMARY | 2025-03-28 21:04 | XMS_ITS | Encounter Summary ---
Author Organization [employer] ([place], [place], [place], [place]) Address [address] [place] [address] Care Team Providers Care Heel Stainer Name Role Phone Moira Barba RN Primary Care Provider Unava ilable Encounter Details Date Type Department Care Team (Late st Contact Info) Description 03/07/2020 Transcribed Document [facility] [place] [facility] [place] [address] ProviderMargaret MD [address] [place] [address] [phone] Social History Tobacco Use Types Packs/Day Years [...] 03/07/2020 5:29 EDT Electronically signed by Ruby [facility] Conversion Computer Graphics Illustrator Cerner at 10/08/2022 12:03 PM CDT documented in this encounter Plan of Treatment Not on file documented as of this encounter Visit Diagnoses Not on filedocumented in this encounter Care Teams Heel Stainer Relationship Specialty Start Date End Date Moira Barba, RN PCP - General 12/14/22 documented as of this encounter
--- OUTSIDE RECORDS SUMMARY | 2025-03-28 21:04 | XMS_ITS | Encounter Summary ---
Author Organization [employer] ([place], [place], [place], [place]) Address [address] [place] [address] Care Team Providers Care Advertising Sales Executive Name Role Phone Moira Barba RN Primary Care Provider Jose L miller Encounter Details Date Type Department Care Team (Late st Contact Info) Description 03/13/2020 Transcribed Document [facility] [place] [address] [place] [address] ProviderMargaret MD [address] [place] [address] [phone] Social History Tobacco Use Types Packs/Day Years [...] Policy Numbers : Insurance 1 Health Plan: [facility] Policy Number: [id number] Authorization Number: Insurance Primary Name : [facility] Policy Number: [id number] Authorization Status-Primary : Denial - admission Authorized Service Begin Date-Primary : 03/04/2020 EDT Authorization Comments-Primary : Per Dr. Arthur she will complete this P2P left VM for [facility] to setup P2P for 03/14/2020 [...] back then to discuss P2P> Emailed to [facility] (BILL CEE RN 03/09/2020 11:15) Comment 5: [employer] BH denied for inpt per Allison (KYRIE BROWN RN-Utilization Review 03/07/2020 15:46) Comment 6: Additional clinicals faxed manually per request of Allison at [facility] (Yvonne Duran Rn-Utilization Review 03/07/2020 08:44) Comment 7: Clinicals faxed manually to [facility] (Yvonne Duran Rn-Utilization Review 03/05/2020 14:39) BILL CEE RN - 03/13/2020 10:15 EDT Electronically signed by Ruby [facility] Conversion Furnace Combustion Analyst Cerner at 10/08/2022 11:52 AM CDT documented in this encounter Plan of Treatment Not on file documented as of this encounter Visit Diagnoses Not on filedocumented in this encounter Care Teams Advertising Sales Executive Relationship Specialty Start Date End Date Moira Barba, RANDI PCP - General 12/14/22 documented as of this encounter
--- OUTSIDE RECORDS SUMMARY | 2025-03-28 21:04 | XMS_ITS | Encounter Summary ---
Author Organization [employer] ([place], [place], [place], [place]) Address [address] [place] [address] Care Team Providers Care Machine Clothing Worker Name Role Phone Moira Barba RN Primary Care Provider Jose L miller Encounter Details Date Type Department Care Team (Late st Contact Info) Description 03/07/2020 Transcribed Document [facility] [place] [facility] [place] [address] ProviderMargaret MD [address] [place] [address] [phone] Social History Tobacco Use Types Packs/Day Years [...] / 37.0 \ Electronically signed by Ruby [facility] Conversion Budget Director Cerner at 10/08/2022 11:57 AM CDT documented in this encounter Plan of Treatment Not on file documented as of this encounter Visit Diagnoses Not on filedocumented in this encounter Care Teams Machine Clothing Worker Relationship Specialty Start Date End Date Moira Barba RN PCP - General 12/14/22 documented as of this encounter
--- OUTSIDE RECORDS SUMMARY | 2025-03-28 21:04 | XMS_ITS | Encounter Summary ---
Author Organization [employer] ([place], [place], [place], [place]) Address [address] [place] [address] Care Team Providers Care Glass Unloading Equipment Tender Name Role Phone Moira Barba RN Primary Care Provider Unava ilable Encounter Details Date Type Department Care Team (Late st Contact Info) Description 03/06/2020 Transcribed Document [facility] [place] [facility] [place] [address] ProviderMargaret MD [address] [place] [address] Social History Tobacco Use Types Packs/Day [...] 03/06/2020 20:07 EDT Electronically signed by Ruby [facility] Conversion Plant Science Professor Cerner at 10/08/2022 12:09 PM CDT documented in this encounter Plan of Treatment Not on file documented as of this encounter Visit Diagnoses Not on filedocumented in this encounter Care Teams Glass Unloading Equipment Tender Relationship Specialty Start Date End Date Moira Barba, RN PCP - General 12/14/22 documented as of this encounter
[2025-03-28 21:23] VITALS: BP 114/76; PULSE 91; RESP 18; TEMP 36.7; O2SAT 99; BMI 26.6
[2025-03-28] MEDS: ACETAMINOPHEN 500MG TAB 1000 MG PO (21:29)
[2025-03-28 21:36] LABS: Microscopic, Urine URINE MICROSCOPIC (MICROSCOPIC)
[2025-03-28 21:42] LABS: Bilirubin,Urine Negative (Negative); Color,Urine YELLOW (Yellow); Glucose,Urine (UA) Negative (Negative); Ketones,Urine Negative (Negative); Leukocyte Esterase,Urine Negative (Negative); PH,Urine 6.5 (5.0-8.5); Protein,Urine Negative (Negative); Specific Gravity, Urine 1.010 (1.005-1.030); Urobilinogen,Urine 0.2 EU/dl (0.2)
[2025-03-28 22:05] LABS: Bacteria,Urine 1+ /lpf
== END 2025-03-28 22:30 | disposition home or self-care (01) ==
LOC: OBOUT 21:01 → OB 21:02
PROVIDERS: PCP Nurse Practitioner; Visit Provider Nurse Practitioner Obstetrics & Gynecology
DX: O34.219 Maternal care for unspecified type scar from previous cesarean delivery (principal); Z3A.28 28 weeks gestation of pregnancy
CPT/HCPCS: 59025; 81001; 99212; G0463

== ENCOUNTER 2025-04-27 10:55 | Outpatient (CLI) | payer OTHER, SELFPAY ==
[2025-04-27 11:04] VITALS: BP 115/74; PULSE 86; RESP 17; TEMP 36.8; O2SAT 100; BMI 27.0
--- OUTSIDE RECORDS SUMMARY | 2025-04-27 11:05 | XMS_ITS | Clinical Summary ---
Author Organization [employer] ([place], [place], [place], [place], [place]) Address [address] [place] [address] Care Team Providers Care Precision Instrument And Tool Maker Name Role Phone Moira Barba RN Primary Care Provider Jose L ilable Allergies Active Allergy Reactions Criticality Noted [...] Date Jacob rded Speak language other than Bhutanese at home Not on file 07/10/2023 Want [...] Pap Smear 12/12/2020 COVID-19 VACCINE (1 - season) 2025 Influenza Vaccine (#1) 2025 [facility] Care Teams Precision Instrument And Tool Maker Relationship Specialty Start Date End Date Moira Barba, RN PCP - General 12/14/22
--- OUTSIDE RECORDS SUMMARY | 2025-04-27 11:05 | XMS_ITS | Encounter Summary ---
Author Organization [employer] ([place], [place], [place], [place], [place]) Address [address] [place] [address] Care Team Providers Care Traffic Representative Name Role Phone Moira Barba RN Primary Care Provider Jose L ilgrayson Encounter Details Date Type Department Care Team (Late st Contact Info) Description 03/05/2020 Transcribed Document [facility] [place] [facility] [place] [address] ProviderMargaret MD [address] [place] [address] Social History Tobacco Use Types Packs/Day [...] Conversion Note - Historical ProviderMD - 03/05/2020 5:00 PM CDT Chart [...] on filedocumented in this encounter Care Teams Traffic Representative Relationship Specialty Start Date End Date Moira Barba, RN PCP - General 12/14/22 documented as of this encounter
--- OUTSIDE RECORDS SUMMARY | 2025-04-27 11:05 | XMS_ITS | Encounter Summary ---
Author Organization [employer] ([place], [place], [place], [place], [place]) Address [address] [place] [address] Care Team Providers Care Loop Tacker Name Role Phone Moira Barba RN Primary Care Provider Jose L miller Encounter Details Date Type Department Care Team (Late st Contact Info) Description 03/13/2020 Transcribed Document [facility] [place] Family Medicine [address] [place] [address] ProviderMargaret MD [address] [place] [address] Social History Tobacco Use Types Packs/Day [...] Policy Numbers : Insurance 1 Health Plan: [facility] Policy Number: [id number] Authorization Number: Insurance Primary Name : [facility] Policy Number: [id number] Authorization Status-Primary : Denial - admission Authorized Service Begin Date-Primary : 03/04/2020 EDT Authorization Comments-Primary : Missed Dr. Arthur call- she left VM- called her back and left a VM inquiring if she would complete the p2p. Historical Authorization Comments-Primary : Comment 1: Spoke with Delia at MD office and transferred to Dr. Arthur. (BILL ECE RN 03/13/2020 09:44) Comment 2: Left VM for Dr. Arthur inquiring if she would complete P2P. (BILL CEE RN 03/13/2020 09:43) Comment 3: Called Dr. Arthur office spoke with Kim she stated that Dr. Arthur only works tuesdays. I will call back then to discuss P2P> [facility] [facility] (BILL CEE RN 03/09/2020 11:15) Comment 4: [employer] BH denied for inpt per Allison (KYRIE BROWN RN-Utilization Review 03/07/2020 15:46) Comment 5: Additional clinicals faxed manually per request of Allison at [facility] (Yvonne Duran Rn-Utilization Review 03/07/2020 08:44) Comment 6: Clinicals faxed manually to [facility] (Yvonne Duran Rn-Utilization Review 03/05/2020 14:39) BILL CEE RN - 03/13/2020 10:00 EDT Electronically signed by Ruby [facility] Conversion Secret Service Agent Gloria at 10/08/2022 12:11 PM CDT documented in this encounter Plan of Treatment Not on file documented as of this encounter Visit Diagnoses Not on filedocumented in this encounter Care Teams Loop Tacker Relationship Specialty Start Date End Date Moira Barba RN PCP - General 12/14/22 documented as of this encounter
--- OUTSIDE RECORDS SUMMARY | 2025-04-27 11:05 | XMS_ITS | Encounter Summary ---
Author Organization [employer] ([place], [place], [place], [place], [place]) Address [address] [place] [address] Care Team Providers Care Garment Cutter Name Role Phone Moira Barba RN Primary Care Provider Jose L miller Encounter Details Date Type Department Care Team (Late st Contact Info) Description 03/04/2020 Transcribed Document [facility] [place] Family Medicine [facility] [place] [address] ProviderMargaret MD [address] [place] [address] Social History Tobacco Use Types Packs/Day [...] on filedocumented in this encounter Care Teams Garment Cutter Relationship Specialty Start Date End Date Moira Barba RN PCP - General 12/14/22 documented as of this encounter
--- OUTSIDE RECORDS SUMMARY | 2025-04-27 11:05 | XMS_ITS | Encounter Summary ---
Author Organization [employer] ([place], [place], [place], [place], [place]) Address [address] [place] [address] Care Team Providers Care Direct Care Worker Name Role Phone Moira Barba RN Primary Care Provider Jose L ilgrayson Encounter Details Date Type Department Care Team (Late st Contact Info) Description 03/05/2020 Transcribed Document [facility] [place] [address] ProviderMargaret MD [address] [place] [address] Social History Tobacco Use Types Packs/Day [...] Note - Historical ProviderMD - 03/05/2020 5:00 AM CDT Chart [...] on filedocumented in this encounter Care Teams Direct Care Worker Relationship Specialty Start Date End Date Moira Barba, RN PCP - General 12/14/22 documented as of this encounter
--- OUTSIDE RECORDS SUMMARY | 2025-04-27 11:05 | XMS_ITS | Encounter Summary ---
Author Organization [employer] ([place], [place], [place], [place], [place]) Address [address] [place] [address] Care Team Providers Care Liquor Inspector Name Role Phone Moira Barba RN Primary Care Provider Jose L miller Encounter Details Date Type Department Care Team (Late st Contact Info) Description 03/14/2020 Transcribed Document [facility] [place] Family Medicine [address] [place] [address] ProviderMargaret MD [address] [place] [address] Social History Tobacco Use Types Packs/Day [...] Plan: [facility] Policy Number: [id number] Authorization Number: Insurance Primary Name : [facility] Policy Number: [id number] Authorization Status-Primary : Denial - admission Authorized [...] back then to discuss P2P> Emailed to [facility] (BILL CEE RN 03/09/2020 11:15) Comment 6: [employer] BH denied for inpt per Allison (KYRIE BROWN RN-Utilization Review 03/07/2020 15:46) Comment 7: Additional clinicals faxed manually per request of Allison at [facility] (Yvonne Duran Rn-Utilization Review 03/07/2020 08:44) Comment 8: Clinicals faxed manually to [facility] (Yvonne Duran Rn-Utilization Review 03/05/2020 14:39) BILL CEE RN - 03/14/2020 16:18 EDT Electronically signed by Ruby [facility] Conversion Senior Visual Designer Cerner at 10/08/2022 12:13 PM CDT documented in this encounter Plan of Treatment Not on file documented as of this encounter Visit Diagnoses Not on filedocumented in this encounter Care Teams Liquor Inspector Relationship Specialty Start Date End Date Moira Barba RN PCP - General 12/14/22 documented as of this encounter
--- OUTSIDE RECORDS SUMMARY | 2025-04-27 11:05 | XMS_ITS | Encounter Summary ---
Author Organization [employer] ([place], [place], [place], [place], [place]) Address [address] [place] [address] Care Team Providers Care Refinery Operator Helper Name Role Phone Moira Barba RN Primary Care Provider Jose L ilgrayson Encounter Details Date Type Department Care Team (Late st Contact Info) Description 03/05/2020 Transcribed Document [facility] [place] [facility] [place] [address] ProviderMargaret MD [address] [place] [address] Social History Tobacco Use Types Packs/Day [...] 03/06/2020 20:06 EDT Electronically signed by Ruby [facility] Conversion Brine Tank Separator Operator Cerner at 10/08/2022 12:12 PM CDT documented in this encounter Plan of Treatment Not on file documented as of this encounter Visit Diagnoses Not on filedocumented in this encounter Care Teams Refinery Operator Helper Relationship Specialty Start Date End Date Moira Barba, RN PCP - General 12/14/22 documented as of this encounter
--- OUTSIDE RECORDS SUMMARY | 2025-04-27 11:05 | XMS_ITS | Encounter Summary ---
Author Organization [employer] ([place], [place], [place], [place], [place]) Address [address] [place] [address] Care Team Providers Care Roller Billet Mill Name Role Phone Moira Barba RN Primary Care Provider Jose L miller Encounter Details Date Type Department Care Team (Late st Contact Info) Description 03/15/2020 Transcribed Document [facility] Family Medicine [address] [place] [address] ProviderMargaret MD [address] [place] [address] Social History Tobacco Use Types Packs/Day [...] Policy Numbers : Insurance 1 Health Plan: [facility] Policy Number: [id number] Authorization Number: Insurance Primary Name : [facility] Policy Number: [id number] Authorization Status-Primary : Admit approved Number of Days Authorized-Primary : 3 Day(s) Authorized Service Begin Date-Primary : 03/04/2020 EDT Authorized Service End Date-Primary : 03/07/2020 EDT Authorization Comments-Primary : Per call to [facility] approved all days after p2P completed. Historical Authorization Comments-Primary : Comment 1: Left VM for Allison inquiring of P2P result. (BILL CEE RN 03/14/2020 16:18) Comment 2: Per Dr. Arthur she will complete this P2P left VM for [facility] to setup P2P for 03/14/2020 @ [...] back then to discuss P2P> Emailed to [facility] (BILL CEE RN 03/09/2020 11:15) Comment 7: [employer] BH denied for inpt per Allison (KYRIE BROWN RN-Utilization Review 03/07/2020 15:46) Comment 8: Additional clinicals faxed manually per request of Allison at [facility] (Yvonne Duran Rn-Utilization Review 03/07/2020 08:44) Comment 9: Clinicals faxed manually to [facility] (Yvonne Duran Rn-Utilization Review 03/05/2020 14:39) BILL CEE RN - 03/15/2020 11:39 EDT Electronically signed by Ruby [facility] Conversion Report Checker Gloria at 10/08/2022 11:58 AM CDT documented in this encounter Plan of Treatment Not on file documented as of this encounter Visit Diagnoses Not on filedocumented in this encounter Care Teams Roller Billet Mill Relationship Specialty Start Date End Date Moira Barba RN PCP - General 12/14/22 documented as of this encounter
--- OUTSIDE RECORDS SUMMARY | 2025-04-27 11:05 | XMS_ITS | Encounter Summary ---
Author Organization [employer] ([place], [place], [place], [place], [place]) Address [address] [place] [address] Care Team Providers Care Clinical Instructor Name Role Phone Moira Barba RN Primary Care Provider Jose L miller Encounter Details Date Type Department Care Team (Late st Contact Info) Description 03/05/2020 Transcribed Document [facility] Family Medicine [address] [place] [address] ProviderMargaret MD [address] [place] [address] Social History Tobacco Use Types Packs/Day [...] Policy Numbers : Insurance 1 Health Plan: [facility] Policy Number: [id number] Authorization Number: Insurance Primary Name : [facility] Policy Number: [id number] Authorization Status-Primary : Awaiting callback Authorized Service Begin Date-Primary : 03/04/2020 EDT Authorization Comments-Primary : Clinicals faxed manually to [facility] Historical Authorization Comments-Primary : No Authorization Comments Found Yvonne Duran, An-Utilization Review - 03/05/2020 14:39 EDT Electronically signed by Ruby [facility] Conversion Dog Handler Or Trainer Cerner at 10/08/2022 12:17 PM CDT documented in this encounter Plan of Treatment Not on file documented as of this encounter Visit Diagnoses Not on filedocumented in this encounter Care Teams Clinical Instructor Relationship Specialty Start Date End Date Moira Barba, RN PCP - General 12/14/22 documented as of this encounter
--- OUTSIDE RECORDS SUMMARY | 2025-04-27 11:05 | XMS_ITS | Encounter Summary ---
Author Organization [employer] ([place], [place], [place], [place], [place]) Address [address] [place] [address] Care Team Providers Care Chief Knowledge Officer Name Role Phone Moira Barba RN Primary Care Provider Jose L miller Encounter Details Date Type Department Care Team (Late st Contact Info) Description 03/15/2020 Transcribed Document [facility] Family Medicine [address] [place] [address] ProviderMargaret MD [address] [place] [address] Social History Tobacco Use Types Packs/Day [...] [facility] Policy Number: [id number] Authorization Number: Insurance Primary Name : [facility] Policy Number: [id number] Authorization Status-Primary : Admit approved Reference Number-Primary : [id number] Number of Days Authorized-Primary : 3 Day(s) Authorized Service Begin Date-Primary : 03/04/2020 EDT Authorized Service End Date-Primary : 03/07/2020 EDT Historical Authorization Comments-Primary : Comment 1: Per call to [facility] approved all days after p2P completed. (BILL [...] back then to discuss P2P> Emailed to [facility] (BILL CEE RN 03/09/2020 11:15) Comment 8: [employer] BH denied for inpt per Allison (KYRIE BROWN RN-Utilization Review 03/07/2020 15:46) Comment 9: Additional clinicals faxed manually per request of Allison at [facility] (Yvonne Duran Rn-Utilization Review 03/07/2020 08:44) Comment 10: Clinicals faxed manually to [facility] (Yvonne Duran Rn-Utilization Review 03/05/2020 14:39) BILL CEE RN - 03/15/2020 11:40 EDT Electronically signed by Ruby [facility] Conversion Manager Van Cerner at 10/08/2022 12:06 PM CDT documented in this encounter Plan of Treatment Not on file documented as of this encounter Visit Diagnoses Not on filedocumented in this encounter Care Teams Chief Knowledge Officer Relationship Specialty Start Date End Date Moira Barba, RN PCP - General 12/14/22 documented as of this encounter
--- OUTSIDE RECORDS SUMMARY | 2025-04-27 11:05 | XMS_ITS | Referral Summary ---
Author Organization [employer] ([place], [place], [place], [place], [place]) Address [address] [place] [address] Care Team Providers Care Childcare Provider Name Role Phone Moira Barba RN Primary [...] Date Jacob rded Speak language other than Guyanese at home Not on file 07/10/2023 Want [...] Plan of Treatment Not on file Insurance [facility] Care Teams Childcare Provider Relationship Specialty Start Date End Date Moira Barba RN PCP - General 12/14/22
--- OUTSIDE RECORDS SUMMARY | 2025-04-27 11:05 | XMS_ITS | Patient Health Record ---
Author Organization [facility] Address [address] [facility] [address] [place] [address] Care Team Providers Care Child Care Team Lead Name Role Phone Dimple Pillai Unavailable [phone] Allergies Allergen (clinical drug ingredient) Drug/Non Drug [...] Status Risk Notes Problem Urine test negative ([id number]) Encounter for test with result negative (Z32.02) [...]
--- OUTSIDE RECORDS SUMMARY | 2025-04-27 11:05 | XMS_ITS | Encounter Summary ---
Author Organization [employer] ([place], [place], [place], [place], [place]) Address [address] [place] [address] Care Team Providers Care Fine Grader Name Role Phone Moira Barba RN Primary Care Provider Jose L miller Encounter Details Date Type Department Care Team (Late st Contact Info) Description 03/05/2020 Transcribed Document [facility] [place] [facility] [place] [address] ProviderMargaret MD [address] [place] [address] Social History Tobacco Use Types Packs/Day [...] 31+2 weeks with PTL. She presented to [facility] with abdominal pain. She was marleen [...] qualifying data Social History Document (if any) Cultural/Anglican beliefs that would affect medical care: Lab Results MAR 04 18:35 \ 13.1 / H 18.7 314 / 39.2 \ Electronically signed by Ruby, [facility] Conversion Process Specialist Cerner at 10/08/2022 11:57 AM CDT documented in this encounter Plan of Treatment Not on file documented as of this encounter Visit Diagnoses Not on filedocumented in this encounter Care Teams Fine Grader Relationship Specialty Start Date End Date Moira Barba RN PCP - General 12/14/22 documented as of this encounter
--- OUTSIDE RECORDS SUMMARY | 2025-04-27 11:05 | XMS_ITS | Encounter Summary ---
Author Organization [employer] ([place], [place], [place], [place], [place]) Address [address] [place] [address] Care Team Providers Care Cement Finisher Apprentice Name Role Phone Moira Barba RN Primary Care Provider Jose L ilgrayson Encounter Details Date Type Department Care Team (Late st Contact Info) Description 03/05/2020 Transcribed Document [facility] Family Medicine [facility] [place] [address] ProviderMargaret MD [address] [place] [address] Social History Tobacco Use Types Packs/Day [...] on filedocumented in this encounter Care Teams Cement Finisher Apprentice Relationship Specialty Start Date End Date Moira Barba, RN PCP - General 12/14/22 documented as of this encounter
--- OUTSIDE RECORDS SUMMARY | 2025-04-27 11:05 | XMS_ITS | Encounter Summary ---
Author Organization [employer] ([place], [place], [place], [place], [place]) Address [address] [place] [address] Care Team Providers Care Manufacturing Group Leader Name Role Phone Moira Barba RN Primary Care Provider Jose L miller Encounter Details Date Type Department Care Team (Late st Contact Info) Description 03/13/2020 Transcribed Document [facility] Family Medicine [address] [place] [address] ProviderMargaret MD [address] [place] [address] Social History Tobacco Use Types Packs/Day [...] Numbers : Insurance 1 Health Plan: [facility] Policy Number: [id number] Authorization Number: Insurance Primary Name : [facility] Policy Number: [id number] Authorization Status-Primary : Denial - admission Authorized Service Begin Date-Primary : 03/04/2020 EDT Authorization Comments-Primary : Left VM for Dr. Arthur inquiring if she would complete P2P. Historical Authorization Comments-Primary : Comment 1: Called Dr. Arthur office spoke with Kim she stated that Dr. Arthur only works tuesdays. I will call back then to discuss P2P> Emailed to [facility] (BILL CEE RN 03/09/2020 11:15) Comment 2: [employer] BH denied for inpt per Allison (KYRIE BROWN RN-Utilization Review 03/07/2020 15:46) Comment 3: Additional clinicals faxed manually per request of Allison at [facility] (Yvonne Duran, Randi-Utilization Review 03/07/2020 08:44) Comment 4: Clinicals faxed manually to [facility] (Yvonne Duran, Randi-Utilization Review 03/05/2020 14:39) BILL CEE RN - 03/13/2020 9:43 EDT Electronically signed by Ruby [facility] Conversion Modeling Director Cerner at 10/08/2022 11:55 AM CDT documented in this encounter Plan of Treatment Not on file documented as of this encounter Visit Diagnoses Not on filedocumented in this encounter Care Teams Manufacturing Group Leader Relationship Specialty Start Date End Date Moira Barba, RANDI PCP - General 12/14/22 documented as of this encounter
--- OUTSIDE RECORDS SUMMARY | 2025-04-27 11:06 | XMS_ITS | Encounter Summary ---
Author Organization [employer] ([place], [place], [place], [place], [place]) Address [address] [place] [address] Care Team Providers Care Jigsawyer Name Role Phone Moira Barba RN Primary Care Provider Jose L miller Encounter Details Date Type Department Care Team (Late st Contact Info) Description 03/07/2020 Transcribed Document [facility] Family [place] [address] ProviderMargaret MD [address] [place] [address] Social History Tobacco Use Types Packs/Day [...] Margaret ProviderMD - 03/07/2020 8:55 AM CDT [place] [id number] INDRA NAVA :2000 Visit Time:03/04/2020 Your Visit Summary Your Care Team Admitting Physician - DIXIE JOHNSON MD-OBG Attending Physician - DIXIE JOHNSON MD-OBG Primary Care Physician - PHY, NO Referring Physician - DIXIE JOHNSON MD-OBG Your [...] Capsule(s) Oral Every 4 Hours Pickup at [facility] Pharmacy Information [facility]: [address] [place], [place] [id number] [phone] Take your medications faithfully. Do NOT skip [...] 09/04/2009 Document Revised: 09/30/2019 Document Reviewed: 10/29/2016 [employer] Patient Education ?? 2020 [employer]. Third Trimester of The third trimester is from week 28 through week 40 (months 7 through 9). This trimester is when your unborn baby (fetus) is growing very fast. At the end of the ninth month, the unborn baby is about 20 inches in length. It weighs about 6???10 pounds. Follow these instructions at home: Medicines ??? Take djsc-ijk-pvoeykt and prescription medicines only as told by [...] 09/02/2010 Document Revised: 09/29/2019 Document Reviewed: 07/14/2017 [employer] Patient Education ?? 2020 Tip[employer]. Emergency Awareness and Preventative Care STROKE is [...] Assistance with quitting is available by contacting 2-104-PWWW-NOW. This is a free resource providing counseling, [...] range between ( 1.0 and 7.0 ) Harris #: 1.30 K/uL -- Normal range between ( 0.24 and 0.82 ) Eos #: 0.00 K/uL -- Normal range between ( 0.04 and 0.54 ) Harris %: 6.4 % -- Normal range between [...] UDS Creatinine, Toxicology: 31.4 mg/dL Patient Name:INDRA NVAA JOSE RAFAEL I have received and understand this information and was given the opportunity to ask questions. Patient/Camera Operator Name: Patient/Camera Operator Signature: Relationship to Patient: Clinician/Hospital Camera Operator Signature: Date: documented in this encounter Plan of Treatment Not on file documented as of this encounter Visit Diagnoses Not on filedocumented in this encounter Care Teams Jigsawyer Relationship Specialty Start Date End Date Moira Barba RN PCP - General 12/14/22 documented as of this encounter
--- OUTSIDE RECORDS SUMMARY | 2025-04-27 11:06 | XMS_ITS | Encounter Summary ---
Author Organization [employer] ([place], [place], [place], [place], [place]) Address [address] [place] [address] Care Team Providers Care Net Developer Name Role Phone Moira Barba RN Primary Care Provider Jose L ilgrayson Encounter Details Date Type Department Care Team (Late st Contact Info) Description 03/06/2020 Transcribed Document [facility] Family Medicine [facility] [place] [address] ProviderMargaret MD [address] [place] [address] Social History Tobacco Use Types Packs/Day [...] Conversion Note - Historical ProviderMD - 03/06/2020 5:00 PM CDT Chart Check - Review Order Profile Entered On: 03/06/2020 20:07 EDT Performed On: 03/06/2020 17:00 EDT by MICHEAL BLANCA, RN Chart Check Powerplans Initiated/Discontinued as Appropriate : Yes All Active Orders Reviewed : Yes MICHEAL BLANCA RN - 03/06/2020 20:07 EDT Electronically signed by Ruby [facility] Conversion Neuropsychology Division Chief Cerner at 10/08/2022 12:09 PM CDT documented in this encounter Plan of Treatment Not on file documented as of this encounter Visit Diagnoses Not on filedocumented in this encounter Care Teams Net Developer Relationship Specialty Start Date End Date Moira Barba, RN PCP - General 12/14/22 documented as of this encounter
--- OUTSIDE RECORDS SUMMARY | 2025-04-27 11:06 | XMS_ITS | Encounter Summary ---
Author Organization [employer] ([place], [place], [place], [place], [place]) Address [address] [place] [address] Care Team Providers Care Bathhouse Attendant Name Role Phone Moira Barba RN Primary Care Provider Jose L miller Encounter Details Date Type Department Care Team (Late st Contact Info) Description 03/07/2020 Transcribed Document [facility] Family Medicine [address] [place] [address] ProviderMargaret MD [address] [place] [address] Social History Tobacco Use Types Packs/Day [...] Policy Numbers : Insurance 1 Health Plan: [facility] Policy Number: [id number] Authorization Number: Insurance Primary Name : [facility] Policy Number: [id number] Authorization Status-Primary : Awaiting callback Authorized Service Begin Date-Primary : 03/04/2020 EDT Authorization Comments-Primary : Additional clinicals faxed manually per request of Allison at [facility] Historical Authorization Comments-Primary : Comment 1: Clinicals faxed manually to [facility] (Yvonne Duran Rn-Utilization Review 03/05/2020 14:39) Yvonne Duran Rn-Utilization Review - 03/07/2020 8:44 EDT Electronically signed by [facility] Conversion Food Clerk Cerner at 10/08/2022 12:02 PM CDT documented in this encounter Plan of Treatment Not on file documented as of this encounter Visit Diagnoses Not on filedocumented in this encounter Care Teams Bathhouse Attendant Relationship Specialty Start Date End Date Moira Barba, RN PCP - General 12/14/22 documented as of this encounter
--- OUTSIDE RECORDS SUMMARY | 2025-04-27 11:06 | XMS_ITS | Encounter Summary ---
Author Organization [employer] ([place], [place], [place], [place], [place]) Address [address] [place] [address] Care Team Providers Care Light Truck Driver Name Role Phone Moira Barba RN Primary Care Provider Jose L miller Encounter Details Date Type Department Care Team (Late st Contact Info) Description 03/06/2020 Transcribed Document [facility] Family Medicine [facility] [address] ProviderMargaert MD [address] [place] [address] Social History Tobacco Use Types Packs/Day [...] 5 mg 1 Tab, Oral, At Bedtime [facility] US 03/05/20 Sharma at 31w 1d [...] on filedocumented in this encounter Care Teams Light Truck Driver Relationship Specialty Start Date End Date Moira Barba, RN PCP - General 12/14/22 documented as of this encounter
--- OUTSIDE RECORDS SUMMARY | 2025-04-27 11:06 | XMS_ITS | Encounter Summary ---
Author Organization [employer] ([place], [place], [place], [place], [place]) Address [address] [place] [address] Care Team Providers Care Industrial Relations Worker Name Role Phone Moira Barba RN Primary Care Provider Jose L miller Encounter Details Date Type Department Care Team (Late st Contact Info) Description 03/12/2020 Transcribed Document [facility] Family Medicine [facility] [place] [address] ProviderMargaret MD [address] [place] [address] Social History Tobacco Use Types Packs/Day [...] for Hospitalization 19 yo who presented from [facility] with contractions and cervical change [...] than 30 minutes Electronically signed by Ruby [facility] Conversion Tower Equipment Repairer Cerner at 10/08/2022 12:04 PM CDT documented in this encounter Plan of Treatment Not on file documented as of this encounter Visit Diagnoses Not on filedocumented in this encounter Care Teams Industrial Relations Worker Relationship Specialty Start Date End Date Moira Barba RN PCP - General 12/14/22 documented as of this encounter
--- OUTSIDE RECORDS SUMMARY | 2025-04-27 11:06 | XMS_ITS | Encounter Summary ---
Author Organization [employer] ([place], [place], [place], [place], [place]) Address [address] [place] [address] Care Team Providers Care Second Class Welder Name Role Phone Moira Barba RN Primary Care Provider Jose L miller Encounter Details Date Type Department Care Team (Late st Contact Info) Description 03/13/2020 Transcribed Document [facility] Family Medicine [address] [place] [address] ProviderMargaret MD [address] [place] [address] Social History Tobacco Use Types Packs/Day [...] 1 Health Plan: [facility] Policy Number: [id number] Authorization Number: Insurance Primary Name : [facility] Policy Number: [id number] Authorization Status-Primary : Denial - admission Authorized Service Begin Date-Primary : 03/04/2020 EDT Authorization Comments-Primary : Per Dr. Arthur she will complete this P2P left VM for [facility] to setup P2P for 03/14/2020 @ [...] back then to discuss P2P> Emailed to [facility] (BILL CEE RN 03/09/2020 11:15) Comment 5: [employer] BH denied for inpt per Allison (KYRIE BROWN RN-Utilization Review 03/07/2020 15:46) Comment 6: Additional clinicals faxed manually per request of Allison at [facility] (Yvonne Duran Rn-Utilization Review 03/07/2020 08:44) Comment 7: Clinicals faxed manually to [facility] (Yvonne Duran Rn-Utilization Review 03/05/2020 14:39) BILL CEE RN - 03/13/2020 10:15 EDT Electronically signed by [facility] Conversion Finisher Machine Cerner at 10/08/2022 11:52 AM CDT documented in this encounter Plan of Treatment Not on file documented as of this encounter Visit Diagnoses Not on filedocumented in this encounter Care Teams Second Class Welder Relationship Specialty Start Date End Date Moira Barba, RANDI PCP - General 12/14/22 documented as of this encounter
--- OUTSIDE RECORDS SUMMARY | 2025-04-27 11:06 | XMS_ITS | Encounter Summary ---
Author Organization [employer] ([place], [place], [place], [place], [place]) Address [address] [place] [address] Care Team Providers Care Investment Associate Name Role Phone Moira Barba RN Primary Care Provider Jose L miller Encounter Details Date Type Department Care Team (Late st Contact Info) Description 03/06/2020 Transcribed Document [facility] Family [place] [address] ProviderMargaret MD [address] [place] [address] Social History Tobacco Use Types Packs/Day [...] Conversion Note - Margaret ProviderMD - 03/06/2020 7:47 PM CDT Patient: [...] / 37.0 \ Electronically signed by Ruby, [facility] Conversion Laborer Tin Can Cerner at 10/08/2022 11:58 AM CDT documented in this encounter Plan of Treatment Not on file documented as of this encounter Visit Diagnoses Not on filedocumented in this encounter Care Teams Investment Associate Relationship Specialty Start Date End Date Moira Barba RN PCP - General 12/14/22 documented as of this encounter
--- OUTSIDE RECORDS SUMMARY | 2025-04-27 11:06 | XMS_ITS | Encounter Summary ---
Author Organization [employer] ([place], [place], [place], [place], [place]) Address [address] [place] [address] Care Team Providers Care Freelance Court Stenographer Name Role Phone Moira Barba RN Primary Care Provider Jose L miller Encounter Details Date Type Department Care Team (Late st Contact Info) Description 03/07/2020 Transcribed Document [facility] Family Medicine [address] [place] [address] ProviderMargaret MD [address] [place] [address] Social History Tobacco Use Types Packs/Day [...] Policy Numbers : Insurance 1 Health Plan: [facility] Policy Number: [id number] Authorization Number: Insurance Primary Name : [facility] Policy Number: [id number] Authorization Status-Primary : Denial - admission Authorized Service Begin Date-Primary : 03/04/2020 EDT Authorization Comments-Primary : [employer] denied for inpt per Allison Historical Authorization Comments-Primary : Comment 1: Additional clinicals faxed manually per request of Allison at [facility] (Yvonne Duran, An-Utilization Review 03/07/2020 08:44) Comment 2: Clinicals faxed manually to [facility] (Yvonne Duran, An-Utilization Review 03/05/2020 14:39) KYRIE BROWN RN-Utilization Review - 03/07/2020 15:46 EDT Electronically signed by [facility] Conversion Sensitometrist Cerner at 10/08/2022 12:04 PM CDT documented in this encounter Plan of Treatment Not on file documented as of this encounter Visit Diagnoses Not on filedocumented in this encounter Care Teams Freelance Court Stenographer Relationship Specialty Start Date End Date Moira Barba, RN PCP - General 12/14/22 documented as of this encounter
--- OUTSIDE RECORDS SUMMARY | 2025-04-27 11:06 | XMS_ITS | Encounter Summary ---
Author Organization [employer] ([place], [place], [place], [place], [place]) Address [address] [place] [address] Care Team Providers Care Mat Worker Name Role Phone Moira Barba RN Primary Care Provider Jose L miller Encounter Details Date Type Department Care Team (Late st Contact Info) Description 03/13/2020 Transcribed Document [facility] [place] Family Medicine [address] [place] [address] ProviderMargaret MD [address] [place] [address] Social History Tobacco Use Types Packs/Day [...] Policy Numbers : Insurance 1 Health Plan: [facility] Policy Number: [id number] Authorization Number: Insurance Primary Name : [facility] Policy Number: [id number] Authorization Status-Primary : Denial - admission Authorized Service Begin Date-Primary : 03/04/2020 EDT Authorization Comments-Primary : Spoke with Delia at MD office and transferred to Dr. Arthur. Historical Authorization Comments-Primary : Comment 1: Left VM for Dr. Arthur inquiring if she would complete P2P. (BILL CEE RN 03/13/2020 09:43) Comment 2: Called Dr. Arthur office spoke with Kim she stated that Dr. Arthur only works tuesdays. I will call back then to discuss P2P> Emailed to [facility] (BILL CEE RN 03/09/2020 11:15) Comment 3: [employer] BH denied for inpt per Allison (KYRIE BROWN RN-Utilization Review 03/07/2020 15:46) Comment 4: Additional clinicals faxed manually per request of Allison at [facility] (Yvonne Duran Rn-Utilization Review 03/07/2020 08:44) Comment 5: Clinicals faxed manually to [facility] (Yvonne Duran Rn-Utilization Review 03/05/2020 14:39) BILL CEE RN - 03/13/2020 9:44 EDT Electronically signed by Ruby [facility] Conversion Gate Shear Operator Cerner at 10/08/2022 11:54 AM CDT documented in this encounter Plan of Treatment Not on file documented as of this encounter Visit Diagnoses Not on filedocumented in this encounter Care Teams Mat Worker Relationship Specialty Start Date End Date Moira Barba RN PCP - General 12/14/22 documented as of this encounter
--- OUTSIDE RECORDS SUMMARY | 2025-04-27 11:06 | XMS_ITS | Encounter Summary ---
Author Organization [employer] ([place], [place], [place], [place], [place]) Address [address] [place] [address] Care Team Providers Care Liquor Tester Name Role Phone Moira Barba RN Primary Care Provider Jose L miller Encounter Details Date Type Department Care Team (Late st Contact Info) Description 03/07/2020 Transcribed Document [facility] [place] Family Medicine [facility] [place] [address] ProviderMargaret MD [address] [place] [address] Social History Tobacco Use Types Packs/Day [...] to home. Follow up next week with Case Encounter for supervision of normal first , [...] / 37.0 \ Electronically signed by Ruby [facility] Conversion Electric Track Switch Maintainer Cerner at 10/08/2022 11:57 AM CDT documented in this encounter Plan of Treatment Not on file documented as of this encounter Visit Diagnoses Not on filedocumented in this encounter Care Teams Liquor Tester Relationship Specialty Start Date End Date Moira Barba, RANDI PCP - General 12/14/22 documented as of this encounter
--- OUTSIDE RECORDS SUMMARY | 2025-04-27 11:06 | XMS_ITS | Encounter Summary ---
Author Organization [email or web address] ([place], [place], [place], [place], [place]) Address [address] [place] [address] Care Team Providers Care Student Services Vice President Name Role Phone Moira Barba RN Primary Care Provider Jose L miller Encounter Details Date Type Department Care Team (Late st Contact Info) Description 03/04/2020 Transcribed Document [facility] [place] [facility] [place] [address] ProviderMargaret MD [address] [place] [address] Social History Tobacco Use Types Packs/Day [...] Source : Measured Height Entry Format : Gem Height, Feet : 5 ft(Converted to: 152 cm, 60 Inch) Clinical Height : 175.26 cm Height, Inches : 9 Inch(Converted to: 0 ft 9 Inch, 22.86 cm) Weight Source : Standing scale Weight Entry Format : Gem Weight, Pounds : 170 lb Clinical Dosing Weight : 77.27 kg Body Surface Area (BSA) : 1.93 m2 Body Mass Index : 25.2 kg/m2 (HI) [employer] Body Weight (IBW) : 65.73 kg ELIO [...] ELIO SNOWDEN RN - 03/04/2020 17:06 EDT [place] Suicide Severity Rating Scale (C-SSRS) CSSRS Past [...] on filedocumented in this encounter Care Teams Student Services Vice President Relationship Specialty Start Date End Date Moira Barba RN PCP - General 12/14/22 documented as of this encounter
--- OUTSIDE RECORDS SUMMARY | 2025-04-27 11:06 | XMS_ITS | Encounter Summary ---
Author Organization [employer] ([place], [place], [place], [place], [place]) Address [address] [place] [address] Care Team Providers Care Component Design Engineer Name Role Phone Moira Barba RN Primary Care Provider Jose L miller Encounter Details Date Type Department Care Team (Late st Contact Info) Description 03/07/2020 Transcribed Document [facility] [place] [facility] [place] [address] ProviderMargaret MD [address] [place] [address] Social History Tobacco Use Types Packs/Day [...] on filedocumented in this encounter Care Teams Component Design Engineer Relationship Specialty Start Date End Date Moira Barba, RN PCP - General 12/14/22 documented as of this encounter
--- OUTSIDE RECORDS SUMMARY | 2025-04-27 11:06 | XMS_ITS | Encounter Summary ---
Author Organization [employer] ([place], [place], [place], [place], [place]) Address [address] [place] [address] Care Team Providers Care Celluloid Trimmer Name Role Phone Moira Barba RN Primary Care Provider Jose L ilgrayson Encounter Details Date Type Department Care Team (Late st Contact Info) Description 03/04/2020 Transcribed Document [facility] [place] [address] ProviderMargaret MD [address] [place] [address] Social History Tobacco Use Types Packs/Day [...] Conversion Note - Historical ProviderMD - 03/04/2020 5:00 PM CDT Chart [...] on filedocumented in this encounter Care Teams Celluloid Trimmer Relationship Specialty Start Date End Date Moira Barba, RN PCP - General 12/14/22 documented as of this encounter
--- OUTSIDE RECORDS SUMMARY | 2025-04-27 11:06 | XMS_ITS | Encounter Summary ---
Author Organization [employer] ([place], [place], [place], [place], [place]) Address [address] [place] [address] Care Team Providers Care Regional Business Development Manager Name Role Phone Moira Barba RN Primary Care Provider Jose L ilgrayson Encounter Details Date Type Department Care Team (Late st Contact Info) Description 03/06/2020 Transcribed Document [facility] [place] [facility] [place] [address] ProviderMargaret MD [address] [place] [address] Social History Tobacco Use Types Packs/Day [...] MICHEAL BLANCA RN - 03/06/2020 20:07 EDT documented in this encounter Plan of Treatment Not on file documented as of this encounter Visit Diagnoses Not on filedocumented in this encounter Care Teams Regional Business Development Manager Relationship Specialty Start Date End Date Moira Barba, RN PCP - General 12/14/22 documented as of this encounter
--- OUTSIDE RECORDS SUMMARY | 2025-04-27 11:06 | XMS_ITS | Encounter Summary ---
Author Organization [employer] ([place], [place], [place], [place], [place]) Address [address] [place] [address] Care Team Providers Care Firer Watertender Name Role Phone Moira Barba RN Primary Care Provider Jose L ilgrayson Encounter Details Date Type Department Care Team (Late st Contact Info) Description 03/07/2020 Transcribed Document [facility] [place] [facility] [place] [address] ProviderMargaret MD [address] [place] [address] Social History Tobacco Use Types Packs/Day [...] Conversion Note - Historical ProviderMD - 03/07/2020 5:00 AM CDT Chart Check - Review Order Profile Entered On: 03/07/2020 5:29 EDT Performed On: 03/07/2020 5:00 EDT by MICHEAL BLANCA, RN Chart Check Powerplans Initiated/Discontinued as Appropriate : Yes All Active Orders Reviewed : Yes MICHEAL BLANCA RN - 03/07/2020 5:29 EDT Electronically signed by Ruby [facility] Conversion Mail Distributor Cerner at 10/08/2022 12:03 PM CDT documented in this encounter Plan of Treatment Not on file documented as of this encounter Visit Diagnoses Not on filedocumented in this encounter Care Teams Firer Watertender Relationship Specialty Start Date End Date Moira Barba, RN PCP - General 12/14/22 documented as of this encounter
--- OUTSIDE RECORDS SUMMARY | 2025-04-27 11:06 | XMS_ITS | Encounter Summary ---
Author Organization [employer] ([place], [place], [place], [place], [place]) Address [address] [place] [address] Care Team Providers Care Ultrasonic Hand Solderer Name Role Phone Moira Barba RN Primary Care Provider Jose L miller Encounter Details Date Type Department Care Team (Late st Contact Info) Description 03/07/2020 Transcribed Document [facility] [place] Family Medicine [address] [place] [address] ProviderMargaret MD [address] [place] [address] Social History Tobacco Use Types Packs/Day [...] on filedocumented in this encounter Care Teams Ultrasonic Hand Solderer Relationship Specialty Start Date End Date Moira Barba RN PCP - General 12/14/22 documented as of this encounter
--- OUTSIDE RECORDS SUMMARY | 2025-04-27 11:06 | XMS_ITS | Encounter Summary ---
Author Organization [employer] ([place], [place], [place], [place], [place]) Address [address] [place] [address] Care Team Providers Care Blending Technician Name Role Phone Moira Barba RN Primary Care Provider Jose L ilgrayson Encounter Details Date Type Department Care Team (Late st Contact Info) Description 03/06/2020 Transcribed Document [facility] [place] [facility] [place] [address] ProviderMargaret MD [address] [place] [address] Social History Tobacco Use Types Packs/Day [...] Note - Historical ProviderMD - 03/06/2020 5:00 AM CDT Chart [...] on filedocumented in this encounter Care Teams Blending Technician Relationship Specialty Start Date End Date Moira Barba, RN PCP - General 12/14/22 documented as of this encounter
--- OUTSIDE RECORDS SUMMARY | 2025-04-27 11:06 | XMS_ITS | Encounter Summary ---
Author Organization [employer] ([place], [place], [place], [place], [place]) Address [address] [place] [address] Care Team Providers Care Tandem Mill Roller Name Role Phone Moira Barba RN Primary Care Provider Jose L miller Encounter Details Date Type Department Care Team (Late st Contact Info) Description 03/09/2020 Transcribed Document [facility] [place] [address] [place] [address] ProviderMargaret MD [address] [place] [address] Social History Tobacco Use Types Packs/Day [...] Health Plan: [facility] Policy Number: [id number] Authorization Number: Insurance Primary Name : [facility] Policy Number: [id number] Authorization Status-Primary : Denial - admission Authorized Service Begin Date-Primary : 03/04/2020 EDT Authorization Comments-Primary : Called Dr. Case office spoke with Kim she stated that Dr. Arthur only works tuesdays. I will call back then to discuss P2P> Emailed to [facility] Historical Authorization Comments-Primary : Comment 1: [employer] BH denied for inpt per Allison (KYRIE BROWN, RN-Utilization Review 03/07/2020 15:46) Comment 2: Additional clinicals faxed manually per request of Allison at [facility] (Yvonne Duran, An-Utilization Review 03/07/2020 08:44) Comment 3: Clinicals faxed manually to [facility] (Yvonne Duran, Rn-Utilization Review 03/05/2020 14:39) BILL CEE RN - 03/09/2020 11:15 EDT Electronically signed by Ruby [facility] Conversion Beater Engineer Helper Cerner at 10/08/2022 12:02 PM CDT documented in this encounter Plan of Treatment Not on file documented as of this encounter Visit Diagnoses Not on filedocumented in this encounter Care Teams Tandem Mill Roller Relationship Specialty Start Date End Date Moira Barba RN PCP - General 12/14/22 documented as of this encounter
--- OUTSIDE RECORDS SUMMARY | 2025-04-27 11:06 | XMS_ITS | Encounter Summary ---
Author Organization [employer] ([place], [place], [place], [place], [place]) Address [address] [place] [address] Care Team Providers Care Geophysical Prospecting Surveyor Name Role Phone Moira Barba RN Primary Care Provider Jose L miller Encounter Details Date Type Department Care Team (Late st Contact Info) Description 03/07/2020 Transcribed Document [facility] [place] Family Medicine [facility] [place] [address] ProviderMargaret MD [address] [place] [address] Social History Tobacco Use Types Packs/Day [...] 09/04/2009 Document Revised: 09/30/2019 Document Reviewed: 10/29/2016 [employer] Patient Education ? 2020 [employer]. Obstetrics and Gynecology Third Trimester of The third trimester is from week 28 through week 40 (months 7 through 9). This trimester is when your unborn baby (fetus) is growing very fast. At the end of the ninth month, the unborn baby is about 20 inches in length. It weighs about 6?10 pounds. Follow these instructions at home: Medicines ??? Take [id number] and prescription medicines only as told by [...] 09/02/2010 Document Revised: 09/29/2019 Document Reviewed: 07/14/2017 [employer] YOYO Patient Education ? 2020 [employer] documented in this encounter Plan of Treatment Not on file documented as of this encounter Visit Diagnoses Not on filedocumented in this encounter Care Teams Geophysical Prospecting Surveyor Relationship Specialty Start Date End Date Moira Barba, RN PCP - General 12/14/22 documented as of this encounter
--- OUTSIDE RECORDS SUMMARY | 2025-04-27 11:06 | XMS_ITS | Encounter Summary ---
Author Organization [employer] ([place], [place], [place], [place], [place]) Address [address] [place] [address] Care Team Providers Care Putty Maker Name Role Phone Moira Babra RN Primary Care Provider Jose L ilgrayson Encounter Details Date Type Department Care Team (Late st Contact Info) Description 03/06/2020 Transcribed Document [facility] [place] Family Medicine [facility] [place] [address] ProviderMargaret MD [address] [place] [address] Social History Tobacco Use Types Packs/Day [...] on filedocumented in this encounter Care Teams Putty Maker Relationship Specialty Start Date End Date Moira Barba, RN PCP - General 12/14/22 documented as of this encounter
--- OUTSIDE RECORDS SUMMARY | 2025-04-27 11:06 | XMS_ITS | Encounter Summary ---
Author Organization [employer] ([place], [place], [place], [place], [place]) Address [address] [place] [address] Care Team Providers Care Fingerprinter Name Role Phone Moira Barba RN Primary Care Provider Jose L ilgrayson Encounter Details Date Type Department Care Team (Late st Contact Info) Description 03/04/2020 Transcribed Document [facility] [place] [address] ProviderMargaret MD [address] [place] [address] Social History Tobacco Use Types Packs/Day [...] 03/06/2020 20:05 EDT Electronically signed by Ruby [facility] Conversion Graduate Teacher Education Cerner at 10/08/2022 12:12 PM CDT documented in this encounter Plan of Treatment Not on file documented as of this encounter Visit Diagnoses Not on filedocumented in this encounter Care Teams Fingerprinter Relationship Specialty Start Date End Date Moira Braba, RN PCP - General 12/14/22 documented as of this encounter
[2025-04-27 11:18] LABS: Microscopic, Urine URINE MICROSCOPIC (MICROSCOPIC)
[2025-04-27 11:24] LABS: Bilirubin,Urine Negative (Negative); Color,Urine YELLOW (Yellow); Glucose,Urine (UA) Negative (Negative); Ketones,Urine Negative (Negative); Leukocyte Esterase,Urine Negative (Negative); PH,Urine 7.5 (5.0-8.5); Protein,Urine Negative (Negative); Specific Gravity, Urine 1.010 (1.005-1.030); Urobilinogen,Urine 0.2 EU/dl (0.2)
[2025-04-27 11:42] LABS: Bacteria,Urine Trace /lpf
== END 2025-04-27 12:06 | disposition home or self-care (01) ==
LOC: OBOUT 10:57 → OB 10:57
PROVIDERS: PCP Nurse Practitioner; Visit Provider Obstetrics & Gynecology
DX: O99.891 Other specified diseases and conditions complicating pregnancy (principal); R51.9 Headache, unspecified; R10.9 Unspecified abdominal pain; Z3A.32 32 weeks gestation of pregnancy
CPT/HCPCS: 81001; 99212

== ENCOUNTER 2025-05-01 14:17 | Outpatient (CLI) | payer OTHER, SELFPAY ==
[2025-05-01 14:36] LABS: Microscopic, Urine URINE MICROSCOPIC (MICROSCOPIC)
[2025-05-01 14:39] LABS: Bilirubin,Urine Negative (Negative); Color,Urine YELLOW (Yellow); Glucose,Urine (UA) Negative (Negative); Ketones,Urine TRACE (Negative); Leukocyte Esterase,Urine Negative (Negative); PH,Urine 7.0 (5.0-8.5); Protein,Urine Negative (Negative); Specific Gravity, Urine 1.015 (1.005-1.030); Urobilinogen,Urine 0.2 EU/dl (0.2)
[2025-05-01 14:42] VITALS: BP 128/77; PULSE 107; RESP 19; TEMP 36.5; O2SAT 97; BMI 27.0
[2025-05-01 14:45] LABS: Bacteria,Urine Trace /lpf; RBC,Urine Occasional #/hpf (0-3); Transitional Epi Cells,Urine OCC #/lpf (0-3); WBC,Urine Occasional #/hpf (0-3)
[2025-05-01] MEDS: LACTATED RINGERS 1000ML 1,000 ML 999 ML IV (15:02)
[2025-05-01 15:12] LABS: Hematocrit 35.1 % (37.0-47.0); Hemoglobin 12.1 g/dL (12.2-16.2); Immature Granulocytes % 0.3 %; Mean Corpuscular HGB Conc 34.5 g/dL (31.8-35.4); Mean Corpuscular Hemoglobin 31.5 pg (27.0-31.2); Mean Corpuscular Volume 91.4 fl (81-99); Nucleated Red Blood Cells % 0 %; Platelet Count 246 K/mm3 (142-424); Red Blood Count 3.84 M/mm3 (4.20-5.40); Red Cell Distribution Width-SD 39.5 fL; White Blood Count 8.8 K/mm3 (4.8-10.8)
[2025-05-01 15:55] LABS: Alanine Aminotransferase 17 U/L (12-78); Albumin Level 3.4 g/dl (3.5-5.0); Albumin/Globulin Ratio 1.0 (1.1-1.8); Alkaline Phosphatase 121 U/L (38-126); Anion Gap 8.6 mEq/L (5-15); Aspartate Amino Transferase 30 U/L (14-36); Bilirubin,Total 0.3 mg/dl (0.2-1.3); Blood Urea Nitrogen 4 mg/dl (7-17); Calcium 8.5 mg/dl (8.4-10.2); Carbon Dioxide 21 mmol/L (22.0-30.0); Chloride 105 mmol/L (98-107); Creatinine Clearance Estimated 225 mL/min (50-200); Creatinine,Serum 0.50 mg/dl (0.52-1.04); Estimated Glomerular Filt Rate 150 ml/min (>60); GFR (African American) 182 ML/MIN (>60); Globulin 3.3 g/dL (1.3-3.2); Glucose 76 mg/dl (74-100); Potassium 3.6 mmoL/L (3.5-5.1); Sodium 131 mmol/L (136-145); Total Protein,Serum 6.7 g/dl (6.3-8.2)
--- NOTE | 2025-05-01 15:59 | US_ITS ---
PROCEDURE INFORMATION: Exam: US Retroperitoneal, Complete, Kidneys and Bladder Exam date and time: 05/01/2025 4:40 PM Age: 24 years old Clinical indication: Pain; Other: Flank; ; Additional info: Flank pain, 33 weeks TECHNIQUE: Imaging protocol: Real-time ultrasound of the retroperitoneum with image documentation. Complete exam focused on the bilateral kidneys and urinary bladder. COMPARISON: CT ABDOMEN PELVIS W CON 03/04/2023 9:14 PM FINDINGS: Right kidney: Mild right-sided caliectasis. No renal stones or mass noted. The right kidney measures 11.7 cm. Left kidney: The left kidney measures 12.5 cm. No renal stones, mass or obstruction noted. Urinary bladder: Unremarkable. IMPRESSION: Mild right-sided caliectasis which can be a normal finding during . No overt obstruction stone or mass present.
[2025-05-01 17:08] LABS: Fetal Fibronectin (Rapid) Negative (Negative)
== END 2025-05-01 17:41 | disposition home or self-care (01) ==
LOC: OBOUT 14:20 → OB 14:22
PROVIDERS: PCP Nurse Practitioner; Visit Provider Obstetrics & Gynecology
DX: O99.891 Other specified diseases and conditions complicating pregnancy (principal); N28.89 Other specified disorders of kidney and ureter; R10.A2 Flank pain, left side; R11.0 Nausea; R19.7 Diarrhea, unspecified; Z3A.33 33 weeks gestation of pregnancy
CPT/HCPCS: 76770; 80053; 81001; 82731; 85025; 99214; J7120

== ENCOUNTER 2025-05-02 13:35 | Outpatient (CLI) | payer OTHER, SELFPAY ==
--- OUTSIDE RECORDS SUMMARY | 2025-05-02 13:38 | XMS_ITS | Encounter Summary ---
Author Organization [employer] ([place], [place], [place], [place], [place]) Address [address] [place] [address] Care Team Providers Care Brass Wind Instruments Tube Bender Name Role Phone Moira Barba RN Primary Care Provider Jose L ilgrayson Encounter Details Date Type Department Care Team (Late st Contact Info) Description 03/05/2020 Transcribed Document [facility] [place] [address] ProviderMargaret MD [address] [place] [address] Social History Tobacco Use Types Packs/Day [...] on filedocumented in this encounter Care Teams Brass Wind Instruments Tube Bender Relationship Specialty Start Date End Date Moira Barba, RN PCP - General 12/14/22 documented as of this encounter
--- OUTSIDE RECORDS SUMMARY | 2025-05-02 13:38 | XMS_ITS | Encounter Summary ---
Author Organization [employer] ([place], [place], [place], [place], [place]) Address [address] [place] [address] Care Team Providers Care Software Release Manager Name Role Phone Moira Barba RN Primary Care Provider Jose L miller Encounter Details Date Type Department Care Team (Late st Contact Info) Description 03/05/2020 Transcribed Document [facility] [place] [address] ProviderMargaret MD [address] [place] [address] Social History Tobacco Use Types Packs/Day [...] 31+2 weeks with PTL. She presented to [facility] with abdominal pain. She was [...] qualifying data Social History Document (if any) Cultural/Restorationism beliefs that would affect medical care: Lab Results MAR 04 18:35 \ 13.1 / H 18.7 314 / 39.2 \ documented in this encounter Plan of Treatment Not on file documented as of this encounter Visit Diagnoses Not on filedocumented in this encounter Care Teams Software Release Manager Relationship Specialty Start Date End Date Moira Barba RN PCP - General 12/14/22 documented as of this encounter
--- OUTSIDE RECORDS SUMMARY | 2025-05-02 13:38 | XMS_ITS | Encounter Summary ---
Author Organization [employer] ([place], [place], [place], [place], [place]) Address [address] [place] [address] Care Team Providers Care Inspector Circuitry Negative Name Role Phone Moira Barba RN Primary Care Provider Jose L ilgrayson Encounter Details Date Type Department Care Team (Late st Contact Info) Description 03/05/2020 Transcribed Document [facility] [place] Family Medicine [facility] [place] [address] ProviderMargaret MD [address] [place] [address] Social History Tobacco Use Types Packs/Day [...] 03/06/2020 20:06 EDT Electronically signed by Ruby [facility] Conversion Line Patrolman Cerner at 10/08/2022 12:02 PM CDT documented in this encounter Plan of Treatment Not on file documented as of this encounter Visit Diagnoses Not on filedocumented in this encounter Care Teams Inspector Circuitry Negative Relationship Specialty Start Date End Date Moira Barba, RN PCP - General 12/14/22 documented as of this encounter
--- OUTSIDE RECORDS SUMMARY | 2025-05-02 13:38 | XMS_ITS | Referral Summary ---
Author Organization [employer] ([place], [place], [place], [place], [place]) Address [address] [place] [address] Care Team Providers Care Surfacing Technician Name Role Phone Moira Barba RN [...] Date Jacob rded Speak language other than Kiswahili at home Not on file 07/10/2023 Want [...] Plan of Treatment Not on file [facility] Care Teams Surfacing Technician Relationship Specialty Start Date End Date Moira Barba RN PCP - General 12/14/22
--- OUTSIDE RECORDS SUMMARY | 2025-05-02 13:38 | XMS_ITS | Patient Health Record ---
Author Organization [facility] Address [address] [facility] [address] [place] [address] Care Team Providers Care Retread Operator Name Role Phone Dimple Pillai Unavailable [phone] Allergies Allergen (clinical drug ingredient) Drug/Non Drug [...] Status Risk Notes Problem Urine test negative ([id number]) Encounter for test with result negative (Z32.02) [...]
--- OUTSIDE RECORDS SUMMARY | 2025-05-02 13:38 | XMS_ITS | Encounter Summary ---
Author Organization [employer] ([place], [place], [place], [place], [place]) Address [address] [place] [address] Care Team Providers Care Miner Pick Name Role Phone Moira Barba RN Primary Care Provider Jose L miller Encounter Details Date Type Department Care Team (Late st Contact Info) Description 03/04/2020 Transcribed Document [facility] [place] Family [place] [facility] [place] [address] ProviderMargaret MD [address] [place] [address] Social History Tobacco Use Types Packs/Day [...] data available. Tetanus Immunization : Unknown ELIO SNWODEN RN - 03/04/2020 17:07 EDT documented in this encounter Plan of Treatment Not on file documented as of this encounter Visit Diagnoses Not on filedocumented in this encounter Care Teams Miner Pick Relationship Specialty Start Date End Date Moira Barba RN PCP - General 12/14/22 documented as of this encounter
--- OUTSIDE RECORDS SUMMARY | 2025-05-02 13:38 | XMS_ITS | Clinical Summary ---
Author Organization [employer] ([place], [place], [place], [place], [place]) Address [address] [place] [address] Care Team Providers Care Wellness Educator Name Role Phone Moira Barba RN [...] Date Jacob rded Speak language other than Greenlandic at home Not on file 07/10/2023 Want [...] season) 2025 Influenza Vaccine (#1) 2025 [facility] Care Teams Wellness Educator Relationship Specialty Start Date End Date Moira aBrba, RN PCP - General 12/14/22
--- OUTSIDE RECORDS SUMMARY | 2025-05-02 13:38 | XMS_ITS | Encounter Summary ---
Author Organization [employer] ([place], [place], [place], [place], [place]) Address [address] [place] [address] Care Team Providers Care Talent Acquisition Specialist Name Role Phone Moira Barba RN Primary Care Provider Jose L miller Encounter Details Date Type Department Care Team (Late st Contact Info) Description 03/15/2020 Transcribed Document [facility] [place] Family Medicine [address] [place] [address] ProviderMargaret MD [address] [place] [address] Social History Tobacco Use Types Packs/Day [...] Health Plan: [facility] Policy Number: [id number] Authorization Number: Insurance Primary Name : [facility] Policy Number: [id number] Authorization Status-Primary : Admit approved Number of Days Authorized-Primary : 3 Day(s) Authorized Service Begin Date-Primary : 03/04/2020 EDT Authorized Service End Date-Primary : 03/07/2020 EDT Authorization Comments-Primary : Per call to [facility] approved all days after p2P completed. Historical Authorization Comments-Primary : Comment 1: Left VM for Allison inquiring of P2P result. (BILL CEE RN 03/14/2020 16:18) Comment 2: Per Dr. Arthur she will complete this P2P left VM for [facility] to setup P2P for 03/14/2020 @ [...] then to discuss P2P> Emailed to [facility] (BILL CEE RN 03/09/2020 11:15) Comment 7: [employer] BH denied for inpt per Allison (KYRIE BROWN RN-Utilization Review 03/07/2020 15:46) Comment 8: Additional clinicals faxed manually per request of Allison at [facility] (Yvonne Duran Rn-Utilization Review 03/07/2020 08:44) Comment 9: Clinicals faxed manually to [facility] (Yvonne Duran Rn-Utilization Review 03/05/2020 14:39) BILL CEE RN - 03/15/2020 11:39 EDT Electronically signed by Ruby [facility] Conversion Processing Associate Gloria at 10/08/2022 11:58 AM CDT documented in this encounter Plan of Treatment Not on file documented as of this encounter Visit Diagnoses Not on filedocumented in this encounter Care Teams Talent Acquisition Specialist Relationship Specialty Start Date End Date Moira Barba RN PCP - General 12/14/22 documented as of this encounter
--- OUTSIDE RECORDS SUMMARY | 2025-05-02 13:38 | XMS_ITS | Encounter Summary ---
Author Organization [employer] ([place], [place], [place], [place], [place]) Address [address] [place] [address] Care Team Providers Care Hospitalist Physician Name Role Phone Moira Barba RN Primary Care Provider Jose L miller Encounter Details Date Type Department Care Team (Late st Contact Info) Description 03/13/2020 Transcribed Document [facility] [place] [address] [place] [address] ProviderMargaret MD [address] [place] [address] Social History Tobacco Use Types Packs/Day [...] Policy Numbers : Insurance 1 Health Plan: [facility] Policy Number: [id number] Authorization Number: Insurance Primary Name : [facility] Policy Number: [id number] Authorization Status-Primary : Denial - admission Authorized [...] back then to discuss P2P> Emailed to [facility] (BILL CEE RN 03/09/2020 11:15) Comment 4: [employer] BH denied for inpt per Allison (KYRIE BROWN RN-Utilization Review 03/07/2020 15:46) Comment 5: Additional clinicals faxed manually per request of Allison at [facility] (Yvonne Duran Rn-Utilization Review 03/07/2020 08:44) Comment 6: Clinicals faxed manually to [facility] (Yvonne Duran Rn-Utilization Review 03/05/2020 14:39) BILL CEE RN - 03/13/2020 10:00 EDT Electronically signed by Ruby [facility] Conversion Sheriff'S Officer Gloria at 10/08/2022 12:11 PM CDT documented in this encounter Plan of Treatment Not on file documented as of this encounter Visit Diagnoses Not on filedocumented in this encounter Care Teams Hospitalist Physician Relationship Specialty Start Date End Date Moira Barba RN PCP - General 12/14/22 documented as of this encounter
--- OUTSIDE RECORDS SUMMARY | 2025-05-02 13:38 | XMS_ITS | Encounter Summary ---
Author Organization [employer] ([place], [place], [place], [place], [place]) Address [address] [place] [address] Care Team Providers Care Dry Color Mixer Name Role Phone Moira Barba RN Primary Care Provider Jose L miller Encounter Details Date Type Department Care Team (Late st Contact Info) Description 03/15/[address] [facility] [place] Family Medicine [address] [place] [address] ProviderMargaret MD [address] [place] [address] Social History Tobacco Use Types Packs/Day [...] Policy Numbers : Insurance 1 Health Plan: [facility] Policy Number: [id number] Authorization Number: Insurance Primary Name : [facility] Policy Number: [id number] Authorization Status-Primary : Admit approved Reference Number-Primary : [id number] Number of Days Authorized-Primary : 3 Day(s) Authorized Service Begin Date-Primary : 03/04/2020 EDT Authorized Service End Date-Primary : 03/07/2020 EDT Historical Authorization Comments-Primary : Comment 1: Per call to [facility] approved all days after p2P completed. (BILL CEE RN 03/15/2020 11:39) Comment 2: Left VM for Allison inquiring of P2P result. (BILL CEE RN 03/14/2020 16:18) Comment 3: Per Dr. Arthur she will complete this P2P left VM for [facility] to setup P2P for 03/14/2020 [...] back then to discuss P2P> Emailed to [facility] [place] (BILL CEE RN 03/09/2020 11:15) Comment 8: [employer] BH denied for inpt per Allison (KYRIE BROWN RN-Utilization Review 03/07/2020 15:46) Comment 9: Additional clinicals faxed manually per request of Allison at [facility] (Yvonne Duran Rn-Utilization Review 03/07/2020 08:44) Comment 10: Clinicals faxed manually to [facility] (Yvonne Duran Rn-Utilization Review 03/05/2020 14:39) BILL CEE RN - 03/15/2020 11:40 EDT Electronically signed by Ruby [facility] Conversion Political Research Scientist Cerner at 10/08/2022 12:06 PM CDT documented in this encounter Plan of Treatment Not on file documented as of this encounter Visit Diagnoses Not on filedocumented in this encounter Care Teams Dry Color Mixer Relationship Specialty Start Date End Date Moira Barba, RN PCP - General 12/14/22 documented as of this encounter
--- OUTSIDE RECORDS SUMMARY | 2025-05-02 13:38 | XMS_ITS | Encounter Summary ---
Author Organization [employer] ([place], [place], [place], [place], [place]) Address [address] [place] [address] Care Team Providers Care Aircraft Electrical Systems Specialist Name Role Phone Moira Barba RN Primary Care Provider Jose L miller Encounter Details Date Type Department Care Team (Late st Contact Info) Description 03/13/2020 Transcribed Document [facility] [place] [address] [place] [address] ProviderMargaret MD [address] [place] [address] Social History Tobacco Use Types Packs/Day [...] Health Plan: [facility] Policy Number: [id number] Authorization Number: Insurance Primary Name : [facility] Policy Number: [id number] Authorization Status-Primary : Denial - admission Authorized Service Begin Date-Primary : 03/04/2020 EDT Authorization Comments-Primary : Left VM for Dr. Arthur inquiring if she would complete P2P. Historical Authorization Comments-Primary : Comment 1: Called Dr. Arthur office spoke with Kim she stated that Dr. Arthur only works tuesdays. I will call back then to discuss P2P> Emailed to [facility] (BILL CEE RN 03/09/2020 11:15) Comment 2: [employer] BH denied for inpt per Allison (KYRIE BROWN RN-Utilization Review 03/07/2020 15:46) Comment 3: Additional clinicals faxed manually per request of Allison at [facility] (Yvonne Duran, Randi-Utilization Review 03/07/2020 08:44) Comment 4: Clinicals faxed manually to [facility] (Yvonne Duran, Randi-Utilization Review 03/05/2020 14:39) BILL CEE RN - 03/13/2020 9:43 EDT Electronically signed by Ruby [facility] Conversion Wet Inspector Optical Glass Cerner at 10/08/2022 11:55 AM CDT documented in this encounter Plan of Treatment Not on file documented as of this encounter Visit Diagnoses Not on filedocumented in this encounter Care Teams Aircraft Electrical Systems Specialist Relationship Specialty Start Date End Date Moira Barba, RANDI PCP - General 12/14/22 documented as of this encounter
--- OUTSIDE RECORDS SUMMARY | 2025-05-02 13:38 | XMS_ITS | Encounter Summary ---
Author Organization [employer] ([place], [place], [place], [place], [place]) Address [address] [place] [address] Care Team Providers Care Heel Slugger Name Role Phone Moira Barba RN Primary Care Provider Jose L miller Encounter Details Date Type Department Care Team (Late st Contact Info) Description 03/05/2020 Transcribed Document [facility] Family Medicine [address] [place] [address] ProviderMargaret MD [address] [place] [address] Social History Tobacco Use Types Packs/Day [...] Policy Numbers : Insurance 1 Health Plan: [facility] Policy Number: [id number] Authorization Number: Insurance Primary Name : [facility] Policy Number: [id number] Authorization Status-Primary : Awaiting callback Authorized Service Begin Date-Primary : 03/04/2020 EDT Authorization Comments-Primary : Clinicals faxed manually to [facility] Historical Authorization Comments-Primary : No Authorization Comments Found Yvonne Duran, An-Utilization Review - 03/05/2020 14:39 EDT Electronically signed by Ruby [facility] Conversion Aquatic Facility Manager Cerner at 10/08/2022 12:17 PM CDT documented in this encounter Plan of Treatment Not on file documented as of this encounter Visit Diagnoses Not on filedocumented in this encounter Care Teams Heel Slugger Relationship Specialty Start Date End Date Moira Barba, RN PCP - General 12/14/22 documented as of this encounter
--- OUTSIDE RECORDS SUMMARY | 2025-05-02 13:38 | XMS_ITS | Encounter Summary ---
Author Organization [employer] ([place], [place], [place], [place], [place]) Address [address] [place] [address] Care Team Providers Care Calender Operator Helper Name Role Phone Moira Barba RN Primary Care Provider Jose L ilgrayson Encounter Details Date Type Department Care Team (Late st Contact Info) Description 03/05/2020 Transcribed Document [facility] [place] Family Medicine [facility] [place] [address] ProviderMargaret MD [address] [place] [address] Social History Tobacco Use Types Packs/Day [...] on filedocumented in this encounter Care Teams Calender Operator Helper Relationship Specialty Start Date End Date Moira Barba, RN PCP - General 12/14/22 documented as of this encounter
--- OUTSIDE RECORDS SUMMARY | 2025-05-02 13:38 | XMS_ITS | Encounter Summary ---
Author Organization [employer] ([place], [place], [place], [place], [place]) Address [address] [place] [address] Care Team Providers Care Supervisor Orchard Name Role Phone Moira Barba RN Primary Care Provider Jose L miller Encounter Details Date Type Department Care Team (Late st Contact Info) Description 03/13/2020 Transcribed Document [facility] [place] Family Medicine [address] [place] [address] ProviderMargaret MD [address] [place] [address] Social History Tobacco Use Types Packs/Day [...] Health Plan: [facility] Policy Number: [id number] Authorization Number: Insurance Primary Name : [facility] Policy Number: [id number] Authorization Status-Primary : Denial - admission Authorized Service Begin Date-Primary : 03/04/2020 EDT Authorization Comments-Primary : Per Dr. Arthur she will complete this P2P left VM for [facility] to setup P2P for 03/14/2020 [...] then to discuss P2P> Emailed to [facility] (BILL CEE RN 03/09/2020 11:15) Comment 5: [employer] BH denied for inpt per Allison (KYRIE BROWN RN-Utilization Review 03/07/2020 15:46) Comment 6: Additional clinicals faxed manually per request of Allison at [facility] (Yvonne Duran Rn-Utilization Review 03/07/2020 08:44) Comment 7: Clinicals faxed manually to [facility] (Yvonne Duran Rn-Utilization Review 03/05/2020 14:39) BILL CEE RN - 03/13/2020 10:15 EDT Electronically signed by [facility] Conversion Life Insurance Sales Cerner at 10/08/2022 11:52 AM CDT documented in this encounter Plan of Treatment Not on file documented as of this encounter Visit Diagnoses Not on filedocumented in this encounter Care Teams Supervisor Orchard Relationship Specialty Start Date End Date Moira Barba, RANDI PCP - General 12/14/22 documented as of this encounter
--- OUTSIDE RECORDS SUMMARY | 2025-05-02 13:38 | XMS_ITS | Encounter Summary ---
Author Organization [employer] ([place], [place], [place], [place], [place]) Address [address] [place] [address] Care Team Providers Care Fruit And Vegetable Classer Name Role Phone Moira Barba RN Primary Care Provider Jose L ilgrayson Encounter Details Date Type Department Care Team (Late st Contact Info) Description 03/04/2020 Transcribed Document [facility] [place] [facility] [place] [address] ProviderMargaret MD [address] [place] [address] Social History Tobacco Use Types Packs/Day [...] 03/06/2020 20:05 EDT Electronically signed by Ruby [facility] Conversion Day Care Provider Cerner at 10/08/2022 12:10 PM CDT documented in this encounter Plan of Treatment Not on file documented as of this encounter Visit Diagnoses Not on filedocumented in this encounter Care Teams Fruit And Vegetable Classer Relationship Specialty Start Date End Date Moira Barba, RN PCP - General 12/14/22 documented as of this encounter
--- OUTSIDE RECORDS SUMMARY | 2025-05-02 13:38 | XMS_ITS | Encounter Summary ---
Author Organization [employer] ([place], [place], [place], [place], [place]) Address [address] [place] [address] Care Team Providers Care Polytechnic Teacher Name Role Phone Moira Barba RN Primary Care Provider Jose L miller Encounter Details Date Type Department Care Team (Late st Contact Info) Description 03/14/2020 Transcribed Document [facility] [place] [address] [place] [address] ProviderMargaret MD [address] [place] [address] Social History Tobacco Use Types Packs/Day [...] Policy Numbers : Insurance 1 Health Plan: [facility] Policy Number: [id number] Authorization Number: Insurance Primary Name : [facility] Policy Number: [id number] Authorization Status-Primary : Denial - admission Authorized Service Begin Date-Primary : 03/04/2020 EDT Authorization Comments-Primary : Left VM for Allison inquiring of P2P result. Historical Authorization Comments-Primary : Comment 1: Per Dr. Arthur she will complete this P2P left VM for [facility] to setup P2P for 03/14/2020 @ 9-10. [...] request of Allison at [facility] (Yvonne Duran Rn-Utilization Review 03/07/2020 08:44) Comment 8: Clinicals faxed manually to [facility] (Yvonne Duran Rn-Utilization Review 03/05/2020 14:39) BILL CEE RN - 03/14/2020 16:18 EDT Electronically signed by Ruby [facility] Conversion Instructional Technology Specialist Cerner at 10/08/2022 12:13 PM CDT documented in this encounter Plan of Treatment Not on file documented as of this encounter Visit Diagnoses Not on filedocumented in this encounter Care Teams Polytechnic Teacher Relationship Specialty Start Date End Date Moira Barba RN PCP - General 12/14/22 documented as of this encounter
--- OUTSIDE RECORDS SUMMARY | 2025-05-02 13:38 | XMS_ITS | Encounter Summary ---
Author Organization [employer] ([place], [place], [place], [place], [place]) Address [address] [place] [address] Care Team Providers Care Body Mechanic Apprentice Name Role Phone Moira Barba RN Primary Care Provider Jose L ilgrayson Encounter Details Date Type Department Care Team (Late st Contact Info) Description 03/05/2020 Transcribed Document [facility] [place] [facility] [place] [address] ProviderMargaret MD [address] [place] [address] Social History Tobacco Use Types Packs/Day [...] 03/06/2020 20:06 EDT Electronically signed by Ruby [facility] Conversion Call Or Contact Centre Manager Cerner at 10/08/2022 12:12 PM CDT documented in this encounter Plan of Treatment Not on file documented as of this encounter Visit Diagnoses Not on filedocumented in this encounter Care Teams Body Mechanic Apprentice Relationship Specialty Start Date End Date Moira Barba, RN PCP - General 12/14/22 documented as of this encounter
--- OUTSIDE RECORDS SUMMARY | 2025-05-02 13:38 | XMS_ITS | Encounter Summary ---
Author Organization [employer] ([place], [place], [place], [place], [place]) Address [address] [place] [address] Care Team Providers Care Vice President Marketing & Development Name Role Phone Moira Barba RN Primary Care Provider Jose L miller Encounter Details Date Type Department Care Team (Late st Contact Info) Description 03/13/2020 Transcribed Document [facility] [place] Family Medicine [address] [place] [address] ProviderMargaret MD [address] [place] [address] Social History Tobacco Use Types Packs/Day [...] Policy Numbers : Insurance 1 Health Plan: [facility] Policy Number: [id number] Authorization Number: Insurance Primary Name : [facility] Policy Number: [id number] Authorization Status-Primary : Denial - admission Authorized Service Begin Date-Primary : 03/04/2020 EDT Authorization Comments-Primary : Spoke with Delia at MD office and transferred to Dr. Arthur. Historical Authorization Comments-Primary : Comment 1: Left VM for Dr. Arthur inquiring if she would complete P2P. (IBLL CEE RN 03/13/2020 09:43) Comment 2: Called Dr. Arthur office spoke with Kim she stated that Dr. Arthur only works tuesdays. I will call back then to discuss P2P> Emailed to [facility] (BILL CEE RN 03/09/2020 11:15) Comment 3: [employer] BH denied for inpt per Allison (KYRIE BROWN RN-Utilization Review 03/07/2020 15:46) Comment 4: Additional clinicals faxed manually per request of Allison at [facility] (Yvonne Duran Rn-Utilization Review 03/07/2020 08:44) Comment 5: Clinicals faxed manually to [facility] (Yvonne Duran Rn-Utilization Review 03/05/2020 14:39) BILL CEE RN - 03/13/2020 9:44 EDT Electronically signed by Ruby [facility] Conversion Direct Care Staffer Cerner at 10/08/2022 11:54 AM CDT documented in this encounter Plan of Treatment Not on file documented as of this encounter Visit Diagnoses Not on filedocumented in this encounter Care Teams Vice President Marketing & Development Relationship Specialty Start Date End Date Moira Barba RN PCP - General 12/14/22 documented as of this encounter
--- OUTSIDE RECORDS SUMMARY | 2025-05-02 13:39 | XMS_ITS | Encounter Summary ---
Author Organization [employer] ([place], [place], [place], [place], [place]) Address [address] [place] [address] Care Team Providers Care Steward/Stewardess Wine Name Role Phone Moira Barba RN Primary Care Provider Jose L miller Encounter Details Date Type Department Care Team (Late st Contact Info) Description 03/07/2020 Transcribed Document [facility] [place] [facility] [place] [address] ProviderMargaret MD [address] [place] [address] Social History Tobacco Use Types Packs/Day [...] Margaret ProviderMD - 03/07/2020 8:55 AM CDT [place] [id number] INDRA NAVA :2000 Visit Time:03/04/2020 Your Visit [...] Capsule(s) Oral Every 4 Hours Pickup at [facility] Pharmacy Information [facility]: [address] [place], [place] [phone] Take your medications faithfully. Do NOT skip [...] 09/04/2009 Document Revised: 09/30/2019 Document Reviewed: 10/29/2016 [employer] Patient Education ?? 2020 [employer]. Third Trimester of The third trimester is from week 28 through week 40 (months 7 through 9). This trimester is when your unborn baby (fetus) is growing very fast. At the end of the ninth month, the unborn baby is about 20 inches in length. It weighs about 6???10 pounds. Follow these instructions at home: Medicines ??? Take ydwk-agj-enafawy and prescription medicines only as told by [...] 09/02/2010 Document Revised: 09/29/2019 Document Reviewed: 07/14/2017 [employer] Patient Education ?? 2020 [employer]. Emergency Awareness and Preventative Care STROKE is [...] Assistance with quitting is available by contacting 0-892-GXRH-NOW. This is a free resource providing counseling, [...] range between ( 1.0 and 7.0 ) [place] #: 1.30 K/uL -- Normal range between ( 0.24 and 0.82 ) Eos #: 0.00 K/uL -- Normal range between ( 0.04 and 0.54 ) [place] %: 6.4 % -- Normal range between [...] was given the opportunity to ask questions. Patient/Digital Proofing And Platemaker Name: Patient/Digital Proofing And Platemaker Signature: Relationship to Patient: Clinician/Hospital Digital Proofing And Platemaker Signature: Date: documented in this encounter Plan of Treatment Not on file documented as of this encounter Visit Diagnoses Not on filedocumented in this encounter Care Teams Steward/Stewardess Wine Relationship Specialty Start Date End Date Moira Barba RN PCP - General 12/14/22 documented as of this encounter
--- OUTSIDE RECORDS SUMMARY | 2025-05-02 13:39 | XMS_ITS | Encounter Summary ---
Author Organization [employer] ([place], [place], [place], [place], [place]) Address [address] [place] [address] Care Team Providers Care Mold Maker Plaster Name Role Phone Moira Barba RN Primary Care Provider Jose L ilgrayson Encounter Details Date Type Department Care Team (Late st Contact Info) Description 03/06/2020 Transcribed Document [facility] [place] [facility] [address] ProviderMargaret MD [address] [place] [address] Social History Tobacco Use Types Packs/Day [...] on filedocumented in this encounter Care Teams Mold Maker Plaster Relationship Specialty Start Date End Date Moira Barba, RN PCP - General 12/14/22 documented as of this encounter
--- OUTSIDE RECORDS SUMMARY | 2025-05-02 13:39 | XMS_ITS | Encounter Summary ---
Author Organization [employer] ([place], [place], [place], [place], [place]) Address [address] [place] [address] Care Team Providers Care Three Dimensional Art Instructor Name Role Phone Moira Barba RN Primary Care Provider Jose L ilgrayson Encounter Details Date Type Department Care Team (Late st Contact Info) Description 03/06/2020 Transcribed Document [facility] [place] Family Medicine [facility] [place] [address] ProviderMargaret MD [address] [place] [address] Social History Tobacco Use Types Packs/Day [...] 03/06/2020 20:07 EDT Electronically signed by Ruby [facility] Conversion Junior Linux Administrator Cerner at 10/08/2022 11:54 AM CDT documented in this encounter Plan of Treatment Not on file documented as of this encounter Visit Diagnoses Not on filedocumented in this encounter Care Teams Three Dimensional Art Instructor Relationship Specialty Start Date End Date Moira Barba, RN PCP - General 12/14/22 documented as of this encounter
--- OUTSIDE RECORDS SUMMARY | 2025-05-02 13:39 | XMS_ITS | Encounter Summary ---
Author Organization [employer] ([place], [place], [place], [place], [place]) Address [address] [place] [address] Care Team Providers Care Analytic Programmer Name Role Phone Moira Barba RN Primary Care Provider Jose L miller Encounter Details Date Type Department Care Team (Late st Contact Info) Description 03/07/2020 Transcribed Document [facility] [place] [facility] [place] [address] ProviderMargaret MD [address] [place] [address] Social History Tobacco Use Types [...] 09/04/2009 Document Revised: 09/30/2019 Document Reviewed: 10/29/2016 [employer] Patient Education ? 2020 [employer]. Obstetrics and Gynecology Third Trimester of The third trimester is from week 28 through week 40 (months 7 through 9). This trimester is when your unborn baby (fetus) is growing very fast. At the end of the ninth month, the unborn baby is about 20 inches in length. It weighs about 6?10 pounds. Follow these instructions at home: Medicines ??? Take [id number] and prescription medicines only as told by [...] 09/02/2010 Document Revised: 09/29/2019 Document Reviewed: 07/14/2017 [employer] Patient Education ? 2020 [employer] documented in this encounter Plan of Treatment Not on file documented as of this encounter Visit Diagnoses Not on filedocumented in this encounter Care Teams Analytic Programmer Relationship Specialty Start Date End Date Moira Barba, RN PCP - General 12/14/22 documented as of this encounter
--- OUTSIDE RECORDS SUMMARY | 2025-05-02 13:39 | XMS_ITS | Encounter Summary ---
Author Organization [employer] ([place], [place], [place], [place], [place]) Address [address] [place] [address] Care Team Providers Care Section Beamer Name Role Phone Moira Barba RN Primary Care Provider Jose L miller Encounter Details Date Type Department Care Team (Late st Contact Info) Description 03/07/2020 Transcribed Document [facility] [place] [address] ProviderMargaret MD [address] [place] [address] Social History Tobacco Use Types Packs/Day [...] / H 20.4 344 / 37.0 \ documented in this encounter Plan of Treatment Not on file documented as of this encounter Visit Diagnoses Not on filedocumented in this encounter Care Teams Section Beamer Relationship Specialty Start Date End Date Moira Barba, RANDI PCP - General 12/14/22 documented as of this encounter
--- OUTSIDE RECORDS SUMMARY | 2025-05-02 13:39 | XMS_ITS | Encounter Summary ---
Author Organization [employer] ([place], [place], [place], [place], [place]) Address [address] [place] [address] Care Team Providers Care Prepared Foods Team Leader Name Role Phone Moira Barba RN Primary Care Provider Jose L miller Encounter Details Date Type Department Care Team (Late st Contact Info) Description 03/07/2020 Transcribed Document [facility] [place] [address] [place] [address] ProviderMargaret MD [address] [place] [address] Social History Tobacco Use Types Packs/Day [...] FANNY SAPP RN - 03/07/2020 8:54 EDT Electronically signed by Ruby [facility] Conversion Academic Computing Director Cerner at 10/08/2022 11:56 AM CDT documented in this encounter Plan of Treatment Not on file documented as of this encounter Visit Diagnoses Not on filedocumented in this encounter Care Teams Prepared Foods Team Leader Relationship Specialty Start Date End Date Moira Barba RN PCP - General 12/14/22 documented as of this encounter
--- OUTSIDE RECORDS SUMMARY | 2025-05-02 13:39 | XMS_ITS | Encounter Summary ---
Author Organization [employer] ([place], [place], [place], [place], [place]) Address [address] [place] [address] Care Team Providers Care Contact Center Agent Name Role Phone Moira Barba RN Primary Care Provider Jose L miller Encounter Details Date Type Department Care Team (Late st Contact Info) Description 03/12/2020 Transcribed Document [facility] [place] [facility] [place] [address] ProviderMargaret MD [address] [place] [address] Social History Tobacco Use Types Packs/Day [...] for Hospitalization 19 yo [address] [facility] with contractions and cervical change [...] than 30 minutes Electronically signed by Ruby [facility] Conversion Treasury Assistant Cerner at 10/08/2022 12:04 PM CDT documented in this encounter Plan of Treatment Not on file documented as of this encounter Visit Diagnoses Not on filedocumented in this encounter Care Teams Contact Center Agent Relationship Specialty Start Date End Date Moira Barba RN PCP - General 12/14/22 documented as of this encounter
--- OUTSIDE RECORDS SUMMARY | 2025-05-02 13:39 | XMS_ITS | Encounter Summary ---
Author Organization [employer] ([place], [place], [place], [place], [place]) Address [address] [place] [address] Care Team Providers Care High School Computer Science Teacher Name Role Phone Moira Barba RN Primary Care Provider Jose L miller Encounter Details Date Type Department Care Team (Late st Contact Info) Description 03/04/2020 Transcribed Document [facility] [place] [facility] [place] [address] ProviderMargaret MD [address] [place] [address] Social History Tobacco Use Types Packs/Day [...] Source : Measured Height Entry Format : [place] Height, Feet : 5 ft(Converted to: 152 cm, 60 Inch) Clinical Height : 175.26 cm Height, Inches : 9 Inch(Converted to: 0 ft 9 Inch, 22.86 cm) Weight Source : Standing scale Weight Entry Format : [place] Weight, Pounds : 170 lb Clinical Dosing Weight : 77.27 kg Body Surface Area (BSA) : 1.93 m2 Body Mass Index : 25.2 kg/m2 (HI) Calera Body Weight (IBW) : 65.73 kg ELIO [...] ELIO SNOWDEN RN - 03/04/2020 17:06 EDT Wiley Suicide Severity Rating Scale (C-SSRS) CSSRS Past [...] on filedocumented in this encounter Care Teams High School Computer Science Teacher Relationship Specialty Start Date End Date Moira Barba RN PCP - General 12/14/22 documented as of this encounter
--- OUTSIDE RECORDS SUMMARY | 2025-05-02 13:39 | XMS_ITS | Encounter Summary ---
Author Organization [employer] ([place], [place], [place], [place], [place]) Address [address] [place] [address] Care Team Providers Care Supply Chain Vice President Name Role Phone Moira Barba RN Primary Care Provider Jsoe L ilgrayson Encounter Details Date Type Department Care Team (Late st Contact Info) Description 03/07/[address] [facility] [place] Family [place] [facility] [address] ProviderMargaret MD [address] [place] [address] Social History Tobacco Use Types Packs/Day [...] 03/07/2020 5:29 EDT Electronically signed by Ruby [facility] Conversion Integration Project Manager Cerner at 10/08/2022 12:03 PM CDT documented in this encounter Plan of Treatment Not on file documented as of this encounter Visit Diagnoses Not on filedocumented in this encounter Care Teams Supply Chain Vice President Relationship Specialty Start Date End Date Moira Barba, RN PCP - General 12/14/22 documented as of this encounter
--- OUTSIDE RECORDS SUMMARY | 2025-05-02 13:39 | XMS_ITS | Encounter Summary ---
Author Organization [employer] ([place], [place], [place], [place], [place]) Address [address] [place] [address] Care Team Providers Care Hearing Aid Consultant Name Role Phone Moira Barba RN Primary Care Provider Jose L miller Encounter Details Date Type Department Care Team (Late st Contact Info) Description 03/07/2020 Transcribed Document [facility] [place] Family Medicine [address] [place] [address] ProviderMargaret MD [address] [place] [address] Social History Tobacco Use Types Packs/Day [...] Policy Numbers : Insurance 1 Health Plan: [facility] Policy Number: [id number] Authorization Number: Insurance Primary Name : [facility] Policy Number: [id number] Authorization Status-Primary : Awaiting callback Authorized Service Begin Date-Primary : 03/04/2020 EDT Authorization Comments-Primary : Additional clinicals faxed manually per request of Allison at [facility] Historical Authorization Comments-Primary : Comment 1: Clinicals faxed manually to [facility] (Yvonne Duran Rn-Utilization Review 03/05/2020 14:39) Yvonne Duran Rn-Utilization Review - 03/07/2020 8:44 EDT Electronically signed by [facility] Conversion Potato Chip Processing Supervisor Cerner at 10/08/2022 12:02 PM CDT documented in this encounter Plan of Treatment Not on file documented as of this encounter Visit Diagnoses Not on filedocumented in this encounter Care Teams Hearing Aid Consultant Relationship Specialty Start Date End Date Moira Barba, RN PCP - General 12/14/22 documented as of this encounter
--- OUTSIDE RECORDS SUMMARY | 2025-05-02 13:39 | XMS_ITS | Encounter Summary ---
Author Organization [employer] ([place], [place], [place], [place], [place]) Address [address] [place] [address] Care Team Providers Care Senior Control Systems Engineer Name Role Phone Moira Barba RN Primary Care Provider Jose L miller Encounter Details Date Type Department Care Team (Late st Contact Info) Description 03/06/[address] [facility] [place] [facility] [place] [address] ProviderMargaret MD [address] [place] [address] Social History Tobacco Use Types Packs/Day [...] / 37.0 \ Electronically signed by Ruby, [facility] Conversion Utility Operator Yarn Cerner at 10/08/2022 11:58 AM CDT documented in this encounter Plan of Treatment Not on file documented as of this encounter Visit Diagnoses Not on filedocumented in this encounter Care Teams Senior Control Systems Engineer Relationship Specialty Start Date End Date Moira Barba RN PCP - General 12/14/22 documented as of this encounter
--- OUTSIDE RECORDS SUMMARY | 2025-05-02 13:39 | XMS_ITS | Encounter Summary ---
Author Organization [employer] ([place], [place], [place], [place], [place]) Address [address] [place] [address] Care Team Providers Care Legal Aide Name Role Phone Moira Barba RN Primary Care Provider Jose L miller Encounter Details Date Type Department Care Team (Late st Contact Info) Description 03/09/2020 Transcribed Document [facility] [place] [address] [place] [address] ProviderMargaret MD [address] [place] [address] Social History Tobacco Use Types Packs/Day [...] Policy Numbers : Insurance 1 Health Plan: [facility] Policy Number: [id number] Authorization Number: Insurance Primary Name : [facility] Policy Number: [id number] Authorization Status-Primary : Denial - admission Authorized Service Begin Date-Primary : 03/04/2020 EDT Authorization Comments-Primary : Called Dr. Case office spoke with Kim she stated that Dr. Arthur only works tuesdays. I will call back then to discuss P2P> [place] [facility] [place] Authorization Comments-Primary : Comment 1: [employer] [facility] denied for inpt per Allison (KYRIE BROWN, RN-Utilization Review 03/07/2020 15:46) Comment 2: Additional clinicals faxed manually per request of Allison at [facility] (Yvonne Duran, An-Utilization Review 03/07/2020 08:44) Comment 3: Clinicals faxed manually to [facility] (Yvonne Duran, Rn-Utilization Review 03/05/2020 14:39) BILL CEE RN - 03/09/2020 11:15 EDT Electronically signed by Ruby [facility] Conversion Payment Analyst Cerner at 10/08/2022 12:02 PM CDT documented in this encounter Plan of Treatment Not on file documented as of this encounter Visit Diagnoses Not on filedocumented in this encounter Care Teams Legal Aide Relationship Specialty Start Date End Date Moira Barba RN PCP - General 12/14/22 documented as of this encounter
--- OUTSIDE RECORDS SUMMARY | 2025-05-02 13:39 | XMS_ITS | Encounter Summary ---
Author Organization [employer] ([place], [place], [place], [place], [place]) Address [address] [place] [address] Care Team Providers Care Middle School Baseball Coach Name Role Phone Moira Barba RN Primary Care Provider Jose L ilgrayson Encounter Details Date Type Department Care Team (Late st Contact Info) Description 03/04/2020 Transcribed Document [place] Family Medicine [facility] [place] [address] ProviderMargaret MD [address] [place] [address] Social History Tobacco Use Types Packs/Day [...] 03/06/2020 20:05 EDT Electronically signed by Ruby [facility] Conversion Chemistry Research Assistant Cerner at 10/08/2022 12:12 PM CDT documented in this encounter Plan of Treatment Not on file documented as of this encounter Visit Diagnoses Not on filedocumented in this encounter Care Teams Middle School Baseball Coach Relationship Specialty Start Date End Date Moira Barba, RN PCP - General 12/14/22 documented as of this encounter
--- OUTSIDE RECORDS SUMMARY | 2025-05-02 13:39 | XMS_ITS | Encounter Summary ---
Author Organization [employer] ([place], [place], [place], [place], [place]) Address [address] [place] [address] Care Team Providers Care Vocational Coordinator Name Role Phone Moira Barba RN Primary Care Provider Jose L ilgrayson Encounter Details Date Type Department Care Team (Late st Contact Info) Description 03/06/2020 Transcribed Document [facility] [place] [facility] [place] [address] ProviderMargaret MD [address] [place] [address] Social History Tobacco Use Types Packs/Day [...] 20:07 EDT Electronically signed by Ruby [facility] Conversion Blueprint Maker Cerner at 10/08/2022 12:09 PM CDT documented in this encounter Plan of Treatment Not on file documented as of this encounter Visit Diagnoses Not on filedocumented in this encounter Care Teams Vocational Coordinator Relationship Specialty Start Date End Date Moira Barba, RN PCP - General 12/14/22 documented as of this encounter
--- OUTSIDE RECORDS SUMMARY | 2025-05-02 13:39 | XMS_ITS | Encounter Summary ---
Author Organization [employer] ([place], [place], [place], [place], [place]) Address [address] [place] [address] Care Team Providers Care Shotgun Shell Loading Machine Operator Name Role Phone Moira Barba RN Primary Care Provider Jose L miller Encounter Details Date Type Department Care Team (Late st Contact Info) Description 03/07/2020 Transcribed Document [facility] [place] Medicine [facility] [place] [address] ProviderMargaret MD [address] [place] [address] Social History Tobacco Use Types Packs/Day [...] on filedocumented in this encounter Care Teams Shotgun Shell Loading Machine Operator Relationship Specialty Start Date End Date Moira Barba, RN PCP - General 12/14/22 documented as of this encounter
--- OUTSIDE RECORDS SUMMARY | 2025-05-02 13:39 | XMS_ITS | Encounter Summary ---
Author Organization [employer] ([place], [place], [place], [place], [place]) Address [address] [place] [address] Care Team Providers Care Receivable Manager Name Role Phone Moira Barba RN Primary Care Provider Jose L ilgrayson Encounter Details Date Type Department Care Team (Late st Contact Info) Description 03/06/2020 Transcribed Document [facility] [place] [facility] [place] [address] ProviderMargaret MD [address] [place] [address] Social History Tobacco Use Types Packs/Day [...] 03/06/2020 20:07 EDT Electronically signed by Ruby [facility] Conversion Hydro Generation Supervisor Cerner at 10/08/2022 12:14 PM CDT documented in this encounter Plan of Treatment Not on file documented as of this encounter Visit Diagnoses Not on filedocumented in this encounter Care Teams Receivable Manager Relationship Specialty Start Date End Date Moira Barba, RN PCP - General 12/14/22 documented as of this encounter
--- OUTSIDE RECORDS SUMMARY | 2025-05-02 13:39 | XMS_ITS | Encounter Summary ---
Author Organization [employer] ([place], [place], [place], [place], [place]) Address [address] [place] [address] Care Team Providers Care Book Cutter Name Role Phone Moira Barba RN Primary Care Provider Jose L miller Encounter Details Date Type Department Care Team (Late st Contact Info) Description 03/07/2020 Transcribed Document [facility] [place] [address] [place] [address] ProviderMargaret MD [address] [place] [address] Social History Tobacco Use Types Packs/Day [...] Policy Numbers : Insurance 1 Health Plan: [facility] Policy Number: [id number] Authorization Number: Insurance Primary Name : [facility] Policy Number: [id number] Authorization Status-Primary : Denial - admission Authorized Service Begin Date-Primary : 03/04/2020 EDT Authorization Comments-Primary : [employer] denied for inpt per Allison Historical Authorization Comments-Primary : Comment 1: Additional clinicals faxed manually per request of Allison at [facility] (Yvonne Duran, An-Utilization Review 03/07/2020 08:44) Comment 2: Clinicals faxed manually to [facility] (Yvonne Duran, An-Utilization Review 03/05/2020 14:39) KYRIE RBOWN RN-Utilization Review - 03/07/2020 15:46 EDT Electronically signed by [facility] Conversion Anesthetic Assistant Cerner at 10/08/2022 12:04 PM CDT documented in this encounter Plan of Treatment Not on file documented as of this encounter Visit Diagnoses Not on filedocumented in this encounter Care Teams Book Cutter Relationship Specialty Start Date End Date Moira Barba, RN PCP - General 12/14/22 documented as of this encounter
--- OUTSIDE RECORDS SUMMARY | 2025-05-02 13:39 | XMS_ITS | Encounter Summary ---
Author Organization [employer] ([place], [place], [place], [place], [place]) Address [address] [place] [address] Care Team Providers Care Digital Marketing Manager Name Role Phone Moira Barba RN Primary Care Provider Jose L miller Encounter Details Date Type Department Care Team (Late st Contact Info) Description 03/06/2020 Transcribed Document [facility] [place] [facility] [place] [address] ProviderMargaret MD [address] [place] [address] Social History Tobacco Use Types Packs/Day [...] 5 mg 1 Tab, Oral, At Bedtime [facility] US 03/05/20 Sharma at 31w [...] filedocumented in this encounter Care Teams Digital Marketing Manager Relationship Specialty Start Date End Date Moira Barba, RN PCP - General 12/14/22 documented as of this encounter
--- NOTE | 2025-05-02 14:00 | US_ITS ---
PROCEDURE: US OB FOLLOW UP CLINICAL INDICATION: fundal height measuring ahead COMPARISON: US US OB TRANSVAGINAL from 10/17/2024 US US OB <= 14 WEEKS FETUS from 10/21/2024 US US OB /MATERNAL DETAIL from 01/31/2025 US US OB FOLLOW UP from 03/27/2025 FINDINGS: Transabdominal sonographic images of the pelvis were obtained. The following parameters are obtained: From her established due date she is 33weeks 3days Viable fetus in the cephalic presentation with a lateral posterior placenta grade 2. The cervix measures 2.84 cm in length heart rate: 135bpm bpm. Average ultrasound age 34 weeks 4 days Estimated weight 2326 grams, 5 lb 2 oz BPD: 35weeks 0 days, 85 percentile HC: 35weeks 5days, 72 percentile AC: 33weeks 4days, 55 percentile FL: 34weeks 0 days, 55 percentile HC/AC: 1.07 FL/BPD: 0.76 FL/AC: 0.22 Growth percentile: 60 Amniotic fluid index: 15.27cm, MVP 4.72 cm No obvious anomalies evident. Stomach, bladder, kidneys, three-vessel cord, four chamber heart appear normal. IMPRESSION: 1. Viable fetus in the cephalic presentation with a lateral posterior placenta grade 2. 2. The fluid is within normal limits with amniotic fluid index 15.27 cm, MVP 4.72 cm. 3. There has been good interval growth with the fetus currently 60th percentile. 4. Limited anatomical scan appears normal. Dictated by: Carlo Godadrd MD 05/02/2025 15:07 Carlo Goddard MD in OV 05/02/2025 15:07
== END 2025-05-02 23:59 | disposition home or self-care (01) ==
LOC: RAD 13:35
PROVIDERS: PCP Nurse Practitioner; Visit Provider Obstetrics & Gynecology
DX: Z34.93 Encounter for supervision of normal pregnancy, unspecified, third trimester (principal); Z3A.33 33 weeks gestation of pregnancy
CPT/HCPCS: 76816

== ENCOUNTER 2025-05-23 15:19 | Outpatient (CLI) | payer OTHER, SELFPAY | END 2025-05-23 23:59 | disposition home or self-care (01) | LOC: LAB.DROPOF 05-24 10:03 | PROVIDERS: PCP Nurse Practitioner; Visit Provider Obstetrics & Gynecology | DX: Z34.93 Encounter for supervision of normal pregnancy, unspecified, third trimester (principal) | CPT/HCPCS: 86403 ==

== ENCOUNTER 2025-05-24 13:41 | Outpatient (CLI) | payer OTHER, SELFPAY ==
--- OUTSIDE RECORDS SUMMARY | 2025-05-24 13:48 | XMS_ITS | Encounter Summary ---
Author Organization [employer] ([place], [place], [place], [place], [place]) Address [address] [place] [address] Care Team Providers Care Washhouse Hand Name Role Phone Moira Barba RN Primary Care Provider Jose L miller Encounter Details Date Type Department Care Team (Late st Contact Info) Description 03/05/2020 Transcribed Document [facility] [place] [facility] [place] [address] ProviderMargaret MD [address] [place] [address] Social History Tobacco Use Types Packs/Day [...] 31+2 weeks with PTL. She presented to [facility] with abdominal pain. She was marleen [...] qualifying data Social History Document (if any) Cultural/Latter-Day beliefs that would affect medical care: Lab Results MAR 04 18:35 \ 13.1 / H 18.7 314 / 39.2 \ Electronically signed by Ruby, [facility] Conversion Wrist Hemmer Cerner at 10/08/2022 11:57 AM CDT documented in this encounter Plan of Treatment Not on file documented as of this encounter Visit Diagnoses Not on filedocumented in this encounter Care Teams Washhouse Hand Relationship Specialty Start Date End Date Moira Barba RN PCP - General 12/14/22 documented as of this encounter
--- OUTSIDE RECORDS SUMMARY | 2025-05-24 13:48 | XMS_ITS | Referral Summary ---
Author Organization [employer] ([place], [place], [place], [place], [place]) Address [address] [place] [address] Care Team Providers Care Hop Sorter Name Role Phone Moira Barba RN [...] Date Jacob rded Speak language other than Bahraini at home Not on file 07/10/2023 Want [...] Plan of Treatment Not on file Insurance [facility] Care Teams Hop Sorter Relationship Specialty Start Date End Date Moira Barba RN PCP - General 12/14/22
--- OUTSIDE RECORDS SUMMARY | 2025-05-24 13:48 | XMS_ITS | Encounter Summary ---
Author Organization [employer] ([place], [place], [place], [place], [place]) Address [address] [place] [address] Care Team Providers Care Merchandise Stocker Name Role Phone Moira Barba RN Primary Care Provider Jose L miller Encounter Details Date Type Department Care Team (Late st Contact Info) Description 03/15/2020 Transcribed Document [facility] [place] [address] [place] [address] ProviderMargaret MD [address] [place] [address] Social History Tobacco Use Types Packs/Day [...] Policy Numbers : Insurance 1 Health Plan: [facility] Policy Number: [id number] Authorization Number: Insurance Primary Name : [facility] Policy Number: [id number] Authorization Status-Primary : Admit approved Reference Number-Primary : [id number] Number of Days Authorized-Primary : 3 Day(s) Authorized Service Begin Date-Primary : 03/04/2020 EDT Authorized Service End Date-Primary : 03/07/2020 EDT Historical Authorization Comments-Primary : Comment 1: Per call to [facility] approved all days after p2P completed. (BILL CEE RN 03/15/2020 11:39) Comment 2: Left VM for Allison inquiring of P2P result. (BILL CEE RN 03/14/2020 16:18) Comment 3: Per Dr. Arthur she will complete this P2P left VM for [facility] to setup P2P for 03/14/2020 @ [...] 08:44) Comment 10: Clinicals faxed manually to [facility] (Yvonne Duran Rn-Utilization Review 03/05/2020 14:39) BILL CEE RN - 03/15/2020 11:40 EDT Electronically signed by Ruby [facility] Conversion Spare Parts Clerk Cerner at 10/08/2022 12:06 PM CDT documented in this encounter Plan of Treatment Not on file documented as of this encounter Visit Diagnoses Not on filedocumented in this encounter Care Teams Merchandise Stocker Relationship Specialty Start Date End Date Moira Barba, RN PCP - General 12/14/22 documented as of this encounter
--- OUTSIDE RECORDS SUMMARY | 2025-05-24 13:48 | XMS_ITS | Encounter Summary ---
Author Organization [employer] ([place], [place], [place], [place], [place]) Address [address] [place] [address] Care Team Providers Care Associate Dean Name Role Phone Moira Barba RN Primary Care Provider Jose L miller Encounter Details Date Type Department Care Team (Late st Contact Info) Description 03/13/2020 Transcribed Document [facility] [place] [address] [place] [address] ProviderMargaret MD [address] [place] [address] Social History Tobacco Use Types Packs/Day [...] Policy Numbers : Insurance 1 Health Plan: [facility] Policy Number: [id number] Authorization Number: Insurance Primary Name : [facility] Policy Number: [id number] Authorization Status-Primary : Denial - admission Authorized [...] then to discuss P2P> Emailed to [facility] [place] (BILL CEE RN 03/09/2020 11:15) Comment 4: [employer] BH denied for inpt per Allison (KYRIE BROWN RN-Utilization Review 03/07/2020 15:46) Comment 5: Additional clinicals faxed manually per request of Allison at [facility] (Yvonne Duran Rn-Utilization Review 03/07/2020 08:44) Comment 6: Clinicals faxed manually to [facility] (Yvonne Duran Rn-Utilization Review 03/05/2020 14:39) BILL CEE RN - 03/13/2020 10:00 EDT Electronically signed by Ruby [facility] Conversion Taxation Agent Gloria at 10/08/2022 12:11 PM CDT documented in this encounter Plan of Treatment Not on file documented as of this encounter Visit Diagnoses Not on filedocumented in this encounter Care Teams Associate Dean Relationship Specialty Start Date End Date Moira Barba RN PCP - General 12/14/22 documented as of this encounter
--- OUTSIDE RECORDS SUMMARY | 2025-05-24 13:48 | XMS_ITS | Clinical Summary ---
Author Organization [employer] ([place], [place], [place], [place], [place]) Address [address] [place] [address] Care Team Providers Care English As A Second Language Teacher Name Role Phone Moira Barba RN [...] Date Jacob rded Speak language other than Slovenian at home Not on file 07/10/2023 Want [...] season) 2025 Influenza Vaccine (#1) 2025 Insurance [facility] Care Teams English As A Second Language Teacher Relationship Specialty Start Date End Date Moira Barba, RN PCP - General 12/14/22
--- OUTSIDE RECORDS SUMMARY | 2025-05-24 13:48 | XMS_ITS | Encounter Summary ---
Author Organization [employer] ([place], [place], [place], [place], [place]) Address [address] [place] [address] Care Team Providers Care Spool Sander Name Role Phone Moira Barba RN Primary Care Provider Jose L ilgrayson Encounter Details Date Type Department Care Team (Late st Contact Info) Description 03/05/[address] [facility] [place] [facility] [place] [address] ProviderMargaret MD [address] [place] [address] Social History Tobacco Use Types Packs/Day [...] - 03/06/2020 20:05 EDT Electronically signed by Dian Beltran Conversion Motor Vehicle Compliance Analyst Cerner at 10/08/2022 11:57 AM CDT documented in this encounter Plan of Treatment Not on file documented as of this encounter Visit Diagnoses Not on filedocumented in this encounter Care Teams Spool Sander Relationship Specialty Start Date End Date Moira Barba, RN PCP - General 12/14/22 documented as of this encounter
--- OUTSIDE RECORDS SUMMARY | 2025-05-24 13:48 | XMS_ITS | Encounter Summary ---
Author Organization [employer] ([place], [place], [place], [place], [place]) Address [address] [place] [address] Care Team Providers Care Bag Grader Name Role Phone Moira Barba RN Primary Care Provider Jose L ilgrayson Encounter Details Date Type Department Care Team (Late st Contact Info) Description 03/05/2020 Transcribed Document [facility] [place] Family Medicine [facility] [place] [address] ProviderMargaret MD [address] [place] [address] Social History Tobacco Use Types Packs/Day [...] 03/06/2020 20:06 EDT Electronically signed by Ruby [facility] Conversion Dermatology Technician Cerner at 10/08/2022 12:12 PM CDT documented in this encounter Plan of Treatment Not on file documented as of this encounter Visit Diagnoses Not on filedocumented in this encounter Care Teams Bag Grader Relationship Specialty Start Date End Date Moira Barba, RN PCP - General 12/14/22 documented as of this encounter
--- OUTSIDE RECORDS SUMMARY | 2025-05-24 13:48 | XMS_ITS | Encounter Summary ---
Author Organization [employer] ([place], [place], [place], [place]) Address [address] [place] [address] Care Team Providers Care Physician General Internal Medicine Name Role Phone Moira Barba RN Primary Care Provider Jose L ilgrayson Encounter Details Date Type Department Care Team (Late st Contact Info) Description 03/05/2020 Transcribed Document [facility] [place] [facility] [place] [address] ProviderMargaret MD [address] [place] [address] Social History Tobacco Use Types Packs/Day [...] 03/06/2020 20:06 EDT Electronically signed by Ruby [facility] Conversion Magneto Electrician Cerner at 10/08/2022 12:02 PM CDT documented in this encounter Plan of Treatment Not on file documented as of this encounter Visit Diagnoses Not on filedocumented in this encounter Care Teams Physician General Internal Medicine Relationship Specialty Start Date End Date Moira Barba, RN PCP - General 12/14/22 documented as of this encounter
--- OUTSIDE RECORDS SUMMARY | 2025-05-24 13:48 | XMS_ITS | Encounter Summary ---
Author Organization [employer] ([place], [place], [place], [place], [place]) Address [address] [place] [address] Care Team Providers Care Parking Enforcement Specialist Name Role Phone Moira Barba RN Primary Care Provider Jose L ilgrayson Encounter Details Date Type Department Care Team (Late st Contact Info) Description 03/05/2020 Transcribed Document [facility] [place] [address] ProviderMargaret MD [address] [place] [address] Social History Tobacco Use Types Packs/Day [...] on filedocumented in this encounter Care Teams Parking Enforcement Specialist Relationship Specialty Start Date End Date Moira Barba, RN PCP - General 12/14/22 documented as of this encounter
--- OUTSIDE RECORDS SUMMARY | 2025-05-24 13:48 | XMS_ITS | Encounter Summary ---
Author Organization [employer] ([place], [place], [place], [place], [place]) Address [address] [place] [address] Care Team Providers Care Optical Scientist Name Role Phone Moira Barba RN Primary Care Provider Jose L miller Encounter Details Date Type Department Care Team (Late st Contact Info) Description 03/15/2020 Transcribed Document [facility] [place] [address] [place] [address] ProviderMargaret MD [address] [place] [address] Social History Tobacco Use Types Packs/Day [...] Policy Numbers : Insurance 1 Health Plan: [facility] Policy Number: [id number] Authorization Number: Insurance Primary Name : [facility] Policy Number: [id number] Authorization Status-Primary : Admit approved Number of Days Authorized-Primary : 3 Day(s) Authorized Service Begin Date-Primary : 03/04/2020 EDT Authorized Service End Date-Primary : 03/07/2020 EDT Authorization Comments-Primary : Per call to [facility] approved all days after p2P completed. Historical Authorization Comments-Primary : Comment 1: Left VM for Allison inquiring of P2P result. (BILL CEE RN 03/14/2020 16:18) Comment 2: Per Dr. Arthur she will complete this P2P left VM for [facility] to setup P2P for 03/14/2020 @ [...] back then to discuss P2P> Emailed to [facility] (BILL CEE RN 03/09/2020 11:15) Comment 7: [employer] BH denied for inpt per Allison (KYRIE BROWN RN-Utilization Review 03/07/2020 15:46) Comment 8: Additional clinicals faxed manually per request of Allison at [facility] (Yvonne Duran Rn-Utilization Review 03/07/2020 08:44) Comment 9: Clinicals faxed manually to [facility] (Yvonne Duran Rn-Utilization Review 03/05/2020 14:39) BILL CEE RN - 03/15/2020 11:39 EDT Electronically signed by Ruby [facility] Conversion Hook Up Driver Gloria at 10/08/2022 11:58 AM CDT documented in this encounter Plan of Treatment Not on file documented as of this encounter Visit Diagnoses Not on filedocumented in this encounter Care Teams Optical Scientist Relationship Specialty Start Date End Date Moira Barba RN PCP - General 12/14/22 documented as of this encounter
--- OUTSIDE RECORDS SUMMARY | 2025-05-24 13:48 | XMS_ITS | Encounter Summary ---
Author Organization [employer] ([place], [place], [place], [place], [place]) Address [address] [place] [address] Care Team Providers Care Account Manager Sales Representative Name Role Phone Moira Barba RN Primary Care Provider Jose L miller Encounter Details Date Type Department Care Team (Late st Contact Info) Description 03/05/2020 Transcribed Document [facility] [place] [address] [place] [address] ProviderMargaret MD [address] [place] [address] Social History Tobacco Use Types Packs/Day [...] Plan: [facility] Policy Number: [id number] Authorization Number: Insurance Primary Name : [facility] Policy Number: [id number] Authorization Status-Primary : Awaiting callback Authorized Service Begin Date-Primary : 03/04/2020 EDT Authorization Comments-Primary : Clinicals faxed manually to [facility] Historical Authorization Comments-Primary : No Authorization Comments Found Yvonne Duran, An-Utilization Review - 03/05/2020 14:39 EDT Electronically signed by Ruby [facility] Conversion Nuclear Waste Management Engineer Cerner at 10/08/2022 12:17 PM CDT documented in this encounter Plan of Treatment Not on file documented as of this encounter Visit Diagnoses Not on filedocumented in this encounter Care Teams Account Manager Sales Representative Relationship Specialty Start Date End Date Moira Barba, RN PCP - General 12/14/22 documented as of this encounter
--- OUTSIDE RECORDS SUMMARY | 2025-05-24 13:48 | XMS_ITS | Patient Health Record ---
Author Organization [facility] Address [address] [facility] [address] [place] [address] Care Team Providers Care Flow Manager Name Role Phone Dimple Pillai Unavailable [phone] Allergies Allergen (clinical drug ingredient) Drug/Non Drug [...] Status Risk Notes Problem Urine test negative ([id number]) Encounter for test with result negative (Z32.02) [...]
--- OUTSIDE RECORDS SUMMARY | 2025-05-24 13:49 | XMS_ITS | Encounter Summary ---
Author Organization [employer] ([place], [place], [place], [place], [place]) Address [address] [place] [address] Care Team Providers Care Route Delivery Supervisor Name Role Phone Moira Barba RN Primary Care Provider Jose L ilgrayson Encounter Details Date Type Department Care Team (Late st Contact Info) Description 03/06/2020 Transcribed Document [facility] [place] [facility] [place] [address] ProviderMargaret MD [address] [place] [address] Social History Tobacco Use Types Packs/Day [...] South, [facility] Conversion Power Transformer Repairer Cerner at 10/08/2022 12:15 PM CDT documented in this encounter Plan of Treatment Not on file documented as of this encounter Visit Diagnoses Not on filedocumented in this encounter Care Teams Route Delivery Supervisor Relationship Specialty Start Date End Date Moira Barba, RN PCP - General 12/14/22 documented as of this encounter
--- OUTSIDE RECORDS SUMMARY | 2025-05-24 13:49 | XMS_ITS | Encounter Summary ---
Author Organization [employer] ([place], [place], [place], [place], [place]) Address [address] [place] [address] Care Team Providers Care Ppap Coordinator Name Role Phone Moira Barba RN Primary Care Provider Jose L miller Encounter Details Date Type Department Care Team (Late st Contact Info) Description 03/14/2020 Transcribed Document [facility] [place] Medicine [address] [place] [address] ProviderMargaret MD [address] [place] [address] Social History Tobacco Use Types Packs/Day [...] Health Plan: [facility] Policy Number: [id number] Authorization Number: Insurance Primary Name : [facility] Policy Number: [id number] Authorization Status-Primary : Denial - admission Authorized Service Begin Date-Primary : 03/04/2020 EDT Authorization Comments-Primary : Left VM for Allison inquiring of P2P result. Historical Authorization Comments-Primary : Comment 1: Per Dr. Arthur she will complete this P2P left VM for [facility] to setup P2P for 03/14/2020 @ [...] back then to discuss P2P> Emailed to [facility] (BILL CEE RN 03/09/2020 11:15) Comment 6: [employer] BH denied for inpt per Allison (KYRIE BROWN RN-Utilization Review 03/07/2020 15:46) Comment 7: Additional clinicals faxed manually per request of Allison at [facility] (Yvonne Duran Rn-Utilization Review 03/07/2020 08:44) Comment 8: Clinicals faxed manually to [facility] (Yvonne Duran Rn-Utilization Review 03/05/2020 14:39) BILL CEE RN - 03/14/2020 16:18 EDT documented in this encounter Plan of Treatment Not on file documented as of this encounter Visit Diagnoses Not on filedocumented in this encounter Care Teams Ppap Coordinator Relationship Specialty Start Date End Date Moira Barba RN PCP - General 12/14/22 documented as of this encounter
--- OUTSIDE RECORDS SUMMARY | 2025-05-24 13:49 | XMS_ITS | Encounter Summary ---
Author Organization [employer] ([place], [place], [place], [place], [place]) Address [address] [place] [address] Care Team Providers Care Mill Machinist Name Role Phone Moira Barba RN Primary Care Provider Jose L ilgrayson Encounter Details Date Type Department Care Team (Late st Contact Info) Description 03/06/2020 Transcribed Document [facility] [place] Family Medicine [facility] [place] [address] ProviderMargaret MD [address] [place] [address] Social History Tobacco Use Types Packs/Day [...] 03/06/2020 20:07 EDT Electronically signed by Ruby [facility] Conversion Automatic Lathe Tender Cerner at 10/08/2022 12:14 PM CDT documented in this encounter Plan of Treatment Not on file documented as of this encounter Visit Diagnoses Not on filedocumented in this encounter Care Teams Mill Machinist Relationship Specialty Start Date End Date Moira Barba, RN PCP - General 12/14/22 documented as of this encounter
--- OUTSIDE RECORDS SUMMARY | 2025-05-24 13:49 | XMS_ITS | Encounter Summary ---
Author Organization [employer] ([place], [place], [place], [place], [place]) Address [address] [place] [address] Care Team Providers Care Sewing Machine Mechanic Name Role Phone Moira Barba RN Primary Care Provider Jose L ilgrayson Encounter Details Date Type Department Care Team (Late st Contact Info) Description 03/07/2020 Transcribed Document [facility] [place] [facility] [place] [address] ProviderMargaret MD [address] [place] [address] Social History Tobacco Use Types Packs/Day [...] 03/07/2020 5:29 EDT Electronically signed by Ruby [facility] Conversion Hamper Maker Machine Cerner at 10/08/2022 12:03 PM CDT documented in this encounter Plan of Treatment Not on file documented as of this encounter Visit Diagnoses Not on filedocumented in this encounter Care Teams Sewing Machine Mechanic Relationship Specialty Start Date End Date Moira Barba, RN PCP - General 12/14/22 documented as of this encounter
--- OUTSIDE RECORDS SUMMARY | 2025-05-24 13:49 | XMS_ITS | Encounter Summary ---
Author Organization [employer] ([place], [place], [place], [place], [place]) Address [address] [place] [address] Care Team Providers Care Hospital Superintendent Name Role Phone Moira Barba RN Primary Care Provider Jose L ilgrayson Encounter Details Date Type Department Care Team (Late st Contact Info) Description 03/06/2020 Transcribed Document [facility] [place] Medicine [facility] [place] [address] ProviderMargaret MD [address] [place] [address] Social History Tobacco Use Types Packs/Day [...] 20:07 EDT Electronically signed by Ruby [facility] Conversion Composite Technician Cerner at 10/08/2022 11:54 AM CDT documented in this encounter Plan of Treatment Not on file documented as of this encounter Visit Diagnoses Not on filedocumented in this encounter Care Teams Hospital Superintendent Relationship Specialty Start Date End Date Moira Barba, RN PCP - General 12/14/22 documented as of this encounter
--- OUTSIDE RECORDS SUMMARY | 2025-05-24 13:49 | XMS_ITS | Encounter Summary ---
Author Organization [employer] ([place], [place], [place], [place], [place]) Address [address] [place] [address] Care Team Providers Care Manager Of Operations Name Role Phone Moira Barba RN Primary Care Provider Jose L miller Encounter Details Date Type Department Care Team (Late st Contact Info) Description 03/07/2020 Transcribed Document [facility] [place] [facility] [place] [address] ProviderMargaret MD [address] [place] [address] Social History Tobacco Use Types Packs/Day [...] Margaret ProviderMD - 03/07/2020 8:55 AM CDT [place] [id number] INDRA NAVA :2000 Visit Time:03/04/2020 Your Visit [...] Capsule(s) Oral Every 4 Hours Pickup at [facility] Pharmacy Information [facility]: [address] [place], [place] [phone] Take your medications faithfully. Do NOT skip [...] 09/04/2009 Document Revised: 09/30/2019 Document Reviewed: 10/29/2016 [employer] Patient Education ?? 2020 [employer]. Third Trimester of The third trimester is from week 28 through week 40 (months 7 through 9). This trimester is when your unborn baby (fetus) is growing very fast. At the end of the ninth month, the unborn baby is about 20 inches in length. It weighs about 6???10 pounds. Follow these instructions at home: Medicines ??? Take shjo-ywj-xkxpkcp and prescription medicines only as told by [...] 09/02/2010 Document Revised: 09/29/2019 Document Reviewed: 07/14/2017 [employer] Patient Education ?? 2020 [employer]. Emergency Awareness and Preventative Care STROKE is [...] Assistance with quitting is available by contacting 6-363-PCXY-NOW. This is a free resource providing counseling, [...] range between ( 1.0 and 7.0 ) [place] #: 1.30 K/uL -- Normal range between ( 0.24 and 0.82 ) [place] #: 0.00 K/uL -- Normal range between ( 0.04 and 0.54 ) [place] %: 6.4 % -- Normal range between [...] Creatinine, Toxicology: 31.4 mg/dL Patient Name:INDRA NAVA MARCO ANTONIO I have received and understand this information and was given the opportunity to ask questions. Patient/Cork Compounder Name: Patient/Cork Compounder Signature: Relationship to Patient: Clinician/Hospital Cork Compounder Signature: Date: Electronically signed by Alexandru Beltran Conversion Line Construction Superintendent Cerner at 10/08/2022 12:00 PM CDT documented in this encounter Plan of Treatment Not on file documented as of this encounter Visit Diagnoses Not on filedocumented in this encounter Care Teams Manager Of Operations Relationship Specialty Start Date End Date Moira Barba RN PCP - General 12/14/22 documented as of this encounter
--- OUTSIDE RECORDS SUMMARY | 2025-05-24 13:49 | XMS_ITS | Encounter Summary ---
Author Organization [employer] ([place], [place], [place], [place], [place]) Address [address] [place] [address] Care Team Providers Care Oceanology Teacher Name Role Phone Moira Barba RN Primary Care Provider Jose L miller Encounter Details Date Type Department Care Team (Late st Contact Info) Description 03/06/2020 Transcribed Document [facility] [place] [facility] [place] [address] ProviderMargaret MD [address] [place] [address] Social History Tobacco Use Types Packs/Day [...] / 37.0 \ Electronically signed by Ruby, [facility] Conversion Concrete Bucket Unloader Cerner at 10/08/2022 11:58 AM CDT documented in this encounter Plan of Treatment Not on file documented as of this encounter Visit Diagnoses Not on filedocumented in this encounter Care Teams Oceanology Teacher Relationship Specialty Start Date End Date Moira Barba RN PCP - General 12/14/22 documented as of this encounter
--- OUTSIDE RECORDS SUMMARY | 2025-05-24 13:49 | XMS_ITS | Encounter Summary ---
Author Organization [employer] ([place], [place], [place], [place], [place]) Address [address] [place] [address] Care Team Providers Care Doctorate Of Chiropractic Name Role Phone Moira Barba RN Primary Care Provider Jose L miller Encounter Details Date Type Department Care Team (Late st Contact Info) Description 03/04/2020 Transcribed Document [facility] [place] [facility] [place] [address] ProviderMargaret MD [address] [place] [address] Social History Tobacco Use Types Packs/Day [...] Source : Measured Height Entry Format : [place] Height, Feet : 5 ft(Converted to: 152 cm, 60 Inch) Clinical Height : 175.26 cm Height, Inches : 9 Inch(Converted to: 0 ft 9 Inch, 22.86 cm) Weight Source : Standing scale Weight Entry Format : [place] Weight, Pounds : 170 lb Clinical Dosing Weight : 77.27 kg Body Surface Area (BSA) : 1.93 m2 Body Mass Index : 25.2 kg/m2 (HI) [place] Body Weight (IBW) : 65.73 kg ELIO [...] ELIO SNOWDEN RN - 03/04/2020 17:06 EDT [place] Suicide Severity Rating Scale (C-SSRS) CSSRS Past [...] on filedocumented in this encounter Care Teams Doctorate Of Chiropractic Relationship Specialty Start Date End Date Moira Barba RN PCP - General 12/14/22 documented as of this encounter
--- OUTSIDE RECORDS SUMMARY | 2025-05-24 13:49 | XMS_ITS | Encounter Summary ---
Author Organization [employer] ([place], [place], [place], [place], [place]) Address [address] [place] [address] Care Team Providers Care Wood Piler Name Role Phone Moira Barba RN Primary Care Provider Jose L ilgrayson Encounter Details Date Type Department Care Team (Late st Contact Info) Description 03/06/2020 Transcribed Document [facility] [place] Family Medicine [facility] [place] [address] ProviderMargaret MD [address] [place] [address] Social History Tobacco Use Types Packs/Day [...] 03/06/2020 20:07 EDT Electronically signed by Ruby [facility] Conversion Antiquer Cerner at 10/08/2022 12:09 PM CDT documented in this encounter Plan of Treatment Not on file documented as of this encounter Visit Diagnoses Not on filedocumented in this encounter Care Teams Wood Piler Relationship Specialty Start Date End Date Moira Barba, RN PCP - General 12/14/22 documented as of this encounter
--- OUTSIDE RECORDS SUMMARY | 2025-05-24 13:49 | XMS_ITS | Encounter Summary ---
Author Organization [employer] ([place], [place], [place], [place], [place]) Address [address] [place] [address] Care Team Providers Care Manager Bank Name Role Phone Moira Barba RN Primary Care Provider Jose L miller Encounter Details Date Type Department Care Team (Late st Contact Info) Description 03/13/2020 Transcribed Document [facility] [place] Family Medicine [address] [place] [address] ProviderMargaret MD [address] [place] [address] Social History Tobacco Use Types Packs/Day [...] 1 Health Plan: [facility] Policy Number: [id number] Authorization Number: Insurance Primary Name : [facility] Policy Number: [id number] Authorization Status-Primary : Denial - admission Authorized Service Begin Date-Primary : 03/04/2020 EDT Authorization Comments-Primary : Left VM for Dr. Arthur inquiring if she would complete P2P. Historical Authorization Comments-Primary : Comment 1: Called Dr. Arthur office spoke with Kim she stated that Dr. Arthur only works tuesdays. I will call back then to discuss P2P> Emailed to [facility] [place]BILL CEE RN 03/09/2020 11:15) Comment 2: [employer] BH denied for inpt per Allison (KYRIE BROWN RN-Utilization Review 03/07/2020 15:46) Comment 3: Additional clinicals faxed manually per request of Allison at [facility] (Yvonne Duran, Randi-Utilization Review 03/07/2020 08:44) Comment 4: Clinicals faxed manually to [facility] (Yvonne Duran, Randi-Utilization Review 03/05/2020 14:39) BILL CEE RN - 03/13/2020 9:43 EDT Electronically signed by Ruby [facility] Conversion Cigar Sorter Cerner at 10/08/2022 11:55 AM CDT documented in this encounter Plan of Treatment Not on file documented as of this encounter Visit Diagnoses Not on filedocumented in this encounter Care Teams Manager Bank Relationship Specialty Start Date End Date Moira Barba, RANDI PCP - General 12/14/22 documented as of this encounter
--- OUTSIDE RECORDS SUMMARY | 2025-05-24 13:49 | XMS_ITS | Encounter Summary ---
Author Organization [employer] ([place], [place], [place], [place], [place]) Address [address] [place] [address] Care Team Providers Care Gang Miner Name Role Phone Moira Barba RN Primary Care Provider Jose L miller Encounter Details Date Type Department Care Team (Late st Contact Info) Description 03/04/2020 Transcribed Document [facility] [place] [facility] [place] [address] ProviderMargaret MD [address] [place] [address] Social History Tobacco Use Types Packs/Day [...] on filedocumented in this encounter Care Teams Gang Miner Relationship Specialty Start Date End Date Moira Barba RN PCP - General 12/14/22 documented as of this encounter
--- OUTSIDE RECORDS SUMMARY | 2025-05-24 13:49 | XMS_ITS | Encounter Summary ---
Author Organization [employer] ([place], [place], [place], [place], [place]) Address [address] [place] [address] Care Team Providers Care Wood Die Maker Name Role Phone Moira Barba RN Primary Care Provider Jose L miller Encounter Details Date Type Department Care Team (Late st Contact Info) Description 03/13/2020 Transcribed Document [facility] [place] Family Medicine [address] [place] [address] ProviderMargaret MD [address] [place] [address] Social History Tobacco Use Types Packs/Day [...] Health Plan: [facility] Policy Number: [id number] Authorization Number: Insurance Primary Name : [facility] Policy Number: [id number] Authorization Status-Primary : Denial - admission Authorized [...] [facility] [place] (BILL CEE RN 03/09/2020 11:15) Comment 3: [employer] BH denied for inpt per Allison (KYRIE BROWN RN-Utilization Review 03/07/2020 15:46) Comment 4: Additional clinicals faxed manually per request of Allison at [facility] (Yvonne Duran Rn-Utilization Review 03/07/2020 08:44) Comment 5: Clinicals faxed manually to [facility] (Yvonne Duran Rn-Utilization Review 03/05/2020 14:39) BILL CEE RN - 03/13/2020 9:44 EDT Electronically signed by Ruby [facility] Conversion Vice President Business Development Cerner at 10/08/2022 11:54 AM CDT documented in this encounter Plan of Treatment Not on file documented as of this encounter Visit Diagnoses Not on filedocumented in this encounter Care Teams Wood Die Maker Relationship Specialty Start Date End Date Moira Barba RN PCP - General 12/14/22 documented as of this encounter
--- OUTSIDE RECORDS SUMMARY | 2025-05-24 13:49 | XMS_ITS | Encounter Summary ---
Author Organization [employer] ([place], [place], [place], [place], [place]) Address [address] [place] [address] Care Team Providers Care Flat Bed Knitter Name Role Phone Moira Barba RN Primary Care Provider Jose L miller Encounter Details Date Type Department Care Team (Late st Contact Info) Description 03/07/2020 Transcribed Document [facility] [place] [facility] [place] [address] ProviderMargaret MD [address] [place] [address] Social History Tobacco Use Types [...] 09/04/2009 Document Revised: 09/30/2019 Document Reviewed: 10/29/2016 [employer] Patient Education ? 2020 [employer]. Obstetrics and Gynecology Third Trimester of The third trimester is from week 28 through week 40 (months 7 through 9). This trimester is when your unborn baby (fetus) is growing very fast. At the end of the ninth month, the unborn baby is about 20 inches in length. It weighs about 6?10 pounds. Follow these instructions at home: Medicines ??? Take [id number] and prescription medicines only as told by [...] 09/02/2010 Document Revised: 09/29/2019 Document Reviewed: 07/14/2017 [employer] Patient Education ? 2020 [employer] Electronically signed by Dian [facility]tr[facility] Conversion Radiology Practitioner Assistant Cerner at 10/08/2022 12:18 PM CDT documented in this encounter Plan of Treatment Not on file documented as of this encounter Visit Diagnoses Not on filedocumented in this encounter Care Teams Flat Bed Knitter Relationship Specialty Start Date End Date Moira Barba, RN PCP - General 12/14/22 documented as of this encounter
--- OUTSIDE RECORDS SUMMARY | 2025-05-24 13:49 | XMS_ITS | Encounter Summary ---
Author Organization [employer] ([place], [place], [place], [place], [place]) Address [address] [place] [address] Care Team Providers Care Kinder Teacher Name Role Phone Moira Barba RN Primary Care Provider Jose L ilgrayson Encounter Details Date Type Department Care Team (Late st Contact Info) Description 03/04/2020 Transcribed Document [facility] [place] Family [place] [facility] [place] [address] ProviderMargaret MD [address] [place] [address] Social History Tobacco Use Types Packs/Day [...] on filedocumented in this encounter Care Teams Kinder Teacher Relationship Specialty Start Date End Date Moira Barba, RN PCP - General 12/14/22 documented as of this encounter
--- OUTSIDE RECORDS SUMMARY | 2025-05-24 13:49 | XMS_ITS | Encounter Summary ---
Author Organization [employer] ([place], [place], [place], [place], [place]) Address [address] [place] [address] Care Team Providers Care Rubber Splicer Name Role Phone Moira Barba RN Primary Care Provider Jose L ilgrayson Encounter Details Date Type Department Care Team (Late st Contact Info) Description 03/04/2020 Transcribed Document [facility] [place] [address] ProviderMargaret MD [address] [place] [address] Social History Tobacco Use Types Packs/Day [...] 03/06/2020 20:05 EDT Electronically signed by Ruby [facility] Conversion Punch Machine Hand Cerner at 10/08/2022 12:12 PM CDT documented in this encounter Plan of Treatment Not on file documented as of this encounter Visit Diagnoses Not on filedocumented in this encounter Care Teams Rubber Splicer Relationship Specialty Start Date End Date Moira Braba, RN PCP - General 12/14/22 documented as of this encounter
--- OUTSIDE RECORDS SUMMARY | 2025-05-24 13:49 | XMS_ITS | Encounter Summary ---
Author Organization [employer] ([place], [place], [place], [place], [place]) Address [address] [place] [address] Care Team Providers Care Senior Talent Acquisition Specialist Name Role Phone Moira Barba RN Primary Care Provider Jose L miller Encounter Details Date Type Department Care Team (Late st Contact Info) Description 03/12/2020 Transcribed Document [facility] [place] [facility] [place] [address] ProviderMargaret MD [address] [place] [address] Social History Tobacco Use Types Packs/Day [...] for Hospitalization 19 yo who presented from [facility] with contractions and cervical change on [...] Spent on Discharge less than 30 minutes documented in this encounter Plan of Treatment Not on file documented as of this encounter Visit Diagnoses Not on filedocumented in this encounter Care Teams Senior Talent Acquisition Specialist Relationship Specialty Start Date End Date Moira Barba RN PCP - General 12/14/22 documented as of this encounter
--- OUTSIDE RECORDS SUMMARY | 2025-05-24 13:49 | XMS_ITS | Encounter Summary ---
Author Organization [employer] ([place], [place], [place], [place], [place]) Address [address] [place] [address] Care Team Providers Care Machine Heel Sprayer Name Role Phone Moira Barba RN Primary Care Provider Jose L miller Encounter Details Date Type Department Care Team (Late st Contact Info) Description 03/07/2020 Transcribed Document [facility] [place] [address] [place] [address] ProviderMargaret MD [address] [place] [address] Social History Tobacco Use Types Packs/Day [...] Policy Numbers : Insurance 1 Health Plan: [facility] Policy Number: [id number] Authorization Number: Insurance Primary Name : [facility] Policy Number: [id number] Authorization Status-Primary : Awaiting callback Authorized Service Begin Date-Primary : 03/04/2020 EDT Authorization Comments-Primary : Additional clinicals faxed manually per request of Allison at [facility] Historical Authorization Comments-Primary : Comment 1: Clinicals faxed manually to [facility] (Yvonne Duran Rn-Utilization Review 03/05/2020 14:39) Yvonne Duran Rn-Utilization Review - 03/07/2020 8:44 EDT Electronically signed by [facility] Conversion Respite Coordinator Cerner at 10/08/2022 12:02 PM CDT documented in this encounter Plan of Treatment Not on file documented as of this encounter Visit Diagnoses Not on filedocumented in this encounter Care Teams Machine Heel Sprayer Relationship Specialty Start Date End Date Moira Barba, RN PCP - General 12/14/22 documented as of this encounter
--- OUTSIDE RECORDS SUMMARY | 2025-05-24 13:49 | XMS_ITS | Encounter Summary ---
Author Organization [employer] ([place], [place], [place], [place], [place]) Address [address] [place] [address] Care Team Providers Care Alteration Workroom Supervisor Name Role Phone Moira Barba RN Primary Care Provider Jose L miller Encounter Details Date Type Department Care Team (Late st Contact Info) Description 03/06/2020 Transcribed Document [facility] [place] Family [place] [facility] [place] [address] ProviderMargaret MD [address] [place] [address] Social History Tobacco Use Types Packs/Day [...] 5 mg 1 Tab, Oral, At Bedtime [facility] US 03/05/20 Sharma at 31w 1d in [...]
--- OUTSIDE RECORDS SUMMARY | 2025-05-24 13:49 | XMS_ITS | Encounter Summary ---
Author Organization [employer] ([place], [place], [place], [place], [place]) Address [address] [place] [address] Care Team Providers Care Plate Shop Helper Name Role Phone Moira Barba RN Primary Care Provider Jose L miller Encounter Details Date Type Department Care Team (Late st Contact Info) Description 03/07/2020 Transcribed Document [facility] [place] Medicine [address] [place] [address] ProviderMargaret MD [address] [place] [address] Social History Tobacco Use Types Packs/Day [...] Policy Numbers : Insurance 1 Health Plan: [facility] Policy Number: [id number] Authorization Number: Insurance Primary Name : [facility] Policy Number: [id number] Authorization Status-Primary : Denial - admission Authorized Service Begin Date-Primary : 03/04/2020 EDT Authorization Comments-Primary : [employer] denied for inpt per Allison Historical Authorization Comments-Primary : Comment 1: Additional clinicals faxed manually per request of Allison at [facility] (Yvonne Duran, An-Utilization Review 03/07/2020 08:44) Comment 2: Clinicals faxed manually to [facility] (Yvonne Duran, An-Utilization Review 03/05/2020 14:39) KYRIE BROWN RN-Utilization Review - 03/07/2020 15:46 EDT Electronically signed by [facility] Conversion Sampling Expert Cerner at 10/08/2022 12:04 PM CDT documented in this encounter Plan of Treatment Not on file documented as of this encounter Visit Diagnoses Not on filedocumented in this encounter Care Teams Plate Shop Helper Relationship Specialty Start Date End Date Moira Barba, RN PCP - General 12/14/22 documented as of this encounter
--- OUTSIDE RECORDS SUMMARY | 2025-05-24 13:49 | XMS_ITS | Encounter Summary ---
Author Organization [employer] ([place], [place], [place], [place], [place]) Address [address] [place] [address] Care Team Providers Care Byproducts Extractor Name Role Phone Moira Barba RN Primary Care Provider Jose L miller Encounter Details Date Type Department Care Team (Late st Contact Info) Description 03/07/2020 Transcribed Document [facility] [place] [facility] [address] ProviderMargaret MD [address] [place] [address] Social History Tobacco Use Types Packs/Day [...] / 37.0 \ Electronically signed by Ruby [facility] Conversion Director Epidemiology Cerner at 10/08/2022 11:57 AM CDT documented in this encounter Plan of Treatment Not on file documented as of this encounter Visit Diagnoses Not on filedocumented in this encounter Care Teams Byproducts Extractor Relationship Specialty Start Date End Date Moira Barba, RANDI PCP - General 12/14/22 documented as of this encounter
--- OUTSIDE RECORDS SUMMARY | 2025-05-24 13:49 | XMS_ITS | Encounter Summary ---
Author Organization [employer] ([place], [place], [place], [place], [place]) Address [address] [place] [address] Care Team Providers Care Certified Novell Engineer Name Role Phone Moira Barba RN Primary Care Provider Jose L miller Encounter Details Date Type Department Care Team (Late st Contact Info) Description 03/07/2020 Transcribed Document [facility] [place] Family Medicine [facility] [place] [address] ProviderMargaret MD [address] [place] [address] Social History Tobacco Use Types Packs/Day [...] filedocumented in this encounter Care Teams Certified Novell Engineer Relationship Specialty Start Date End Date Moira Barba, RN PCP - General 12/14/22 documented as of this encounter
--- OUTSIDE RECORDS SUMMARY | 2025-05-24 13:49 | XMS_ITS | Encounter Summary ---
Author Organization [employer] ([place], [place], [place], [place], [place]) Address [address] [place] [address] Care Team Providers Care Maintenance Job Titles Name Role Phone Moira Barba RN Primary Care Provider Jose L miller Encounter Details Date Type Department Care Team (Late st Contact Info) Description 03/07/2020 Transcribed Document [facility] [place] Family Medicine [address] [place] [address] ProviderMargaret MD [address] [place] [address] Social History Tobacco Use Types Packs/Day [...] 03/07/2020 8:54 EDT Electronically signed by Ruby [facility] Conversion Precision Optics Technician Cerner at 10/08/2022 11:56 AM CDT documented in this encounter Plan of Treatment Not on file documented as of this encounter Visit Diagnoses Not on filedocumented in this encounter Care Teams Maintenance Job Titles Relationship Specialty Start Date End Date Moira Barba RN PCP - General 12/14/22 documented as of this encounter
--- OUTSIDE RECORDS SUMMARY | 2025-05-24 13:49 | XMS_ITS | Encounter Summary ---
Author Organization [employer] ([place], [place], [place], [place], [place]) Address [address] [place] [address] Care Team Providers Care Automatic Drilling Machine Operator Name Role Phone Moira Barba RN Primary Care Provider Jose L miller Encounter Details Date Type Department Care Team (Late st Contact Info) Description 03/13/2020 Transcribed Document [facility] [place] Family Medicine [address] [place] [address] ProviderMargaret MD [address] [place] [address] Social History Tobacco Use Types Packs/Day [...] [facility] Policy Number: [id number] Authorization Number: Insurance Primary Name : [facility] Policy Number: [id number] Authorization Status-Primary : Denial - admission Authorized Service Begin Date-Primary : 03/04/2020 EDT Authorization Comments-Primary : Per Dr. Arthur she will complete this P2P left VM for [facility] to setup P2P for 03/14/2020 @ [...] then to discuss P2P> [place] [facility] [place] 03/09/2020 11:15) Comment 5: [employer] BH denied for inpt per Allison (KYRIE BROWN RN-Utilization Review 03/07/2020 15:46) Comment 6: Additional clinicals faxed manually per request of Allison at [facility] (Yvonne Duran Rn-Utilization Review 03/07/2020 08:44) Comment 7: Clinicals faxed manually to [facility] (Yvonne Duran Rn-Utilization Review 03/05/2020 14:39) BILL CEE RN - 03/13/2020 10:15 EDT Electronically signed by [facility] Conversion Pharmacy Informatics Specialist Cerner at 10/08/2022 11:52 AM CDT documented in this encounter Plan of Treatment Not on file documented as of this encounter Visit Diagnoses Not on filedocumented in this encounter Care Teams Automatic Drilling Machine Operator Relationship Specialty Start Date End Date Moira Barba, RANDI PCP - General 12/14/22 documented as of this encounter
--- OUTSIDE RECORDS SUMMARY | 2025-05-24 13:49 | XMS_ITS | Encounter Summary ---
Author Organization [employer] ([place], [place], [place], [place], [place]) Address [address] [place] [address] Care Team Providers Care Pre Billing Specialist Name Role Phone Moira Barba RN Primary Care Provider Jose L miller Encounter Details Date Type Department Care Team (Late st Contact Info) Description 03/09/2020 Transcribed Document [facility] [place] Family [place] [address] [place] [address] ProviderMargaret MD [address] [place] [address] Social History Tobacco Use Types Packs/Day [...] Policy Numbers : Insurance 1 Health Plan: [facility] Policy Number: [id number] Authorization Number: Insurance Primary Name : [facility] Policy Number: [id number] Authorization Status-Primary : Denial - admission Authorized Service Begin Date-Primary : 03/04/2020 EDT Authorization Comments-Primary : Called Dr. Case office spoke with Kim she stated that Dr. Arthur only works tuesdays. I will call back then to discuss P2P> Emailed to [facility] [place] Historical Authorization Comments-Primary : Comment 1: [employer] BH denied for inpt per Allison (KYRIE BROWN, RN-Utilization Review 03/07/2020 15:46) Comment 2: Additional clinicals faxed manually per request of Allison at [facility] (Yvonne Duran, An-Utilization Review 03/07/2020 08:44) Comment 3: Clinicals faxed manually to [facility] (Yvonne Duran, Rn-Utilization Review 03/05/2020 14:39) BILL CEE RN - 03/09/2020 11:15 EDT Electronically signed by Ruby [facility] Conversion Solid Waste Collector Cerner at 10/08/2022 12:02 PM CDT documented in this encounter Plan of Treatment Not on file documented as of this encounter Visit Diagnoses Not on filedocumented in this encounter Care Teams Pre Billing Specialist Relationship Specialty Start Date End Date Moira Barba RN PCP - General 12/14/22 documented as of this encounter
[2025-05-24 13:54] LABS: Microscopic, Urine URINE MICROSCOPIC (MICROSCOPIC)
[2025-05-24 14:00] VITALS: BP 122/76; PULSE 98; RESP 17; TEMP 36.8; O2SAT 98; BMI 26.9
[2025-05-24 14:09] LABS: Bilirubin,Urine Negative (Negative); Color,Urine YELLOW (Yellow); Glucose,Urine (UA) Negative (Negative); Ketones,Urine Negative (Negative); Leukocyte Esterase,Urine Negative (Negative); PH,Urine 7.0 (5.0-8.5); Protein,Urine Negative (Negative); Specific Gravity, Urine 1.010 (1.005-1.030); Urobilinogen,Urine 0.2 EU/dl (0.2)
[2025-05-24 14:41] LABS: Bacteria,Urine Trace /lpf; WBC,Urine Occasional #/hpf (0-3)
[2025-05-24] MEDS: LACTATED RINGERS 1000ML 1,000 ML 999 ML IV (15:06)
== END 2025-05-24 16:20 | disposition home or self-care (01) ==
LOC: OBOUT 13:41 → OB 13:42
PROVIDERS: PCP Nurse Practitioner; Visit Provider Nurse Practitioner Obstetrics & Gynecology
DX: O47.03 False labor before 37 completed weeks of gestation, third trimester (principal); Z3A.36 36 weeks gestation of pregnancy
CPT/HCPCS: 81001; 99213; J7120

== ENCOUNTER 2025-06-06 11:50 | Outpatient (CLI) | payer OTHER, SELFPAY ==
[2025-06-06 09:08] VITALS: BMI 27.6
--- OUTSIDE RECORDS SUMMARY | 2025-06-06 11:53 | XMS_ITS | Encounter Summary ---
Author Organization [employer] ([place], [place], [place], [place], [place]) Address [address] [place] [address] Care Team Providers Care Manager Media Name Role Phone Moira Barba RN Primary Care Provider Jose L ilgrayson Encounter Details Date Type Department Care Team (Late st Contact Info) Description 03/05/2020 Transcribed Document [facility] [place] Family Medicine [facility] [place] [address] ProviderMargaret MD [address] [place] [address] Social History Tobacco Use Types Packs/Day [...] 03/06/2020 20:06 EDT Electronically signed by Ruby [facility] Conversion Communications Executive Cerner at 10/08/2022 12:12 PM CDT documented in this encounter Plan of Treatment Not on file documented as of this encounter Visit Diagnoses Not on filedocumented in this encounter Care Teams Manager Media Relationship Specialty Start Date End Date Moira Barba, RN PCP - General 12/14/22 documented as of this encounter
--- OUTSIDE RECORDS SUMMARY | 2025-06-06 11:53 | XMS_ITS | Encounter Summary ---
Author Organization [employer] ([place], [place], [place], [place], [place]) Address [address] [place] [address] Care Team Providers Care Master Certified Rv Technician Name Role Phone Moira Barba RN Primary Care Provider Jose L miller Encounter Details Date Type Department Care Team (Late st Contact Info) Description 03/13/2020 Transcribed Document [facility] [place] Family Medicine [address] [place] [address] ProviderMargaret MD [address] [place] [address] Social History Tobacco Use Types Packs/Day [...] Policy Numbers : Insurance 1 Health Plan: [facility] Policy Number: [id number] Authorization Number: Insurance Primary Name : [facility] Policy Number: [id number] Authorization Status-Primary : Denial - admission Authorized [...] back then to discuss P2P> Emailed to [facility] [place] (BILL CEE RN 03/09/2020 11:15) Comment 4: [employer] BH denied for inpt per Allison (KYRIE BROWN RN-Utilization Review 03/07/2020 15:46) Comment 5: Additional clinicals faxed manually per request of Allison at [facility] (Yvonne Duran Rn-Utilization Review 03/07/2020 08:44) Comment 6: Clinicals faxed manually to [facility] (Yvonne Duran Rn-Utilization Review 03/05/2020 14:39) BILL CEE RN - 03/13/2020 10:00 EDT Electronically signed by Ruby [facility] Conversion Force Variation Equipment Tender Gloria at 10/08/2022 12:11 PM CDT documented in this encounter Plan of Treatment Not on file documented as of this encounter Visit Diagnoses Not on filedocumented in this encounter Care Teams Master Certified Rv Technician Relationship Specialty Start Date End Date Moira Barba RN PCP - General 12/14/22 documented as of this encounter
--- OUTSIDE RECORDS SUMMARY | 2025-06-06 11:53 | XMS_ITS | Encounter Summary ---
Author Organization [employer] ([place], [place], [place], [place], [place]) Address [address] [place] [address] Care Team Providers Care Smearer Name Role Phone Moira Barba RN Primary Care Provider Jose L miller Encounter Details Date Type Department Care Team (Late st Contact Info) Description 03/06/2020 Transcribed Document [facility] [place] Family Medicine [facility] [place] [address] ProviderMargaret MD [address] [place] [address] Social History Tobacco Use Types Packs/Day [...] / 37.0 \ Electronically signed by Ruby, [facility] Conversion Box Toe Buffer Cerner at 10/08/2022 11:58 AM CDT documented in this encounter Plan of Treatment Not on file documented as of this encounter Visit Diagnoses Not on filedocumented in this encounter Care Teams Smearer Relationship Specialty Start Date End Date Moira Barba RN PCP - General 12/14/22 documented as of this encounter
--- OUTSIDE RECORDS SUMMARY | 2025-06-06 11:53 | XMS_ITS | Encounter Summary ---
Author Organization [employer] ([place], [place], [place], [place], [place]) Address [address] [place] [address] Care Team Providers Care Control Supervisor Name Role Phone Moira Barba RN Primary Care Provider Jose L miller Encounter Details Date Type Department Care Team (Late st Contact Info) Description 03/05/[address] [facility] [place] Family Medicine [address] [place] [address] ProviderMargaret MD [address] [place] [address] Social History Tobacco Use Types Packs/Day [...] Numbers : Insurance 1 Health Plan: [facility] Policy Number: [id number] Authorization Number: Insurance Primary Name : [facility] Policy Number: [id number] Authorization Status-Primary : Awaiting callback Authorized Service Begin Date-Primary : 03/04/2020 EDT Authorization Comments-Primary : Clinicals faxed manually to [facility] Historical Authorization Comments-Primary : No Authorization Comments Found Yvonne Duran, An-Utilization Review - 03/05/2020 14:39 EDT Electronically signed by Ruby [facility] Conversion Electric Needle Specialist Cerner at 10/08/2022 12:17 PM CDT documented in this encounter Plan of Treatment Not on file documented as of this encounter Visit Diagnoses Not on filedocumented in this encounter Care Teams Control Supervisor Relationship Specialty Start Date End Date Moira Barba, RN PCP - General 12/14/22 documented as of this encounter
--- OUTSIDE RECORDS SUMMARY | 2025-06-06 11:53 | XMS_ITS | Encounter Summary ---
Author Organization [employer] ([place], [place], [place], [place], [place]) Address [address] [place] [address] Care Team Providers Care Tank House Operator Helper Name Role Phone Moira Barba RN Primary Care Provider Jose L ilgrayson Encounter Details Date Type Department Care Team (Late st Contact Info) Description 03/05/2020 Transcribed Document [facility] [place] [facility] [place] [address] ProviderMargaret MD [address] [place] [address] Social History Tobacco Use Types Packs/Day [...] on filedocumented in this encounter Care Teams Tank House Operator Helper Relationship Specialty Start Date End Date Moira Barba, RN PCP - General 12/14/22 documented as of this encounter
--- OUTSIDE RECORDS SUMMARY | 2025-06-06 11:53 | XMS_ITS | Encounter Summary ---
Author Organization [employer] ([place], [place], [place], [place], [place]) Address [address] [place] [address] Care Team Providers Care Cook Helper Meat Name Role Phone Moira Barba RN Primary Care Provider Jose L miller Encounter Details Date Type Department Care Team (Late st Contact Info) Description 03/05/2020 Transcribed Document [facility] [place] [facility] [place] [address] ProviderMargaret MD [address] [place] [address] Social History Tobacco Use Types Packs/Day [...] 31+2 weeks with PTL. She presented to [facility] with abdominal pain. She was [...] qualifying data Social History Document (if any) Cultural/Rastafarian beliefs that would affect medical care: Lab Results MAR 04 18:35 \ 13.1 / H 18.7 314 / 39.2 \ Electronically signed by Ruby, [facility] Conversion Portfolio Accountant Cerner at 10/08/2022 11:57 AM CDT documented in this encounter Plan of Treatment Not on file documented as of this encounter Visit Diagnoses Not on filedocumented in this encounter Care Teams Cook Helper Meat Relationship Specialty Start Date End Date Moira Barba RN PCP - General 12/14/22 documented as of this encounter
--- OUTSIDE RECORDS SUMMARY | 2025-06-06 11:53 | XMS_ITS | Encounter Summary ---
Author Organization [employer] ([place], [place], [place], [place], [place]) Address [address] [place] [address] Care Team Providers Care Patient Access Representative Name Role Phone Moira Barba RN Primary Care Provider Jose L miller Encounter Details Date Type Department Care Team (Late st Contact Info) Description 03/15/2020 Transcribed Document [facility] [place] Family Medicine [address] [place] [address] ProviderMargaret MD [address] [place] [address] Social History Tobacco Use Types Packs/Day [...] Plan: [facility] Policy Number: [id number] Authorization Number: Insurance Primary Name : [facility] Policy Number: [id number] Authorization Status-Primary : Admit approved Reference Number-Primary : [id number] Number of Days Authorized-Primary : 3 Day(s) Authorized Service Begin Date-Primary : 03/04/2020 EDT Authorized Service End Date-Primary : 03/07/2020 EDT Historical Authorization Comments-Primary : Comment 1: Per call to [facility] approved all days after p2P completed. (BILL CEE RN 03/15/2020 11:39) Comment 2: Left VM for Allison inquiring of P2P result. (BILL CEE RN 03/14/2020 16:18) Comment 3: Per Dr. Arthur she will complete this P2P left VM for [facility] to setup P2P for 03/14/2020 @ [...] to discuss P2P> Emailed to [facility] (BILL CEE RN 03/09/2020 11:15) Comment 8: [employer] BH denied for inpt per Allison (KYRIE BROWN RN-Utilization Review 03/07/2020 15:46) Comment 9: Additional clinicals faxed manually per request of Allison at [facility] (Yvonne Duran Rn-Utilization Review 03/07/2020 08:44) Comment 10: Clinicals faxed manually to [facility] (Yvonne Duran Rn-Utilization Review 03/05/2020 14:39) BILL CEE RN - 03/15/2020 11:40 EDT Electronically signed by Ruby [facility] Conversion Radio Electrician Cerner at 10/08/2022 12:06 PM CDT documented in this encounter Plan of Treatment Not on file documented as of this encounter Visit Diagnoses Not on filedocumented in this encounter Care Teams Patient Access Representative Relationship Specialty Start Date End Date Moira Barba, RN PCP - General 12/14/22 documented as of this encounter
--- OUTSIDE RECORDS SUMMARY | 2025-06-06 11:53 | XMS_ITS | Encounter Summary ---
Author Organization [employer] ([place], [place], [place], [place], [place]) Address [address] [place] [address] Care Team Providers Care Call Center Coordinator Name Role Phone Moira Barba RN Primary Care Provider Jose L miller Encounter Details Date Type Department Care Team (Late st Contact Info) Description 03/04/2020 Transcribed Document [facility] [place] [facility] [place] [address] ProviderMargaret MD [address] [place] [address] Social History Tobacco Use Types Packs/Day [...] Source : Measured Height Entry Format : [place] Height, Feet : 5 ft(Converted to: 152 cm, 60 Inch) Clinical Height : 175.26 cm Height, Inches : 9 Inch(Converted to: 0 ft 9 Inch, 22.86 cm) Weight Source : Standing scale Weight Entry Format : [place] Weight, Pounds : 170 lb Clinical Dosing Weight : 77.27 kg Body Surface Area (BSA) : 1.93 m2 Body Mass Index : 25.2 kg/m2 (HI) [place] Body Weight (IBW) : 65.73 kg ELIO [...] ELIO SNOWDEN RN - 03/04/2020 17:06 EDT [place] Suicide Severity Rating Scale (C-SSRS) CSSRS Past [...] on filedocumented in this encounter Care Teams Call Center Coordinator Relationship Specialty Start Date End Date Moira Barba RN PCP - General 12/14/22 documented as of this encounter
--- OUTSIDE RECORDS SUMMARY | 2025-06-06 11:53 | XMS_ITS | Encounter Summary ---
Author Organization [employer] ([place], [place], [place], [place], [place]) Address [address] [place] [address] Care Team Providers Care Manager Transportation Planning Name Role Phone Moira Barba RN Primary Care Provider Jose L ilgrayson Encounter Details Date Type Department Care Team (Late st Contact Info) Description 03/06/2020 Transcribed Document [facility] [place] [facility] [place] [address] ProviderMargaret MD [address] [place] [address] Social History Tobacco Use Types Packs/Day [...] filedocumented in this encounter Care Teams Manager Transportation Planning Relationship Specialty Start Date End Date Moira Barba, RN PCP - General 12/14/22 documented as of this encounter
--- OUTSIDE RECORDS SUMMARY | 2025-06-06 11:53 | XMS_ITS | Encounter Summary ---
Author Organization [employer] ([place], [place], [place], [place], [place]) Address [address] [place] [address] Care Team Providers Care Drum Sprayer Name Role Phone Moira Barba RN Primary Care Provider Jose L miller Encounter Details Date Type Department Care Team (Late st Contact Info) Description 03/07/2020 Transcribed Document [facility] [place] [address] [place] [address] ProviderMargaret MD [address] [place] [address] Social History Tobacco Use Types Packs/Day [...] 03/07/2020 8:54 EDT Electronically signed by Ruby [facility] Conversion Banking Representative Cerner at 10/08/2022 11:56 AM CDT documented in this encounter Plan of Treatment Not on file documented as of this encounter Visit Diagnoses Not on filedocumented in this encounter Care Teams Drum Sprayer Relationship Specialty Start Date End Date Moira Barba RN PCP - General 12/14/22 documented as of this encounter
--- OUTSIDE RECORDS SUMMARY | 2025-06-06 11:53 | XMS_ITS | Encounter Summary ---
Author Organization [employer] ([place], [place], [place], [place], [place]) Address [address] [place] [address] Care Team Providers Care Fiction Writer Name Role Phone Moira Barba RN Primary Care Provider Jose L ilgrayson Encounter Details Date Type Department Care Team (Late st Contact Info) Description 03/05/2020 Transcribed Document [facility] [place] [place] Family Medicine [facility] [place] [address] ProviderMargaret MD [address] [place] [address] Social History Tobacco Use Types Packs/Day [...] 03/06/2020 20:06 EDT Electronically signed by Ruby [facility] Conversion Disability Aide Cerner at 10/08/2022 12:02 PM CDT documented in this encounter Plan of Treatment Not on file documented as of this encounter Visit Diagnoses Not on filedocumented in this encounter Care Teams Fiction Writer Relationship Specialty Start Date End Date Moira Barba, RN PCP - General 12/14/22 documented as of this encounter
--- OUTSIDE RECORDS SUMMARY | 2025-06-06 11:53 | XMS_ITS | Referral Summary ---
Author Organization [employer] ([place], [place], [place], [place], [place]) Address [address] [place] [address] Care Team Providers Care Bench Jeweler Name Role Phone Moira Barba RN Primary [...] Date Jacob rded Speak language other than Korean at home Not on file 07/10/2023 Want [...] Plan of Treatment Not on file Insurance [facility] Care Teams Bench Jeweler Relationship Specialty Start Date End Date Moira Barba RN PCP - General 12/14/22
--- OUTSIDE RECORDS SUMMARY | 2025-06-06 11:53 | XMS_ITS | Encounter Summary ---
Author Organization [employer] ([place], [place], [place], [place], [place]) Address [address] [place] [address] Care Team Providers Care Sealer Operator Name Role Phone Moira Barba RN Primary Care Provider Jose L ilgrayson Encounter Details Date Type Department Care Team (Late st Contact Info) Description 03/07/2020 Transcribed Document [facility] [place] [facility] [place] [address] ProviderMargaret MD [address] [place] [address] Social History Tobacco Use Types Packs/Day [...] 5:29 EDT Electronically signed by Ruby [facility] Conversion Furniture Upholsterer Apprentice Cerner at 10/08/2022 12:03 PM CDT documented in this encounter Plan of Treatment Not on file documented as of this encounter Visit Diagnoses Not on filedocumented in this encounter Care Teams Sealer Operator Relationship Specialty Start Date End Date Moira Barba, RN PCP - General 12/14/22 documented as of this encounter
--- OUTSIDE RECORDS SUMMARY | 2025-06-06 11:53 | XMS_ITS | Encounter Summary ---
Author Organization [employer] ([place], [place], [place], [place], [place]) Address [address] [place] [address] Care Team Providers Care Conservation Scientist Name Role Phone Moira Barba RN Primary Care Provider Jose L miller Encounter Details Date Type Department Care Team (Late st Contact Info) Description 03/07/2020 Transcribed Document [facility] [place] Family Medicine [address] [place] [address] ProviderMargaret MD [address] [place] [address] Social History Tobacco Use Types Packs/Day [...] Policy Numbers : Insurance 1 Health Plan: [facility] Policy Number: [id number] Authorization Number: Insurance Primary Name : [facility] Policy Number: [id number] Authorization Status-Primary : Denial - admission Authorized Service Begin Date-Primary : 03/04/2020 EDT Authorization Comments-Primary : [employer] denied for inpt per Allison Historical Authorization Comments-Primary : Comment 1: Additional clinicals faxed manually per request of Allison at [facility] (Yvonne Duran, An-Utilization Review 03/07/2020 08:44) Comment 2: Clinicals faxed manually to [facility] (Yvonne Duran, An-Utilization Review 03/05/2020 14:39) KYRIE BROWN RN-Utilization Review - 03/07/2020 15:46 EDT Electronically signed by [facility] Conversion Material Worker Cerner at 10/08/2022 12:04 PM CDT documented in this encounter Plan of Treatment Not on file documented as of this encounter Visit Diagnoses Not on filedocumented in this encounter Care Teams Conservation Scientist Relationship Specialty Start Date End Date Moira Barba, RN PCP - General 12/14/22 documented as of this encounter
--- OUTSIDE RECORDS SUMMARY | 2025-06-06 11:53 | XMS_ITS | Encounter Summary ---
Author Organization [employer] ([place], [place], [place], [place], [place]) Address [address] [place] [address] Care Team Providers Care Trouble Lineman Name Role Phone Moira Barba RN Primary Care Provider Jose L miller Encounter Details Date Type Department Care Team (Late st Contact Info) Description 03/07/2020 Transcribed Document [facility] [place] [facility] [place] [address] ProviderMargaret MD [address] [place] [address] Social History Tobacco Use Types Packs/Day [...] / 37.0 \ Electronically signed by Ruby [facility] Conversion Bottle Washing Machine Operator Cerner at 10/08/2022 11:57 AM CDT documented in this encounter Plan of Treatment Not on file documented as of this encounter Visit Diagnoses Not on filedocumented in this encounter Care Teams Trouble Lineman Relationship Specialty Start Date End Date Moira Barba, RANDI PCP - General 12/14/22 documented as of this encounter
--- OUTSIDE RECORDS SUMMARY | 2025-06-06 11:53 | XMS_ITS | Encounter Summary ---
Author Organization [employer] ([place], [place], [place], [place], [place]) Address [address] [place] [address] Care Team Providers Care Epic Stork Specialists Name Role Phone Moira Barba RN Primary Care Provider Jose L ilgrayson Encounter Details Date Type Department Care Team (Late st Contact Info) Description 03/06/2020 Transcribed Document [facility] [place] [place] Family Medicine [facility] [place] [address] ProviderMargaret MD [address] [place] [address] Social History Tobacco Use Types Packs/Day [...] 03/06/2020 20:06 EDT Electronically signed by Ruby [facility] Conversion School Inspector Cerner at 10/08/2022 12:15 PM CDT documented in this encounter Plan of Treatment Not on file documented as of this encounter Visit Diagnoses Not on filedocumented in this encounter Care Teams Epic Stork Specialists Relationship Specialty Start Date End Date Moira Barba, RN PCP - General 12/14/22 documented as of this encounter
--- OUTSIDE RECORDS SUMMARY | 2025-06-06 11:53 | XMS_ITS | Encounter Summary ---
Author Organization [employer] ([place], [place], [place], [place], [place]) Address [address] [place] [address] Care Team Providers Care Television Technician Name Role Phone Moira Barba RN Primary Care Provider Jose L ilgrayson Encounter Details Date Type Department Care Team (Late st Contact Info) Description 03/06/2020 Transcribed Document [facility] [place] [facility] [place] [address] ProviderMargaret MD [address] [place] [address] Social History Tobacco Use Types Packs/Day [...] by Ruby [facility] Conversion Facilities Maintenance Worker Cerner at 10/08/2022 12:09 PM CDT documented in this encounter Plan of Treatment Not on file documented as of this encounter Visit Diagnoses Not on filedocumented in this encounter Care Teams Television Technician Relationship Specialty Start Date End Date Moira Barba, RN PCP - General 12/14/22 documented as of this encounter
--- OUTSIDE RECORDS SUMMARY | 2025-06-06 11:53 | XMS_ITS | Encounter Summary ---
Author Organization [employer] ([place], [place], [place], [place], [place]) Address [address] [place] [address] Care Team Providers Care Carpet Floor Layer Apprentice Name Role Phone Moira Barba RN Primary Care Provider Jose L miller Encounter Details Date Type Department Care Team (Late st Contact Info) Description 03/07/2020 Transcribed Document [facility] [place] [address] [place] [address] ProviderMargaret MD [address] [place] [address] Social History Tobacco Use Types Packs/Day [...] Policy Numbers : Insurance 1 Health Plan: [facility] Policy Number: [id number] Authorization Number: Insurance Primary Name : [facility] Policy Number: [id number] Authorization Status-Primary : Awaiting callback Authorized Service Begin Date-Primary : 03/04/2020 EDT Authorization Comments-Primary : Additional clinicals faxed manually per request of Allison at [facility] Historical Authorization Comments-Primary : Comment 1: Clinicals faxed manually to [facility] (Yvonne Duran Rn-Utilization Review 03/05/2020 14:39) Yvonne Duran Rn-Utilization Review - 03/07/2020 8:44 EDT Electronically signed by [facility] Conversion Target Developer Cerner at 10/08/2022 12:02 PM CDT documented in this encounter Plan of Treatment Not on file documented as of this encounter Visit Diagnoses Not on filedocumented in this encounter Care Teams Carpet Floor Layer Apprentice Relationship Specialty Start Date End Date Moira Barba, RN PCP - General 12/14/22 documented as of this encounter
--- OUTSIDE RECORDS SUMMARY | 2025-06-06 11:53 | XMS_ITS | Encounter Summary ---
Author Organization [employer] ([place], [place], [place], [place], [place]) Address [address] [place] [address] Care Team Providers Care Chemical Cell Changer Name Role Phone Moira Barba RN Primary Care Provider Jose L miller Encounter Details Date Type Department Care Team (Late st Contact Info) Description 03/07/2020 Transcribed Document [facility] [place] [facility] [place] [address] ProviderMargaret MD [address] [place] [address] Social History Tobacco Use Types Packs/Day [...] Margaret ProviderMD - 03/07/2020 8:55 AM CDT [place] [id number] INDRA NAVA :2000 Visit Time:03/04/2020 Your Visit [...] Capsule(s) Oral Every 4 Hours Pickup at [facility] Pharmacy Information [facility]: [address] [place], [place] [phone] Take your medications faithfully. Do NOT skip [...] 09/04/2009 Document Revised: 09/30/2019 Document Reviewed: 10/29/2016 [employer] Patient Education ?? 2020 WaveCheck. Third Trimester of The third trimester is from week 28 through week 40 (months 7 through 9). This trimester is when your unborn baby (fetus) is growing very fast. At the end of the ninth month, the unborn baby is about 20 inches in length. It weighs about 6???10 pounds. Follow these instructions at home: Medicines ??? Take bcug-hqa-ndtfneh and prescription medicines only as told by [...] 09/02/2010 Document Revised: 09/29/2019 Document Reviewed: 07/14/2017 [employer] Patient Education ?? 2020 WaveCheck. Emergency Awareness and Preventative Care STROKE is [...] Assistance with quitting is available by contacting 9-304-ZIKL-NOW. This is a free resource providing counseling, [...] range between ( 1.0 and 7.0 ) [place] #: 1.30 K/uL -- Normal range between ( 0.24 and 0.82 ) [place]os #: 0.00 K/uL -- Normal range between ( 0.04 and 0.54 ) [place] %: 6.4 % -- Normal range between [...] was given the opportunity to ask questions. Patient/Pediatric Oncologist Name: Patient/Pediatric Oncologist Signature: Relationship to Patient: Clinician/Hospital Pediatric Oncologist Signature: Date: documented in this encounter Plan of Treatment Not on file documented as of this encounter Visit Diagnoses Not on filedocumented in this encounter Care Teams Chemical Cell Changer Relationship Specialty Start Date End Date Moira Barba RN PCP - General 12/14/22 documented as of this encounter
--- OUTSIDE RECORDS SUMMARY | 2025-06-06 11:53 | XMS_ITS | Encounter Summary ---
Author Organization [employer] ([place], [place], [place], [place], [place]) Address [address] [place] [address] Care Team Providers Care Core Oven Tender Name Role Phone Moira Barba RN Primary Care Provider Jose L miller Encounter Details Date Type Department Care Team (Late st Contact Info) Description 03/12/2020 Transcribed Document [facility] [place] [facility] [place] [address] ProviderMargaret MD [address] [place] [address] Social History Tobacco Use Types Packs/Day [...] for Hospitalization 19 yo who presented from [facility] with contractions and cervical change on [...] Disposition Home Discharge Follow Up CASE, MD [id number]-OBG - Within 1 week Discharge Medications (2) [...] than 30 minutes Electronically signed by Ruby [facility] Conversion Sales Department Clerk Cerner at 10/08/2022 12:04 PM CDT documented in this encounter Plan of Treatment Not on file documented as of this encounter Visit Diagnoses Not on filedocumented in this encounter Care Teams Core Oven Tender Relationship Specialty Start Date End Date Moira Barba RN PCP - General 12/14/22 documented as of this encounter
--- OUTSIDE RECORDS SUMMARY | 2025-06-06 11:53 | XMS_ITS | Encounter Summary ---
Author Organization [employer] ([place], [place], [place], [place], [place]) Address [address] [place] [address] Care Team Providers Care Software Test Engineer Name Role Phone Moira Barba RN Primary Care Provider Jose L ilgrayson Encounter Details Date Type Department Care Team (Late st Contact Info) Description 03/04/2020 Transcribed Document [facility] [place] [facility] [place] [address] ProviderMargaret MD [address] [place] [address] Social History Tobacco Use Types Packs/Day [...] 03/06/2020 20:05 EDT Electronically signed by Ruby [facility] Conversion Hotel Service Manager Cerner at 10/08/2022 12:10 PM CDT documented in this encounter Plan of Treatment Not on file documented as of this encounter Visit Diagnoses Not on filedocumented in this encounter Care Teams Software Test Engineer Relationship Specialty Start Date End Date Moira Barba, RN PCP - General 12/14/22 documented as of this encounter
--- OUTSIDE RECORDS SUMMARY | 2025-06-06 11:53 | XMS_ITS | Encounter Summary ---
Author Organization [employer] ([place], [place], [place], [place], [place]) Address [address] [place] [address] Care Team Providers Care Consulting Project Director Name Role Phone Moira Barba RN Primary Care Provider Jose L miller Encounter Details Date Type Department Care Team (Late st Contact Info) Description 03/14/2020 Transcribed Document [facility] [place] [facility] [place] [address] [place] [address] ProviderMargaret MD [address] [place] [address] Social History Tobacco Use Types Packs/Day [...] Policy Numbers : Insurance 1 Health Plan: [facility] Policy Number: [id number] Authorization Number: Insurance Primary Name : [facility] Policy Number: [id number] Authorization Status-Primary : Denial - admission Authorized Service Begin Date-Primary : 03/04/2020 EDT Authorization Comments-Primary : Left VM for Allison inquiring of P2P result. Historical Authorization Comments-Primary : Comment 1: Per Dr. Arthur she will complete this P2P left VM for [facility] to setup P2P [...] then to discuss P2P> Emailed to [facility] [place] (BILL CEE RN 03/09/2020 11:15) Comment 6: [employer] BH denied for inpt per Allison (KYRIE BROWN RN-Utilization Review 03/07/2020 15:46) Comment 7: Additional clinicals faxed manually per request of Allison at [facility] (Yvonne Duran Rn-Utilization Review 03/07/2020 08:44) Comment 8: Clinicals faxed manually to [facility] (Yvonne Duran Rn-Utilization Review 03/05/2020 14:39) BILL CEE RN - 03/14/2020 16:18 EDT Electronically signed by Ruby [facility] Conversion Life Support Technician Cerner at 10/08/2022 12:13 PM CDT documented in this encounter Plan of Treatment Not on file documented as of this encounter Visit Diagnoses Not on filedocumented in this encounter Care Teams Consulting Project Director Relationship Specialty Start Date End Date Moira Barba RN PCP - General 12/14/22 documented as of this encounter
--- OUTSIDE RECORDS SUMMARY | 2025-06-06 11:53 | XMS_ITS | Encounter Summary ---
Author Organization [employer] ([place], [place], [place], [place], [place]) Address [address] [place] [address] Care Team Providers Care Automatic Brine Mixer Operator Name Role Phone Moira Barba RN Primary Care Provider Jose L miller Encounter Details Date Type Department Care Team (Late st Contact Info) Description 03/13/2020 Transcribed Document [facility] [place] [address] [place] [address] ProviderMargaret MD [address] [place] [address] Social History Tobacco Use Types Packs/Day [...] Policy Numbers : Insurance 1 Health Plan: [facility] Policy Number: [id number] Authorization Number: Insurance Primary Name : [facility] Policy Number: [id number] Authorization Status-Primary : Denial - admission Authorized Service Begin Date-Primary : 03/04/2020 EDT Authorization Comments-Primary : Left VM for Dr. Arthur inquiring if she would complete P2P. Historical Authorization Comments-Primary : Comment 1: Called Dr. Arthur office spoke with Kim she stated that Dr. Arthur only works tuesdays. I will call back then to discuss P2P> Emailed to [facility] [place] (BILL CEE RN 03/09/2020 11:15) Comment 2: [employer] BH denied for inpt per Allison (KYRIE BROWN RN-Utilization Review 03/07/2020 15:46) Comment 3: Additional clinicals faxed manually per request of Allison at [facility] (Yvonne Duran, Randi-Utilization Review 03/07/2020 08:44) Comment 4: Clinicals faxed manually to [facility] (Yvonne Duran, Randi-Utilization Review 03/05/2020 14:39) BILL CEE RN - 03/13/2020 9:43 EDT Electronically signed by Ruby [facility] Conversion Imcu Specialist Cerner at 10/08/2022 11:55 AM CDT documented in this encounter Plan of Treatment Not on file documented as of this encounter Visit Diagnoses Not on filedocumented in this encounter Care Teams Automatic Brine Mixer Operator Relationship Specialty Start Date End Date Moira Barba, RANDI PCP - General 12/14/22 documented as of this encounter
--- OUTSIDE RECORDS SUMMARY | 2025-06-06 11:53 | XMS_ITS | Encounter Summary ---
Author Organization [employer] ([place], [place], [place], [place], [place]) Address [address] [place] [address] Care Team Providers Care Care Navigator Name Role Phone Moira Barba RN Primary Care Provider Jose L ilgrayson Encounter Details Date Type Department Care Team (Late st Contact Info) Description 03/04/2020 Transcribed Document [facility] [place] [facility] [place] [address] ProviderMargaret MD [address] [place] [address] Social History Tobacco Use Types Packs/Day [...] 03/06/2020 20:05 EDT Electronically signed by Ruby [facility] Conversion Customer Experience Specialist Cerner at 10/08/2022 12:12 PM CDT documented in this encounter Plan of Treatment Not on file documented as of this encounter Visit Diagnoses Not on filedocumented in this encounter Care Teams Care Navigator Relationship Specialty Start Date End Date Moira Barba, RN PCP - General 12/14/22 documented as of this encounter
--- OUTSIDE RECORDS SUMMARY | 2025-06-06 11:53 | XMS_ITS | Encounter Summary ---
Author Organization [employer] ([place], [place], [place], [place], [place]) Address [address] [place] [address] Care Team Providers Care Steep Tender Name Role Phone Moira Barba RN Primary Care Provider Jose L miller Encounter Details Date Type Department Care Team (Late st Contact Info) Description 03/04/2020 Transcribed Document [facility] [place] [facility] [place] [address] ProviderMargaret MD [address] [place] [address] Social History Tobacco Use Types Packs/Day [...] on filedocumented in this encounter Care Teams Steep Tender Relationship Specialty Start Date End Date Moira Barba RN PCP - General 12/14/22 documented as of this encounter
--- OUTSIDE RECORDS SUMMARY | 2025-06-06 11:53 | XMS_ITS | Encounter Summary ---
Author Organization [employer] ([place], [place], [place], [place], [place]) Address [address] [place] [address] Care Team Providers Care Breakfast Server Name Role Phone Moira Barba RN Primary Care Provider Jos eL miller Encounter Details Date Type Department Care Team (Late st Contact Info) Description 03/15/2020 Transcribed Document [facility] [place] [address] [place] [address] ProviderMargaret MD [address] [place] [address] Social History Tobacco Use Types Packs/Day [...] Health Plan: [facility] Policy Number: [id number] Authorization Number: Insurance Primary Name : [facility] Policy Number: [id number] Authorization Status-Primary : Admit approved Number of Days Authorized-Primary : 3 Day(s) Authorized Service Begin Date-Primary : 03/04/2020 EDT Authorized Service End Date-Primary : 03/07/2020 EDT Authorization Comments-Primary : Per call to [facility] approved all days after p2P completed. Historical Authorization Comments-Primary : Comment 1: Left VM for Allison inquiring of P2P result. (BILL CEE RN 03/14/2020 16:18) Comment 2: Per Dr. Arthur she will complete this P2P left VM for [facility] to setup P2P for 03/14/2020 @ [...] to discuss P2P> [place] [facility] [place]EE [place] 03/09/2020 11:15) Comment 7: [employer] BH denied for inpt per Allison (KYRIE BROWN RN-Utilization Review 03/07/2020 15:46) Comment 8: Additional clinicals faxed manually per request of Allison at [facility] (Yvonne Duran Rn-Utilization Review 03/07/2020 08:44) Comment 9: Clinicals faxed manually to [facility] (Yvonne Duran Rn-Utilization Review 03/05/2020 14:39) BILL CEE RN - 03/15/2020 11:39 EDT documented in this encounter Plan of Treatment Not on file documented as of this encounter Visit Diagnoses Not on filedocumented in this encounter Care Teams Breakfast Server Relationship Specialty Start Date End Date Moira Barba RN PCP - General 12/14/22 documented as of this encounter
--- OUTSIDE RECORDS SUMMARY | 2025-06-06 11:53 | XMS_ITS | Encounter Summary ---
Author Organization [employer] ([place], [place], [place], [place], [place]) Address [address] [place] [address] Care Team Providers Care Music Rehabilitation Therapist Name Role Phone Moira Barba RN Primary Care Provider Jose L miller Encounter Details Date Type Department Care Team (Late st Contact Info) Description 03/07/2020 Transcribed Document [facility] Family Medicine [address] [place] [address] ProviderMargaret MD [address] [place] [address] Social History Tobacco Use Types [...] 09/04/2009 Document Revised: 09/30/2019 Document Reviewed: 10/29/2016 [employer] Patient Education ? 2020 Virtual View App. Obstetrics and Gynecology Third Trimester of The third trimester is from week 28 through week 40 (months 7 through 9). This trimester is when your unborn baby (fetus) is growing very fast. At the end of the ninth month, the unborn baby is about 20 inches in length. It weighs about 6?10 pounds. Follow these instructions at home: Medicines ??? Take krgr-qbu-hfwvnbx and prescription medicines only as told by [...] 09/02/2010 Document Revised: 09/29/2019 Document Reviewed: 07/14/2017 [employer]ar Patient Education ? 2020 [employer] documented in this encounter Plan of Treatment Not on file documented as of this encounter Visit Diagnoses Not on filedocumented in this encounter Care Teams Music Rehabilitation Therapist Relationship Specialty Start Date End Date Moira Barba, RN PCP - General 12/14/22 documented as of this encounter
--- OUTSIDE RECORDS SUMMARY | 2025-06-06 11:53 | XMS_ITS | Encounter Summary ---
Author Organization [employer] ([place], [place], [place], [place], [place]) Address [address] [place] [address] Care Team Providers Care Tow Feeder Name Role Phone Moira Barba RN Primary Care Provider Jose L miller Encounter Details Date Type Department Care Team (Late st Contact Info) Description 03/13/2020 Transcribed Document [facility] [place] Medicine [address] [place] [address] ProviderMargaret MD [address] [place] [address] Social History Tobacco Use Types Packs/Day [...] Policy Numbers : Insurance 1 Health Plan: [facility] Policy Number: [id number] Authorization Number: Insurance Primary Name : [facility] Policy Number: [id number] Authorization Status-Primary : Denial - admission Authorized [...] P2P> Emailed to [facility] (BILL CEE RN 03/09/2020 11:15) Comment 5: [employer] BH denied for inpt per Allison (KYRIE BROWN RN-Utilization Review 03/07/2020 15:46) Comment 6: Additional clinicals faxed manually per request of Allison at [facility] (Yvonne Duran Rn-Utilization Review 03/07/2020 08:44) Comment 7: Clinicals faxed manually to [facility] (Yvonne Duran Rn-Utilization Review 03/05/2020 14:39) BILL CEE RN - 03/13/2020 10:15 EDT Electronically signed by [facility] Conversion Clerical Investigator Cerner at 10/08/2022 11:52 AM CDT documented in this encounter Plan of Treatment Not on file documented as of this encounter Visit Diagnoses Not on filedocumented in this encounter Care Teams Tow Feeder Relationship Specialty Start Date End Date Moira Barba, RANDI PCP - General 12/14/22 documented as of this encounter
--- OUTSIDE RECORDS SUMMARY | 2025-06-06 11:53 | XMS_ITS | Encounter Summary ---
Author Organization [employer] ([place], [place], [place], [place], [place]) Address [address] [place] [address] Care Team Providers Care Director Plans Name Role Phone Moira Barba RN Primary Care Provider Jose L miller Encounter Details Date Type Department Care Team (Late st Contact Info) Description 03/07/2020 Transcribed Document [facility] [place] [facility] [address] ProviderMargaret MD [address] [place] [address] Social History Tobacco Use Types Packs/Day [...] Conversion Note - Historical ProviderMD - 03/07/2020 8:54 AM CDT Stroke/Warfarin [...] filedocumented in this encounter Care Teams Director Plans Relationship Specialty Start Date End Date Moira Barba, RN PCP - General 12/14/22 documented as of this encounter
--- OUTSIDE RECORDS SUMMARY | 2025-06-06 11:53 | XMS_ITS | Clinical Summary ---
Author Organization [employer] ([place], [place], [place], [place], [place]) Address [address] [place] [address] Care Team Providers Care Fancy Packer Name Role Phone Moira Barba RN Primary [...] Date Jacob rded Speak language other than Nepali at home Not on file 07/10/2023 Want [...] season) 2025 Influenza Vaccine (#1) 2025 Insurance [facility] Care Teams Fancy Packer Relationship Specialty Start Date End Date Moira Barba, RN PCP - General 12/14/22
--- OUTSIDE RECORDS SUMMARY | 2025-06-06 11:53 | XMS_ITS | Encounter Summary ---
Author Organization [employer] ([place], [place], [place], [place], [place]) Address [address] [place] [address] Care Team Providers Care Undercover Operator Name Role Phone Moira Barba RN Primary Care Provider Jose L ilgrayson Encounter Details Date Type Department Care Team (Late st Contact Info) Description 03/05/2020 Transcribed Document [facility] [place] Medicine [facility] [place] [address] ProviderMargaret MD [address] [place] [address] Social History Tobacco Use Types Packs/Day [...] on filedocumented in this encounter Care Teams Undercover Operator Relationship Specialty Start Date End Date Moira Barba, RN PCP - General 12/14/22 documented as of this encounter
--- OUTSIDE RECORDS SUMMARY | 2025-06-06 11:53 | XMS_ITS | Encounter Summary ---
Author Organization [employer] ([place], [place], [place], [place], [place]) Address [address] [place] [address] Care Team Providers Care Plant And Machinery Valuer Name Role Phone Moira Barba RN Primary Care Provider Jose L miller Encounter Details Date Type Department Care Team (Late st Contact Info) Description 03/06/2020 Transcribed Document [facility] [place] Medicine [facility] [place] [address] ProviderMargaret MD [address] [place] [address] Social History Tobacco Use Types Packs/Day [...] 5 mg 1 Tab, Oral, At Bedtime [facility] US 03/05/20 Sharma at 31w 1d [...] on filedocumented in this encounter Care Teams Plant And Machinery Valuer Relationship Specialty Start Date End Date Moira Barba, RN PCP - General 12/14/22 documented as of this encounter
--- OUTSIDE RECORDS SUMMARY | 2025-06-06 11:53 | XMS_ITS | Encounter Summary ---
Author Organization [employer] ([place], [place], [place], [place], [place]) Address [address] [place] [address] Care Team Providers Care Hydraulic Miner Name Role Phone Moira Barba RN Primary Care Provider Jose L ilgrayson Encounter Details Date Type Department Care Team (Late st Contact Info) Description 03/06/2020 Transcribed Document [facility] [place] [facility] [place] [address] ProviderMargaret MD [address] [place] [address] Social History Tobacco Use Types Packs/Day [...] EDT Electronically signed by Ruby [facility] Conversion Nnp Cerner at 10/08/2022 11:54 AM CDT documented in this encounter Plan of Treatment Not on file documented as of this encounter Visit Diagnoses Not on filedocumented in this encounter Care Teams Hydraulic Miner Relationship Specialty Start Date End Date Moira Barba, RN PCP - General 12/14/22 documented as of this encounter
--- OUTSIDE RECORDS SUMMARY | 2025-06-06 11:53 | XMS_ITS | Encounter Summary ---
Author Organization [employer] ([place], [place], [place], [place], [place]) Address [address] [place] [address] Care Team Providers Care Risk Assessment Consultant Name Role Phone Moira Barba RN Primary Care Provider Jose L miller Encounter Details Date Type Department Care Team (Late st Contact Info) Description 03/09/2020 Transcribed Document [facility] [place] [address] [place] [address] ProviderMargaret MD [address] [place] [address] Social History Tobacco Use Types Packs/Day [...] Policy Numbers : Insurance 1 Health Plan: [facility] Policy Number: [id number] Authorization Number: Insurance Primary Name : [facility] Policy Number: [id number] Authorization Status-Primary : Denial - admission Authorized Service Begin Date-Primary : 03/04/2020 EDT Authorization Comments-Primary : Called Dr. Case office spoke with Kim she stated that Dr. Arthur only works tuesdays. I will call back then to discuss P2P> Emailed to [facility] [place] Authorization Comments-Primary : Comment 1: [employer] BH denied for inpt per Allison (KYRIE BROWN, RN-Utilization Review 03/07/2020 15:46) Comment 2: Additional clinicals faxed manually per request of Allison at [facility] (Yvonne Duran, An-Utilization Review 03/07/2020 08:44) Comment 3: Clinicals faxed manually to [facility] (Yvonne Duran, Rn-Utilization Review 03/05/2020 14:39) BILL CEE RN - 03/09/2020 11:15 EDT Electronically signed by Ruby [facility] Conversion Financial Institution Treasurer Cerner at 10/08/2022 12:02 PM CDT documented in this encounter Plan of Treatment Not on file documented as of this encounter Visit Diagnoses Not on filedocumented in this encounter Care Teams Risk Assessment Consultant Relationship Specialty Start Date End Date Moira Barba RN PCP - General 12/14/22 documented as of this encounter
--- OUTSIDE RECORDS SUMMARY | 2025-06-06 11:53 | XMS_ITS | Encounter Summary ---
Author Organization [employer] ([place], [place], [place], [place], [place]) Address [address] [place] [address] Care Team Providers Care Online Project Manager Name Role Phone Moira Barba RN Primary Care Provider Jose L miller Encounter Details Date Type Department Care Team (Late st Contact Info) Description 03/13/2020 Transcribed Document [facility] [place] [address] [place] [address] ProviderMargaret MD [address] [place] [address] Social History Tobacco Use Types Packs/Day [...] Plan: [facility] Policy Number: [id number] Authorization Number: Insurance Primary Name : [facility] Policy Number: [id number] Authorization Status-Primary : Denial - admission Authorized [...] back then to discuss P2P> Emailed to [facility] (BILL CEE RN 03/09/2020 11:15) Comment 3: [employer] BH denied for inpt per Allison (KYRIE BROWN RN-Utilization Review 03/07/2020 15:46) Comment 4: Additional clinicals faxed manually per request of Allison at [facility] (Yvonne Duran Rn-Utilization Review 03/07/2020 08:44) Comment 5: Clinicals faxed manually to [facility] (Yvonne Duran Rn-Utilization Review 03/05/2020 14:39) BILL CEE RN - 03/13/2020 9:44 EDT documented in this encounter Plan of Treatment Not on file documented as of this encounter Visit Diagnoses Not on filedocumented in this encounter Care Teams Online Project Manager Relationship Specialty Start Date End Date Moira Barba RN PCP - General 12/14/22 documented as of this encounter
[2025-06-06 12:23] LABS: Hematocrit 39.6 % (37.0-47.0); Hemoglobin 13.4 g/dL (12.2-16.2); Immature Granulocytes % 0.6 %; Mean Corpuscular HGB Conc 33.8 g/dL (31.8-35.4); Mean Corpuscular Hemoglobin 30.9 pg (27.0-31.2); Mean Corpuscular Volume 91.2 fl (81-99); Nucleated Red Blood Cells % 0 %; Platelet Count 246 K/mm3 (142-424); Red Blood Count 4.34 M/mm3 (4.20-5.40); Red Cell Distribution Width-SD 40.0 fL; White Blood Count 10.1 K/mm3 (4.8-10.8)
[2025-06-06 12:33] LABS: Alanine Aminotransferase 20 U/L (12-78); Albumin Level 3.8 g/dl (3.5-5.0); Albumin/Globulin Ratio 1.2 (1.1-1.8); Alkaline Phosphatase 187 U/L (38-126); Anion Gap 13.8 mEq/L (5-15); Aspartate Amino Transferase 28 U/L (14-36); Bilirubin,Total 0.5 mg/dl (0.2-1.3); Blood Urea Nitrogen 10 mg/dl (7-17); Calcium 9.0 mg/dl (8.4-10.2); Carbon Dioxide 17 mmol/L (22.0-30.0); Chloride 105 mmol/L (98-107); Creatinine Clearance Estimated 165 mL/min (50-200); Creatinine,Serum 0.70 mg/dl (0.52-1.04); Estimated Glomerular Filt Rate 102 ml/min (>60); GFR (African American) 123 ML/MIN (>60); Globulin 3.2 g/dL (1.3-3.2); Glucose 101 mg/dl (74-100); Potassium 3.8 mmoL/L (3.5-5.1); Sodium 132 mmol/L (136-145); Total Protein,Serum 7.0 g/dl (6.3-8.2)
== END 2025-06-06 23:59 | disposition home or self-care (01) ==
LOC: PREOP 11:51
PROVIDERS: PCP Nurse Practitioner; Visit Provider Obstetrics & Gynecology
DX: Z01.812 Encounter for preprocedural laboratory examination (principal)
CPT/HCPCS: 80053; 85025

== ENCOUNTER 2025-06-07 12:00 | Outpatient (CLI) | payer OTHER, SELFPAY ==
[2025-06-07 13:02] LABS: Alanine Aminotransferase 17 U/L (12-78); Albumin Level 3.5 g/dl (3.5-5.0); Albumin/Globulin Ratio 1.3 (1.1-1.8); Alkaline Phosphatase 186 U/L (38-126); Anion Gap 11.1 mEq/L (5-15); Aspartate Amino Transferase 22 U/L (14-36); Bilirubin,Total 0.6 mg/dl (0.2-1.3); Blood Urea Nitrogen 6 mg/dl (7-17); Calcium 9.3 mg/dl (8.4-10.2); Carbon Dioxide 21 mmol/L (22.0-30.0); Chloride 103 mmol/L (98-107); Creatinine,Serum 0.70 mg/dl (0.52-1.04); Estimated Glomerular Filt Rate 102 ml/min (>60); GFR (African American) 123 ML/MIN (>60); Globulin 2.8 g/dL (1.3-3.2); Glucose 77 mg/dl (74-100); Potassium 4.1 mmoL/L (3.5-5.1); Sodium 131 mmol/L (136-145); Total Protein,Serum 6.3 g/dl (6.3-8.2)
== END 2025-06-07 23:59 | disposition home or self-care (01) ==
LOC: LAB 12:00
PROVIDERS: PCP Nurse Practitioner; Visit Provider Obstetrics & Gynecology
DX: Z34.83 Encounter for supervision of other normal pregnancy, third trimester (principal); L29.9 Pruritus, unspecified; Z3A.00 Weeks of gestation of pregnancy not specified
CPT/HCPCS: 36415; 80053; 82239

== ENCOUNTER 2025-06-09 22:45 | Inpatient (IN) | payer OTHER, SELFPAY ==
--- OUTSIDE RECORDS SUMMARY | 2025-06-09 20:43 | XMS_ITS | Encounter Summary ---
Author Organization [employer] ([place], [place], [place], [place], [place]) Address [address] [place] [address] Care Team Providers Care Purchase Request Editor Name Role Phone Moira Barba RN Primary Care Provider Jose L ilgrayson Encounter Details Date Type Department Care Team (Late st Contact Info) Description 03/05/2020 Transcribed Document [facility] [place] [facility] [place] [address] ProviderMargaret MD [address] [place] [address] Social History Tobacco Use Types Packs/Day [...] on filedocumented in this encounter Care Teams Purchase Request Editor Relationship Specialty Start Date End Date Moira Barba, RN PCP - General 12/14/22 documented as of this encounter
--- OUTSIDE RECORDS SUMMARY | 2025-06-09 20:43 | XMS_ITS | Clinical Summary ---
Author Organization [employer] ([place], [place], [place], [place], [place]) Address [address] [place] [address] Care Team Providers Care Scuba Diving Instructor Name Role Phone Moira Barba RN [...] Date Jacob rded Speak language other than Maori at home Not on file 07/10/2023 Want [...] season) 2025 Influenza Vaccine (#1) [address] [facility] Care Teams Scuba Diving Instructor Relationship Specialty Start Date End Date Moira Barba, RN PCP - General 12/14/22
--- OUTSIDE RECORDS SUMMARY | 2025-06-09 20:43 | XMS_ITS | Referral Summary ---
Author Organization [employer] ([place], [place], [place], [place], [place]) Address [address] [place] [address] Care Team Providers Care Boat Laborer Name Role Phone Moira Barba RN Primary [...] Date Jacob rded Speak language other than Macedonian at home Not on file 07/10/2023 Want [...] Plan of Treatment Not on file [facility] Care Teams Boat Laborer Relationship Specialty Start Date End Date Moira Barba RN PCP - General 12/14/22
--- OUTSIDE RECORDS SUMMARY | 2025-06-09 20:43 | XMS_ITS | Encounter Summary ---
Author Organization [employer] ([place], [place], [place], [place], [place]) Address [address] [place] [address] Care Team Providers Care Optical Assistant Name Role Phone Moira Barba RN Primary Care Provider Jose L ilgrayson Encounter Details Date Type Department Care Team (Late st Contact Info) Description 03/05/2020 Transcribed Document [facility] [facility] [place] [address] ProviderMargaret MD [address] [place] [address] Social History Tobacco Use Types Packs/Day [...] filedocumented in this encounter Care Teams Optical Assistant Relationship Specialty Start Date End Date Moira Barba, RN PCP - General 12/14/22 documented as of this encounter
--- OUTSIDE RECORDS SUMMARY | 2025-06-09 20:43 | XMS_ITS | Encounter Summary ---
Author Organization [employer] ([place], [place], [place], [place], [place]) Address [address] [place] [address] Care Team Providers Care Legal Stenographer Name Role Phone Moira Barba RN Primary Care Provider Jose L ilgrayson Encounter Details Date Type Department Care Team (Late st Contact Info) Description 03/05/2020 Transcribed Document [facility] [place] [facility] [place] [address] ProviderMargaret MD [address] [place] [address] Social History Tobacco Use Types Packs/Day [...] 03/06/2020 20:06 EDT Electronically signed by Ruby [facility] Conversion Sound Effects Person Cerner at 10/08/2022 12:02 PM CDT documented in this encounter Plan of Treatment Not on file documented as of this encounter Visit Diagnoses Not on filedocumented in this encounter Care Teams Legal Stenographer Relationship Specialty Start Date End Date Moira Barba, RN PCP - General 12/14/22 documented as of this encounter
--- OUTSIDE RECORDS SUMMARY | 2025-06-09 20:43 | XMS_ITS | Encounter Summary ---
Author Organization [employer] ([place], [place], [place], [place], [place]) Address [address] [place] [address] Care Team Providers Care Market Development Director Name Role Phone Moira Barba RN Primary Care Provider Jose L miller Encounter Details Date Type Department Care Team (Late st Contact Info) Description 03/15/2020 Transcribed Document [facility] [place] Family Medicine [address] [place] [address] ProviderMargaret MD [address] [place] [address] Social History Tobacco Use Types Packs/Day [...] Policy Numbers : Insurance 1 Health Plan: [facility] Policy Number: [id number] Authorization Number: Insurance Primary Name : [facility] Policy Number: [id number] Authorization Status-Primary : Admit approved Number of Days Authorized-Primary : 3 Day(s) Authorized Service Begin Date-Primary : 03/04/2020 EDT Authorized Service End Date-Primary : 03/07/2020 EDT Authorization Comments-Primary : Per call to [facility] approved all days after p2P completed. Historical Authorization Comments-Primary : Comment 1: Left VM for Allison inquiring of P2P result. (BILL CEE RN 03/14/2020 16:18) Comment 2: Per Dr. Arthur she will complete this P2P left VM for [facility] to setup P2P for 03/14/2020 @ [...] faxed manually per request of Allison at [facility] (Yvonne Duran Rn-Utilization Review 03/07/2020 08:44) Comment 9: Clinicals faxed manually to [facility] (Yvonne Duran Rn-Utilization Review 03/05/2020 14:39) BILL CEE RN - 03/15/2020 11:39 EDT Electronically signed by Ruby [facility] Conversion Insurance Broker Gloria at 10/08/2022 11:58 AM CDT documented in this encounter Plan of Treatment Not on file documented as of this encounter Visit Diagnoses Not on filedocumented in this encounter Care Teams Market Development Director Relationship Specialty Start Date End Date Moira Barba RN PCP - General 12/14/22 documented as of this encounter
--- OUTSIDE RECORDS SUMMARY | 2025-06-09 20:43 | XMS_ITS | Encounter Summary ---
Author Organization [employer] ([place], [place], [place], [place], [place]) Address [address] [place] [address] Care Team Providers Care Gardening Supervisor Name Role Phone Moira Barba RN Primary Care Provider Jose L ilgrayson Encounter Details Date Type Department Care Team (Late st Contact Info) Description 03/05/2020 Transcribed Document [facility] [place] Family [place] [address] ProviderMargaret MD [address] [place] [address] Social History Tobacco Use Types Packs/Day [...] on filedocumented in this encounter Care Teams Gardening Supervisor Relationship Specialty Start Date End Date Moira Barba, RN PCP - General 12/14/22 documented as of this encounter
--- OUTSIDE RECORDS SUMMARY | 2025-06-09 20:43 | XMS_ITS | Encounter Summary ---
Author Organization [employer] ([place], [place], [place], [place], [place]) Address [address] [place] [address] Care Team Providers Care Intern Brand Name Role Phone Moira Barba RN Primary Care Provider Jose L miller Encounter Details Date Type Department Care Team (Late st Contact Info) Description 03/05/2020 Transcribed Document [facility] [place] Medicine [address] [place] [address] ProviderMargaret MD [address] [place] [address] Social History Tobacco Use Types Packs/Day [...] Policy Numbers : Insurance 1 Health Plan: [facility] Policy Number: [id number] Authorization Number: Insurance Primary Name : [facility] Policy Number: [id number] Authorization Status-Primary : Awaiting callback Authorized Service Begin Date-Primary : 03/04/2020 EDT Authorization Comments-Primary : Clinicals faxed manually to [facility] Historical Authorization Comments-Primary : No Authorization Comments Found Yvonne Duran, An-Utilization Review - 03/05/2020 14:39 EDT Electronically signed by Ruby [facility] Conversion Mobile Phone Salesperson Cerner at 10/08/2022 12:17 PM CDT documented in this encounter Plan of Treatment Not on file documented as of this encounter Visit Diagnoses Not on filedocumented in this encounter Care Teams Intern Brand Relationship Specialty Start Date End Date Moira Barba, RN PCP - General 12/14/22 documented as of this encounter
--- OUTSIDE RECORDS SUMMARY | 2025-06-09 20:43 | XMS_ITS | Encounter Summary ---
Author Organization [employer] ([place], [place], [place], [place], [place]) Address [address] [place] [address] Care Team Providers Care Port Traffic Manager Name Role Phone Moira Barba RN Primary Care Provider Jose L miller Encounter Details Date Type Department Care Team (Late st Contact Info) Description 03/05/2020 Transcribed Document [facility] [place] [facility] [place] [address] ProviderMargaret MD [address] [place] [address] Social History Tobacco Use Types Packs/Day [...] 31+2 weeks with PTL. She presented to [facility] with abdominal pain. She was marleen every [...] qualifying data Social History Document (if any) Cultural/Faith beliefs that would affect medical care: Lab Results MAR 04 18:35 \ 13.1 / H 18.7 314 / 39.2 \ Electronically signed by Ruby, [facility] Conversion Software Developer Manager Cerner at 10/08/2022 11:57 AM CDT documented in this encounter Plan of Treatment Not on file documented as of this encounter Visit Diagnoses Not on filedocumented in this encounter Care Teams Port Traffic Manager Relationship Specialty Start Date End Date Moira Barba RN PCP - General 12/14/22 documented as of this encounter
--- OUTSIDE RECORDS SUMMARY | 2025-06-09 20:44 | XMS_ITS | Encounter Summary ---
Author Organization [employer] ([place], [place], [place], [place], [place]) Address [address] [place] [address] Care Team Providers Care Directional Drill Operator Name Role Phone Moira Barba RN Primary Care Provider Jose L miller Encounter Details Date Type Department Care Team (Late st Contact Info) Description 03/12/2020 Transcribed Document [facility] [place] [facility] [place] [address] ProviderMargaret MD [address] [place] [address] Social History Tobacco Use Types Packs/Day [...] for Hospitalization 19 yo who presented from [facility] with contractions and cervical change on Magnesium [...] than 30 minutes Electronically signed by Ruby [facility] Conversion Straight Edger Cerner at 10/08/2022 12:04 PM CDT documented in this encounter Plan of Treatment Not on file documented as of this encounter Visit Diagnoses Not on filedocumented in this encounter Care Teams Directional Drill Operator Relationship Specialty Start Date End Date Moira Barba RN PCP - General 12/14/22 documented as of this encounter
--- OUTSIDE RECORDS SUMMARY | 2025-06-09 20:44 | XMS_ITS | Encounter Summary ---
Author Organization [employer] ([place], [place], [place], [place], [place]) Address [address] [place] [address] Care Team Providers Care Mandrel Press Hand Name Role Phone Moira Barba RN Primary Care Provider Jose L miller Encounter Details Date Type Department Care Team (Late st Contact Info) Description 03/04/2020 Transcribed Document [facility] [place] Family [place] [facility] [place] [address] ProviderMargaret MD [address] [place] [address] Social History Tobacco Use Types Packs/Day [...] Source : Measured Height Entry Format : [place] Height, Feet : 5 ft(Converted to: 152 cm, 60 Inch) Clinical Height : 175.26 cm Height, Inches : 9 Inch(Converted to: 0 ft 9 Inch, 22.86 cm) Weight Source : Standing scale Weight Entry Format : [place] Weight, Pounds : 170 lb Clinical Dosing Weight : 77.27 kg Body Surface Area (BSA) : 1.93 m2 Body Mass Index : 25.2 kg/m2 (HI) [place] Body Weight (IBW) : 65.73 kg ELIO [...] ELIO SNOWDEN RN - 03/04/2020 17:06 EDT Dell Suicide Severity Rating Scale (C-SSRS) CSSRS Past [...] on filedocumented in this encounter Care Teams Mandrel Press Hand Relationship Specialty Start Date End Date Moira Barba RN PCP - General 12/14/22 documented as of this encounter
--- OUTSIDE RECORDS SUMMARY | 2025-06-09 20:44 | XMS_ITS | Encounter Summary ---
Author Organization [employer] ([place], [place], [place], [place], [place]) Address [address] [place] [address] Care Team Providers Care Physician General Practice Name Role Phone Moira Barba RN Primary Care Provider Jose L miller Encounter Details Date Type Department Care Team (Late st Contact Info) Description 03/13/2020 Transcribed Document [facility] [place] Family Medicine [address] [place] [address] ProviderMargaret MD [address] [place] [address] Social History Tobacco Use Types Packs/Day [...] Policy Numbers : Insurance 1 Health Plan: [facility] Policy Number: [id number] Authorization Number: Insurance Primary Name : [facility] Policy Number: [id number] Authorization Status-Primary : Denial - admission Authorized [...] request of Allison at [facility] (Yvonne Duran, Randi-Utilization Review 03/07/2020 08:44) Comment 4: Clinicals faxed manually to [facility] (Yvonne Duran, Randi-Utilization Review 03/05/2020 14:39) BILL CEE RN - 03/13/2020 9:43 EDT Electronically signed by Ruby [facility] Conversion Negotiator Sales Cerner at 10/08/2022 11:55 AM CDT documented in this encounter Plan of Treatment Not on file documented as of this encounter Visit Diagnoses Not on filedocumented in this encounter Care Teams Physician General Practice Relationship Specialty Start Date End Date Moira Barba, RANDI PCP - General 12/14/22 documented as of this encounter
--- OUTSIDE RECORDS SUMMARY | 2025-06-09 20:44 | XMS_ITS | Encounter Summary ---
Author Organization [employer] ([place], [place], [place], [place], [place]) Address [address] [place] [address] Care Team Providers Care Hospital Aide Name Role Phone Moira Barba RN Primary Care Provider Jose L miller Encounter Details Date Type Department Care Team (Late st Contact Info) Description 03/07/2020 Transcribed Document [facility] [place] Family Medicine [address] [place] [address] ProviderMargaret MD [address] [place] [address] Social History Tobacco Use Types Packs/Day [...] Policy Numbers : Insurance 1 Health Plan: [facility] Policy Number: [id number] Authorization Number: Insurance Primary Name : [facility] Policy Number: [id number] Authorization Status-Primary : Awaiting callback Authorized Service Begin Date-Primary : 03/04/2020 EDT Authorization Comments-Primary : Additional clinicals faxed manually per request of Allison at [facility] Historical Authorization Comments-Primary : Comment 1: Clinicals faxed manually to [facility] (Yvonne Duran Rn-Utilization Review 03/05/2020 14:39) Yvonne Duran Rn-Utilization Review - 03/07/2020 8:44 EDT Electronically signed by [facility] Conversion Test Tube Maker Cerner at 10/08/2022 12:02 PM CDT documented in this encounter Plan of Treatment Not on file documented as of this encounter Visit Diagnoses Not on filedocumented in this encounter Care Teams Hospital Aide Relationship Specialty Start Date End Date Moira Barba, RN PCP - General 12/14/22 documented as of this encounter
--- OUTSIDE RECORDS SUMMARY | 2025-06-09 20:44 | XMS_ITS | Encounter Summary ---
Author Organization [employer] ([place], [place], [place], [place], [place]) Address [address] [place] [address] Care Team Providers Care Personal Service Representative Name Role Phone Moira Barba RN Primary Care Provider Jose L miller Encounter Details Date Type Department Care Team (Late st Contact Info) Description 03/07/2020 Transcribed Document [facility] [place] Family Medicine [facility] [place] [address] ProviderMargaret MD [address] [place] [address] Social History Tobacco Use Types Packs/Day [...] on filedocumented in this encounter Care Teams Personal Service Representative Relationship Specialty Start Date End Date Moira Barba, RN PCP - General 12/14/22 documented as of this encounter
--- OUTSIDE RECORDS SUMMARY | 2025-06-09 20:44 | XMS_ITS | Encounter Summary ---
Author Organization [employer] ([place], [place], [place], [place], [place]) Address [address] [place] [address] Care Team Providers Care Dry Press Operator Helper Name Role Phone Moira Barba RN Primary Care Provider Jose L ilgrayson Encounter Details Date Type Department Care Team (Late st Contact Info) Description 03/06/2020 Transcribed Document [facility] [place] Family [place] [facility] [address] ProviderMargaret MD [address] [place] [address] Social History Tobacco Use Types Packs/Day [...] 03/06/2020 20:07 EDT Electronically signed by Ruby [facility] Conversion Workers Compensation Coordinator Cerner at 10/08/2022 12:14 PM CDT documented in this encounter Plan of Treatment Not on file documented as of this encounter Visit Diagnoses Not on filedocumented in this encounter Care Teams Dry Press Operator Helper Relationship Specialty Start Date End Date Moira Barba, RN PCP - General 12/14/22 documented as of this encounter
--- OUTSIDE RECORDS SUMMARY | 2025-06-09 20:44 | XMS_ITS | Encounter Summary ---
Author Organization [employer] ([place], [place], [place], [place], [place]) Address [address] [place] [address] Care Team Providers Care Porter Sample Case Name Role Phone Moira Barba RN Primary Care Provider Jose L miller Encounter Details Date Type Department Care Team (Late st Contact Info) Description 03/06/2020 Transcribed Document [facility] [place] Family Medicine [facility] [place] [address] ProviderMargaret MD [address] [place] [address] Social History Tobacco Use Types Packs/Day [...] / 37.0 \ Electronically signed by Ruby, [facility] Conversion Van Owner Operator Cerner at 10/08/2022 11:58 AM CDT documented in this encounter Plan of Treatment Not on file documented as of this encounter Visit Diagnoses Not on filedocumented in this encounter Care Teams Porter Sample Case Relationship Specialty Start Date End Date Moira Barba RN PCP - General 12/14/22 documented as of this encounter
--- OUTSIDE RECORDS SUMMARY | 2025-06-09 20:44 | XMS_ITS | Encounter Summary ---
Author Organization [employer] ([place], [place], [place], [place], [place]) Address [address] [place] [address] Care Team Providers Care Alarm Security Or Surveillance Monitor Name Role Phone Moira Barba RN Primary Care Provider Jose L miller Encounter Details Date Type Department Care Team (Late st Contact Info) Description 03/14/2020 Transcribed Document [facility] [place] Family Medicine [address] [place] [address] ProviderMargaret MD [address] [place] [address] Social History Tobacco Use Types Packs/Day [...] Health Plan: [facility] Policy Number: [id number] Authorization Number: Insurance Primary Name : [facility] Policy Number: [id number] Authorization Status-Primary : Denial - admission Authorized Service Begin Date-Primary : 03/04/2020 EDT Authorization Comments-Primary : Left VM for Allison inquiring of P2P result. Historical Authorization Comments-Primary : Comment 1: Per Dr. Arthur she will complete this P2P left VM for [facility] to setup P2P for 03/14/2020 @ [...] back then to discuss P2P> Emailed to [facility] (BILL CEE RN 03/09/2020 11:15) Comment 6: [employer] [facility] denied for inpt per Allison (KYRIE BROWN RN-Utilization Review 03/07/2020 15:46) Comment 7: Additional clinicals faxed manually per request of Allison at [facility] (Yvonne Duran Rn-Utilization Review 03/07/2020 08:44) Comment 8: Clinicals faxed manually to [facility] (Yvonne Duran Rn-Utilization Review 03/05/2020 14:39) BILL CEE RN - 03/14/2020 16:18 EDT Electronically signed by Ruby [facility] Conversion Web Content Writer Cerner at 10/08/2022 12:13 PM CDT documented in this encounter Plan of Treatment Not on file documented as of this encounter Visit Diagnoses Not on filedocumented in this encounter Care Teams Alarm Security Or Surveillance Monitor Relationship Specialty Start Date End Date Moira Barba RN PCP - General 12/14/22 documented as of this encounter
--- OUTSIDE RECORDS SUMMARY | 2025-06-09 20:44 | XMS_ITS | Encounter Summary ---
Author Organization [employer] ([place], [place], [place], [place], [place]) Address [address] [place] [address] Care Team Providers Care Billing Administrator Name Role Phone Moira Barba RN Primary Care Provider Jose L miller Encounter Details Date Type Department Care Team (Late st Contact Info) Description 03/06/2020 Transcribed Document [facility] [place] Family [place] [facility] [place] [address] ProviderMargaret MD [address] [place] [address] Social History Tobacco Use Types Packs/Day [...] mg 1 Tab, Oral, At Bedtime [facility] 03/05/20 Sharma at 31w 1d [...] review of records, and coordination of care. Electronically signed by Dian Beltran Conversion Intellectual Property Legal Assistant Cerner at 10/08/2022 12:17 PM CDT documented in this encounter Plan of Treatment Not on file documented as of this encounter Visit Diagnoses Not on filedocumented in this encounter Care Teams Billing Administrator Relationship Specialty Start Date End Date Moira Barba, RN PCP - General 12/14/22 documented as of this encounter
--- OUTSIDE RECORDS SUMMARY | 2025-06-09 20:44 | XMS_ITS | Encounter Summary ---
Author Organization [employer] ([place], [place], [place], [place], [place]) Address [address] [place] [address] Care Team Providers Care Branding Machine Operator Name Role Phone Moira Barba RN Primary Care Provider Jose L miller Encounter Details Date Type Department Care Team (Late st Contact Info) Description 03/07/2020 Transcribed Document [facility] [place] Family Medicine [address] [place] [address] ProviderMargaret MD [address] [place] [address] Social History Tobacco Use Types Packs/Day [...] Plan: [facility] Policy Number: [id number] Authorization Number: Insurance Primary Name : [facility] Policy Number: [id number] Authorization Status-Primary : Denial - admission Authorized Service Begin Date-Primary : 03/04/2020 EDT Authorization Comments-Primary : [employer] denied for inpt per Allison Historical Authorization Comments-Primary : Comment 1: Additional clinicals faxed manually per request of Allison at [facility] (Yvonne Duran, An-Utilization Review 03/07/2020 08:44) Comment 2: Clinicals faxed manually to [facility] (Yvonne Duran, An-Utilization Review 03/05/2020 14:39) KYRIE BROWN RN-Utilization Review - 03/07/2020 15:46 EDT Electronically signed by [facility] Conversion Release Of Information Clerk Cerner at 10/08/2022 12:04 PM CDT documented in this encounter Plan of Treatment Not on file documented as of this encounter Visit Diagnoses Not on filedocumented in this encounter Care Teams Branding Machine Operator Relationship Specialty Start Date End Date Moira Barba, RN PCP - General 12/14/22 documented as of this encounter
--- OUTSIDE RECORDS SUMMARY | 2025-06-09 20:44 | XMS_ITS | Encounter Summary ---
Author Organization [employer] ([place], [place], [place], [place], [place]) Address [address] [place] [address] Care Team Providers Care Steel Welder Name Role Phone Moira Barba RN Primary Care Provider Jose L ilgrayson Encounter Details Date Type Department Care Team (Late st Contact Info) Description 03/06/2020 Transcribed Document [facility] [place] Family Medicine [facility] [place] [address] ProviderMargaret MD [address] [place] [address] Social History Tobacco Use Types Packs/Day [...] 03/06/2020 20:07 EDT Electronically signed by Ruby [facility] Conversion Cargo Vessel Stewardess Cerner at 10/08/2022 11:54 AM CDT documented in this encounter Plan of Treatment Not on file documented as of this encounter Visit Diagnoses Not on filedocumented in this encounter Care Teams Steel Welder Relationship Specialty Start Date End Date Moira Barba, RN PCP - General 12/14/22 documented as of this encounter
--- OUTSIDE RECORDS SUMMARY | 2025-06-09 20:44 | XMS_ITS | Encounter Summary ---
Author Organization [employer] ([place], [place], [place], [place], [place]) Address [address] [place] [address] Care Team Providers Care Gluing Machine Operator Electronic Name Role Phone Moira Barba RN Primary Care Provider Jose L miller Encounter Details Date Type Department Care Team (Late st Contact Info) Description 03/07/2020 Transcribed Document [facility] [place] [facility] [place] [address] ProviderMargaret MD [address] [place] [address] Social History Tobacco Use Types Packs/Day [...] on filedocumented in this encounter Care Teams Gluing Machine Operator Electronic Relationship Specialty Start Date End Date Moira Barba, RANDI PCP - General 12/14/22 documented as of this encounter
--- OUTSIDE RECORDS SUMMARY | 2025-06-09 20:44 | XMS_ITS | Encounter Summary ---
Author Organization [employer] ([place], [place], [place], [place], [place]) Address [address] [place] [address] Care Team Providers Care Cargo Mate Name Role Phone Moira Barba RN Primary Care Provider Jose L miller Encounter Details Date Type Department Care Team (Late st Contact Info) Description 03/13/2020 Transcribed Document [facility] [place] [facility] [place] [address] [place] [address] ProviderMargaret MD [address] [place] [address] Social History Tobacco Use Types Packs/Day [...] Policy Numbers : Insurance 1 Health Plan: [facility] Policy Number: [id number] Authorization Number: Insurance Primary Name : [facility] Policy Number: [id number] Authorization Status-Primary : Denial - admission Authorized [...] then to discuss P2P> Emailed to [facility] (BILL CEE RN 03/09/2020 11:15) Comment 3: [employer] BH denied for inpt per Allison (KYRIE BROWN RN-Utilization Review 03/07/2020 15:46) Comment 4: Additional clinicals faxed manually per request of Allison at [facility] (Yvonne Duran Rn-Utilization Review 03/07/2020 08:44) Comment 5: Clinicals faxed manually to [facility] (Yvonne Duran Rn-Utilization Review 03/05/2020 14:39) BILL CEE RN - 03/13/2020 9:44 EDT Electronically signed by Ruby [facility] Conversion Public Relations Writer Cerner at 10/08/2022 11:54 AM CDT documented in this encounter Plan of Treatment Not on file documented as of this encounter Visit Diagnoses Not on filedocumented in this encounter Care Teams Cargo Mate Relationship Specialty Start Date End Date Moira Barba RN PCP - General 12/14/22 documented as of this encounter
--- OUTSIDE RECORDS SUMMARY | 2025-06-09 20:44 | XMS_ITS | Encounter Summary ---
Author Organization [employer] ([place], [place], [place], [place], [place]) Address [address] [place] [address] Care Team Providers Care Assistant Speech Language Pathologist Name Role Phone Moira Barba RN Primary Care Provider Jose L miller Encounter Details Date Type Department Care Team (Late st Contact Info) Description 03/15/2020 Transcribed Document [facility] [place] Family Medicine [address] [place] [address] ProviderMargaret MD [address] [place] [address] Social History Tobacco Use Types Packs/Day [...] Policy Numbers : Insurance 1 Health Plan: [facility] Policy Number: [id number] Authorization Number: Insurance Primary Name : [facility] Policy Number: [id number] Authorization Status-Primary : Admit approved Reference Number-Primary : [id number] Number of Days Authorized-Primary : 3 Day(s) Authorized Service Begin Date-Primary : 03/04/2020 EDT Authorized Service End Date-Primary : 03/07/2020 EDT Historical Authorization Comments-Primary : Comment 1: Per call to [facility] approved all days after p2P completed. (BILL CEE RN 03/15/2020 11:39) Comment 2: Left VM for Allison inquiring of P2P result. (BILL CEE RN 03/14/2020 16:18) Comment 3: Per Dr. Arthur she will complete this P2P left VM for [facility] to setup P2P for 03/14/2020 @ 9-10. [...] discuss P2P> Emailed to [facility] (BILL CEE RN 03/09/2020 11:15) Comment 8: [employer] BH denied for inpt per Allison (KYRIE BROWN RN-Utilization Review 03/07/2020 15:46) Comment 9: Additional clinicals faxed manually per request of Allison at [facility] (Yvonne Duran Rn-Utilization Review 03/07/2020 08:44) Comment 10: Clinicals faxed manually to [facility] (Yvonne Duran Rn-Utilization Review 03/05/2020 14:39) BILL CEE RN - 03/15/2020 11:40 EDT Electronically signed by Ruby [facility] Conversion Economic Development Specialist Cerner at 10/08/2022 12:06 PM CDT documented in this encounter Plan of Treatment Not on file documented as of this encounter Visit Diagnoses Not on filedocumented in this encounter Care Teams Assistant Speech Language Pathologist Relationship Specialty Start Date End Date Moira Barba, RN PCP - General 12/14/22 documented as of this encounter
--- OUTSIDE RECORDS SUMMARY | 2025-06-09 20:44 | XMS_ITS | Encounter Summary ---
Author Organization [employer] ([place], [place], [place], [place], [place]) Address [address] [place] [address] Care Team Providers Care Assisted Living Nursing Director Name Role Phone Moira Barba RN Primary Care Provider Jose L miller Encounter Details Date Type Department Care Team (Late st Contact Info) Description 03/07/2020 Transcribed Document [facility] [place] Family Medicine [address] [place] [address] ProviderMargaret MD [address] [place] [address] Social History Tobacco Use Types [...] 09/04/2009 Document Revised: 09/30/2019 Document Reviewed: 10/29/2016 [employer] Patient Education ? 2020 [employer]. Obstetrics and Gynecology Third Trimester of The third trimester is from week 28 through week 40 (months 7 through 9). This trimester is when your unborn baby (fetus) is growing very fast. At the end of the ninth month, the unborn baby is about 20 inches in length. It weighs about 6?10 pounds. Follow these instructions at home: Medicines ??? Take ccnq-oxg-bzyvtbt and prescription medicines only as told by [...] 09/02/2010 Document Revised: 09/29/2019 Document Reviewed: 07/14/2017 [employer] Patient Education ? 2020 [employer] documented in this encounter Plan of Treatment Not on file documented as of this encounter Visit Diagnoses Not on filedocumented in this encounter Care Teams Assisted Living Nursing Director Relationship Specialty Start Date End Date Moira Barba, RN PCP - General 12/14/22 documented as of this encounter
--- OUTSIDE RECORDS SUMMARY | 2025-06-09 20:44 | XMS_ITS | Encounter Summary ---
Author Organization [employer] ([place], [place], [place], [place], [place]) Address [address] [place] [address] Care Team Providers Care Crimping Press Operator Name Role Phone Moira Barba RN Primary Care Provider Jose L ilgrayson Encounter Details Date Type Department Care Team (Late st Contact Info) Description 03/07/2020 Transcribed Document [facility] [place] Family Medicine [facility] [place] [address] ProviderMargaret MD [address] [place] [address] Social History Tobacco Use Types Packs/Day [...] 03/07/2020 5:29 EDT Electronically signed by Ruby [facility] Conversion Parachute Inspector Cerner at 10/08/2022 12:03 PM CDT documented in this encounter Plan of Treatment Not on file documented as of this encounter Visit Diagnoses Not on filedocumented in this encounter Care Teams Crimping Press Operator Relationship Specialty Start Date End Date Moira Barba, RN PCP - General 12/14/22 documented as of this encounter
--- OUTSIDE RECORDS SUMMARY | 2025-06-09 20:44 | XMS_ITS | Encounter Summary ---
Author Organization [employer] ([place], [place], [place], [place], [place]) Address [address] [place] [address] Care Team Providers Care Manager Intranet Name Role Phone Moira Barba RN Primary Care Provider Jose L miller Encounter Details Date Type Department Care Team (Late st Contact Info) Description 03/09/2020 Transcribed Document [facility] [place] [address] [place] [address] ProviderMargaret MD [address] [place] [address] Social History Tobacco Use Types Packs/Day [...] Performed On: 03/09/2020 11:15 EDT by BILL ECE RN Primary Insurance Authorization Authorization and Policy Numbers : Insurance 1 Health Plan: [facility] Policy Number: [id number] Authorization Number: Insurance Primary Name : [facility] Policy Number: [id number] Authorization Status-Primary : Denial - admission Authorized Service Begin Date-Primary : 03/04/2020 EDT Authorization Comments-Primary : Called Dr. Case office spoke with Kim she stated that Dr. Atrhur only works tuesdays. I will call back then to discuss P2P> Emailed to [facility] Historical Authorization Comments-Primary : Comment 1: [employer] BH denied for inpt per Allison (KYRIE BROWN, RN-Utilization Review 03/07/2020 15:46) Comment 2: Additional clinicals faxed manually per request of Allison at [facility] (Yvonne Duran, An-Utilization Review 03/07/2020 08:44) Comment 3: Clinicals faxed manually to [facility] (Yvonne Duran, Rn-Utilization Review 03/05/2020 14:39) BILL CEE RN - 03/09/2020 11:15 EDT Electronically signed by Ruby [facility] Conversion Neurobiologist Cerner at 10/08/2022 12:02 PM CDT documented in this encounter Plan of Treatment Not on file documented as of this encounter Visit Diagnoses Not on filedocumented in this encounter Care Teams Manager Intranet Relationship Specialty Start Date End Date Moira Barba RN PCP - General 12/14/22 documented as of this encounter
--- OUTSIDE RECORDS SUMMARY | 2025-06-09 20:44 | XMS_ITS | Encounter Summary ---
Author Organization [employer] ([place], [place], [place], [place], [place]) Address [address] [place] [address] Care Team Providers Care Costume Cutter Name Role Phone Moira Barba RN Primary Care Provider Jose L ilgrayson Encounter Details Date Type Department Care Team (Late st Contact Info) Description 03/04/2020 Transcribed Document [facility] [place] [address] ProviderMargaret MD [address] [place] [address] Social History Tobacco Use Types Packs/Day [...] by Ruby [facility] Conversion Pharmacist'S Aide Cerner at 10/08/2022 12:10 PM CDT documented in this encounter Plan of Treatment Not on file documented as of this encounter Visit Diagnoses Not on filedocumented in this encounter Care Teams Costume Cutter Relationship Specialty Start Date End Date Moira Barba, RN PCP - General 12/14/22 documented as of this encounter
--- OUTSIDE RECORDS SUMMARY | 2025-06-09 20:44 | XMS_ITS | Encounter Summary ---
Author Organization [employer] ([place], [place], [place], [place], [place]) Address [address] [place] [address] Care Team Providers Care Import/Export Agent Name Role Phone Moira Barba RN Primary Care Provider Jose L ilgrayson Encounter Details Date Type Department Care Team (Late st Contact Info) Description 03/06/2020 Transcribed Document [facility] [place] Family Medicine [facility] [place] [address] ProviderMargaret MD [address] [place] [address] Social History Tobacco Use Types Packs/Day [...] on filedocumented in this encounter Care Teams Import/Export Agent Relationship Specialty Start Date End Date Moira Barba, RN PCP - General 12/14/22 documented as of this encounter
--- OUTSIDE RECORDS SUMMARY | 2025-06-09 20:44 | XMS_ITS | Encounter Summary ---
Author Organization [employer] ([place], [place], [place], [place], [place]) Address [address] [place] [address] Care Team Providers Care Food Processor Name Role Phone Moira Barba RN Primary Care Provider Jose L miller Encounter Details Date Type Department Care Team (Late st Contact Info) Description 03/13/2020 Transcribed Document [facility] [place] Family Medicine [address] [place] [address] ProviderMargaret MD [address] [place] [address] Social History Tobacco Use Types Packs/Day [...] Policy Numbers : Insurance 1 Health Plan: [facility] Policy Number: [id number] Authorization Number: Insurance Primary Name : [facility] Policy Number: [id number] Authorization Status-Primary : Denial - admission Authorized Service Begin Date-Primary : 03/04/2020 EDT Authorization Comments-Primary : Per Dr. Arthur she will complete this P2P left VM for [facility] to setup P2P for 03/14/2020 @ [...] back then to discuss P2P> Emailed to [facility] (BILL CEE RN 03/09/2020 11:15) Comment 5: [employer] BH denied for inpt per Allison (KYRIE BROWN RN-Utilization Review 03/07/2020 15:46) Comment 6: Additional clinicals faxed manually per request of Allison at [facility] (Yvonne Duran Rn-Utilization Review 03/07/2020 08:44) Comment 7: Clinicals faxed manually to [facility] (Yvonne Duran Rn-Utilization Review 03/05/2020 14:39) BILL CEE RN - 03/13/2020 10:15 EDT [address] by [facility] Conversion Labview Programmer Cerner at 10/08/2022 11:52 AM CDT documented in this encounter Plan of Treatment Not on file documented as of this encounter Visit Diagnoses Not on filedocumented in this encounter Care Teams Food Processor Relationship Specialty Start Date End Date Moira Barba, RANDI PCP - General 12/14/22 documented as of this encounter
--- OUTSIDE RECORDS SUMMARY | 2025-06-09 20:44 | XMS_ITS | Encounter Summary ---
Author Organization [employer] ([place], [place], [place], [place], [place]) Address [address] [place] [address] Care Team Providers Care Goodwill Ambassador Name Role Phone Moira Barba RN Primary Care Provider Jose L ilgrayson Encounter Details Date Type Department Care Team (Late st Contact Info) Description 03/06/2020 Transcribed Document [facility] Family Medicine [facility] [place] [address] ProviderMargaret MD [address] [place] [address] Social History Tobacco Use Types Packs/Day [...] 03/06/2020 20:06 EDT Electronically signed by Ruby [facility] Conversion Robotics Specialist Cerner at 10/08/2022 12:15 PM CDT documented in this encounter Plan of Treatment Not on file documented as of this encounter Visit Diagnoses Not on filedocumented in this encounter Care Teams Goodwill Ambassador Relationship Specialty Start Date End Date Moira Barba, RN PCP - General 12/14/22 documented as of this encounter
--- OUTSIDE RECORDS SUMMARY | 2025-06-09 20:44 | XMS_ITS | Encounter Summary ---
Author Organization [employer] ([place], [place], [place], [place], [place]) Address [address] [place] [address] Care Team Providers Care Web Manager Name Role Phone Moira Barba RN Primary Care Provider Jose L miller Encounter Details Date Type Department Care Team (Late st Contact Info) Description 03/04/2020 Transcribed Document [facility] [place] Family Medicine [facility] [place] [address] ProviderMargaret MD [address] [place] [address] Social History Tobacco Use Types Packs/Day [...] on filedocumented in this encounter Care Teams Web Manager Relationship Specialty Start Date End Date Moira Barba RN PCP - General 12/14/22 documented as of this encounter
--- OUTSIDE RECORDS SUMMARY | 2025-06-09 20:44 | XMS_ITS | Encounter Summary ---
Author Organization [employer] ([place], [place], [place], [place], [place]) Address [address] [place] [address] Care Team Providers Care Engine Assembly Supervisor Name Role Phone Moira Barba RN Primary Care Provider Jose L miller Encounter Details Date Type Department Care Team (Late st Contact Info) Description 03/07/2020 Transcribed Document [facility] [place] Family [place] [address] ProviderMargaret MD [address] [place] [address] Social History Tobacco Use Types Packs/Day [...] Margaret ProviderMD - 03/07/2020 8:55 AM CDT [place] [id number] INDRA NAVA :2000 Visit Time:03/04/2020 Your Visit [...] Capsule(s) Oral Every 4 Hours Pickup at [facility] Pharmacy Information [facility]: [address] [place] [place], [place] [id number] [phone] Take your medications faithfully. Do NOT skip [...] 09/04/2009 Document Revised: 09/30/2019 Document Reviewed: 10/29/2016 [employer] Patient Education ?? 2020 [employer]. Third Trimester of The third trimester is from week 28 through week 40 (months 7 through 9). This trimester is when your unborn baby (fetus) is growing very fast. At the end of the ninth month, the unborn baby is about 20 inches in length. It weighs about 6???10 pounds. Follow these instructions at home: Medicines ??? Take uyvl-dnq-dhkomwb and prescription medicines only as told by [...] 09/02/2010 Document Revised: 09/29/2019 Document Reviewed: 07/14/2017 [employer] Patient Education ?? 2020 [employer]. Emergency Awareness and Preventative Care STROKE is [...] Assistance with quitting is available by contacting 5-690-GRCY-NOW. This is a free resource providing counseling, [...] range between ( 1.0 and 7.0 ) Rankin #: 1.30 K/uL -- Normal range between ( 0.24 and 0.82 ) Eos #: 0.00 K/uL -- Normal range between ( 0.04 and 0.54 ) Rankin %: 6.4 % -- Normal range between [...] was given the opportunity to ask questions. Patient/Commercial Journeyman Electrician Name: Patient/Commercial Journeyman Electrician Signature: Relationship to Patient: Clinician/Hospital Commercial Journeyman Electrician Signature: Date: Electronically signed by Alexandru Beltran Conversion Admissions Gate Attendant Cerner at 10/08/2022 12:00 PM CDT documented in this encounter Plan of Treatment Not on file documented as of this encounter Visit Diagnoses Not on filedocumented in this encounter Care Teams Engine Assembly Supervisor Relationship Specialty Start Date End Date Moira Barba RN PCP - General 12/14/22 documented as of this encounter
--- OUTSIDE RECORDS SUMMARY | 2025-06-09 20:44 | XMS_ITS | Encounter Summary ---
Author Organization [employer] ([place], [place], [place], [place], [place]) Address [address] [place] [address] Care Team Providers Care Steam Box Hand Name Role Phone Moira Barba RN Primary Care Provider Jose L miller Encounter Details Date Type Department Care Team (Late st Contact Info) Description 03/07/2020 Transcribed Document [facility] [place] Family Medicine [address] [place] [address] ProviderMargaret MD [address] [place] [address] Social History Tobacco Use Types Packs/Day [...] 8:54 EDT Electronically signed by Ruby [facility] Conversion Compact Assembler Cerner at 10/08/2022 11:56 AM CDT documented in this encounter Plan of Treatment Not on file documented as of this encounter Visit Diagnoses Not on filedocumented in this encounter Care Teams Steam Box Hand Relationship Specialty Start Date End Date Moira Barba RN PCP - General 12/14/22 documented as of this encounter
--- OUTSIDE RECORDS SUMMARY | 2025-06-09 20:44 | XMS_ITS | Encounter Summary ---
Author Organization [employer] ([place], [place], [place], [place], [place]) Address [address] [place] [address] Care Team Providers Care Asset Protection Manager Name Role Phone Moira Barba RN Primary Care Provider Jose L ilgrayson Encounter Details Date Type Department Care Team (Late st Contact Info) Description 03/04/2020 Transcribed Document [facility] [place] [address] ProviderMargaret MD [address] [place] [address] Social History Tobacco Use Types Packs/Day [...] 20:05 EDT Electronically signed by Ruby [facility] Conversion Group Home Worker Cerner at 10/08/2022 12:12 PM CDT documented in this encounter Plan of Treatment Not on file documented as of this encounter Visit Diagnoses Not on filedocumented in this encounter Care Teams Asset Protection Manager Relationship Specialty Start Date End Date Moira Barba, RN PCP - General 12/14/22 documented as of this encounter
--- OUTSIDE RECORDS SUMMARY | 2025-06-09 20:44 | XMS_ITS | Encounter Summary ---
Author Organization [employer] ([place], [place], [place], [place], [place]) Address [address] [place] [address] Care Team Providers Care Supply Officer Name Role Phone Moira Barba RN Primary Care Provider Jose L miller Encounter Details Date Type Department Care Team (Late st Contact Info) Description 03/13/2020 Transcribed Document [facility] [place] [address] [place] [address] ProviderMargaret MD [address] [place] [address] Social History Tobacco Use Types Packs/Day [...] Plan: [facility] Policy Number: [id number] Authorization Number: Insurance Primary Name : [facility] Policy Number: [id number] Authorization Status-Primary : Denial - admission Authorized [...] [facility] (BILL CEE RN 03/09/2020 11:15) Comment 4: [...] 03/13/2020 10:00 EDT Electronically signed by Ruby [facility] Conversion Cost Coordinator Gloria at 10/08/2022 12:11 PM CDT documented in this encounter Plan of Treatment Not on file documented as of this encounter Visit Diagnoses Not on filedocumented in this encounter Care Teams Supply Officer Relationship Specialty Start Date End Date Moira Barba RN PCP - General 12/14/22 documented as of this encounter
--- OUTSIDE RECORDS SUMMARY | 2025-06-09 20:44 | XMS_ITS | Patient Health Record ---
Author Organization [facility] Address [address] [facility] [address] [place] [address] Care Team Providers Care Bristle Machine Operator Name Role Phone Dimple Pillai Unavailable [phone] Allergies Allergen (clinical drug ingredient) Drug/Non Drug [...] Status Risk Notes Problem Urine test negative ([id number]) Encounter for test with result negative (Z32.02) [...]
[2025-06-09 20:54] VITALS: BMI 26.6
--- NOTE | 2025-06-09 21:12 | PC.NURSE ---
2053 Dr. Holland notified.
--- NOTE | 2025-06-09 21:19 | EXP.OB.APHP ---
OB - H&P: HPI Antepartum History of Present Illness Chief complaint: leakage of fluid History of present illness: Ms Nay Nava is a 24 yo at 38w6d who presents to [facility] L&D with complaint of leakage of fluid that started around 2000 tonight. She was at home and heart a pop then felt a gush of fluid and has continued to leak. Contractions started to become more painful after leakage of fluid. She has had good care. History of x 2. She is complete with childbearing and desires permanent sterilizaton at time of . History of Present Criteria for establishing EDC:: based on 1st trimester US only care: good care Ultrasounds: normal mid trimester US Obstetrical complications: none Medical complications: none Labs Blood type: O (-) negative Rubella: immune RPR/VDRL: nonreactive GBS status: negative HBsAG: negative PFSH PFS Disclaimer: The information contained in this section may have been updated after the patient was seen, as this information can be updated by other users. Medical History (Updated 06/09/25 @ 21:31 by Jennifer Bojorquez DO) Request for sterilization with 38 completed weeks gestation Spontaneous rupture of membranes uterine contractions, antepartum Miscarriage Ovarian cyst Surgical History (Updated 06/09/25 @ 21:31 by Jennifer Bojorquez DO) Hx of section Family History Grandmother Cancer uterine Endometriosis Other Diabetes Hypertension No significant family history Thyroid disorder Social History (Updated 06/06/25 @ 12:04 by Angeles Escobar RN) Smoking Status: Former smoker alcohol intake: never current occupational status: employed Travel in the last 8 weeks?: None household members: spouse Have you lived/traveled outside [place] in past 30 days?: No Contact w/someone who lives/traveled outside US past 30 days?: No Exposure to someone with infectious disease in past 14 days?: No Do you have a fever (greater than 100.4 F or 38 C)?: No Have you tested positive for COVID-19?: No Exposed to someone with COVID-19 in past 14 days?: No Do you have a sore throat?: No Do you have a cough?: No Do you have any weakness?: No Do you have any diarrhea?: No Are you experiencing any unusual bleeding?: No Do you have any muscle aches/pain?: No Do you have any abdominal pain?: No Are you experiencing loss of taste or smell?: No Other Medical History Have you received the Flu Vaccine for this season: No Have you received the Pneumonia Vaccine: No Review of Systems Review of Systems Review of systems:: pertinent systems reviewed and negative unless documented below *Genitourinary Comments: + leakage of fluid, contractions Meds Home Medications and Allergies Home Medications ?Medication ?Instructions ?Recorded ?Confirmed ?Type vitamins no.102-iron 90 1 cap PO DAILY 01/31/25 06/09/25 History mg-folate 1 mg-dha 200 mg capsule nifedipine 10 mg capsule 10 mg PO TID PRN Contractions #60 03/23/25 06/09/25 Rx caps ondansetron HCl 4 mg tablet 4 mg PO Q8H #30 tabs 05/02/25 06/09/25 Rx New Prescriptions to Start Prescriptions: Allergies Allergy/AdvReac Type Severity Reaction Status Date / Time amoxicillin Allergy Unknown Verified 06/09/25 21:09 allergy reaction Penicillins Allergy Unknown Verified 06/09/25 21:09 allergy reaction morphine AdvReac Severe Unknown Verified 06/09/25 21:09 allergy reaction OB - H&P: Exam Constitutional no acute distress and cooperative Routine HEENT Exam Head: Present normocephalic and atraumatic Eye: Absent conjunctivae pink ENT: Present mucous membranes moist Routine Neck Exam Present full ROM Routine Respiratory Exam Present CTA bilaterally and normal respiratory effort Routine Cardiovascular Exam Present RRR Routine Abdominal Exam Present soft (Gravid); Absent tenderness Routine Rectal Exam Patient deferred: visual exam Routine Exam External: Present normal urethra appearance; Absent erythema, swelling or tenderness Routine Extremities Exam Present full ROM; Absent edema or calf tenderness Routine Neurological Exam Present alert, moving all extremities and normal speech Routine Psychiatric Exam Present normal affect and cooperative Detailed Labor and Delivery Exam Membranes: spontaneously ruptured Amniotic fluid: clear Baseline heart rate: 130 monitor accelerations: Present monitor decelerations: None emt intermediate variability: Moderate (-) OB - A/P Antepartum (1) Spontaneous rupture of membranes: Status: Acute (2) Hx of section: Problem details: x2 Status: Acute (3) with 38 completed weeks gestation: Status: Acute (4) Request for sterilization: Status: Acute Additional Plan Additional Information:: Admit to [facility] L&D for repeat and bilateral salpingectomy Discussed risks, benefits, alternatives, expectations and possible complications of surgery. Risks include but are not limited to bleeding; infection; damage to adjacent structures (bowel, bladder, nerves, blood vessels, etc) (possibly requiring further intervention and/or longer hospital stay); VTE; risks with anesthesia; and risk of . All questions addressed and answered. Patient voiced understanding of risks and possible complications. Patient desires to proceed with surgery. Consent form signed. Proceed with repeat and bilateral salpingectomy
[2025-06-09] MEDS: CLINDAMYCIN PHOSPHATE/D5W 900 MG/50 ML PIGGYBACK 100 MG IV (21:24)
[2025-06-09 21:27] LABS: Hematocrit 36.0 % (37.0-47.0); Hemoglobin 12.4 g/dL (12.2-16.2); Immature Granulocytes % 0.5 %; Mean Corpuscular HGB Conc 34.4 g/dL (31.8-35.4); Mean Corpuscular Hemoglobin 31.2 pg (27.0-31.2); Mean Corpuscular Volume 90.5 fl (81-99); Nucleated Red Blood Cells % 0 %; Platelet Count 246 K/mm3 (142-424); Red Blood Count 3.98 M/mm3 (4.20-5.40); Red Cell Distribution Width-SD 39.5 fL; White Blood Count 8.8 K/mm3 (4.8-10.8)
[2025-06-09] MEDS: CITRIC ACID/SODIUM CITRATE ORAL SOLN 30ML UDC 30 ML PO (21:28)
[2025-06-09 21:33] VITALS: BP 132/88; PULSE 99; RESP 20; TEMP 36.6; O2SAT 99; BMI 26.6
[2025-06-09 23:30] VITALS: BP 107/71; PULSE 78; RESP 16; TEMP 36.3; O2SAT 97
--- NOTE | 2025-06-09 23:35 | P.OP_ITS ---
Date of procedure: 06/09/25 Pre-op Diagnosis:: 1. Spontaneous rupture of membranes 2. IUP at 38w6d 3. History of x 2 4. Request for sterilization Post-op Diagnosis:: 1. Spontaneous rupture of membranes 2. IUP at 38w6d 3. History of x 2 4. Request for sterilization Procedure performed:: 1. Repeat low transverse section 2. Bilateral salpingectomy Surgeon:: Jennifer Bojorquez DO Sales Management Intern(s):: Liborio Savage MD SUPERVISOR BROADLOOM:: Maggy Lima Anesthesia: spinal Estimated blood loss (mL): 300 Clinical Note:: Ms Nay Nava is a 24 yo at 38w6d who presents to [facility] L&D with complaint of leakage of fluid that started around 2000 tonight. She was at home and heart a pop then felt a gush of fluid and has continued to leak. Contractions started to become more painful after leakage of fluid. She has had good care. History of x 2. She is complete with childbearing and desires permanent sterilizaton at time of . Operative findings:: 1. Live male baby, Petey, weighing 7 lb 12 oz, Apgars 8 (1 min), 9 (5 min) 2. Grossly normal appearing uterus, bilateral fallopian tubes and ovaries Operative note:: The risks, benefits and alternatives of the procedure were reviewed with the patient. Informed consent was obtained. Patient was taken to the operating room where spinal anesthesia was placed. The patient received Azithromycin 500 mg IV, Clindamycin 900 mg IV and Gentamicin 5mg/kg IV preoperatively. Patient was placed in dorsal supine position with a leftward tilt. SCDs in place. Rosas catheter had been placed and was draining clear urine prior to the start of the procedure. heart tones were obtained. Vagina was prepped with Betadine swabs x 3. Patient was then prepped and draped in normal sterile fashion. Allis clamp test was performed to ensure adequate anesthesia. A Pfannenstiel skin incision was made 2 cm above pubic symphysis along prior Pfannenstiel scar. This was carried through to underlying layer of fascia. Fascia was incised in midline, extended laterally with Marquis scissors. Superior aspect of fascial incision was grasped with two Brett clamps, elevated up, and rectus muscle dissected off bluntly and sharply with Marquis scissors. The retcus muscle was then in the midline and the peritoneum was entered bluntly with a digit. Peritoneal incision was then extended superiorly and inferiorly with good visualization of the bladder. Franco retractor was inserted. The lower uterine segment was incised in a transverse fashion. Clear amniotic fluid was noted. Head was delivered with mild difficulty secondary to occiput posterior presentation and neck extended. Remainder of body was delivered without difficulty. Mouth and nares were bulb suctioned. Spontaneous cry was noted. Delayed cord clamping was performed for 60 seconds. The umbilical cord was clamped and cut. The was handed to awaiting pediatric staff in stable condition. Dr. Orona was present. Apgars were 8(1 min), 9(5 min). Cord blood was obtained. Gentle traction on the umbilical cord and uterine fundal massage delivered the placenta. Placenta was intact. Uterus was cleared of all clots and debris with a moist laparotomy sponge. Corners of the uterine incision were grasped with Allis clamps. The uterine incision was reapproximated with # 1 Vicryl suture in a running, locked stitch. Second layer of the same stitch was used to imbricate the incision. Vesicouterine peritoneum was reapproximated in a running locked stitch with 0- Vicryl suture. Hemostasis was noted. Attention was then turned to the left fallopian tube, which was grasped with a Leyla clamp. Enseal device was used to clamp, ligate and transect the right mesosalpinx and fallopian tube at uterine cornua. Same procedure was carried out on the contralateral side. Posterior cul-de-sac was cleaned with moist laparotomy sponge. Gutters cleared of all clots and debris with a moist laparotomy sponge. Reinspection of the lower uterine segment demonstrated small amount of oozing. Surgicel powder was applied over uterine incision. Hemostasis was noted. At this point all ins truments and sponges were removed from the pelvis.? The peritoneum was grasped with Octavia clamps x 3. The peritoneum was reapproximated with 0 Vicryl suture in a running stitch. The corners of the fascia were grasped with Brett clamps, and the fascia was reapproximated with # 1 Vicryl suture in a running fashion. Subcutaneous tissue was irrigated with clear return of fluids. The subcutaneous tissue was reapproximated with 3-0 Vicryl. The skin was reapproximated with Insorb will. Steri strips and Telfa was placed over closed Pfannenstiel skin incision. At the end of the procedure, the uterus was firm with minimal vaginal bleeding. Patient tolerated the procedure well. Instrument, sponges and needle counts were correct x 2. Mom and baby were transported to recovery room in stable condition. Condition: stable Disposition: floor Specimens:: 1. Cord blood 2. Bilateral fallopian tubes Complications:: None
--- NOTE | 2025-06-09 23:36 | EXP.ANES.CKL ---
[facility] Disclaimer: The information contained in this section may have been updated after the patient was seen, as this information can be updated by other users. Medical History Request for sterilization with 38 completed weeks gestation Spontaneous rupture of membranes uterine contractions, antepartum Miscarriage Ovarian cyst Surgical History Hx of section Family History Grandmother Cancer Endometriosis Other Diabetes Hypertension No significant family history Thyroid disorder Social History Smoking Status: Former smoker alcohol intake: never substance use type: unknown current occupational status: employed Travel in the last 8 weeks?: None household members: spouse [facility] Anesthesia Checklist Patient Identification Patient Identification: Arm Band and Verbal (Name & ) Structural Data Admitted From: Home Planned Operative Procedure/s: Consent for Planned Operative Procedure(s) Verified: Yes Verified Documents: Surgical Consent and History and Physical NPO Status Verified Time NPO: 00:00 Additional verifications Patient : Yes Anesthesia Reactions: No Airway Assessment Mallampati Score:: Class II Dentition: Good Dentition Neurological Assessment Level of Consciousness: Awake, Alert and Appropriate Hx Seizures: No Numbness or tingling in extremities: No Anesthesia Plan Anesthesia Risk discussed: Yes Anesthesia Plan: Verified ASA Class: II Anesthesia Type: Spinal
--- NOTE | 2025-06-09 23:38 | EXP.ANES.I ---
[facility] Anesthesia Record Part I Anesthesia Record I Intake, IV Amount: 1,000 Hydration: Adequate Estimated blood loss (mL): 300 Urine output (mL): 200 Blood Pressure: 107/71 SaO2: 95 Pulse Rate: 76 Airway Patency: Patent Respiratory Rate: 18 Temperature: 98.3 F Patient is:: Awake and Stable Stable to PACU at:: 23:40
[2025-06-09 23:39] VITALS: BP 107/71; PULSE 76; RESP 18; TEMP 36.8; O2SAT 95
[2025-06-09 23:40] VITALS: BP 103/60; PULSE 80; RESP 16; TEMP 36.3; O2SAT 97
[2025-06-09 23:48] LABS: Microscopic,Cath URINE MICROSCOPIC (MICROSCOPIC)
[2025-06-09 23:50] VITALS: BP 108/68; PULSE 79; RESP 16; TEMP 36.3; O2SAT 96
[2025-06-10] VITALS: BP 105/67; PULSE 80; RESP 16; TEMP 36.2; O2SAT 96
[2025-06-10 00:07] LABS: Appearance,Urine/Cath CLEAR (Clear); Bilirubin,Cath Negative (Negative); Blood, Urine/Cath Negative (Negative); Color,Urine/Cath YELLOW (Yellow); Glucose,Urine/Cath (UA) Negative (Negative); Ketones,Urine/Cath Negative (Negative); Leukocyte Esterase,Cath Negative (Negative); Nitrate,Cath Negative (Negative); PH,Urine/Cath 6.5 (5.0-8.5); Protein,Urine/Cath Negative (Negative); Specific Gravity, Urine/Cath 1.010 (1.005-1.030); Urobilinogen,Cath 0.2 EU/dl (0.2)
[2025-06-10] MEDS: ACETAMINOPHEN 500MG TAB 1000 MG PO ×5 (00:25→23:08)
[2025-06-10 00:33] LABS: Squamous Epithelial Ur./Cath Occasional #/hpf (0-5); WBC,Urine/Cath Occasional #/hpf (0-3)
[2025-06-10] MEDS: OXYCODONE 5MG IMMEDIATE RELEASE TABLET 5 MG PO ×3 (03:09→10:04)
[2025-06-10 04:21] VITALS: BP 115/70; PULSE 76; RESP 18; TEMP 36.8; O2SAT 98
[2025-06-10] MEDS: KETOROLAC 30MG/ML VIAL 30 MG IV ×3 (05:31→17:06)
[2025-06-10] MEDS: CLINDAMYCIN PHOSPHATE/D5W 900 MG/50 ML PIGGYBACK 100 MG IV ×2 (05:31→13:27)
[2025-06-10 06:58] LABS: Hematocrit 35.6 % (37.0-47.0); Hemoglobin 11.8 g/dL (12.2-16.2); Immature Granulocytes % 0.5 %; Mean Corpuscular HGB Conc 33.1 g/dL (31.8-35.4); Mean Corpuscular Hemoglobin 30.4 pg (27.0-31.2); Mean Corpuscular Volume 91.8 fl (81-99); Nucleated Red Blood Cells % 0 %; Platelet Count 255 K/mm3 (142-424); Red Blood Count 3.88 M/mm3 (4.20-5.40); Red Cell Distribution Width-SD 40.4 fL; White Blood Count 17.3 K/mm3 (4.8-10.8)
[2025-06-10 07:40] VITALS: BP 120/75; PULSE 74; RESP 18; TEMP 36.9; O2SAT 98
[2025-06-10] MEDS: SENNA 8.6MG TABLET 8.6 MG PO ×2 (08:07→20:27)
[2025-06-10] MEDS: SIMETHICONE 80MG CHEWABLE TABLET 160 MG PO (08:07)
[2025-06-10 10:08] LABS: RPR W/RFX Titers Nonreactive (Nonreactive)
--- NOTE | 2025-06-10 10:54 | HMH.PHAAMS2 ---
- Antimicrobial Stewardship Review culture & sensitivity review Stewardship interventions: culture & sensitivity review (CURRENTLY RECEIVING CLINDAMYCIN, WBC UP 17.3K THIS AM, AFEBRILE.)
--- NOTE | 2025-06-10 13:26 | P.PN_ITS ---
Subjective *Date: 06/10/25 *Time: 13:26 Interval history: POD # 1 s/p RLTCS with BS Feeling well. Pain somewhat controlled. Formula feeding. Lochia is appropriate. Voiding without difficulty and passing flatus. Tolerating regular diet. Denies fever/chills, chest pain and shortness of breath. No headaches, vision changes, lightheadedness/dizziness. No lower extremity swelling. Ambulating well ad kavita. Medical Exam Vital signs and Labs for Last 24 Hours: Vital Signs Temp Pulse Pulse Resp BP BP Pulse Ox 06/10/25 04:21 98.3 F 76 18 115/70 98 06/10/25 00:00 97.2 F L 80 16 105/67 L 96 06/09/25 23:50 97.3 F L 79 16 108/68 L 96 06/09/25 23:40 97.3 F L 80 16 103/60 L 97 06/09/25 23:39 98.3 F 76 18 107/71 L 06/09/25 23:30 97.3 F L 78 16 107/71 L 97 06/09/25 21:33 97.8 F 99 H 20 132/88 99 O2 Del Method 06/10/25 04:21 Room Air 06/10/25 00:00 Room Air 06/09/25 23:50 Room Air 06/09/25 23:40 Room Air 06/09/25 23:39 06/09/25 23:30 Room Air 06/09/25 21:33 Room Air Intake and Output 06/09/25 06/10/25 06/10/25 23:59 07:59 15:59 Intake Total 1000 / 1000 50 / 50 Balance 1000 / 1000 50 / 50 Intake: Intake, Total IV Amount 1000 / 1000 50 / 50 Clindamycin Phosphate/D5w 900 50 / 50 mg In 50 ml @ 100 mls/hr IV Q8H PENDING SALE TO [facility] Rx#:[id number] Other: Weight 180 lb 0.013 oz Laboratory Results - last 24 hr 06/09/25 21:00: WBC 8.8, RBC 3.98 L, Hgb 12.4, Hct 36.0 L, MCV 90.5, MCH 31.2, MCHC 34.4, RDW 12.0, Plt Count 246, MPV 11.5 H, Neut % (Auto) 61.4, Lymph % (Auto) 31.4, [place] % (Auto) 5.1, Eos % (Auto) 1.3, Baso % (Auto) 0.3, Neut # (Auto) 5.4, Lymph # (Auto) 2.8, [place] # (Auto) 0.5, Eos # (Auto) 0.1, Baso # (Auto) 0.0, RPR w/Rflx to Titer Nonreactive, Blood Type O Negative, Antibody Screen Negative 06/09/25 21:50: Urine Color Yellow, Urine Appearance Clear, Urine pH 6.5, Ur Specific [place] 1.010, Urine Protein Negative, Urine Glucose (UA) Negative, Urine Ketones Negative, Urine Blood Negative, Urine Nitrate Negative, Urine Bilirubin Negative, Urine Urobilinogen 0.2, Ur Leukocyte Esterase Negative, Urine WBC Occasional, Ur Squamous Epith Cells Occasional 06/10/25 06:40: WBC 17.3 H D, RBC 3.88 L, Hgb 11.8 L, Hct 35.6 L, MCV 91.8, MCH 30.4, MCHC 33.1, RDW 12.1, Plt Count 255, MPV 11.6 H, Neut % (Auto) 79.7, Lymph % (Auto) 15.5, [place] % (Auto) 4.1, Eos % (Auto) 0.1, Baso % (Auto) 0.1, Neut # (Auto) 13.8 H, Lymph # (Auto) 2.7, [place] # (Auto) 0.7, Eos # (Auto) 0.0, Baso # (Auto) 0.0 I & O for Labs for Last 24 Hours: Intake & Output 06/07/25 06/08/25 06/09/25 06/10/25 23:59 23:59 23:59 23:59 Intake Total 1000 / 1000 50 / 50 Balance 1000 / 1000 50 / 50 Weight 180 lb 0.013 oz Head: Present atraumatic and normocephalic ENT: Present normal exam Neck: Present full ROM Respiratory: Present CTA bilaterally and normal respiratory effort Cardiac: Present Reg Rate and Rhythm GI: Present soft and normal bowel sounds; Absent distention or tenderness Comments:: Pfannenstiel incision clean/dry/intact with steri strips in place Rectal (female): Present deferred (female): Present deferred Extremities: Present normal inspection and full ROM; Absent edema or calf tenderness Neuro: Present alert, awake and moves all extremities Assessment and Plan *Assessment and plan (1) S/P : Problem Comment: with bilateral salpingectomy 06/09/25 Status: Acute Category: Surgical Code(s): Z98.891 - History of uterine scar from previous surgery (2) Spontaneous rupture of membranes: Status: Acute Category: Medical (3) with 38 completed weeks gestation: Status: Acute Category: Medical Code(s): Z3A.38 - 38 weeks gestation of (4) Hx of section: Problem Comment: x2 Status: Acute Category: Surgical Code(s): Z98.891 - History of uterine scar from previous surgery (5) Request for sterilization: Status: Acute Category: Medical Code(s): Z30.2 - Encounter for sterilization (6) Genital condyloma, female: Status: Acute Category: Medical Code(s): A63.0 - Anogenital (venereal) warts Plan Continue routine care Encouraged increased ambulation Am Hgb 11.8 Plan d/c home tomorrow POD # 2
[2025-06-10 16:12] VITALS: BP 121/76; PULSE 89; RESP 18; TEMP 36.9
[2025-06-10] MEDS: SODIUM CHLORIDE 0.9% 10ML FLUSH SYRINGE 10 ML IV (17:07)
[2025-06-10] MEDS: PRENATAL MULTIVITAMIN W/IRON 1 EACH PO (17:08)
[2025-06-10 20:15] VITALS: BP 147/82; PULSE 85; RESP 18; TEMP 36.5; O2SAT 100
[2025-06-10] MEDS: OXYCODONE 5MG IMMEDIATE RELEASE TABLET 10 MG PO (20:27)
[2025-06-10] MEDS: KETOROLAC 10MG TABLET 10 MG PO (23:08)
[2025-06-11 04:39] VITALS: BP 117/79; PULSE 82; RESP 18; TEMP 36.4; O2SAT 98
[2025-06-11] MEDS: KETOROLAC 10MG TABLET 10 MG PO ×2 (05:06→11:18)
[2025-06-11] MEDS: ACETAMINOPHEN 500MG TAB 1000 MG PO ×2 (05:06→11:18)
[2025-06-11] MEDS: SIMETHICONE 80MG CHEWABLE TABLET 160 MG PO ×2 (05:06→11:18)
--- NOTE | 2025-06-11 10:49 | EXP.DC.SUM ---
General Admission date:: 06/09/25 Discharge date: 06/11/25 HPI HPI HPI: POD # 2 s/p RLTCS with BS Feeling well. Pain controlled. Formula feeding. Lochia is light. Voiding without difficulty and passing flatus. Tolerating regular diet. Denies fever/chills, chest pain and shortness of breath. No headaches, vision changes, lightheadedness/dizziness. No lower extremity swelling. Ambulating well ad kavita. Hospital Course Hospital Course Hospital Course: Ms Nay Nava is a 24 yo at 38w6d who presents to [facility] L&D with complaint of leakage of fluid that started around 2000 tonight. She was at home and heart a pop then felt a gush of fluid and has continued to leak. Contractions started to become more painful after leakage of fluid. She has had good care. History of x 2. She is complete with childbearing and desires permanent sterilizaton at time of . She underwent repeat with bilateral salpingectomy on 06/09/25. She delivered a live male baby, Petey Hathaway, weighing 7 lb 12 oz, Apgars 8 (1 min), 9 (5 min). EBL 300 mL. She did well /postoperatively. Pain controlled. Formula feeding. Light lochia. Voiding without difficulty and passing flatus. Tolerating regular diet. Denies fever/chills, chest pain and shortness of breath. No headaches, dizziness/lightheadedness or vision changes. Vital signs stable, afebrile. Heart regular rate and rhythm. Lungs clear to auscultation. Abdomen soft, nontender. No lower extremity swelling. Ambulating well ad kavita. Normal hospital course. She was discharged to home on POD # 2 with instructions to follow-up in the office in 2 weeks or sooner if needed. Exam Data for Last 24 hours Vital signs and Labs for Last 24 Hours: Temp Pulse Resp BP Pulse Ox O2 Del Method 97.6 F 82 18 117/79 98 Room Air 06/11/25 04:39 06/11/25 04:39 06/11/25 04:39 06/11/25 04:39 06/11/25 04:39 06/11/25 04:39 I & O for Last 24 hours: Intake & Output 12/18/06/09/25 06/10/25 06/11/25 23:59 23:59 23:59 23:59 Intake Total 1000 / 1000 100 / 100 Balance 1000 / 1000 100 / 100 Weight 180 lb 0.013 oz Constitutional Constitutional: no acute distress and cooperative *Routine HEENT Exam Head: Present normocephalic and atraumatic Eye: Absent conjunctivae pink ENT: Present mucous membranes moist *Routine Neck Exam Neck: Present full ROM *Routine Respiratory Exam Respiratory: Present CTA bilaterally and normal respiratory effort *Routine Cardiovascular Exam Cardiovascular: Present RRR *Routine Abdominal Exam Abdominal: Present soft and normoactive bowel sounds; Absent tenderness or distended Comments: Pfannenstiel incision clean/dry/intact with steri strips in place *Routine Rectal Exam Patient deferred: visual exam *Routine Exam Patient deferred: external exam *Routine Extremities Exam Extremities: Present full ROM; Absent edema or calf tenderness *Routine Neurological Exam Neurological: Present alert, moving all extremities and normal speech Routine Psychiatric Exam Psychiatric: Present normal affect and cooperative DS: Diagnosis Discharge Diagnosis (1) S/P : Status: Acute Code(s): Z98.891 - History of uterine scar from previous surgery Problem details: with bilateral salpingectomy 06/09/25 (2) Spontaneous rupture of membranes: Status: Acute (3) with 38 completed weeks gestation: Status: Acute Code(s): Z3A.38 - 38 weeks gestation of (4) Hx of section: Status: Acute Code(s): Z98.891 - History of uterine scar from previous surgery Problem details: x2 (5) Request for sterilization: Status: Acute Code(s): Z30.2 - Encounter for sterilization (6) Genital condyloma, female: Status: Acute Code(s): A63.0 - Anogenital (venereal) warts Meds Home Medications and Allergies Home Medications ?Medication ?Instructions ?Recorded ?Confirmed ?Type ibuprofen 800 mg tablet 800 mg PO Q8H PRN pain #20 tabs 06/11/25 Rx oxycodone 5 mg tablet 5 mg PO Q6H PRN pain #20 tabs 06/11/25 Rx New Prescriptions to Start Prescriptions: ibuprofen Cankandi, oxycodone Canan, Allergies Allergy/AdvReac Type Severity Reaction Status Date / Time amoxicillin Allergy Unknown Verified 06/09/25 21:09 allergy reaction Penicillins Allergy Unknown Verified 06/09/25 21:09 allergy reaction morphine AdvReac Severe Unknown Verified 06/09/25 21:09 allergy reaction Discharge Plan Disposition Patient Disposition: Home, Self-Care Condition: Good Discharge Order Discharge Orders: Discharge Order (Routine); Ordered 06/11/25 Ordered By: Jennifer Bojorquez Follow up Plan Follow up with: Apolonia Serrato DO [Staff Physician, NEGATIVE RETOUCHER] - 2 weeks Prescriptions/Medication Reconciliation: New ibuprofen 800 mg tablet 800 mg PO Q8H PRN (Reason: pain) Qty: 20 0RF oxycodone 5 mg tablet 5 mg PO Q6H PRN (Reason: pain) Qty: 20 0RF Discontinued PNV [id number] 90 mg iron- 1 mg-200 mg capsule 1 cap PO DAILY ondansetron HCl 4 mg tablet 4 mg PO Q8H Qty: 30 1RF nifedipine 10 mg capsule 10 mg PO TID PRN (Reason: Contractions) Qty: 60 0RF Rx Instructions: Take 1 tablet as needed for contractions up to 3 times daily. Problem Reconciliation Problems Reviewed?: Yes Patient Discharge Instructions ACTIVITY: Limited activity DIET: continue same diet and regular diet Additional Instructions: Discharge: 1. Take 800 mg Ibuprofen every 8 hours as needed for pain. You can also take 500-1000 mg of Tylenol in between doses, every 6-8 hours. If pain persists you can take Oxycodone 5 mg, 1 tablet every 4-6 hours or longer as needed. 2. Nothing in the vagina for 6 weeks - no intercourse, douching or tampons. No tub baths/hot tubs or swimming pools - Drink plenty of fluids. - No strenuous activity or driving until released by your doctor - Don't lift anything heavier than your in the pumpkin seat 3. Reasons to return to L&D or call On-Call doctor - fever (greater than 100.4) - heavy vaginal bleeding (soaking through 1 pad in less than 2 hours) - vaginal discharge (malodorous and/or purulent) - severe headaches not resolved by medication or rest and leg tenderness/edema 4. depression/blues - Normal to feel anxious/overwhelmed for first 2 weeks - Talk to your doctor if: severe anxiety, trouble bonding with baby, withdrawing from other family members, thoughts of harming yourself or others Patient Instructions: Hemorrhage, DI for , DI for Pre-eclampsia, Surgical Site Infection, Post Discharge Instructions Print Language: Portuguese Providers Primary Care Provider: Delia Rasheed Admit Provider: Jennifer Bojorquez Attending Provider: Jennifer Bojorquez
[2025-06-11] MEDS: SENNA 8.6MG TABLET 8.6 MG PO (11:18)
--- NOTE | 2025-06-12 14:09 | P.PNANES_ITS ---
[facility] Anesthesia Record Part II Anesthesia Record Part II Discharge Time: 00:00 Destination: Obstetric PACU nurse assessment reviewed?: Yes Patient Condition:: Good Anesthesia Complications:: None Swallowing reflex intact?: Yes Airway Patency: Patent Cyanosis?: No Blood Pressure: 105/67 SaO2: 96 Respiratory Rate: 16 Pulse Rate: 80 Temperature: 97.2 F Mental Status: Alert & Oriented Pain level:: 0 Nausea and/or vomitting:: None Intake, IV Amount: 0 Hydration: Adequate
[2025-06-12 14:10] VITALS: BP 105/67; PULSE 80; RESP 16; TEMP 36.2; O2SAT 96
== END 2025-06-11 13:46 | disposition home or self-care (01) | DRG 784 ==
LOC: OBOUT 22:46 → OB 22:46
PROVIDERS: Obstetrics & Gynecology; Admitting Provider Obstetrics & Gynecology; PCP Nurse Practitioner; Visit Provider Obstetrics & Gynecology
PROC: 10D00Z1 Extraction of Products of Conception, Low, Open Approach (ICD-10-PCS; CPT 59514; principal; 2025-06-09 21:00)
DX: O42.02 Full-term premature rupture of membranes, onset of labor within 24 hours of rupture (principal); O98.32 Other infections with a predominantly sexual mode of transmission complicating childbirth; Z3A.38 38 weeks gestation of pregnancy; Z37.0 Single live birth; O34.211 Maternal care for low transverse scar from previous cesarean delivery; A63.0 Anogenital (venereal) warts; O26.893 Other specified pregnancy related conditions, third trimester; Z67.41 Type O blood, Rh negative; Z87.891 Personal history of nicotine dependence; Z30.2 Encounter for sterilization; Z88.0 Allergy status to penicillin; Z88.5 Allergy status to narcotic agent; Z23 Encounter for immunization
CPT/HCPCS: 36415; 51702; 59025; 81001; 85025; 86592; 86850; 96360; J0665; J0666; J0736; J1100; J1200; J1885; J2371; J2405; J2590; J3010; J7120

== ENCOUNTER 2025-06-15 21:53 | Emergency (ER) | payer OTHER, SELFPAY ==
[2025-06-15 22:07] VITALS: BP 135/89; PULSE 64; RESP 18; TEMP 36.7; O2SAT 100; BMI 25.1
--- OUTSIDE RECORDS SUMMARY | 2025-06-15 22:12 | XMS_ITS | Encounter Summary ---
Author Organization [employer] ([place], [place], [place], [place], [place]) Address [address] [place] [address] Care Team Providers Care Supervisor Tank House Name Role Phone Moira Barba RN Primary Care Provider Jose L ilgrayson Encounter Details Date Type Department Care Team (Late st Contact Info) Description 03/05/2020 Transcribed Document [facility] [place] [facility] [place] [address] ProviderMargaret MD [address] [place] [address] Social History Tobacco Use Types Packs/Day [...] 03/06/2020 20:06 EDT Electronically signed by Ruby [facility] Conversion Manager Assessment Cerner at 10/08/2022 12:12 PM CDT documented in this encounter Plan of Treatment Not on file documented as of this encounter Visit Diagnoses Not on filedocumented in this encounter Care Teams Supervisor Tank House Relationship Specialty Start Date End Date Moira Barba, RN PCP - General 12/14/22 documented as of this encounter
--- OUTSIDE RECORDS SUMMARY | 2025-06-15 22:12 | XMS_ITS | Encounter Summary ---
Author Organization [employer] ([place], [place], [place], [place], [place]) Address [address] [place] [address] Care Team Providers Care Operations Staff Specialist Security Name Role Phone Moira Barba RN Primary Care Provider Jose L ilgrayson Encounter Details Date Type Department Care Team (Late st Contact Info) Description 03/05/2020 Transcribed Document [facility] [place] Family Medicine [facility] [place] [address] ProviderMargaret MD [address] [place] [address] Social History Tobacco Use Types Packs/Day [...] on filedocumented in this encounter Care Teams Operations Staff Specialist Security Relationship Specialty Start Date End Date Moira Barba, RN PCP - General 12/14/22 documented as of this encounter
--- OUTSIDE RECORDS SUMMARY | 2025-06-15 22:12 | XMS_ITS | Encounter Summary ---
Author Organization [employer] ([place], [place], [place], [place]) Address [address] [place] [address] Care Team Providers Care Teacher Instrumental Name Role Phone Moira Barba RN Primary Care Provider Jose L ilgrayson Encounter Details Date Type Department Care Team (Late st Contact Info) Description 03/05/2020 Transcribed Document [facility] [place] Family Medicine [facility] [place] [address] ProviderMargaret MD [address] [place] [address] Social History Tobacco Use Types Packs/Day [...] on filedocumented in this encounter Care Teams Teacher Instrumental Relationship Specialty Start Date End Date Moira Barba, RN PCP - General 12/14/22 documented as of this encounter
--- OUTSIDE RECORDS SUMMARY | 2025-06-15 22:12 | XMS_ITS | Encounter Summary ---
Author Organization [employer] ([place], [place], [place], [place]) Address [address] [place] [address] Care Team Providers Care Shearing Machine Operator Name Role Phone Moira Barba RN Primary Care Provider Jose L ilgrayson Encounter Details Date Type Department Care Team (Late st Contact Info) Description 03/05/2020 Transcribed Document [facility] [place] [place] [facility] [place] [address] ProviderMargaret MD [address] [place] [address] Social History Tobacco Use Types Packs/Day [...] 03/06/2020 20:06 EDT Electronically signed by Ruby [facility] Conversion Licensing Representative Cerner at 10/08/2022 12:02 PM CDT documented in this encounter Plan of Treatment Not on file documented as of this encounter Visit Diagnoses Not on filedocumented in this encounter Care Teams Shearing Machine Operator Relationship Specialty Start Date End Date Moira Barba, RN PCP - General 12/14/22 documented as of this encounter
--- OUTSIDE RECORDS SUMMARY | 2025-06-15 22:12 | XMS_ITS | Encounter Summary ---
Author Organization [employer] ([place], [place], [place], [place], [place]) Address [address] [place] [address] Care Team Providers Care Brick Picker Name Role Phone Moira Barba RN Primary Care Provider Jose L miller Encounter Details Date Type Department Care Team (Late st Contact Info) Description 03/05/2020 Transcribed Document [facility] [place] [address] [place] [address] ProviderMargaret MD [address] [place] [address] Social History Tobacco Use Types Packs/Day [...] Policy Numbers : Insurance 1 Health Plan: [facility] Policy Number: [id number] Authorization Number: Insurance Primary Name : [facility] Policy Number: [id number] Authorization Status-Primary : Awaiting callback Authorized Service Begin Date-Primary : 03/04/2020 EDT Authorization Comments-Primary : Clinicals faxed manually to [facility] Historical Authorization Comments-Primary : No Authorization Comments Found Yvonne Duran, An-Utilization Review - 03/05/2020 14:39 EDT Electronically signed by Ruby [facility] Conversion Expert Witness Cerner at 10/08/2022 12:17 PM CDT documented in this encounter Plan of Treatment Not on file documented as of this encounter Visit Diagnoses Not on filedocumented in this encounter Care Teams Brick Picker Relationship Specialty Start Date End Date Moira Barba, RN PCP - General 12/14/22 documented as of this encounter
--- OUTSIDE RECORDS SUMMARY | 2025-06-15 22:13 | XMS_ITS | Encounter Summary ---
Author Organization [employer] ([place], [place], [place], [place], [place]) Address [address] [place] [address] Care Team Providers Care Plastic Card Grader Cardroom Name Role Phone Moira Barba RN Primary Care Provider Jose L ilgrayson Encounter Details Date Type Department Care Team (Late st Contact Info) Description 03/07/2020 Transcribed Document [facility] [place] [address] ProviderMargaret MD [address] [place] [address] Social History Tobacco Use Types Packs/Day [...] MICHEAL BLANCA RN - 03/07/2020 5:29 EDT documented in this encounter Plan of Treatment Not on file documented as of this encounter Visit Diagnoses Not on filedocumented in this encounter Care Teams Plastic Card Grader Cardroom Relationship Specialty Start Date End Date Moira Barba, RN PCP - General 12/14/22 documented as of this encounter
--- OUTSIDE RECORDS SUMMARY | 2025-06-15 22:13 | XMS_ITS | Encounter Summary ---
Author Organization [employer] ([place], [place], [place], [place], [place]) Address [address] [place] [address] Care Team Providers Care Spreading Machine Operator Name Role Phone Moria Barba RN Primary Care Provider Jose L miller Encounter Details Date Type Department Care Team (Late st Contact Info) Description 03/14/2020 Transcribed Document [facility] [place] [address] [place] [address] ProviderMargaret MD [address] [place] [address] Social History Tobacco Use Types Packs/Day [...] Policy Numbers : Insurance 1 Health Plan: [facility] Policy Number: [id number] Authorization Number: Insurance Primary Name : [facility] Policy Number: [id number] Authorization Status-Primary : Denial - admission Authorized [...] [facility] [place] (BILL CEE RN 03/09/2020 11:15) Comment 6: [employer] BH denied for inpt per Allison (KYRIE BROWN RN-Utilization Review 03/07/2020 15:46) Comment 7: Additional clinicals faxed manually per request of Allison at [facility] (Yvonne Duran Rn-Utilization Review 03/07/2020 08:44) Comment 8: Clinicals faxed manually to [facility] (Yvonne Duran Rn-Utilization Review 03/05/2020 14:39) BILL CEE RN - 03/14/2020 16:18 EDT Electronically signed by Ruby [facility] Conversion Assistant Merchandiser Cerner at 10/08/2022 12:13 PM CDT documented in this encounter Plan of Treatment Not on file documented as of this encounter Visit Diagnoses Not on filedocumented in this encounter Care Teams Spreading Machine Operator Relationship Specialty Start Date End Date Moira Barba RN PCP - General 12/14/22 documented as of this encounter
--- OUTSIDE RECORDS SUMMARY | 2025-06-15 22:13 | XMS_ITS | Encounter Summary ---
Author Organization [employer] ([place], [place], [place], [place], [place]) Address [address] [place] [address] Care Team Providers Care Utility Plant Operative Name Role Phone Moira Barba RN Primary Care Provider Jose L ilgrayson Encounter Details Date Type Department Care Team (Late st Contact Info) Description 03/06/2020 Transcribed Document [facility] [place] Medicine [facility] [place] [address] ProviderMargaret MD [address] [place] [address] Social History Tobacco Use Types Packs/Day [...] 03/06/2020 20:07 EDT Electronically signed by Ruby [facility] Conversion Multiskill Operator Cerner at 10/08/2022 12:14 PM CDT documented in this encounter Plan of Treatment Not on file documented as of this encounter Visit Diagnoses Not on filedocumented in this encounter Care Teams Utility Plant Operative Relationship Specialty Start Date End Date Moira Barba, RN PCP - General 12/14/22 documented as of this encounter
--- OUTSIDE RECORDS SUMMARY | 2025-06-15 22:13 | XMS_ITS | Encounter Summary ---
Author Organization [employer] ([place], [place], [place], [place], [place]) Address [address] [place] [address] Care Team Providers Care Offset Lithographic Press Setter Name Role Phone Moira Barba RN Primary Care Provider Jose L miller Encounter Details Date Type Department Care Team (Late st Contact Info) Description 03/15/2020 Transcribed Document [facility] Family Medicine [address] [place] [address] ProviderMargaret MD [address] [place] [address] Social History Tobacco Use Types Packs/Day [...] [facility] Policy Number: [id number] Authorization Number: Insurance Primary Name : [facility] Policy Number: [id number] Authorization Status-Primary : Admit approved Reference Number-Primary : [id number] Number of Days Authorized-Primary : 3 Day(s) Authorized Service Begin Date-Primary : 03/04/2020 EDT Authorized Service End Date-Primary : 03/07/2020 EDT Historical Authorization Comments-Primary : Comment 1: Per call to [facility] approved all days after p2P completed. (BILL CEE RN 03/15/2020 11:39) Comment 2: Left VM for Allison inquiring of P2P result. (BILL CEE RN 03/14/2020 16:18) Comment 3: Per Dr. Arthur she will complete this P2P left VM for [facility] to setup P2P for 03/14/2020 @ [...] manually per request of Allison at [facility] (Yvonne Duran Rn-Utilization Review 03/07/2020 08:44) Comment 10: Clinicals faxed manually to [facility] (Yvonne Duran Rn-Utilization Review 03/05/2020 14:39) BILL CEE RN - 03/15/2020 11:40 EDT documented in this encounter Plan of Treatment Not on file documented as of this encounter Visit Diagnoses Not on filedocumented in this encounter Care Teams Offset Lithographic Press Setter Relationship Specialty Start Date End Date Moira Barba, RN PCP - General 12/14/22 documented as of this encounter
--- OUTSIDE RECORDS SUMMARY | 2025-06-15 22:13 | XMS_ITS | Encounter Summary ---
Author Organization [employer] ([place], [place], [place], [place], [place]) Address [address] [place] [address] Care Team Providers Care Clerk Supervisor Name Role Phone Moira Barba RN Primary Care Provider Jose L miller Encounter Details Date Type Department Care Team (Late st Contact Info) Description 03/07/2020 Transcribed Document [facility] [place] Family Medicine [address] [place] [address] ProviderMargaret MD [address] [place] [address] Social History Tobacco Use Types [...] 09/04/2009 Document Revised: 09/30/2019 Document Reviewed: 10/29/2016 [employer] Patient Education ? 2020 [employer]. Obstetrics and Gynecology Third Trimester of The third trimester is from week 28 through week 40 (months 7 through 9). This trimester is when your unborn baby (fetus) is growing very fast. At the end of the ninth month, the unborn baby is about 20 inches in length. It weighs about 6?10 pounds. Follow these instructions at home: Medicines ??? Take zwab-kzj-stabemx and prescription medicines only as told by [...] 09/02/2010 Document Revised: 09/29/2019 Document Reviewed: 07/14/2017 [employer] Patient Education ? 2020 [employer] documented in this encounter Plan of Treatment Not on file documented as of this encounter Visit Diagnoses Not on filedocumented in this encounter Care Teams Clerk Supervisor Relationship Specialty Start Date End Date Moira Barba, RN PCP - General 12/14/22 documented as of this encounter
--- OUTSIDE RECORDS SUMMARY | 2025-06-15 22:13 | XMS_ITS | Encounter Summary ---
Author Organization [employer] ([place], [place], [place], [place], [place]) Address [address] [place] [address] Care Team Providers Care Publication Editor Name Role Phone Moira Barba RN Primary Care Provider Jose L miller Encounter Details Date Type Department Care Team (Late st Contact Info) Description 03/15/2020 Transcribed Document [facility] [place] [address] [place] [address] ProviderMargaret MD [address] [place] [address] Social History Tobacco Use Types Packs/Day [...] Policy Numbers : Insurance 1 Health Plan: [facility] Policy Number: [id number] Authorization Number: Insurance Primary Name : [facility] Policy Number: [id number] Authorization Status-Primary : Admit approved Number of Days Authorized-Primary : 3 Day(s) Authorized Service Begin Date-Primary : 03/04/2020 EDT Authorized Service End Date-Primary : 03/07/2020 EDT Authorization Comments-Primary : Per call to [facility] approved all days after p2P completed. Historical Authorization Comments-Primary : Comment 1: Left VM for Allison inquiring of P2P result. (BILL CEE RN 03/14/2020 16:18) Comment 2: Per Dr. Arthur she will complete this P2P left VM for [facility] to setup P2P for 03/14/2020 [...] to discuss P2P> Emailed to [facility] (BILL CEE RN 03/09/2020 11:15) Comment 7: [employer] BH denied for inpt per Allison (KYRIE BROWN RN-Utilization Review 03/07/2020 15:46) Comment 8: Additional clinicals faxed manually per request of Allison at [facility] (Yvonne Duran Rn-Utilization Review 03/07/2020 08:44) Comment 9: Clinicals faxed manually to [facility] (Yvonne Duran Rn-Utilization Review 03/05/2020 14:39) BILL CEE RN - 03/15/2020 11:39 EDT Electronically signed by Ruby [facility] Conversion Streetcar Operator Gloria at 10/08/2022 11:58 AM CDT documented in this encounter Plan of Treatment Not on file documented as of this encounter Visit Diagnoses Not on filedocumented in this encounter Care Teams Publication Editor Relationship Specialty Start Date End Date Moira Barba RN PCP - General 12/14/22 documented as of this encounter
--- OUTSIDE RECORDS SUMMARY | 2025-06-15 22:13 | XMS_ITS | Encounter Summary ---
Author Organization [employer] ([place], [place], [place], [place], [place]) Address [address] [place] [address] Care Team Providers Care Order Manager Name Role Phone Moira Barba RN Primary Care Provider Jose L miller Encounter Details Date Type Department Care Team (Late st Contact Info) Description 03/04/2020 Transcribed Document [facility] [place] [address] ProviderMargaret MD [address] [place] [address] Social History Tobacco Use Types Packs/Day [...] on filedocumented in this encounter Care Teams Order Manager Relationship Specialty Start Date End Date Moira Barba RN PCP - General 12/14/22 documented as of this encounter
--- OUTSIDE RECORDS SUMMARY | 2025-06-15 22:13 | XMS_ITS | Encounter Summary ---
Author Organization [employer] ([place], [place], [place], [place], [place]) Address [address] [place] [address] Care Team Providers Care Peoplesoft Programmer Name Role Phone Moira Barba RN Primary Care Provider Jose L miller Encounter Details Date Type Department Care Team (Late st Contact Info) Description 03/07/2020 Transcribed Document [facility] [place] [address] [place] [address] ProviderMargaret MD [address] [place] [address] Social History Tobacco Use Types Packs/Day [...] Plan: [facility] Policy Number: [id number] Authorization Number: Insurance Primary Name : [facility] Policy Number: [id number] Authorization Status-Primary : Awaiting callback Authorized Service Begin Date-Primary : 03/04/2020 EDT Authorization Comments-Primary : Additional clinicals faxed manually per request of Allison at [facility] Historical Authorization Comments-Primary : Comment 1: Clinicals faxed manually to [facility] (Yvonne Duran Rn-Utilization Review 03/05/2020 14:39) Yvonne Duran Rn-Utilization Review - 03/07/2020 8:44 EDT documented in this encounter Plan of Treatment Not on file documented as of this encounter Visit Diagnoses Not on filedocumented in this encounter Care Teams Peoplesoft Programmer Relationship Specialty Start Date End Date Moira Barba, RN PCP - General 12/14/22 documented as of this encounter
--- OUTSIDE RECORDS SUMMARY | 2025-06-15 22:13 | XMS_ITS | Encounter Summary ---
Author Organization [employer] ([place], [place], [place], [place], [place]) Address [address] [place] [address] Care Team Providers Care Scraper Loader Operator Name Role Phone Moira Barba RN Primary Care Provider Jose L ilgrayson Encounter Details Date Type Department Care Team (Late st Contact Info) Description 03/04/2020 Transcribed Document [facility] [place] Family Medicine [facility] [place] [address] ProviderMargaret MD [address] [place] [address] Social History Tobacco Use Types Packs/Day [...] Ruby [facility] Conversion Senior Production Supervisor Cerner at 10/08/2022 12:12 PM CDT documented in this encounter Plan of Treatment Not on file documented as of this encounter Visit Diagnoses Not on filedocumented in this encounter Care Teams Scraper Loader Operator Relationship Specialty Start Date End Date Moira Barba, RN PCP - General 12/14/22 documented as of this encounter
--- OUTSIDE RECORDS SUMMARY | 2025-06-15 22:13 | XMS_ITS | Encounter Summary ---
Author Organization [employer] ([place], [place], [place], [place], [place]) Address [address] [place] [address] Care Team Providers Care Chemist Helper Name Role Phone Moira Barba RN Primary Care Provider Jose L ilgrayson Encounter Details Date Type Department Care Team (Late st Contact Info) Description 03/04/2020 Transcribed Document [facility] [place] Family [place] [facility] [place] [address] ProviderMargaret MD [address] [place] [address] Social History Tobacco Use Types Packs/Day [...] 03/06/2020 20:05 EDT Electronically signed by Ruby [facility] Conversion Occupational Health Nurse Manager Cerner at 10/08/2022 12:10 PM CDT documented in this encounter Plan of Treatment Not on file documented as of this encounter Visit Diagnoses Not on filedocumented in this encounter Care Teams Chemist Helper Relationship Specialty Start Date End Date Moira Barba, RN PCP - General 12/14/22 documented as of this encounter
--- OUTSIDE RECORDS SUMMARY | 2025-06-15 22:13 | XMS_ITS | Encounter Summary ---
Author Organization [employer] ([place], [place], [place], [place], [place]) Address [address] [place] [address] Care Team Providers Care Sew Out Operator Name Role Phone Moira Barba RN Primary Care Provider Jose L miller Encounter Details Date Type Department Care Team (Late st Contact Info) Description 03/09/2020 Transcribed Document [facility] [place] [address] [place] [address] ProviderMargaret MD [address] [place] [address] Social History Tobacco Use Types Packs/Day [...] Plan: [facility] Policy Number: [id number] Authorization Number: Insurance Primary Name : [facility] Policy Number: [id number] Authorization Status-Primary : Denial - admission Authorized Service Begin Date-Primary : 03/04/2020 EDT Authorization Comments-Primary : Called Dr. Case office spoke with Kim she stated that Dr. Arthur only works tuesdays. I will call back then to discuss P2P> Em[place] to [facility] [place] Authorization Comments-Primary : Comment 1: [employer] BH denied for inpt per Allison (KYRIE BROWN, RN-Utilization Review 03/07/2020 15:46) Comment 2: Additional clinicals faxed manually per request of Allison at [facility] (Yvonne Duran, An-Utilization Review 03/07/2020 08:44) Comment 3: Clinicals faxed manually to [facility] (Yvonne Duran, Rn-Utilization Review 03/05/2020 14:39) BILL CEE RN - 03/09/2020 11:15 EDT Electronically signed by Ruby [facility] Conversion Television Cameraman Cerner at 10/08/2022 12:02 PM CDT documented in this encounter Plan of Treatment Not on file documented as of this encounter Visit Diagnoses Not on filedocumented in this encounter Care Teams Sew Out Operator Relationship Specialty Start Date End Date Moira Barba RN PCP - General 12/14/22 documented as of this encounter
--- OUTSIDE RECORDS SUMMARY | 2025-06-15 22:13 | XMS_ITS | Encounter Summary ---
Author Organization [employer] ([place], [place], [place], [place], [place]) Address [address] [place] [address] Care Team Providers Care Recreation Superintendent Name Role Phone Moira Barba RN Primary Care Provider Jose L miller Encounter Details Date Type Department Care Team (Late st Contact Info) Description 03/06/2020 Transcribed Document [facility] [place] Family [place] [facility] [place] [address] ProviderMargaret MD [address] [place] [address] Social History Tobacco Use Types Packs/Day [...] / 37.0 \ Electronically signed by Ruby, [facility] Conversion Monument Carver Cerner at 10/08/2022 11:58 AM CDT documented in this encounter Plan of Treatment Not on file documented as of this encounter Visit Diagnoses Not on filedocumented in this encounter Care Teams Recreation Superintendent Relationship Specialty Start Date End Date Moira Barba RN PCP - General 12/14/22 documented as of this encounter
--- OUTSIDE RECORDS SUMMARY | 2025-06-15 22:13 | XMS_ITS | Encounter Summary ---
Author Organization [employer] ([place], [place], [place], [place], [place]) Address [address] [place] [address] Care Team Providers Care Lab Aide Name Role Phone Moira Barba RN Primary Care Provider Jose L ilgrayson Encounter Details Date Type Department Care Team (Late st Contact Info) Description 03/06/2020 Transcribed Document [facility] [place] Family Medicine [facility] [place] [address] ProviderMargaret MD [address] [place] [address] Social History Tobacco Use Types Packs/Day [...] 03/06/2020 20:07 EDT Electronically signed by Ruby [facility] Conversion Chemical Treatment Operator Cerner at 10/08/2022 11:54 AM CDT documented in this encounter Plan of Treatment Not on file documented as of this encounter Visit Diagnoses Not on filedocumented in this encounter Care Teams Lab Aide Relationship Specialty Start Date End Date Moira Barba, RN PCP - General 12/14/22 documented as of this encounter
--- OUTSIDE RECORDS SUMMARY | 2025-06-15 22:13 | XMS_ITS | Encounter Summary ---
Author Organization [employer] ([place], [place], [place], [place], [place]) Address [address] [place] [address] Care Team Providers Care Television Newscast Director Name Role Phone Moira Barba RN Primary Care Provider Jose L miller Encounter Details Date Type Department Care Team (Late st Contact Info) Description 03/13/2020 Transcribed Document [facility] [place] [address] [place] [address] ProviderMargaret MD [address] [place] [address] Social History Tobacco Use Types Packs/Day [...] Health Plan: [facility] Policy Number: [id number] Authorization Number: Insurance Primary Name : [facility] Policy Number: [id number] Authorization Status-Primary : Denial - admission Authorized [...] back then to discuss P2P> Emailed to [facility] (BILL CEE RN 03/09/2020 11:15) Comment 4: [employer] BH denied for inpt per Allison (KYRIE BROWN RN-Utilization Review 03/07/2020 15:46) Comment 5: Additional clinicals faxed manually per request of Allison at [facility] (Yvonne Duran Rn-Utilization Review 03/07/2020 08:44) Comment 6: Clinicals faxed manually to [facility] (Yvonne Duran Rn-Utilization Review 03/05/2020 14:39) BILL CEE RN - 03/13/2020 10:00 EDT documented in this encounter Plan of Treatment Not on file documented as of this encounter Visit Diagnoses Not on filedocumented in this encounter Care Teams Television Newscast Director Relationship Specialty Start Date End Date Moira Barba RN PCP - General 12/14/22 documented as of this encounter
--- OUTSIDE RECORDS SUMMARY | 2025-06-15 22:13 | XMS_ITS | Encounter Summary ---
Author Organization [employer] ([place], [place], [place], [place], [place]) Address [address] [place] [address] Care Team Providers Care Advertising Representative Name Role Phone Moira Barba RN Primary Care Provider Jose L miller Encounter Details Date Type Department Care Team (Late st Contact Info) Description 03/13/2020 Transcribed Document [facility] [place] [place] [address] [place] [address] ProviderMargaret MD [address] [place] [address] Social History Tobacco Use Types Packs/Day [...] Policy Numbers : Insurance 1 Health Plan: [facility] Policy Number: [id number] Authorization Number: Insurance Primary Name : [facility] Policy Number: [id number] Authorization Status-Primary : Denial - admission Authorized Service Begin Date-Primary : 03/04/2020 EDT Authorization Comments-Primary : Per Dr. Arthur she will complete this P2P left VM for [facility] to setup P2P for 03/14/2020 @ [...] then to discuss P2P> Em[place] [facility] (BILL CEE RN 03/09/2020 11:15) Comment 5: [employer] BH denied for inpt per Allison (KYRIE BROWN RN-Utilization Review 03/07/2020 15:46) Comment 6: Additional clinicals faxed manually per request of Allison at [facility] (Yvonne Duran Rn-Utilization Review 03/07/2020 08:44) Comment 7: Clinicals faxed manually to [facility] (Yvonne Duran Rn-Utilization Review 03/05/2020 14:39) BILL CEE RN - 03/13/2020 10:15 EDT Electronically signed by [facility] Conversion Software Project Engineer Cerner at 10/08/2022 11:52 AM CDT documented in this encounter Plan of Treatment Not on file documented as of this encounter Visit Diagnoses Not on filedocumented in this encounter Care Teams Advertising Representative Relationship Specialty Start Date End Date Moira Barba, RANDI PCP - General 12/14/22 documented as of this encounter
--- OUTSIDE RECORDS SUMMARY | 2025-06-15 22:13 | XMS_ITS | Patient Health Record ---
Author Organization [facility] Address [address] [facility] [address] [place] [address] Care Team Providers Care Energy Specialist Name Role Phone Dimple Pillai Unavailable [phone] Allergies Allergen (clinical drug ingredient) Drug/Non Drug [...] Status Risk Notes Problem Urine test negative ([id number]) Encounter for test with result negative (Z32.02) [...]
--- OUTSIDE RECORDS SUMMARY | 2025-06-15 22:13 | XMS_ITS | Encounter Summary ---
Author Organization [employer] ([place], [place], [place], [place], [place]) Address [address] [place] [address] Care Team Providers Care Gum Dipper Name Role Phone Moira Barba RN Primary Care Provider Jose L miller Encounter Details Date Type Department Care Team (Late st Contact Info) Description 03/07/2020 Transcribed Document [facility] [place] [facility] [place] [address] ProviderMargaret MD [address] [place] [address] Social History Tobacco Use Types Packs/Day [...] / 37.0 \ Electronically signed by Ruby [facility] Conversion Radiology Services Manager Cerner at 10/08/2022 11:57 AM CDT documented in this encounter Plan of Treatment Not on file documented as of this encounter Visit Diagnoses Not on filedocumented in this encounter Care Teams Gum Dipper Relationship Specialty Start Date End Date Moira Barba, RANDI PCP - General 12/14/22 documented as of this encounter
--- OUTSIDE RECORDS SUMMARY | 2025-06-15 22:13 | XMS_ITS | Encounter Summary ---
Author Organization [employer] ([place], [place], [place], [place], [place]) Address [address] [place] [address] Care Team Providers Care Punch Out Crew Member Name Role Phone Moira Barba RN Primary Care Provider Jose L ilgrayson Encounter Details Date Type Department Care Team (Late st Contact Info) Description 03/06/2020 Transcribed Document [facility] [place] [facility] [place] [address] ProviderMargaret MD [address] [place] [address] Social History Tobacco Use Types Packs/Day [...] 03/06/2020 20:06 EDT Electronically signed by Ruby [facility] Conversion Maintenance Mgr Cerner at 10/08/2022 12:15 PM CDT documented in this encounter Plan of Treatment Not on file documented as of this encounter Visit Diagnoses Not on filedocumented in this encounter Care Teams Punch Out Crew Member Relationship Specialty Start Date End Date Moira Barba, RN PCP - General 12/14/22 documented as of this encounter
--- OUTSIDE RECORDS SUMMARY | 2025-06-15 22:13 | XMS_ITS | Encounter Summary ---
Author Organization [employer] ([place], [place], [place], [place], [place]) Address [address] [place] [address] Care Team Providers Care Home Care Chaplain Name Role Phone Moira Barba RN Primary Care Provider Jose L ilgrayson Encounter Details Date Type Department Care Team (Late st Contact Info) Description 03/06/2020 Transcribed Document [facility] [place] [facility] [address] ProviderMargaret MD [address] [place] [address] Social History Tobacco Use Types Packs/Day [...] 20:07 EDT Electronically signed by Ruby [facility] Conversion Remote Sensing Surveyor Cerner at 10/08/2022 12:09 PM CDT documented in this encounter Plan of Treatment Not on file documented as of this encounter Visit Diagnoses Not on filedocumented in this encounter Care Teams Home Care Chaplain Relationship Specialty Start Date End Date Moira Barba, RN PCP - General 12/14/22 documented as of this encounter
--- OUTSIDE RECORDS SUMMARY | 2025-06-15 22:13 | XMS_ITS | Encounter Summary ---
Author Organization [employer] ([place], [place], [place], [place], [place]) Address [address] [place] [address] Care Team Providers Care Machine Stone Polisher Apprentice Name Role Phone Moira Barba RN Primary Care Provider Jose L miller Encounter Details Date Type Department Care Team (Late st Contact Info) Description 03/13/2020 Transcribed Document [facility] [place] [address] [place] [address] ProviderMargaret MD [address] [place] [address] Social History Tobacco Use Types Packs/Day [...] Policy Numbers : Insurance 1 Health Plan: [facility] Policy Number: [id number] Authorization Number: Insurance Primary Name : [facility] Policy Number: [id number] Authorization Status-Primary : Denial - admission Authorized [...] [place] (BILL CEE RN 03/09/2020 11:15) Comment 2: [employer] BH denied for inpt per Allison (KYRIE BROWN RN-Utilization Review 03/07/2020 15:46) Comment 3: Additional clinicals faxed manually per request of Allison at [facility] (Yvonne Duran, Randi-Utilization Review 03/07/2020 08:44) Comment 4: Clinicals faxed manually to [facility] (Yvonne Duran, Randi-Utilization Review 03/05/2020 14:39) BILL CEE RN - 03/13/2020 9:43 EDT Electronically signed by Ruby [facility] Conversion Cold Rolling Coordinator Cerner at 10/08/2022 11:55 AM CDT documented in this encounter Plan of Treatment Not on file documented as of this encounter Visit Diagnoses Not on filedocumented in this encounter Care Teams Machine Stone Polisher Apprentice Relationship Specialty Start Date End Date Moira Barba, RANDI PCP - General 12/14/22 documented as of this encounter
--- OUTSIDE RECORDS SUMMARY | 2025-06-15 22:13 | XMS_ITS | Encounter Summary ---
Author Organization [employer] ([place], [place], [place], [place], [place]) Address [address] [place] [address] Care Team Providers Care Rotary Drill Rig Operator Name Role Phone Moira Barba RN Primary Care Provider Jose L miller Encounter Details Date Type Department Care Team (Late st Contact Info) Description 03/12/2020 Transcribed Document [facility] [place] Medicine [facility] [place] [address] ProviderMargaret MD [address] [place] [address] Social History Tobacco Use Types Packs/Day [...] for Hospitalization 19 yo who presented from [facility] with contractions and cervical change on [...] than 30 minutes Electronically signed by Ruby [facility] Conversion Lathe Turner Cerner at 10/08/2022 12:04 PM CDT documented in this encounter Plan of Treatment Not on file documented as of this encounter Visit Diagnoses Not on filedocumented in this encounter Care Teams Rotary Drill Rig Operator Relationship Specialty Start Date End Date Moira Barba RN PCP - General 12/14/22 documented as of this encounter
--- OUTSIDE RECORDS SUMMARY | 2025-06-15 22:13 | XMS_ITS | Encounter Summary ---
Author Organization [employer] ([place], [place], [place], [place], [place]) Address [address] [place] [address] Care Team Providers Care Electronic Installer Name Role Phone Moira Barba RN Primary Care Provider Jose L miller Encounter Details Date Type Department Care Team (Late st Contact Info) Description 03/07/2020 Transcribed Document [facility] [place] [facility] [place] [address] ProviderMargaret MD [address] [place] [address] Social History Tobacco Use Types Packs/Day [...] on filedocumented in this encounter Care Teams Electronic Installer Relationship Specialty Start Date End Date Moira Barba, RN PCP - General 12/14/22 documented as of this encounter
--- OUTSIDE RECORDS SUMMARY | 2025-06-15 22:13 | XMS_ITS | Encounter Summary ---
Author Organization [email or web address] ([place], [place], [place], [place], [place]) Address [address] [place] [address] Care Team Providers Care Floor Layer Helper Name Role Phone Moira Barba RN Primary Care Provider Jose L miller Encounter Details Date Type Department Care Team (Late st Contact Info) Description 03/04/2020 Transcribed Document [facility] [place] [facility] [place] [address] ProviderMargaret MD [address] [place] [address] Social History Tobacco Use Types Packs/Day [...] Source : Measured Height Entry Format : [place] Height, Feet : 5 ft(Converted to: 152 cm, 60 Inch) Clinical Height : 175.26 cm Height, Inches : 9 Inch(Converted to: 0 ft 9 Inch, 22.86 cm) Weight Source : Standing scale Weight Entry Format : [place] Weight, Pounds : 170 lb Clinical Dosing Weight : 77.27 kg Body Surface Area (BSA) : 1.93 m2 Body Mass Index : 25.2 kg/m2 (HI) [place] Body Weight (IBW) : 65.73 kg ELIO [...] ELIO SNOWDEN RN - 03/04/2020 17:06 EDT [place] Suicide Severity Rating Scale (C-SSRS) CSSRS Past [...] on filedocumented in this encounter Care Teams Floor Layer Helper Relationship Specialty Start Date End Date Moira Barba RN PCP - General 12/14/22 documented as of this encounter
--- OUTSIDE RECORDS SUMMARY | 2025-06-15 22:13 | XMS_ITS | Referral Summary ---
Author Organization [employer] ([place], [place], [place], [place], [place]) Address [address] [place] [address] Care Team Providers Care Survey Compiler Name Role Phone Moira Barba RN Primary [...] Date Jacob rded Speak language other than French at home Not on file 07/10/2023 Want [...] Plan of Treatment Not on file [facility] Care Teams Survey Compiler Relationship Specialty Start Date End Date Moira Barba RN PCP - General 12/14/22
--- OUTSIDE RECORDS SUMMARY | 2025-06-15 22:13 | XMS_ITS | Encounter Summary ---
Author Organization [employer] ([place], [place], [place], [place], [place]) Address [address] [place] [address] Care Team Providers Care Straight Tooth Gear Generator Operator Name Role Phone Moira Barba RN Primary Care Provider Jose L miller Encounter Details Date Type Department Care Team (Late st Contact Info) Description 03/07/2020 Transcribed Document [facility] Family Medicine [address] [place] [address] ProviderMargaret MD [address] [place] [address] Social History Tobacco Use Types Packs/Day [...] Policy Numbers : Insurance 1 Health Plan: [facility] Policy Number: [id number] Authorization Number: Insurance Primary Name : [facility] Policy Number: [id number] Authorization Status-Primary : Denial - admission Authorized Service Begin Date-Primary : 03/04/2020 EDT Authorization Comments-Primary : [employer] denied for inpt per Allison Historical Authorization Comments-Primary : Comment 1: Additional clinicals faxed manually per request of Allison at [facility] (Yvonne Duran, An-Utilization Review 03/07/2020 08:44) Comment 2: Clinicals faxed manually to [facility] (Yvonne Duran, An-Utilization Review 03/05/2020 14:39) KYRIE BROWN RN-Utilization Review - 03/07/2020 15:46 EDT Electronically signed by [facility] Conversion Greenhouse Or Nursery Transplanter Cerner at 10/08/2022 12:04 PM CDT documented in this encounter Plan of Treatment Not on file documented as of this encounter Visit Diagnoses Not on filedocumented in this encounter Care Teams Straight Tooth Gear Generator Operator Relationship Specialty Start Date End Date Moira Barba, RN PCP - General 12/14/22 documented as of this encounter
--- OUTSIDE RECORDS SUMMARY | 2025-06-15 22:13 | XMS_ITS | Encounter Summary ---
Author Organization [employer] ([place], [place], [place], [place], [place]) Address [address] [place] [address] Care Team Providers Care Banking Manager Name Role Phone Moira Barba RN Primary Care Provider Jose L miller Encounter Details Date Type Department Care Team (Late st Contact Info) Description 03/06/2020 Transcribed Document [facility] [place] [facility] [place] [address] ProviderMargaret MD [address] [place] [address] Social History Tobacco Use Types Packs/Day [...] 5 mg 1 Tab, Oral, At Bedtime [facility] US 03/05/20 Sharma at 31w [...] on filedocumented in this encounter Care Teams Banking Manager Relationship Specialty Start Date End Date Moira Barba, RN PCP - General 12/14/22 documented as of this encounter
--- OUTSIDE RECORDS SUMMARY | 2025-06-15 22:13 | XMS_ITS | Encounter Summary ---
Author Organization [employer] ([place], [place], [place], [place], [place]) Address [address] [place] [address] Care Team Providers Care Siderographist Name Role Phone Moira Barba RN Primary Care Provider Jose L miller Encounter Details Date Type Department Care Team (Late st Contact Info) Description 03/13/2020 Transcribed Document [facility] Family Medicine [address] [place] [address] ProviderMargaret MD [address] [place] [address] Social History Tobacco Use Types Packs/Day [...] Policy Numbers : Insurance 1 Health Plan: [facility] Policy Number: [id number] Authorization Number: Insurance Primary Name : [facility] Policy Number: [id number] Authorization Status-Primary : Denial - admission Authorized [...] then to discuss P2P> Em[place] [facility] (BILL CEE RN 03/09/2020 11:15) Comment 3: [employer] BH denied for inpt per Allison (KYRIE BROWN RN-Utilization Review 03/07/2020 15:46) Comment 4: Additional clinicals faxed manually per request of Allison at [facility] (Yvonne Duran Rn-Utilization Review 03/07/2020 08:44) Comment 5: Clinicals faxed manually to [facility] (Yvonne Duran Rn-Utilization Review 03/05/2020 14:39) BILL CEE RN - 03/13/2020 9:44 EDT Electronically signed by Ruby [facility] Conversion Relaster Cerner at 10/08/2022 11:54 AM CDT documented in this encounter Plan of Treatment Not on file documented as of this encounter Visit Diagnoses Not on filedocumented in this encounter Care Teams Siderographist Relationship Specialty Start Date End Date Moira Barba RN PCP - General 12/14/22 documented as of this encounter
--- OUTSIDE RECORDS SUMMARY | 2025-06-15 22:13 | XMS_ITS | Encounter Summary ---
Author Organization [employer] ([place], [place], [place], [place], [place]) Address [address] [place] [address] Care Team Providers Care Brick Tender Name Role Phone Moira Barba RN Primary Care Provider Jose L miller Encounter Details Date Type Department Care Team (Late st Contact Info) Description 03/07/2020 Transcribed Document [facility] [place] [address] [place] [address] ProviderMargaret MD [address] [place] [address] Social History Tobacco Use Types Packs/Day [...] filedocumented in this encounter Care Teams Brick Tender Relationship Specialty Start Date End Date Moira Barba RN PCP - General 12/14/22 documented as of this encounter
--- OUTSIDE RECORDS SUMMARY | 2025-06-15 22:13 | XMS_ITS | Clinical Summary ---
Author Organization [employer] ([place], [place], [place], [place], [place]) Address [address] [place] [address] Care Team Providers Care Drilling Manager Name Role Phone Moira Barba RN [...] Date Jacob rded Speak language other than Faroese at home Not on file 07/10/2023 Want [...] season) 2025 Influenza Vaccine (#1) 2025 Insurance [facility] Care Teams Drilling Manager Relationship Specialty Start Date End Date Moira Barba, RN PCP - General 12/14/22
--- OUTSIDE RECORDS SUMMARY | 2025-06-15 22:13 | XMS_ITS | Encounter Summary ---
Author Organization [employer] ([place], [place], [place], [place], [place]) Address [address] [address] Care Team Providers Care Sports Leadership Instructor Name Role Phone Moira Barba RN Primary Care Provider Jose L miller Encounter Details Date Type Department Care Team (Late st Contact Info) Description 03/05/2020 Transcribed Document [facility] [place] [facility] [place] [address] ProviderMargaret MD [address] [place] [address] Social History Tobacco Use Types Packs/Day [...] 31+2 weeks with PTL. She presented to [facility] with abdominal pain. She was [...] / 39.2 \ Electronically signed by Ruby, [facility] Conversion Driver/Sales Workers Cerner at 10/08/2022 11:57 AM CDT documented in this encounter Plan of Treatment Not on file documented as of this encounter Visit Diagnoses Not on filedocumented in this encounter Care Teams Sports Leadership Instructor Relationship Specialty Start Date End Date Moira Barba RN PCP - General 12/14/22 documented as of this encounter
--- OUTSIDE RECORDS SUMMARY | 2025-06-15 22:13 | XMS_ITS | Encounter Summary ---
Author Organization [employer] ([place], [place], [place], [place], [place]) Address [address] [place] [address] Care Team Providers Care Community Manager Name Role Phone Moira Barba RN Primary Care Provider Jose L miller Encounter Details Date Type Department Care Team (Late st Contact Info) Description 03/07/2020 Transcribed Document [facility] [place] Family Medicine [facility] [place] [address] ProviderMargaret MD [address] [place] [address] Social History Tobacco Use Types Packs/Day [...] Margaret ProviderMD - 03/07/2020 8:55 AM CDT [place] [id number] INDRA NAVA :2000 Visit Time:03/04/2020 Your Visit [...] Capsule(s) Oral Every 4 Hours Pickup at [facility] Pharmacy Information [facility]: [address] [place] [place], [place] [id number] [phone] Take your medications faithfully. Do NOT skip [...] 09/04/2009 Document Revised: 09/30/2019 Document Reviewed: 10/29/2016 [employer] Patient Education ?? 2020 [employer]. Third Trimester of The third trimester is from week 28 through week 40 (months 7 through 9). This trimester is when your unborn baby (fetus) is growing very fast. At the end of the ninth month, the unborn baby is about 20 inches in length. It weighs about 6???10 pounds. Follow these instructions at home: Medicines ??? Take mybb-ius-bmphdug and prescription medicines only as told by [...] 09/02/2010 Document Revised: 09/29/2019 Document Reviewed: 07/14/2017 [employer] Patient Education ?? 2020 [employer]. Emergency Awareness and Preventative Care STROKE is [...] Assistance with quitting is available by contacting 0-834-NYXJ-NOW. This is a free resource providing counseling, [...] range between ( 1.0 and 7.0 ) Owen #: 1.30 K/uL -- Normal range between ( 0.24 and 0.82 ) Eos #: 0.00 K/uL -- Normal range between ( 0.04 and 0.54 ) Owen %: 6.4 % -- Normal range between [...] was given the opportunity to ask questions. Patient/Balcony Worker Name: Patient/Balcony Worker Signature: Relationship to Patient: Clinician/Hospital Balcony Worker Signature: Date: documented in this encounter Plan of Treatment Not on file documented as of this encounter Visit Diagnoses Not on filedocumented in this encounter Care Teams Community Manager Relationship Specialty Start Date End Date Moira Barba RN PCP - General 12/14/22 documented as of this encounter
--- NOTE | 2025-06-15 22:39 | CT_ITS ---
PROCEDURE INFORMATION: Exam: CT Abdomen And Pelvis With Contrast Exam date and time: 06/16/2025 12:18 AM Age: 24 years old Clinical indication: Other: S/P , lower abdominal pain; Prior surgery; Surgery date: 3-7 days post-operative; Surgery type: C section, tubal, 1 week ago TECHNIQUE: Imaging protocol: Computed tomography of the abdomen and pelvis with contrast. Radiation optimization: All CT scans at this facility use at least one of these dose optimization techniques: automated exposure control; mA and/or kV adjustment per patient size (includes targeted exams where dose is matched to clinical indication); or iterative reconstruction. Contrast material: ISOVUE; Contrast volume: 75 ml; Contrast route: IV; COMPARISON: CT ABDOMEN PELVIS W CON 03/04/2023 9:14 PM FINDINGS: Lungs: Left lower lobe patchy nodular consolidations may represent infectious process. Liver: Hepatomegaly. Gallbladder and biliary ducts: No calcified stones. No ductal dilation. Pancreas: Normal. No ductal dilation. Spleen: Unremarkable. Adrenal glands: Unremarkable. Kidneys and ureters: Patchy hypoattenuation of the bilateral renal cortices may represent an acute pyelonephritis. No hydronephrosis. Stomach and bowel: Unremarkable. No obstruction. No mucosal thickening. Appendix: No evidence of appendicitis. Intraperitoneal space: No free air. No fluid collection. Vasculature: Unremarkable. No abdominal aortic aneurysm. Lymph nodes: No enlarged lymph nodes. Urinary bladder: Unremarkable as visualized. Reproductive: Enlarged uterus. Postoperative changes of recent section. Minimal disorganized fluid anterior to the site likely normal postoperative changes. Hypervascularity along the endometrial canal in the uterine fundus may be secondary to incompletely normalized vascular engorgement from recent gestation, however cannot completely exclude retained products of conception. Bones/joints: No acute fracture. Soft tissues: Fluid in the lower anterior abdominal wall likely secondary to expected postoperative changes. IMPRESSION: 1. Hypervascularity along the endometrial canal in the uterine fundus may be secondary to incompletely normalized vascular engorgement from recent gestation, however cannot completely exclude retained products of conception. Recommend correlation with patient's clinical symptoms and if clinically concerned recommend a follow-up ultrasound. 2. No definite postoperative infection appreciated at this time. 3. Patchy hypoattenuation of the bilateral renal cortices may represent an acute pyelonephritis. 4. Left lower lobe patchy nodular consolidations may represent infectious process.
[2025-06-15 23:53] LABS: Microscopic, Urine URINE MICROSCOPIC (MICROSCOPIC)
[2025-06-15 23:55] LABS: Bilirubin,Urine Negative (Negative); Color,Urine YELLOW (Yellow); Glucose,Urine (UA) Negative (Negative); Ketones,Urine Negative (Negative); Leukocyte Esterase,Urine Negative (Negative); PH,Urine 6.5 (5.0-8.5); Protein,Urine Negative (Negative); Specific Gravity, Urine 1.010 (1.005-1.030); Urobilinogen,Urine 0.2 EU/dl (0.2)
[2025-06-16 00:04] LABS: Bacteria,Urine 1+ /lpf
[2025-06-16 00:12] LABS: Hematocrit 40.6 % (37.0-47.0); Hemoglobin 13.1 g/dL (12.2-16.2); Immature Granulocytes % 0.5 %; Mean Corpuscular HGB Conc 32.3 g/dL (31.8-35.4); Mean Corpuscular Hemoglobin 30.3 pg (27.0-31.2); Mean Corpuscular Volume 93.8 fl (81-99); Nucleated Red Blood Cells % 0 %; Platelet Count 357 K/mm3 (142-424); Red Blood Count 4.33 M/mm3 (4.20-5.40); Red Cell Distribution Width-SD 41.2 fL; White Blood Count 7.4 K/mm3 (4.8-10.8)
[2025-06-16 00:16] LABS: Alanine Aminotransferase 50 U/L (12-78); Albumin Level 3.9 g/dl (3.5-5.0); Albumin/Globulin Ratio 1.0 (1.1-1.8); Alkaline Phosphatase 143 U/L (38-126); Anion Gap 14.7 mEq/L (5-15); Aspartate Amino Transferase 28 U/L (14-36); Bilirubin,Total 0.6 mg/dl (0.2-1.3); Blood Urea Nitrogen 9 mg/dl (7-17); Calcium 9.2 mg/dl (8.4-10.2); Carbon Dioxide 23 mmol/L (22.0-30.0); Chloride 105 mmol/L (98-107); Creatinine Clearance Estimated 116 mL/min (50-200); Creatinine,Serum 0.90 mg/dl (0.52-1.04); Estimated Glomerular Filt Rate 76 ml/min (>60); GFR (African American) 92 ML/MIN (>60); Globulin 3.9 g/dL (1.3-3.2); Glucose 114 mg/dl (74-100); Lipase 19 U/L (23-300); Potassium 3.7 mmoL/L (3.5-5.1); Sodium 139 mmol/L (136-145); Total Protein,Serum 7.8 g/dl (6.3-8.2)
[2025-06-16] MEDS: SODIUM CHLORIDE 0.9% 10ML SYR (RAD ONLY) 10 ML IV (00:26)
[2025-06-16] MEDS: IOPAMIDOL-370 (76%);100ML BOTTLE 75 ML IV (00:26)
[2025-06-16] MEDS: NYSTATIN TOPICAL POWDER 30GM 30 GM TP (00:40)
--- NOTE | 2025-06-16 01:15 | HMH.EDGENADL ---
Discharge Plan Disposition Patient Disposition: Home, Self-Care Condition: Good Prescriptions Prescriptions: New sulfamethoxazole-trimethoprim 800-160 mg tablet 1 tab PO Q12H 10 Days Qty: 20 0RF nystatin 100,000 unit/gram powder 1 applic topical BID Qty: 60 0RF No Action ibuprofen 800 mg tablet 800 mg PO Q8H PRN (Reason: pain) Qty: 20 0RF oxycodone 5 mg tablet 5 mg PO Q6H PRN (Reason: pain) Qty: 20 0RF Referrals Follow up/Referrals: Delia Rasheed APRN [Primary Care Provider, Medical] - See instructions Activity Restrictions/Add. Instructions Additional Instructions/Restrictions: Please take Bactrim for the next 10 days. You can continue putting Nystatin powder on the abdomen to help keep the environment dry and prevent fungal infection. I want you to follow up in clinic with Dr. Serrato as previously scheduled for Thursday. If you develop overt pus draining from the incision, fevers, or chills please return to the ER for further evaluation. Clinical Impressions Clinical Impression: Abdominal fluid collection Cellulitis Qualifiers: Site of cellulitis: trunk Site of cellulitis of trunk: abdominal wall Qualified Code(s): L03.311 - Cellulitis of abdominal wall Instructions Patient Instructions: DI for Laceration Repair Print Language Print Language: Djiboutian Discharge ED Provider: Tim Reza Adult HPI General Chief complaint: Wound/Laceration Stated complaint: 1 week ago,incision has blisters Time Seen by Provider: 06/15/25 22:30 Mode of Arrival: Ambulatory Source of Information: Patient Description of Symptoms (Recalled from ER Triage Doc. by RN): Pt presents with rash, itchiness, and increased pain at csection incision site. Pt had an emergency csection on thursday. History of Present Illness HPI narrative: This is a 24-year-old female patient, with past medical history of genital condyloma, who is presenting to the emergency department today for evaluation of a rash. The patient underwent a section on 06/09/[address] Mcclure. She follows with her primary OB who is Dr. Serrato. The patient states that over the last couple of days she has had a development of rash along her section site. This is characterized as streaking of red plaques extending from her pubis across the incision and up into her abdominal wall. She also notes that the skin has been weeping clear-colored fluid. She has not noticed any purulence. She has had worsening abdominal pain since discharge from the hospital, but she has not had any fevers or chills. Related Data Previous Rx's ?Medication ?Instructions ?Recorded ibuprofen 800 mg tablet 800 mg PO Q8H PRN pain #20 tabs 06/11/25 oxycodone 5 mg tablet 5 mg PO Q6H PRN pain #20 tabs 06/11/25 nystatin 100,000 unit/gram topical 1 applic topical BID #60 grams 06/16/25 powder sulfamethoxazole 800 1 tab PO Q12H 10 days #20 tabs 06/16/25 mg-trimethoprim 160 mg tablet Allergies Allergy/AdvReac Type Severity Reaction Status Date / Time amoxicillin Allergy Unknown Verified 06/09/25 21:09 allergy reaction Penicillins Allergy Unknown Verified 06/09/25 21:09 allergy reaction morphine AdvReac Severe Unknown Verified 06/09/25 21:09 allergy reaction PFSH PFSH Disclaimer: The information contained in this section may have been updated after the patient was seen, as this information can be updated by other users. Medical History (Updated 06/16/25 @ 01:12 by Tim Reza DO) Request for sterilization with 38 completed weeks gestation Spontaneous rupture of membranes uterine contractions, antepartum Miscarriage Ovarian cyst Surgical History (Updated 06/15/25 @ 00:00 by Bobby Koo) S/P Hx of section Family History Grandmother Cancer Endometriosis Other Diabetes Hypertension No significant family history Thyroid disorder Social History (Updated 06/09/25 @ 23:38 by Maggy Lima CRNA) Smoking Status: Never smoker alcohol intake: never substance use type: unknown current occupational status: employed Travel in the last 8 weeks?: None household members: spouse Have you lived/traveled outside US in past 30 days?: No Contact w/someone who lives/traveled outside US past 30 days?: No Exposure to someone with infectious disease in past 14 days?: No Do you have a fever (greater than 100.4 F or 38 C)?: No Have you tested positive for COVID-19?: No Exposed to someone with COVID-19 in past 14 days?: No Do you have a sore throat?: No Do you have a cough?: No Do you have any weakness?: No Do you have any diarrhea?: No Are you experiencing any unusual bleeding?: No Do you have any muscle aches/pain?: No Do you have any abdominal pain?: No Are you experiencing loss of taste or smell?: No Other Medical History Have you received the Flu Vaccine for this season: No Have you received the Pneumonia Vaccine: No ROS Obtained: Yes Systems reviewed as appropriate & no additional complaints except as documented Physical Exam General General appearance: other (See MDM) Respiratory Respiratory exam: Present other (See MDM) Cardiovascular Cardiovascular exam: Present other (See MDM) Neurological Exam Neurological exam: Present other (See MDM) Medical Decision Making Medical Records Medical records reviewed: Yes I reviewed the patient's medical records. Screening: Per USPSTF and CDC recommendations, given the prevalence of disease in our region, it is our hospital?s policy to screen for HIV and viral Hepatitis for all patients aged 18 and over and those with ongoing risk factors. William Inquiry Pt receiving controlled substance: No William was queried for this patient: No Vital Signs: 06/15/25 22:07 Temperature 98.1 F Temperature Source Oral Pulse Rate [Right] 64 Respiratory Rate 18 Blood Pressure [Right Arm] 135/89 Blood Pressure Mean [Right Arm] 104 Blood Pressure Source [Right Arm] Automatic Cuff Blood Pressure Position [Right Arm] Sitting 02 Sat by Pulse Oximetry 100 Oxygen Delivery Method Room Air Lab Data Lab Results 06/15/25 23:49: Urine Color Yellow, Urine Appearance Clear, Urine pH 6.5, Ur Specific [place] 1.010, Urine Protein Negative, Urine Glucose (UA) Negative, Urine Ketones Negative, Urine Blood 2+ A, Urine Nitrate Negative, Urine Bilirubin Negative, Urine Urobilinogen 0.2, Ur Leukocyte Esterase Negative, Urine RBC 5-10, Urine WBC 3-5, Ur Squamous Epith Cells 5-10, Urine Bacteria 1+ 06/15/25 23:56: WBC 7.4, RBC 4.33, Hgb 13.1, Hct 40.6, MCV 93.8, MCH 30.3, MCHC 32.3, RDW 11.9, Plt Count 357, MPV 10.2, Neut % (Auto) 64.9, Lymph % (Auto) 26.6, [place] % (Auto) 5.1, Eos % (Auto) 2.6, Baso % (Auto) 0.3, Neut # (Auto) 4.8, Lymph # (Auto) 2.0, [place] # (Auto) 0.4, Eos # (Auto) 0.2, Baso # (Auto) 0.0, Sodium 139, Potassium 3.7, Chloride 105, Carbon Dioxide 23, Anion Gap 14.7, BUN 9, Creatinine 0.90, Estimated Creat Clear 116, Estimated GFR 76, Est GFR ( Amer) 92, Glucose 114 H, Calcium 9.2, Total Bilirubin 0.6, AST 28, ALT 50, Alkaline Phosphatase 143 H, Total Protein 7.8, Albumin 3.9, Globulin 3.9 H, Albumin/Globulin Ratio 1.0 L, Lipase 19 L 06/15/25 23:56 06/15/25 23:56 Orders (Tests/Meds): ED MEDICATIONS Generic Name Dose Route Start Last Admin Trade Name Freq PRN Reason Stop Dose Admin Trimethoprim/Sulfamethoxazole 1 each 06/16/25 01:13 Sulfa/Trimethoprim 1 Tablet PO 06/16/25 01:14 ONCE ONE Discontinued Medications Generic Name Dose Route Start Last Admin Trade Name Freq PRN Reason Stop Dose Admin Diphenhydramine HCl 50 mg 06/15/25 23:40 06/15/25 23:58 Diphenhydramine 50mg/Ml Vial IV 06/15/25 23:41 50 mg ONCE ONE Administration Iopamidol 75 ml 06/16/25 00:25 06/16/25 00:26 Iopamidol-370 (76%);100ml Bottle IV 06/16/25 00:26 75 ml ONCE ONE Administration Nystatin 30 gm 06/15/25 23:41 06/16/25 00:40 Nystatin Topical Powder 30gm TP 06/15/25 23:42 2 gm ONCE ONE Administration Sodium Chloride 10 ml 06/16/25 00:25 06/16/25 00:26 Sodium Chloride 0.9% 10ml Syr (Rad Only) IV 06/16/25 00:26 10 ml ONCE ONE Administration ORDERS Category Date Time Status CT abdomen pelvis w con Stat Cat Scan 06/15/25 22:39 Completed CBC w/Auto Diff [Complete Blood Count Auto Diff] Stat Lab 06/15/25 23:56 Completed CMP [Comprehensive Metabolic Panel] Stat Lab 06/15/25 23:56 Completed HSV 1 IgG, Type Spec Stat Lab 06/15/25 23:56 Received HSV-2, Type-specific Abs, IgG Stat Lab 06/15/25 23:56 Received Lipase Stat Lab 06/15/25 23:56 Completed Urinalysis and Microscopic Stat Lab 06/15/25 23:49 Completed Medical Decision Narrative: In summary, this is a 24-year-old female patient who is 6 days postoperative section presenting to the emergency department with a rash at her section site as well as abdominal pain. Her past medical history includes genital condyloma. On initial evaluation of the patient they were resting comfortably in no acute distress and nontoxic in appearance. They are hemodynamically stable, saturating well room air, and are neurologically intact. On physical examination her heart and lungs are clear to auscultation bilaterally. She has diffuse lower abdominal tenderness to palpation. The patient has large erythematous beefy red plaques on her lower abdomen extending from her pubis across her incision site and onto the abdominal wall. There are satellite erythematous lesions that are traveling up the abdominal wall as well. There are no vesicles that can be unroofed. The patient tells me that she does not have any of these lesions in the vulvar region and has deferred genital exam. Differential diagnosis includes abdominal wall abscess, intra-abdominal abscess, gossypiboma, cellulitis, fungal cellulitis, viral infection, herpes, among others Workup is initiated with hematologic labs as well as a CT scan of the abdomen and pelvis. Labs were personally interpreted by me and demonstrated leukocytosis of 7.4 which is significantly decreased from her postoperative white count of 17.3. She has no anemia. No significant electrolyte derangements or evidence of acute kidney injury. Urinalysis shows no evidence of urinary tract infection. CT scan was personally interpreted by me and demonstrates fluid underneath the incision with stranding in the anterior abdominal wall. Official radiology report states that there is no definitive postoperative infection appreciated at this time, but does note that the patient has a disorganized fluid collection anterior to the site. I discussed this case with Dr. Serrato and shared video images of the CT scan as well as images of the rash on her abdominal wall. We discussed this case at length and have decided to place the patient on oral Bactrim and have her follow-up in clinic as previously scheduled on this upcoming Thursday. Additionally, the satellite lesions on her abdominal wall described in the physical exam portion above do strike me as potential infection. Additionally, the moist environment that is present in this region would increase her risk for fungal infection. Therefore I have placed nystatin powder on her abdominal wall while in the emergency department and will send nystatin powder to the emergency department. Given the fact no pharmacies are open this evening we have administered oral Bactrim to her while in the emergency department. I have given strict return precautions in the event that she has fever, development of purulence, or chills. She acknowledges understanding of return precautions. At this time all questions have been answered and all parties are agreeable with the decision to discharge home Critical Care Critical Care Time Critical Care Time: No
[2025-06-16] MEDS: SULFA/TRIMETHOPRIM 1 TABLET 1 EACH PO (01:26)
[2025-06-16 01:28] VITALS: BP 125/85; PULSE 68; RESP 16; TEMP 36.7; O2SAT 98
[2025-06-17 05:00] LABS: HSV 1 IgG, Type Spec Non Reactive (Non Reactive)
== END 2025-06-16 01:33 | disposition home or self-care (01) ==
PROVIDERS: Emergency Provider Student in an Organized Health Care Education/Training Program; PCP Nurse Practitioner
DX: O86.01 Infection of obstetric surgical wound, superficial incisional site (principal); L03.311 Cellulitis of abdominal wall
CPT/HCPCS: 74177; 80053; 81001; 83690; 85025; 86695; 86696; 96374; 99283; 99284; J1200; Q9967

== ENCOUNTER 2025-06-19 10:37 | Emergency (ER) | payer OTHER, SELFPAY ==
[2025-06-19] VITALS (7 sets, daily range): BP systolic 117–144; BP diastolic 57–85; PULSE 73–101; RESP 16; TEMP 36.6–36.9; O2SAT 98–100; BMI 25.1
--- NOTE | 2025-06-19 10:41 | XR_ITS ---
FINAL REPORT CLINICAL HISTORY: short of breath FINDINGS: A portable view of the chest is obtained. There is no prior exam for comparison. Cardiac and mediastinal silhouettes are normal. Subtle right basilar opacity could represent developing pneumonia. There is no pleural effusion or pneumothorax. IMPRESSION: Subtle right basilar opacity, possible developing pneumonia. Recommend follow-up. Reviewed, Interpreted and Dictated by Arlette Silva MD Transcribed by [place] [employer] Authenticated and [facility]
--- NOTE | 2025-06-19 10:42 | ECG_ITS ---
APPROVED REPORT Exam: Resting ECG HR:81 bpm ECG Measurements Heart Rate 81 AXES RI 137 P 53 QRSd 81 QRS 57 QT 352 T 51 QTc 390 Conclusion SINUS RHYTHM NORMAL ECG UNCONFIRMED REPORT Electronically signed by : Earl Tompkins, 06/19/2025 15:00:49
[2025-06-19 10:52] LABS: Hematocrit 44.4 % (37.0-47.0); Hemoglobin 14.3 g/dL (12.2-16.2); Immature Granulocytes % 0.8 %; Mean Corpuscular HGB Conc 32.2 g/dL (31.8-35.4); Mean Corpuscular Hemoglobin 29.7 pg (27.0-31.2); Mean Corpuscular Volume 92.1 fl (81-99); Nucleated Red Blood Cells % 0 %; Platelet Count 428 K/mm3 (142-424); Red Blood Count 4.82 M/mm3 (4.20-5.40); Red Cell Distribution Width-SD 39.9 fL; White Blood Count 9.2 K/mm3 (4.8-10.8)
--- OUTSIDE RECORDS SUMMARY | 2025-06-19 10:54 | XMS_ITS | Encounter Summary ---
Author Organization [employer] ([place], [place], [place], [place], [place]) Address [address] [place] [address] Care Team Providers Care Coater Carbon Paper Name Role Phone Moira Barba RN Primary Care Provider Jose L miller Encounter Details Date Type Department Care Team (Late st Contact Info) Description 03/04/2020 Transcribed Document [facility] [place] [facility] [place] [address] ProviderMargaret MD [address] [place] [id number] Social History Tobacco Use Types Packs/Day [...] Source : Measured Height Entry Format : [place] Height, Feet : 5 ft(Converted to: 152 cm, 60 Inch) Clinical Height : 175.26 cm Height, Inches : 9 Inch(Converted to: 0 ft 9 Inch, 22.86 cm) Weight Source : Standing scale Weight Entry Format : [place] Weight, Pounds : 170 lb Clinical Dosing Weight : 77.27 kg Body Surface Area (BSA) : 1.93 m2 Body Mass Index : 25.2 kg/m2 (HI) [place] Body Weight (IBW) : 65.73 kg ELOI SNOWDEN RN - 03/04/2020 17:06 EDT Health [...] ELIO SNOWDEN RN - 03/04/2020 17:06 EDT [place] Suicide Severity Rating Scale (C-SSRS) CSSRS Past [...] on filedocumented in this encounter Care Teams Coater Carbon Paper Relationship Specialty Start Date End Date Moira Barba RN PCP - General 12/14/22 documented as of this encounter
--- OUTSIDE RECORDS SUMMARY | 2025-06-19 10:54 | XMS_ITS | Encounter Summary ---
Author Organization [employer] ([place], [place], [place], [place], [place]) Address [address] [place] [address] Care Team Providers Care Near East Archeology Professor Name Role Phone Moira Barba RN Primary Care Provider Jose L miller Encounter Details Date Type Department Care Team (Late st Contact Info) Description 03/14/2020 Transcribed Document [facility] [place] [address] [place] [address] ProviderMargaret MD [address] [place] [address] Social History Tobacco Use Types Packs/Day [...] Policy Numbers : Insurance 1 Health Plan: [facility] Policy Number: [id number] Authorization Number: Insurance Primary Name : [facility] Policy Number: [id number] Authorization Status-Primary : Denial - admission Authorized Service Begin Date-Primary : 03/04/2020 EDT Authorization Comments-Primary : Left VM for Allison inquiring of P2P result. Historical Authorization Comments-Primary : Comment 1: Per Dr. Arthur she will complete this P2P left VM for [facility] to setup P2P for 03/14/2020 [...] discuss P2P> Em[place] to [facility] [place]BILL CEE RN 03/09/2020 11:15) Comment 6: [employer] denied for inpt per Allison (KYRIE BROWN RN-Utilization Review 03/07/2020 15:46) Comment 7: Additional clinicals faxed manually per request of Allison at [facility] (Yvonne Duran Rn-Utilization Review 03/07/2020 08:44) Comment 8: Clinicals faxed manually to [facility] (Yvonne Duran Rn-Utilization Review 03/05/2020 14:39) BILL CEE RN - 03/14/2020 16:18 EDT documented in this encounter Plan of Treatment Not on file documented as of this encounter Visit Diagnoses Not on filedocumented in this encounter Care Teams Near East Archeology Professor Relationship Specialty Start Date End Date Moira Braba RN PCP - General 12/14/22 documented as of this encounter
--- OUTSIDE RECORDS SUMMARY | 2025-06-19 10:54 | XMS_ITS | Encounter Summary ---
Author Organization [employer] ([place], [place], [place], [place], [place]) Address [address] [place] [address] Care Team Providers Care Tester Sound Name Role Phone Moira Barba RN Primary Care Provider Jose L miller Encounter Details Date Type Department Care Team (Late st Contact Info) Description 03/15/2020 Transcribed Document [facility] [place] Family Medicine [address] [place] [address] ProviderMargaret MD [address] [place] [address] Social History Tobacco Use Types Packs/Day [...] Policy Numbers : Insurance 1 Health Plan: [facility] Policy Number: [id number] Authorization Number: Insurance Primary Name : [facility] Policy Number: [id number] Authorization Status-Primary : Admit approved Number of Days Authorized-Primary : 3 Day(s) Authorized Service Begin Date-Primary : 03/04/2020 EDT Authorized Service End Date-Primary : 03/07/2020 EDT Authorization Comments-Primary : Per call to [facility] approved all days after p2P completed. Historical Authorization Comments-Primary : Comment 1: Left VM for Allison inquiring of P2P result. (BILL CEE RN 03/14/2020 16:18) Comment 2: Per Dr. Arthur she will complete this P2P left VM for [facility] to setup P2P for 03/14/2020 @ [...] back then to discuss P2P> Emailed to [facility] [place] (BILL CEE RN 03/09/2020 11:15) Comment 7: [employer] denied for inpt per Allison (KYRIE BROWN RN-Utilization Review 03/07/2020 15:46) Comment 8: Additional clinicals faxed manually per request of Allison at [facility] (Yvonne Duran Rn-Utilization Review 03/07/2020 08:44) Comment 9: Clinicals faxed manually to [facility] (Yvonne Duran Rn-Utilization Review 03/05/2020 14:39) BILL CEE RN - 03/15/2020 11:39 EDT Electronically signed by Ruby [facility] Conversion School Physical Therapist Gloria at 10/08/2022 11:58 AM CDT documented in this encounter Plan of Treatment Not on file documented as of this encounter Visit Diagnoses Not on filedocumented in this encounter Care Teams Tester Sound Relationship Specialty Start Date End Date Moira Barba RN PCP - General 12/14/22 documented as of this encounter
--- OUTSIDE RECORDS SUMMARY | 2025-06-19 10:54 | XMS_ITS | Encounter Summary ---
Author Organization [employer] ([place], [place], [place], [place], [place]) Address [address] [place] [address] Care Team Providers Care Commercial Real Estate Underwriter Name Role Phone Moira Barba RN Primary Care Provider Jose L miller Encounter Details Date Type Department Care Team (Late st Contact Info) Description 03/13/2020 Transcribed Document [facility] [place] Family Medicine [address] [place] [address] ProviderMargaret MD [address] [place] [address] Social History Tobacco Use Types Packs/Day [...] Health Plan: [facility] Policy Number: [id number] Authorization Number: Insurance Primary Name : [facility] Policy Number: [id number] Authorization Status-Primary : Denial - admission Authorized Service Begin Date-Primary : 03/04/2020 EDT Authorization Comments-Primary : Per Dr. Arthur she will complete this P2P left VM for [facility] to setup P2P for 03/14/2020 [...] back then to discuss P2P> Emailed to [facility] [place] (BILL CEE RN 03/09/2020 11:15) Comment 5: [employer] denied for inpt per Allison (KYRIE BROWN RN-Utilization Review 03/07/2020 15:46) Comment 6: Additional clinicals faxed manually per request of Allison at [facility] (Yvonne Duran Rn-Utilization Review 03/07/2020 08:44) Comment 7: Clinicals faxed manually to [facility] (Yvonne Duran Rn-Utilization Review 03/05/2020 14:39) BILL CEE RN - 03/13/2020 10:15 EDT Electronically signed by [facility] Conversion Anchor Operator Cerner at 10/08/2022 11:52 AM CDT documented in this encounter Plan of Treatment Not on file documented as of this encounter Visit Diagnoses Not on filedocumented in this encounter Care Teams Commercial Real Estate Underwriter Relationship Specialty Start Date End Date Moira Barba, RANDI PCP - General 12/14/22 documented as of this encounter
--- OUTSIDE RECORDS SUMMARY | 2025-06-19 10:54 | XMS_ITS | Encounter Summary ---
Author Organization [employer] ([place], [place], [place], [place], [place]) Address [address] [place] [address] Care Team Providers Care Groundwater Consultant Name Role Phone Moira Barba RN Primary Care Provider Jose L ilgrayson Encounter Details Date Type Department Care Team (Late st Contact Info) Description 03/04/2020 Transcribed Document [facility] [place] [facility] [place] [address] ProviderMargaret MD [address] [place] [address] Social History Tobacco Use Types Packs/Day [...] 03/06/2020 20:05 EDT Electronically signed by Ruby [facility] Conversion Professional Fee Coder Cerner at 10/08/2022 12:10 PM CDT documented in this encounter Plan of Treatment Not on file documented as of this encounter Visit Diagnoses Not on filedocumented in this encounter Care Teams Groundwater Consultant Relationship Specialty Start Date End Date Moira Barba, RN PCP - General 12/14/22 documented as of this encounter
--- OUTSIDE RECORDS SUMMARY | 2025-06-19 10:54 | XMS_ITS | Encounter Summary ---
Author Organization [employer] ([place], [place], [place], [place], [place]) Address [address] [place] [address] Care Team Providers Care Real Estate Firm Manager Name Role Phone Moira Barba RN Primary Care Provider Jose L miller Encounter Details Date Type Department Care Team (Late st Contact Info) Description 03/13/2020 Transcribed Document [facility] [place] [address] [place] [address] ProviderMargaret MD [address] [place] [address] Social History Tobacco Use Types Packs/Day [...] Policy Numbers : Insurance 1 Health Plan: [facility] Policy Number: [id number] Authorization Number: Insurance Primary Name : [facility] Policy Number: [id number] Authorization Status-Primary : Denial - admission Authorized [...] back then to discuss P2P> Emailed [place] [facility] (BILL CEE RN 03/09/2020 11:15) Comment 4: [employer] BH denied for inpt per Allison (KYRIE BROWN RN-Utilization Review 03/07/2020 15:46) Comment 5: Additional clinicals faxed manually per request of Allison at [facility] (Yvonne Duran Rn-Utilization Review 03/07/2020 08:44) Comment 6: Clinicals faxed manually to [facility] (Yvonne Duran Rn-Utilization Review 03/05/2020 14:39) BILL CEE RN - 03/13/2020 10:00 EDT Electronically signed by Ruby [facility] Conversion Business Account Executive Gloria at 10/08/2022 12:11 PM CDT documented in this encounter Plan of Treatment Not on file documented as of this encounter Visit Diagnoses Not on filedocumented in this encounter Care Teams Real Estate Firm Manager Relationship Specialty Start Date End Date Moira Barba RN PCP - General 12/14/22 documented as of this encounter
--- OUTSIDE RECORDS SUMMARY | 2025-06-19 10:54 | XMS_ITS | Encounter Summary ---
Author Organization [employer] ([place], [place], [place], [place], [place]) Address [address] [place] [address] Care Team Providers Care Air Compressor Mechanic Name Role Phone Moira Barba RN Primary Care Provider Jose L ilgrayson Encounter Details Date Type Department Care Team (Late st Contact Info) Description 03/05/2020 Transcribed Document [facility] [place] [facility] [place] [address] ProviderMargaret MD [address] [place] [address] Social History Tobacco Use Types Packs/Day [...] filedocumented in this encounter Care Teams Air Compressor Mechanic Relationship Specialty Start Date End Date Moira Barba, RN PCP - General 12/14/22 documented as of this encounter
--- OUTSIDE RECORDS SUMMARY | 2025-06-19 10:54 | XMS_ITS | Encounter Summary ---
Author Organization [employer] ([place], [place], [place], [place], [place]) Address [address] [place] [address] Care Team Providers Care Locomotive Operator Name Role Phone Moira Barba RN Primary Care Provider Jose L miller Encounter Details Date Type Department Care Team (Late st Contact Info) Description 03/07/2020 Transcribed Document [facility] [place] Medicine [address] [place] [address] ProviderMargaret MD [address] [place] [address] Social History Tobacco Use Types [...] 09/04/2009 Document Revised: 09/30/2019 Document Reviewed: 10/29/2016 [employer] Patient Education ? 2020 [employer]. Obstetrics and Gynecology Third Trimester of The third trimester is from week 28 through week 40 (months 7 through 9). This trimester is when your unborn baby (fetus) is growing very fast. At the end of the ninth month, the unborn baby is about 20 inches in length. It weighs about 6?10 pounds. Follow these instructions at home: Medicines ??? Take bkds-van-endewff and prescription medicines only as told by [...] 09/02/2010 Document Revised: 09/29/2019 Document Reviewed: 07/14/2017 [employer] Patient Education ? 2020 [employer] documented in this encounter Plan of Treatment Not on file documented as of this encounter Visit Diagnoses Not on filedocumented in this encounter Care Teams Locomotive Operator Relationship Specialty Start Date End Date Moira Barba, RN PCP - General 12/14/22 documented as of this encounter
--- OUTSIDE RECORDS SUMMARY | 2025-06-19 10:54 | XMS_ITS | Referral Summary ---
Author Organization [employer] ([place], [place], [place], [place], [place]) Address [address] [place] [address] Care Team Providers Care Shoulder Boner Name Role Phone Moira Barba RN Primary [...] Date Jacob rded Speak language other than Portuguese at home Not on file 07/10/2023 Want [...] Plan of Treatment Not on file [facility] Care Teams Shoulder Boner Relationship Specialty Start Date End Date Moira Barba RN PCP - General 12/14/22
--- OUTSIDE RECORDS SUMMARY | 2025-06-19 10:54 | XMS_ITS | Encounter Summary ---
Author Organization [employer] ([place], [place], [place], [place], [place]) Address [address] [place] [address] Care Team Providers Care Modeling Analyst Name Role Phone Moira Barba RN Primary Care Provider Jose L miller Encounter Details Date Type Department Care Team (Late st Contact Info) Description 03/09/2020 Transcribed Document [facility] [place] Family Medicine [address] [place] [address] ProviderMargaret MD [address] [place] [address] Social History Tobacco Use Types Packs/Day [...] Numbers : Insurance 1 Health Plan: [facility] Policy Number: [id number] Authorization Number: Insurance Primary Name : [facility] Policy Number: [id number] Authorization Status-Primary : Denial - admission Authorized Service Begin Date-Primary : 03/04/2020 EDT Authorization Comments-Primary : Called Dr. Case office spoke with Kim she stated that Dr. Arthur only works tuesdays. I will call back then to discuss P2P> Emailed to [facility] [place] Historical Authorization Comments-Primary : Comment 1: [employer] BH denied for inpt per Allison (KYRIE BROWN, RN-Utilization Review 03/07/2020 15:46) Comment 2: Additional clinicals faxed manually per request of Allison at [facility] (Yvonne Duran, An-Utilization Review 03/07/2020 08:44) Comment 3: Clinicals faxed manually to [facility] (Yvonne Duran, Rn-Utilization Review 03/05/2020 14:39) BILL CEE RN - 03/09/2020 11:15 EDT Electronically signed by Ruby [facility] Conversion Senior Data Analyst Cerner at 10/08/2022 12:02 PM CDT documented in this encounter Plan of Treatment Not on file documented as of this encounter Visit Diagnoses Not on filedocumented in this encounter Care Teams Modeling Analyst Relationship Specialty Start Date End Date Moira Barba RN PCP - General 12/14/22 documented as of this encounter
--- OUTSIDE RECORDS SUMMARY | 2025-06-19 10:54 | XMS_ITS | Encounter Summary ---
Author Organization [employer] ([place], [place], [place], [place], [place]) Address [address] [place] [address] Care Team Providers Care Manager Internet Retails Sales Name Role Phone Moira Barba RN Primary Care Provider Jose L miller Encounter Details Date Type Department Care Team (Late st Contact Info) Description 03/05/2020 Transcribed Document [facility] [place] [facility] [place] [address] ProviderMargaret MD [address] [place] [address] Social History Tobacco Use Types Packs/Day [...] weeks with PTL. She presented to [facility] with abdominal pain. She was marleen every [...] qualifying data Social History Document (if any) Cultural/Orthodoxy beliefs that would affect medical care: Lab Results MAR 04 18:35 \ 13.1 / H 18.7 314 / 39.2 \ Electronically signed by Ruby, [facility] Conversion Clinical Pharmacy Technician Cerner at 10/08/2022 11:57 AM CDT documented in this encounter Plan of Treatment Not on file documented as of this encounter Visit Diagnoses Not on filedocumented in this encounter Care Teams Manager Internet Retails Sales Relationship Specialty Start Date End Date Moira Barba RN PCP - General 12/14/22 documented as of this encounter
--- OUTSIDE RECORDS SUMMARY | 2025-06-19 10:54 | XMS_ITS | Encounter Summary ---
Author Organization [employer] ([place], [place], [place], [place], [place]) Address [address] [place] [address] Care Team Providers Care Oyster Opener Name Role Phone Moira Barba RN Primary Care Provider Jose L miller Encounter Details Date Type Department Care Team (Late st Contact Info) Description 03/05/2020 Transcribed Document [facility] [place] [address] [place] [address] ProviderMargaret MD [address] [place] [address] Social History Tobacco Use Types Packs/Day [...] Policy Numbers : Insurance 1 Health Plan: [facility] Policy Number: [id number] Authorization Number: Insurance Primary Name : [facility] Policy Number: [id number] Authorization Status-Primary : Awaiting callback Authorized Service Begin Date-Primary : 03/04/2020 EDT Authorization Comments-Primary : Clinicals faxed manually to [facility] Historical Authorization Comments-Primary : No Authorization Comments Found Yvonne Duran, An-Utilization Review - 03/05/2020 14:39 EDT Electronically signed by Ruby [facility] Conversion Pecan Gatherer Cerner at 10/08/2022 12:17 PM CDT documented in this encounter Plan of Treatment Not on file documented as of this encounter Visit Diagnoses Not on filedocumented in this encounter Care Teams Oyster Opener Relationship Specialty Start Date End Date Moira Barba, RN PCP - General 12/14/22 documented as of this encounter
--- OUTSIDE RECORDS SUMMARY | 2025-06-19 10:54 | XMS_ITS | Encounter Summary ---
Author Organization [employer] ([place], [place], [place], [place], [place]) Address [address] [place] [address] Care Team Providers Care Home Organizer Name Role Phone Moira Barba RN Primary Care Provider Jose L ilgrayson Encounter Details Date Type Department Care Team (Late st Contact Info) Description 03/05/2020 Transcribed Document [facility] [place] [facility] [place] [address] ProviderMargaret MD [address] [place] [address] Social History Tobacco Use Types Packs/Day [...] 03/06/2020 20:06 EDT Electronically signed by Ruby [facility] Conversion Supervisor Grove Cerner at 10/08/2022 12:12 PM CDT documented in this encounter Plan of Treatment Not on file documented as of this encounter Visit Diagnoses Not on filedocumented in this encounter Care Teams Home Organizer Relationship Specialty Start Date End Date Moira Barba, RN PCP - General 12/14/22 documented as of this encounter
--- OUTSIDE RECORDS SUMMARY | 2025-06-19 10:54 | XMS_ITS | Encounter Summary ---
Author Organization [employer] ([place], [place], [place], [place], [place]) Address [address] [place] [address] Care Team Providers Care Packaging Assembler Name Role Phone Moira Barba RN Primary Care Provider Jose L ilgrayson Encounter Details Date Type Department Care Team (Late st Contact Info) Description 03/05/2020 Transcribed Document [facility] [place] [facility] [place] [address] ProviderMargaret MD [address] [place] [address] Social History Tobacco Use Types Packs/Day [...] on filedocumented in this encounter Care Teams Packaging Assembler Relationship Specialty Start Date End Date Moira Barba, RN PCP - General 12/14/22 documented as of this encounter
--- OUTSIDE RECORDS SUMMARY | 2025-06-19 10:54 | XMS_ITS | Encounter Summary ---
Author Organization [employer] ([place], [place], [place], [place], [place]) Address [address] [place] [address] Care Team Providers Care Cocoa Bean Cleaner Name Role Phone Moira Barba RN Primary Care Provider Jose L miller Encounter Details Date Type Department Care Team (Late st Contact Info) Description 03/07/2020 Transcribed Document [facility] [place] [address] [place] [address] ProviderMargaret MD [address] [place] [address] Social History Tobacco Use Types Packs/Day [...] [facility] Number: [id number] Authorization Number: Insurance Primary Name : [facility] Policy Number: [id number] Authorization Status-Primary : Denial - admission Authorized Service Begin Date-Primary : 03/04/2020 EDT Authorization Comments-Primary : [employer] denied for inpt per Allison Historical Authorization Comments-Primary : Comment 1: Additional clinicals faxed manually per request of Allison at [facility] (Yvonne Duran, An-Utilization Review 03/07/2020 08:44) Comment 2: Clinicals faxed manually to [facility] (Yvonne Duran, An-Utilization Review 03/05/2020 14:39) KYRIE BROWN RN-Utilization Review - 03/07/2020 15:46 EDT Electronically signed by [facility] Conversion Hairspring Staker Cerner at 10/08/2022 12:04 PM CDT documented in this encounter Plan of Treatment Not on file documented as of this encounter Visit Diagnoses Not on filedocumented in this encounter Care Teams Cocoa Bean Cleaner Relationship Specialty Start Date End Date Moira Barba, RN PCP - General 12/14/22 documented as of this encounter
--- OUTSIDE RECORDS SUMMARY | 2025-06-19 10:54 | XMS_ITS | Encounter Summary ---
Author Organization [employer] ([place], [place], [place], [place], [place]) Address [address] [place] [address] Care Team Providers Care Tungsten Tender Name Role Phone Moira Barba RN Primary Care Provider Jose L miller Encounter Details Date Type Department Care Team (Late st Contact Info) Description 03/15/2020 Transcribed Document [facility] [place] [address] [place] [address] ProviderMargaret MD [address] [place] [address] Social History Tobacco Use Types Packs/Day [...] Health Plan: [facility] Policy Number: [id number] Authorization Number: Insurance Primary Name : [facility] Policy Number: [id number] Authorization Status-Primary : Admit approved Reference Number-Primary : [id number] Number of Days Authorized-Primary : 3 Day(s) Authorized Service Begin Date-Primary : 03/04/2020 EDT Authorized Service End Date-Primary : 03/07/2020 EDT Historical Authorization Comments-Primary : Comment 1: Per call to [facility] approved all days after p2P completed. (BILL CEE RN 03/15/2020 11:39) Comment 2: Left VM for Allison inquiring of P2P result. (BILL CEE RN 03/14/2020 16:18) Comment 3: Per Dr. Arthur she will complete this P2P left VM for [facility] to setup P2P for 03/14/2020 @ [...] to discuss P2P> Emailed to [facility] (BILL CEE RN 03/09/2020 11:15) Comment 8: [employer] BH denied for inpt per Allison (KYRIE BROWN RN-Utilization Review 03/07/2020 15:46) Comment 9: Additional clinicals faxed manually per request of Allison at [facility] (Yvonne Duran Rn-Utilization Review 03/07/2020 08:44) Comment 10: Clinicals faxed manually to [facility] (Yvonne Duran Rn-Utilization Review 03/05/2020 14:39) BILL CEE RN - 03/15/2020 11:40 EDT documented in this encounter Plan of Treatment Not on file documented as of this encounter Visit Diagnoses Not on filedocumented in this encounter Care Teams Tungsten Tender Relationship Specialty Start Date End Date Moira Barba, RN PCP - General 12/14/22 documented as of this encounter
--- OUTSIDE RECORDS SUMMARY | 2025-06-19 10:54 | XMS_ITS | Encounter Summary ---
Author Organization [employer] ([place], [place], [place], [place], [place]) Address [address] [place] [address] Care Team Providers Care Channel Development Manager Name Role Phone Moira Barba RN Primary Care Provider Jose L ilgrayson Encounter Details Date Type Department Care Team (Late st Contact Info) Description 03/05/2020 Transcribed Document [facility] [place] [facility] [place] [address] ProviderMargaret MD [address] [place] [address] Social History Tobacco Use Types Packs/Day [...] 03/06/2020 20:06 EDT Electronically signed by Ruby [facility] Conversion Channeling Machine Operator Cerner at 10/08/2022 12:02 PM CDT documented in this encounter Plan of Treatment Not on file documented as of this encounter Visit Diagnoses Not on filedocumented in this encounter Care Teams Channel Development Manager Relationship Specialty Start Date End Date Moira Barba, RN PCP - General 12/14/22 documented as of this encounter
--- OUTSIDE RECORDS SUMMARY | 2025-06-19 10:54 | XMS_ITS | Patient Health Record ---
Author Organization [facility] Address [address] [facility] [address] [place] [address] Care Team Providers Care Gymnasium Teacher Name Role Phone Dimple Pillai Unavailable [phone] Allergies Allergen (clinical drug ingredient) Drug/Non Drug [...] Status Risk Notes Problem Urine test negative ([id number]) Encounter for test with result negative (Z32.02) [...]
--- OUTSIDE RECORDS SUMMARY | 2025-06-19 10:54 | XMS_ITS | Encounter Summary ---
Author Organization [employer] ([place], [place], [place], [place], [place]) Address [address] [place] [address] Care Team Providers Care Lead Cook Name Role Phone Moira Barba RN Primary Care Provider Jose L miller Encounter Details Date Type Department Care Team (Late st Contact Info) Description 03/13/2020 Transcribed Document [facility] [place] [address] [place] [address] ProviderMargaret MD [address] [place] [address] Social History Tobacco Use Types Packs/Day [...] Policy Numbers : Insurance 1 Health Plan: [facility] Policy Number: [id number] Authorization Number: Insurance Primary Name : [facility] Policy Number: [id number] Authorization Status-Primary : Denial - admission Authorized [...] [place] (BILL CEE RN 03/09/2020 11:15) Comment 2: [...] 03/13/2020 9:43 EDT Electronically signed by Ruby [facility] Conversion Enrollment Management Coordinator Cerner at 10/08/2022 11:55 AM CDT documented in this encounter Plan of Treatment Not on file documented as of this encounter Visit Diagnoses Not on filedocumented in this encounter Care Teams Lead Cook Relationship Specialty Start Date End Date Moira Barba, RANDI PCP - General 12/14/22 documented as of this encounter
--- OUTSIDE RECORDS SUMMARY | 2025-06-19 10:54 | XMS_ITS | Encounter Summary ---
Author Organization [employer] ([place], [place], [place], [place], [place]) Address [address] [place] [address] Care Team Providers Care Speech Language Pathologist Name Role Phone Moira Barba RN Primary Care Provider Jose L miller Encounter Details Date Type Department Care Team (Late st Contact Info) Description 03/04/2020 Transcribed Document [facility] [place] [facility] [place] [address] ProviderMargaret MD [address] [place] [address] Social History Tobacco Use Types Packs/Day [...] on filedocumented in this encounter Care Teams Speech Language Pathologist Relationship Specialty Start Date End Date Moira Barba RN PCP - General 12/14/22 documented as of this encounter
--- OUTSIDE RECORDS SUMMARY | 2025-06-19 10:54 | XMS_ITS | Encounter Summary ---
Author Organization [employer] ([place], [place], [place], [place], [place]) Address [address] [place] [address] Care Team Providers Care Special Investigator Name Role Phone Moira Barba RN Primary Care Provider Jose L miller Encounter Details Date Type Department Care Team (Late st Contact Info) Description 03/13/2020 Transcribed Document [facility] [place] [address] [place] [address] ProviderMargaret MD [address] [place] [address] Social History Tobacco Use Types Packs/Day [...] Health Plan: [facility] Policy Number: [id number] Authorization Number: Insurance Primary Name : [facility] Policy Number: [id number] Authorization Status-Primary : Denial - admission Authorized [...] then to discuss P2P> Emailed to [facility] (BILL CEE RN 03/09/2020 11:15) Comment 3: [employer] BH denied for inpt per Allison (KYRIE BROWN RN-Utilization Review 03/07/2020 15:46) Comment 4: Additional clinicals faxed manually per request of Allison at [facility] (Yvonne Duran Rn-Utilization Review 03/07/2020 08:44) Comment 5: Clinicals faxed manually to [facility] (Yvonne Duran Rn-Utilization Review 03/05/2020 14:39) BILL CEE RN - 03/13/2020 9:44 EDT Electronically signed by Ruby [facility] Conversion Wharf Operator Cerner at 10/08/2022 11:54 AM CDT documented in this encounter Plan of Treatment Not on file documented as of this encounter Visit Diagnoses Not on filedocumented in this encounter Care Teams Special Investigator Relationship Specialty Start Date End Date Moira Barba RN PCP - General 12/14/22 documented as of this encounter
--- OUTSIDE RECORDS SUMMARY | 2025-06-19 10:54 | XMS_ITS | Encounter Summary ---
Author Organization [employer] ([place], [place], [place], [place], [place]) Address [address] [place] [address] Care Team Providers Care Ethylene Compressor Operator Name Role Phone Moira Barba RN Primary Care Provider Jose L miller Encounter Details Date Type Department Care Team (Late st Contact Info) Description 03/12/2020 Transcribed Document [facility] [place] [facility] [place] [address] ProviderMargaret MD [address] [place] [address] Social History Tobacco Use Types Packs/Day [...] for Hospitalization 19 yo who presented from [facility] with contractions and cervical change [...] than 30 minutes Electronically signed by Ruby [facility] Conversion Horticultural Services Supervisor Cerner at 10/08/2022 12:04 PM CDT documented in this encounter Plan of Treatment Not on file documented as of this encounter Visit Diagnoses Not on filedocumented in this encounter Care Teams Ethylene Compressor Operator Relationship Specialty Start Date End Date Moira Barba RN PCP - General 12/14/22 documented as of this encounter
--- OUTSIDE RECORDS SUMMARY | 2025-06-19 10:54 | XMS_ITS | Clinical Summary ---
Author Organization [employer] ([place], [place], [place], [place], [place]) Address [address] [place] [address] Care Team Providers Care Diet Consultant Name Role Phone Moira Barba RN [...] Date Jacob rded Speak language other than Yi at home Not on file 07/10/2023 Want [...] season) 2025 Influenza Vaccine (#1) 2025 [facility] Care Teams Diet Consultant Relationship Specialty Start Date End Date Moira Barba, RN PCP - General 12/14/22
--- OUTSIDE RECORDS SUMMARY | 2025-06-19 10:55 | XMS_ITS | Encounter Summary ---
Author Organization [employer] ([place], [place], [place], [place], [place]) Address [address] [place] [address] Care Team Providers Care Senior Loan Officer Name Role Phone Moira Barba RN Primary Care Provider Jose L ilgrayson Encounter Details Date Type Department Care Team (Late st Contact Info) Description 03/04/2020 Transcribed Document [facility] [place] [facility] [place] [address] ProviderMargaret MD [address] [place] [address] Social History Tobacco Use Types Packs/Day [...] 20:05 EDT Electronically signed by Ruby [facility] Conversion Soft Drink Powder Mixer Cerner at 10/08/2022 12:12 PM CDT documented in this encounter Plan of Treatment Not on file documented as of this encounter Visit Diagnoses Not on filedocumented in this encounter Care Teams Senior Loan Officer Relationship Specialty Start Date End Date Moira Barba, RN PCP - General 12/14/22 documented as of this encounter
--- OUTSIDE RECORDS SUMMARY | 2025-06-19 10:55 | XMS_ITS | Encounter Summary ---
Author Organization [employer] ([place], [place], [place], [place], [place]) Address [address] [place] [address] Care Team Providers Care Windows Systems Engineer Name Role Phone Moira Barba RN Primary Care Provider Jose L miller Encounter Details Date Type Department Care Team (Late st Contact Info) Description 03/07/2020 Transcribed Document [facility] [place] Family Medicine [facility] [place] [address] ProviderMargaret MD [address] [place] [address] Social History Tobacco Use Types Packs/Day [...] Margaret ProviderMD - 03/07/2020 8:55 AM CDT [place] [id number] INDRA NAVA :2000 Visit Time:03/04/2020 Your Visit [...] Capsule(s) Oral Every 4 Hours Pickup at [facility] Pharmacy Information [facility]: [address] [place], [place] [id number] [phone] Take your medications faithfully. Do NOT skip [...] 09/04/2009 Document Revised: 09/30/2019 Document Reviewed: 10/29/2016 [employer] Patient Education ?? 2020 [employer]. Third Trimester of The third trimester is from week 28 through week 40 (months 7 through 9). This trimester is when your unborn baby (fetus) is growing very fast. At the end of the ninth month, the unborn baby is about 20 inches in length. It weighs about 6???10 pounds. Follow these instructions at home: Medicines ??? Take oidm-gra-gdbkthh and prescription medicines only as told by [...] 09/02/2010 Document Revised: 09/29/2019 Document Reviewed: 07/14/2017 [employer] Patient Education ?? 2020 [employer]. Emergency Awareness and Preventative Care STROKE is [...] Assistance with quitting is available by contacting 1-221-LWSP-NOW. This is a free resource providing counseling, [...] range between ( 1.0 and 7.0 ) [place]y #: 1.30 K/uL -- Normal range between ( 0.24 and 0.82 ) Eos #: 0.00 K/uL -- Normal range between ( 0.04 and 0.54 ) [place] %: 6.4 % -- Normal range between [...] was given the opportunity to ask questions. Patient/Security Rover Name: Patient/Security Rover Signature: Relationship to Patient: Clinician/Hospital Security Rover Signature: Date: documented in this encounter Plan of Treatment Not on file documented as of this encounter Visit Diagnoses Not on filedocumented in this encounter Care Teams Windows Systems Engineer Relationship Specialty Start Date End Date Moira Barba RN PCP - General 12/14/22 documented as of this encounter
--- OUTSIDE RECORDS SUMMARY | 2025-06-19 10:55 | XMS_ITS | Encounter Summary ---
Author Organization [employer] ([place], [place], [place], [place], [place]) Address [address] [place] [address] Care Team Providers Care Feeder Associate Name Role Phone Moira Barba RN Primary Care Provider Jose L miller Encounter Details Date Type Department Care Team (Late st Contact Info) Description 03/06/2020 Transcribed Document [facility] [place] Family [place] [facility] [place] [address] ProviderMargaret MD [address] [place] [address] Social History Tobacco Use Types Packs/Day [...] 5 mg 1 Tab, Oral, At Bedtime [facility] US 03/05/20 Sharma at 31w 1d [...] on filedocumented in this encounter Care Teams Feeder Associate Relationship Specialty Start Date End Date Moira Barba, RN PCP - General 12/14/22 documented as of this encounter
--- OUTSIDE RECORDS SUMMARY | 2025-06-19 10:55 | XMS_ITS | Encounter Summary ---
Author Organization [employer] ([place], [place], [place], [place], [place]) Address [address] [place] [address] Care Team Providers Care Production Sorter Name Role Phone Moira Barba RN Primary Care Provider Jose L ilgrayson Encounter Details Date Type Department Care Team (Late st Contact Info) Description 03/06/2020 Transcribed Document [facility] [place] Family Medicine [facility] [place] [address] ProviderMargaret MD [address] [place] [address] Social History Tobacco Use Types Packs/Day [...] 03/06/2020 20:07 EDT Electronically signed by Ruby [facility] Conversion Dumper Bulk System Cerner at 10/08/2022 12:09 PM CDT documented in this encounter Plan of Treatment Not on file documented as of this encounter Visit Diagnoses Not on filedocumented in this encounter Care Teams Production Sorter Relationship Specialty Start Date End Date Moira Barba, RN PCP - General 12/14/22 documented as of this encounter
--- OUTSIDE RECORDS SUMMARY | 2025-06-19 10:55 | XMS_ITS | Encounter Summary ---
Author Organization [employer] ([place], [place], [place], [place], [place]) Address [address] [place] [address] Care Team Providers Care Drier Operator Head Name Role Phone Moira Barba RN Primary Care Provider Jose L miller Encounter Details Date Type Department Care Team (Late st Contact Info) Description 03/07/2020 Transcribed Document [facility] [place] Family Medicine [address] [place] [address] ProviderMargaret MD [address] [place] [address] Social History Tobacco Use Types Packs/Day [...] Plan: [facility] Policy Number: [id number] Authorization Number: Insurance Primary Name : [facility] Policy Number: [id number] Authorization Status-Primary : Awaiting callback Authorized Service Begin Date-Primary : 03/04/2020 EDT Authorization Comments-Primary : Additional clinicals faxed manually per request of Allison at [facility] Historical Authorization Comments-Primary : Comment 1: Clinicals faxed manually to [facility] (Yvonne Duran Rn-Utilization Review 03/05/2020 14:39) Yvonne Duran Rn-Utilization Review - 03/07/2020 8:44 EDT Electronically signed by [facility] Conversion Silviculturist Cerner at 10/08/2022 12:02 PM CDT documented in this encounter Plan of Treatment Not on file documented as of this encounter Visit Diagnoses Not on filedocumented in this encounter Care Teams Drier Operator Head Relationship Specialty Start Date End Date Moira Barba, RN PCP - General 12/14/22 documented as of this encounter
--- OUTSIDE RECORDS SUMMARY | 2025-06-19 10:55 | XMS_ITS | Encounter Summary ---
Author Organization [employer] ([place], [place], [place], [place], [place]) Address [address] [place] [address] Care Team Providers Care Pathology Supervisor Name Role Phone Moira Barba RN Primary Care Provider Jose L ilgrayson Encounter Details Date Type Department Care Team (Late st Contact Info) Description 03/06/2020 Transcribed Document [facility] [place] [facility] [place] [address] ProviderMargaret MD [address] [place] [address] Social History Tobacco Use Types Packs/Day [...] 03/06/2020 20:07 EDT Electronically signed by Ruby [facility] Conversion Surface Room Shop Optician Cerner at 10/08/2022 12:14 PM CDT documented in this encounter Plan of Treatment Not on file documented as of this encounter Visit Diagnoses Not on filedocumented in this encounter Care Teams Pathology Supervisor Relationship Specialty Start Date End Date Moira Barba, RN PCP - General 12/14/22 documented as of this encounter
--- OUTSIDE RECORDS SUMMARY | 2025-06-19 10:55 | XMS_ITS | Encounter Summary ---
Author Organization [employer] ([place], [place], [place], [place], [place]) Address [address] [place] [address] Care Team Providers Care Leaf Conditioner Helper Name Role Phone Moira Barba RN Primary Care Provider Jose L miller Encounter Details Date Type Department Care Team (Late st Contact Info) Description 03/07/2020 Transcribed Document [facility] [place] Family Medicine [facility] [place] [address] ProviderMargaret MD [address] [place] [address] Social History Tobacco Use Types Packs/Day [...] / 37.0 \ Electronically signed by Ruby [facility] Conversion Food Processing Plant Manager Cerner at 10/08/2022 11:57 AM CDT documented in this encounter Plan of Treatment Not on file documented as of this encounter Visit Diagnoses Not on filedocumented in this encounter Care Teams Leaf Conditioner Helper Relationship Specialty Start Date End Date Moira Barba, RANDI PCP - General 12/14/22 documented as of this encounter
--- OUTSIDE RECORDS SUMMARY | 2025-06-19 10:55 | XMS_ITS | Encounter Summary ---
Author Organization [employer] ([place], [place], [place], [place], [place]) Address [address] [place] [address] Care Team Providers Care Manufacturing Controls Engineer Name Role Phone Moira Barba RN Primary Care Provider Jose L miller Encounter Details Date Type Department Care Team (Late st Contact Info) Description 03/07/2020 Transcribed Document [facility] [place] Family [place] [facility] [place] [address] ProviderMargaret MD [address] [place] [address] Social History Tobacco Use Types Packs/Day [...] filedocumented in this encounter Care Teams Manufacturing Controls Engineer Relationship Specialty Start Date End Date Moira Barba, RN PCP - General 12/14/22 documented as of this encounter
--- OUTSIDE RECORDS SUMMARY | 2025-06-19 10:55 | XMS_ITS | Encounter Summary ---
Author Organization [employer] ([place], [place], [place], [place], [place]) Address [address] [place] [address] Care Team Providers Care School Psychology Specialist Name Role Phone Moira Barba RN Primary Care Provider Jose L miller Encounter Details Date Type Department Care Team (Late st Contact Info) Description 03/07/2020 Transcribed Document [facility] [place] [address] [place] [address] ProviderMargaret MD [address] [place] [address] Social History Tobacco Use Types Packs/Day [...] 03/07/2020 8:54 EDT Electronically signed by Ruby [facility] Conversion Byproducts Extractor Cerner at 10/08/2022 11:56 AM CDT documented in this encounter Plan of Treatment Not on file documented as of this encounter Visit Diagnoses Not on filedocumented in this encounter Care Teams School Psychology Specialist Relationship Specialty Start Date End Date Moira Barba RN PCP - General 12/14/22 documented as of this encounter
--- OUTSIDE RECORDS SUMMARY | 2025-06-19 10:55 | XMS_ITS | Encounter Summary ---
Author Organization [employer] ([place], [place], [place], [place], [place]) Address [address] [place] [address] Care Team Providers Care Representative Government Relations Name Role Phone Moira Barba RN Primary Care Provider Jose L ilgrayson Encounter Details Date Type Department Care Team (Late st Contact Info) Description 03/06/2020 Transcribed Document [facility] [place] Family [place] [address] ProviderMargaret MD [address] [place] [address] Social History Tobacco Use Types Packs/Day [...] on filedocumented in this encounter Care Teams Representative Government Relations Relationship Specialty Start Date End Date Moira Barba, RN PCP - General 12/14/22 documented as of this encounter
--- OUTSIDE RECORDS SUMMARY | 2025-06-19 10:55 | XMS_ITS | Encounter Summary ---
Author Organization [employer] ([place], [place], [place], [place], [place]) Address [address] [place] [address] Care Team Providers Care Associate Dentist Name Role Phone Moira Barba RN Primary Care Provider Jose L ilgrayson Encounter Details Date Type Department Care Team (Late st Contact Info) Description 03/06/2020 Transcribed Document [facility] [place] Family Medicine [facility] [place] [address] ProviderMargaret MD [address] [place] [address] Social History Tobacco Use Types Packs/Day [...] 03/06/2020 20:06 EDT Electronically signed by Ruby [facility] Conversion Reel Winder Cerner at 10/08/2022 12:15 PM CDT documented in this encounter Plan of Treatment Not on file documented as of this encounter Visit Diagnoses Not on filedocumented in this encounter Care Teams Associate Dentist Relationship Specialty Start Date End Date Moira Barba, RN PCP - General 12/14/22 documented as of this encounter
--- OUTSIDE RECORDS SUMMARY | 2025-06-19 10:55 | XMS_ITS | Encounter Summary ---
Author Organization [employer] ([place], [place], [place], [place], [place]) Address [address] [place] [address] Care Team Providers Care Steel Turner Name Role Phone Moira Barba RN Primary Care Provider Jose L ilgrayson Encounter Details Date Type Department Care Team (Late st Contact Info) Description 03/07/2020 Transcribed Document [facility] [place] [address] ProviderMargaret MD [address] [place] [address] Social History Tobacco Use Types Packs/Day [...] 5:29 EDT Electronically signed by Ruby [facility] Conversion Acid Remover Cerner at 10/08/2022 12:03 PM CDT documented in this encounter Plan of Treatment Not on file documented as of this encounter Visit Diagnoses Not on filedocumented in this encounter Care Teams Steel Turner Relationship Specialty Start Date End Date Moira Barba, RN PCP - General 12/14/22 documented as of this encounter
--- OUTSIDE RECORDS SUMMARY | 2025-06-19 10:55 | XMS_ITS | Encounter Summary ---
Author Organization [employer] ([place], [place], [place], [place], [place]) Address [address] [place] [address] Care Team Providers Care Rate Reviewer Name Role Phone Moira Barba RN Primary Care Provider Jose L miller Encounter Details Date Type Department Care Team (Late st Contact Info) Description 03/06/2020 Transcribed Document [facility] [place] [facility] [address] ProviderMargaret MD [address] [place] [address] Social History Tobacco Use Types Packs/Day [...] / 37.0 \ Electronically signed by Ruby, [facility] Conversion Home Care Rn Cerner at 10/08/2022 11:58 AM CDT documented in this encounter Plan of Treatment Not on file documented as of this encounter Visit Diagnoses Not on filedocumented in this encounter Care Teams Rate Reviewer Relationship Specialty Start Date End Date Moira Barba RN PCP - General 12/14/22 documented as of this encounter
[2025-06-19] MEDS: 0.9 % SODIUM CHLORIDE 1000ML 1,000 ML 999 ML IV (11:06)
[2025-06-19] MEDS: FAMOTIDINE 20MG/2ML VIAL 20 MG IV (11:07)
[2025-06-19 11:08] LABS: Albumin Level 4.2 g/dl (3.5-5.0); Chloride 103 mmol/L (98-107); Sodium 136 mmol/L (136-145)
[2025-06-19] MEDS: METHYLPREDNISOLONE SOD SUCC 125MG VIAL 125 MG IM (11:08)
[2025-06-19 11:09] LABS: Potassium 4.1 mmoL/L (3.5-5.1)
[2025-06-19 11:11] LABS: Alanine Aminotransferase 23 U/L (12-78); Albumin/Globulin Ratio 1.1 (1.1-1.8); Alkaline Phosphatase 118 U/L (38-126); Anion Gap 13.1 mEq/L (5-15); Aspartate Amino Transferase 22 U/L (14-36); Bilirubin,Total 0.5 mg/dl (0.2-1.3); Blood Urea Nitrogen 16 mg/dl (7-17); Calcium 9.9 mg/dl (8.4-10.2); Carbon Dioxide 24 mmol/L (22.0-30.0); Creatinine,Serum 1.10 mg/dl (0.52-1.04); Estimated Glomerular Filt Rate 61 ml/min (>60); GFR (African American) 73 ML/MIN (>60); Globulin 3.8 g/dL (1.3-3.2); Glucose 77 mg/dl (74-100); Lipase 22 U/L (23-300); Total Protein,Serum 8.0 g/dl (6.3-8.2)
[2025-06-19 11:12] LABS: Magnesium 2.1 mg/dl (1.6-2.3)
--- NOTE | 2025-06-19 11:12 | ED_ITS ---
<Statement entered by Cesilia Tompkins MD - 06/19/25 14:36> I was consulted by the JOSIAS, and we discussed the complexity of the problems being addressed. I approved the treatment and management plan for this patient's care in the emergency department, thus performing a substantive portion of the medical decision making. Cesilia Tompkins MD, SANIA, FACEP Discharge Plan Disposition Chief Complaint: Shortness of Breath/Dyspnea Prescriptions Prescriptions: No Action triamcinolone acetonide 0.1 % cream 1 applic topical TID PRN (Reason: allergic reaction) Qty: 80 0RF diphenhydramine HCl [Benadryl Allergy] 25 mg tablet 25 mg PO HS PRN (Reason: allergic reaction) Qty: 30 0RF Rx Instructions: 1-2 tablets at bedtime methylprednisolone [Medrol (Malcom)] 4 mg tablets,dose pack See Rx Instructions PO PER PKG DIR Qty: 21 0RF Rx Instructions: PO PER PKG DIR ibuprofen 800 mg tablet 800 mg PO Q8H PRN (Reason: pain) Qty: 20 0RF oxycodone 5 mg tablet 5 mg PO Q6H PRN (Reason: pain) Qty: 20 0RF sulfamethoxazole-trimethoprim 800-160 mg tablet 1 tab PO Q12H 10 Days Qty: 20 0RF nystatin 100,000 unit/gram powder 1 applic topical BID Qty: 60 0RF fluconazole 150 mg tablet 150 mg PO Q3D Qty: 2 0RF Rx Instructions: may repeat second dose 72 hrs after first dose if symptoms persist Referrals Follow up/Referrals: Delia Rasheed APRN [Primary Care Provider, Medical] - See instructions Print Language Print Language: Surinamese Discharge ED Provider: Cesilia Tompkins General Adult HPI General Chief complaint: Shortness of Breath/Dyspnea Stated complaint: SOA Time Seen by Provider: 06/19/25 10:41 Mode of Arrival: Ambulatory Source of Information: Patient Description of Symptoms (Recalled from ER Triage Doc. by RN): pt to the ED with complaints of worsening cellulitis and SOB since this morning. pt has redness and rash to her abdomen that extends around to her flank and back. pt reports feeling SOB but has no obvious swelling to throat or lips and is currently. pt abdomen is warm to the touch but currently doesn't have any drainage at the incision site. History of Present Illness HPI narrative: 24-year-old female presents to the ED with complaints of worsening rash, shortness of breath that started this morning. She has raised, erythematous rash that started on the . She was here and given Bactrim and steroids for this rash. It started getting worse last night and itching more. The rash does extend more around to her back. She does not have any drainage coming from the rash. She did have a on the . Initially it was thought to be cellulitis. She has been on Bactrim since the . It is warm to touch. The incision from her looks good. Patient did start having the shortness of breath this morning as well. Related Data Previous Rx's ?Medication ?Instructions ?Recorded ibuprofen 800 mg tablet 800 mg PO Q8H PRN pain #20 t abs 06/11/25 oxycodone 5 mg tablet 5 mg PO Q6H PRN pain #20 tab s 06/11/25 diphenhydramine HCl 25 mg tablet 25 mg PO HS PRN aller gic reaction 06/16/25 (Benadryl Allergy) #30 tabs fluconazole 150 mg tablet 150 mg PO Q3D 2 doses #2 tab s 06/16/25 methylprednisolone 4 mg tablets in See Rx Instructions PO PER PKG DIR 06/16/25 a dose pack (Medrol (Malcom)) #21 tabs nystatin 100,000 unit/gram topical 1 applic topical BI D #60 grams 06/16/25 powder sulfamethoxazole 800 1 tab PO Q12H 10 days #20 ta bs 06/16/25 mg-trimethoprim 160 mg tablet triamcinolone acetonide 0.1 % 1 applic topical TID PRN allergic 06/16/25 topical cream reaction #80 grams Allergies Allergy/AdvReac Type Severity Reaction Status Date / Time amoxicillin Allergy Unknown Verified 06/16/25 13:15 allergy reaction Penicillins Allergy Unknown Verified 06/16/25 13:15 allergy reaction morphine AdvReac Severe Unknown Verified 06/16/25 13:15 allergy reaction PFSH PFSH Disclaimer: The information contained in this section may have been updated after the patient was seen, as this information can be updated by other users. Medical History Request for sterilization with 38 completed weeks gestation Spontaneous rupture of membranes uterine contractions, antepartum Miscarriage Ovarian cyst Surgical History S/P with bilateral salpingectomy 06/09/25 Hx of section x2 Family History Grandmother Cancer uterine Endometriosis Other Diabetes Hypertension No significant family history Thyroid disorder Social History Smoking Status: Never smoker alcohol intake: never substance use type: unknown current occupational status: employed Travel in the last 8 weeks?: None household members: spouse Have you lived/traveled outside [place] in past 30 days?: No Contact w/someone who lives/traveled outside [place] past 30 days?: No Exposure to someone with infectious disease in past 14 days?: No Do you have a fever (greater than 100.4 F or 38 C)?: No Have you tested positive for COVID-19?: No Exposed to someone with COVID-19 in past 14 days?: No Do you have a sore throat?: No Do you have a cough?: No Do you have any weakness?: No Do you have any diarrhea?: No Are you experiencing any unusual bleeding?: No Do you have any muscle aches/pain?: No Do you have any abdominal pain?: No Are you experiencing loss of taste or smell?: No Other Medical History Have you received the Flu Vaccine for this season: No Have you received the Pneumonia Vaccine: No ROS Obtained: Yes Systems reviewed as appropriate & no additional complaints except as documented Constitutional Constitutional: Reports as per HPI Physical Exam General General appearance: alert Head Head exam: normocephalic Eye Eye exam: Present PERRL and EOMI ENT ENT exam: Present normal oropharynx and mucous membranes moist Neck Neck exam: Present full ROM and trachea midline Respiratory Respiratory exam: Present normal lung sounds bilaterally Cardiovascular Cardiovascular exam: Present normal rhythm, tachycardia, normal heart sounds, +S1 and +S2 Abdominal Exam Abdominal exam: Present soft, normal bowel sounds and other (Rash present) Extremities Exam Extremities exam: Present normal inspection and full ROM Neurological Exam Neurological exam: Present alert and oriented X3 Skin Skin exam: Present warm, dry and rash (Raised, erythematous rash on abdomen) Medical Decision Making Medical Records Screening: Per USPSTF and CDC recommendations, given the prevalence of disease in our region, it is our hospital?s policy to screen for HIV and viral Hepatitis for all patients aged 18 and over and those with ongoing risk factors. William Inquiry Pt receiving controlled substance: No William was queried for this patient: No Vital Signs: 06/19/25 10:38 06/19/25 11:00 06/19/25 11:31 Temperature 97.8 F Temperature Source Oral Pulse Rate 94 H 73 Pulse Rate [Left Radial] 101 H Respiratory Rate 16 Blood Pressure 137/77 124/74 Blood Pressure [Right Arm] 144/57 H Blood Pressure Mean Blood Pressure Mean [Right Arm] 86 Blood Pressure Source [Right Arm] Automatic Cuff Blood Pressure Position [Right Arm] Sitting 02 Sat by Pulse Oximetry 100 99 98 Oxygen Delivery Method Room Air 06/19/25 12:00 06/19/25 12:14 06/19/25 13:00 Temperature Temperature Source Pulse Rate 82 84 Pulse Rate [Left Radial] Respiratory Rate Blood Pressure 124/82 118/76 117/75 Blood Pressure [Right Arm] Blood Pressure Mean 82 Blood Pressure Mean [Right Arm] Blood Pressure Source [Right Arm] Blood Pressure Position [Right Arm] 02 Sat by Pulse Oximetry 99 100 Oxygen Delivery Method Lab Data Lab Results 06/19/25 10:47: WBC 9.2, RBC 4.82, Hgb 14.3, Hct 44.4, MCV 92.1, MCH 29.7, MCHC 32.2, RDW 11.9, Plt Count 428 H, MPV 9.6, Neut % (Auto) 59.7, Lymph % (Auto) 30.0, [place] % (Auto) 5.1, Eos % (Auto) 3.9, Baso % (Auto) 0.5, Neut # (Auto) 5.5, Lymph # (Auto) 2.8, [place] # (Auto) 0.5, Eos # (Auto) 0.4, Baso # (Auto) 0.1, Sodium 136, Potassium 4.1, Chloride 103, Carbon Dioxide 24, Anion Gap 13.1, BUN 16, Creatinine 1.10 H, Estimated Creat Clear 95, Estimated GFR 61, Est GFR ( Amer) 73, Glucose 77, Calcium 9.9, Magnesium 2.1, Total Bilirubin 0.5, AST 22, ALT 23, Alkaline Phosphatase 118, Troponin I < 0.01, Total Protein 8.0, Albumin 4.2, Globulin 3.8 H, Albumin/Globulin Ratio 1.1, Lipase 22 L 06/19/25 11:20: SARS-CoV-2 (PCR) Not detected, Influenza A Untype (PCR) Not detected, Influenza Type B (PCR) Not detected 06/19/25 10:47 06/19/25 10:47 Orders (Tests/Meds): ED MEDICATIONS Generic Name Dose Route Start Last Admin Trade Name Freq PRN Reason Stop Dose Admin Sodium Chloride 8 ml 06/19/25 10:41 Sodium Chloride 0.9% 10ml Vial IV 07/19/25 10:40 NEEDED PRN dilute pepcid Discontinued Medications Generic Name Dose Route Start Last Admin Trade Name Freq PRN Reason Stop Dose Admin Albuterol/Ipratropium 9 ml 06/19/25 12:05 06/19/25 12:14 Ipratropium/Albuterol 3 Ml Neb IH 06/19/25 12:06 9 ml ONCE ONE Administration Diphenhydramine HCl 25 mg 06/19/25 10:48 06/19/25 11:09 Diphenhydramine 50mg/Ml Vial IV 06/19/25 10:49 25 mg ONCE ONE Administration Epinephrine HCl 0.3 mg 06/19/25 10:58 06/19/25 11:02 Epinephrine 1 Mg/Ml Vial IM 06/19/25 10:59 0.3 mg ONCE ONE Administration Famotidine 20 mg 06/19/25 10:41 06/19/25 11:07 Famotidine 20mg/2ml Vial IV 06/19/25 10:42 20 mg ONCE ONE Administration Hydroxyzine HCl 25 mg 06/19/25 12:05 06/19/25 12:14 Hydroxyzine 50mg/Ml Vial IM 06/19/25 12:06 25 mg ONCE ONE Administration Sodium Chloride 1,000 mls @ 999 mls/hr 06/19/25 10:41 06/19/25 12:25 Sod Chlor 0.9% 1000ml Bag IV 06/19/25 11:41 Infused .Q1H1M ONE Infusion Methylprednisolone Sodium Succinate 125 mg 06/19/25 10:41 06/19/25 11:08 Methylprednisolone Sod Succ 125mg Vial IM 06/19/25 10:42 125 mg ONCE ONE Administration ORDERS Category Date Time Status Chest XR -- portable [XR chest portable] Stat Exams 06/19/25 10:41 Taken POCUS Point of Care (ER Only) Stat Exams 06/19/25 10:47 Completed CBC [Complete Blood Count Auto Diff] Stat Lab 06/19/25 10:47 Completed Comprehensive Metabolic Panel Stat Lab 06/19/25 10:47 Completed Lipase Stat Lab 06/19/25 10:47 Completed Magnesium Stat Lab 06/19/25 10:47 Completed Rapid PCR Covid and Flu A/B Stat Lab 06/19/25 11:20 Completed Trop I [Troponin I] Stat Lab 06/19/25 10:47 Completed Troponin I Q3H Lab 06/19/25 13:45 Ordered Troponin I Q3H Lab 06/19/25 16:45 Ordered Medical Decision Narrative: patient is a 24-year-old female presenting to the emergency department for evaluation of rash, shortness of breath since this morning. Patient is hemodynamically stable and nontoxic-appearing upon arrival, afebrile. Differential diagnosis includes anaphylaxis, allergic reaction, PE, among other. Workup will be conducted with hematologic labs, specific imaging. Initial inventions include famotidine, Benadryl, Solu-Medrol, also gave Epi. 1124 recheck: patient still feels like she has something in her throat and remains with some shortness of breath, still itching. Initial workup reviewed by me hematologic labs are remarkable for White count was 9.2, H&H were normal, electrolytes were normal, and BUN was 1.1, troponin was less than 0.01, COVID and flu were not detected. Imaging for patient was negative and read by Dr. Tompkins. Discussed plan with Dr. Tompkins and he saw the patient as well. Patient has received several medications over her stay here in the ED. She has improved significantly since she arrived. She now denies chest tightness, shortness of breath. She does continue to complain of itching but that has also improved. Discussed with patient the plan for home. She will go home with EpiPen's, Zyrtec. We discussed with her when to use an EpiPen. We also discussed return precautions. Patient is safe for discharge home. Critical Care Critical Care Time Critical Care Time: No
[2025-06-19 11:19] LABS: Creatinine Clearance Estimated 95 mL/min (50-200)
[2025-06-19 11:23] LABS: Coronavirus 19, PCR Not Detected (NotDetected); Influenza A, PCR Not Detected (NotDetected); Influenza B, PCR Not Detected (NotDetected)
[2025-06-19 11:27] LABS: Troponin I < 0.01 ng/ml (0.00-0.034)
[2025-06-19] MEDS: IPRATROPIUM/ALBUTEROL 3 ML NEB 9 ML IH (12:14)
--- NOTE | 2025-06-19 12:57 | PC.NURSE ---
patient reports still itching provider is notified . no new orders at this time
== END 2025-06-19 13:22 | disposition home or self-care (01) ==
PROVIDERS: Nurse Practitioner; Emergency Provider Student in an Organized Health Care Education/Training Program; PCP Nurse Practitioner
DX: R06.02 Shortness of breath (principal); L25.9 Unspecified contact dermatitis, unspecified cause
CPT/HCPCS: 71045; 80053; 83690; 83735; 84484; 85025; 87636; 93005; 96361; 96372; 96374; 96375; 99285; J0169; J1200; J1308; J2919; J3410; J7030